=== PATIENT | male | born 1960 | race Caucasian/White ===

== ENCOUNTER 2022-09-20 12:54 | Outpatient (OUT) | payer OTHER, SELFPAY | END 2022-09-20 12:55 | LOC: WC 12:54 | PROVIDERS: PCP Internal Medicine; Visit Provider Podiatrist Foot & Ankle Surgery | DX: T81.89XA Other complications of procedures, not elsewhere classified, initial encounter (principal) | CPT/HCPCS: 11042; 99212; A6213; G0463 ==

== ENCOUNTER 2022-10-11 08:52 | Outpatient (OUT) | payer OTHER, SELFPAY | END 2022-10-11 08:53 | disposition home or self-care (01) | LOC: WC 08:52 | PROVIDERS: PCP Internal Medicine; Visit Provider Podiatrist Foot & Ankle Surgery | DX: T81.89XA Other complications of procedures, not elsewhere classified, initial encounter (principal); M21.6X1 Other acquired deformities of right foot; I10 Essential (primary) hypertension; M19.071 Primary osteoarthritis, right ankle and foot; M86.671 Other chronic osteomyelitis, right ankle and foot; M25.571 Pain in right ankle and joints of right foot; Z86.14 Personal history of Methicillin resistant Staphylococcus aureus infection; M76.821 Posterior tibial tendinitis, right leg; K21.9 Gastro-esophageal reflux disease without esophagitis | CPT/HCPCS: 11042; A6213 ==

== ENCOUNTER 2022-11-01 08:50 | Outpatient (OUT) | payer OTHER, SELFPAY ==
--- NOTE | 2022-11-01 09:02 | XR_ITS ---
[address] [address] Patient Name: ANIRUDH MANTILLA MRN: [id number] date: 1960 Sex: M Assigned Patient Location: [facility] Current Patient Location: [facility] Accession/Order Number: [id number] Exam Date: 11/01/2022 09:02 Report Date: 11/01/2022 09:35 At the request of: ANASTASIYA FOX Procedure: XR ankle RT min 3V PROCEDURE: XR foot RT min 3V, XR ankle RT min 3V COMPARISON: 07/28/2022 HISTORY: RIGHT FOOT PAIN FINDINGS: BONES:Posterior calcaneal osteotomy transfixed with a single cannulated screw which extends into the talus. Osteotomy and wedged spacer placement medial cuneiform. Lucency in the distal tibia likely from bone graft harvest. Severe degenerative changes of the talonavicular joint with bony remodeling. Diffuse permeative pattern of the bones SOFT TISSUES:Moderate hindfoot and midfoot soft tissue swelling. EFFUSION:None visible. OTHER: Negative. XR/XR ankle RT min 3V IMPRESSION: Stable postsurgical, degenerative changes and osteopenia Moderate hindfoot midfoot soft tissue swelling Electronically authenticated by: NADIA TINOCO Date: 11/01/2022 09:35
--- NOTE | 2022-11-01 09:02 | XR_ITS ---
[address] [address] Patient Name: ANIRUDH MANTILLA MRN: [id number] date: 1960 Sex: M Assigned Patient Location: [facility] Current Patient Location: [facility] Accession/Order Number: [id number] Exam Date: 11/01/2022 09:02 Report Date: 11/01/2022 09:35 At the request of: ANASTASIYA FOX Procedure: XR foot RT min 3V PROCEDURE: XR foot RT min 3V, XR ankle RT min 3V COMPARISON: 07/28/2022 HISTORY: RIGHT FOOT PAIN FINDINGS: BONES:Posterior calcaneal osteotomy transfixed with a single cannulated screw which extends into the talus. Osteotomy and wedged spacer placement medial cuneiform. Lucency in the distal tibia likely from bone graft harvest. Severe degenerative changes of the talonavicular joint with bony remodeling. Diffuse permeative pattern of the bones SOFT TISSUES:Moderate hindfoot and midfoot soft tissue swelling. EFFUSION:None visible. OTHER: Negative. XR/XR foot RT min 3V IMPRESSION: Stable postsurgical, degenerative changes and osteopenia Moderate hindfoot midfoot soft tissue swelling Electronically authenticated by: NADIA TINOCO Date: 11/01/2022 09:35
== END 2022-11-01 08:51 | disposition home or self-care (01) ==
LOC: RAD 08:51
PROVIDERS: PCP Internal Medicine; Visit Provider Podiatrist Foot & Ankle Surgery
DX: M79.89 Other specified soft tissue disorders (principal); M25.571 Pain in right ankle and joints of right foot
CPT/HCPCS: 36415; 73610; 73630; 80048; 85025; 85652; 86140

== ENCOUNTER 2022-11-01 10:20 | Outpatient (OUT) | payer OTHER, SELFPAY ==
[2022-11-01 10:48] LABS: Basophils Absolute Auto 0.1 10^3/uL (0.0-0.1); Basophils Percent Auto 0.6 % (0.2-2.0); Eosinophils Percent Auto 0.3 % (0.9-7.0); Hematocrit 39.1 % (42.0-54.0); Hemoglobin 13.6 g/dL (14.0-18.0); Immature Granulocytes Abs Auto 0.06 10^3/uL (0.00-0.03); Immature Granulocytes Pct Auto 0.5 % (0.0-0.5); Lymphocytes Absolute Auto 1.1 10^3/uL (1.2-3.8); Lymphocytes Percent Auto 8.9 % (20.5-60.0); Mean Corpuscular HGB Conc 34.8 g/dL (29.9-35.2); Mean Corpuscular Hemoglobin 32.6 pg (25.9-34.0); Mean Corpuscular Volume 93.8 fL (80.0-94.0); Mean Platelet Volume 10.4 fL (9.5-13.5); Monocytes Absolute Auto 0.9 10^3/uL (0.3-0.8); Monocytes Percent Auto 7.3 % (1.7-12.0); Neutrophils Absolute Auto 10.4 10^3/uL (1.4-6.5); Neutrophils Percent Auto 82.4 % (43.0-75.0); Platelet Count 269 10^3/uL (150-450); Red Blood Count 4.17 10^6/uL (4.70-6.10); Red Cell Distribution Width 13.6 % (11.0-15.0); White Blood Count 12.6 10^3/uL (4.0-11.0)
[2022-11-01 11:08] LABS: Erythrocyte Sedimentation Rate 115 mm/hr (<=20)
[2022-11-01 11:53] LABS: Anion Gap 18.7; BUN Creatinine Ratio 8.6; C Reactive Protein 29.8 mg/dL (<=1.0); Calcium 9.5 mg/dL (8.5-10.1); Carbon Dioxide 22.1 mmol/L (21.0-32.0); Chloride 94 mmol/L (98-107); Estimated GFR (African America >60 (>=60); Estimated GFR (Non-African Ame >60 (>=60); Glucose 87 mg/dL (74-106); Potassium 3.8 mmol/L (3.5-5.1); Sodium 131 mmol/L (136-145)
== END 2022-11-01 10:21 | disposition home or self-care (01) ==
LOC: LAB 10:22
PROVIDERS: PCP Internal Medicine; Visit Provider Podiatrist Foot & Ankle Surgery
DX: M79.89 Other specified soft tissue disorders (principal)
CPT/HCPCS: 36415; 80048; 85025; 85652; 86140

== ENCOUNTER 2022-11-15 18:23 | Observation (INO) | payer OTHER, SELFPAY ==
[2022-11-15] VITALS (32 sets, daily range): BP systolic 135–150; BP diastolic 90–95; PULSE 91–111; RESP 15–26; TEMP 36.2–36.9; O2SAT 94–100; BMI 30.9; BMI 31.1
[2022-11-15] MEDS: 0.9 % SODIUM CHLORIDE 1,000 ML 999 ML IV (19:35)
[2022-11-15] MEDS: FAMOTIDINE/PF 20 MG/2 ML VIAL IV (19:36)
[2022-11-15] MEDS: METHYLPREDNISOLONE SOD SUCC PF 125 MG/2 ML VIAL IVP (19:36)
[2022-11-15] MEDS: DIPHENHYDRAMINE HCL 50 MG/ML (1ML) VIAL 25 MG IV (19:36)
[2022-11-15] MEDS: ALBUTEROL SULFATE 2.5 MG/3 ML VIAL NEB IH (19:38)
--- NOTE | 2022-11-15 20:34 | ED_ITS ---
Documented by User: [email or web address] Yeager 11/15/22 20:59 HPI - Allergic Reaction General Chief complaint: Allergic Reaction Stated complaint: ALLERGIC REACTION Time Seen by Provider: 11/15/22 19:01 Source: patient Mode of arrival: walk-in History of Present Illness HPI narrative: patient is a 61-year-old male who presents to the emergency department for lower lip swelling that began this afternoon. Patient states for the last three days he has had hives to his arms and legs although he states at this time the hives have resolved. He states he noticed swelling of his lower lip this afternoon and was concerned because he has a history of angioedema that required intubation at this facility with an ICU stay. He states he was on was lisinopril that time and was thought to cause the angioedema. He denies any new exposures although he did recently have medications changed several weeks ago. He is currently on amlodipine for blood pressure and states he started a new arthritis medication. He took Benadryl just prior to arrival. Related Data Home Medications Medication Instructions Recorded Confirmed amlodipine 5 mg-olmesartan 20 mg 1 tab PO DAILY 11/15/22 11/15/22 tablet levothyroxine 200 mcg tablet 200 mcg PO DAILY 11/15/22 11/15/22 meloxicam 15 mg tablet 15 mg PO DAILY 11/15/22 11/15/22 oxaprozin 600 mg tablet 600 mg PO BID 11/15/22 11/15/22 Allergies Allergy/AdvReac Type Severity Reaction Status Date / Time lisinopril Allergy Severe Verified 11/15/22 18:57 Review of Systems ROS Constitutional Denies: fever or chills Ears, nose, mouth, and throat Denies: throat pain Respiratory Denies: shortness of breath or cough Gastrointestinal Denies: nausea or vomiting Musculoskeletal Denies: back pain Integumentary/Breast Reports: rash Allergic/Immunologic Reports: hives Exam Narrative Exam Narrative: Gen.: Awake, alert, in no distress Head: Normocephalic, atraumatic ENT: Moist mucous membranes, lower lip is edematous, no edema of the tongue. Airway widely open and patent. Clear speech. No stridor. Respiratory: No respiratory distress, lungs clear bilaterally Cardio: Regular rate and rhythm Extremities: Moves extremities equally, no injuries noted Psych: Normal mood and affect Neuro: No focal neuro deficit Skin: Warm, dry, intact; no urticaria noted Constitutional Vital Signs, click to edit/add: Last Vital Signs Temp 98.4 F 11/15/22 18:57 Pulse 104 H 11/15/22 19:45 Resp 20 11/15/22 19:45 BP 150/95 H 11/15/22 18:57 Pulse Ox 99 11/15/22 19:47 O2 Del Method Room Air 11/15/22 19:47 Course Vital Signs Vital signs: Vital Signs Temperature 98.4 F 11/15/22 18:57 Pulse Rate 111 H 11/15/22 18:57 Respiratory Rate 20 11/15/22 18:57 Blood Pressure 150/95 H 11/15/22 18:57 Pulse Oximetry 99 11/15/22 18:57 Oxygen Delivery Method Room Air 11/15/22 18:57 Temperature 98.4 F 11/15/22 18:57 Pulse Rate 104 H 11/15/22 19:45 Respiratory Rate 20 11/15/22 19:45 Blood Pressure 150/95 H 11/15/22 18:57 Pulse Oximetry 99 11/15/22 19:47 Oxygen Delivery Method Room Air 11/15/22 19:47 MDM - Allergic Reaction MDM Narrative Medical decision making narrative: patient was treated with IV fluids, Solu-Medrol, Pepcid, Benadryl. He was given an albuterol treatment. He still feels as though his lip is slightly more swollen although he has no tongue involvement or airway involvement with stable vital signs in the Emergency Room. FFP was ordered for the patient with basic lab studies. Because of the patient's history, we do not feel comfortable sending the patient home and will admit to ICU. Dr. Barba will be available tomorrow if the patient requires emergent intubation overnight. He was reevaluated by Dr. De Leon prior to admission. discussed with Dr. garces for hospitalist service. Patient will be admitted to ICU for observation. Stable at this time. Medical Records Attestation: I reviewed the patient's medical records. Lab Data Attestation: I reviewed the patient's lab results. Discharge Plan Discharge Chief Complaint: Allergic Reaction Clinical Impression: Angioedema Patient Disposition: Admitted as Observation Time of Disposition Decision: 20:59 Discharge Date/Time: 11/15/22 22:02 Documented by User: Britta De Leon MD 11/15/22 23:12 HPI - Allergic Reaction General Chief complaint: Allergic Reaction Stated complaint: ALLERGIC REACTION Time Seen by Provider: 11/15/22 19:01 Related Data Home Medications Medication Instructions Recorded Confirmed amlodipine 5 mg-olmesartan 20 mg 1 tab PO DAILY 11/15/22 11/15/22 tablet levothyroxine 200 mcg tablet 200 mcg PO DAILY 11/15/22 11/15/22 meloxicam 15 mg tablet 15 mg PO DAILY 11/15/22 11/15/22 oxaprozin 600 mg tablet 600 mg PO BID 11/15/22 11/15/22 Allergies Allergy/AdvReac Type Severity Reaction Status Date / Time lisinopril Allergy Severe Verified 11/15/22 18:57 Exam Constitutional Vital Signs, click to edit/add: Last Vital Signs Temp 98.4 F 11/15/22 18:57 Pulse 104 H 11/15/22 19:45 Resp 20 11/15/22 19:45 BP 150/95 H 11/15/22 18:57 Pulse Ox 99 11/15/22 19:47 O2 Del Method Room Air 11/15/22 19:47 Course Vital Signs Vital signs: Vital Signs Temperature 98.4 F 11/15/22 18:57 Pulse Rate 111 H 11/15/22 18:57 Respiratory Rate 20 11/15/22 18:57 Blood Pressure 150/95 H 11/15/22 18:57 Pulse Oximetry 99 11/15/22 18:57 Oxygen Delivery Method Room Air 11/15/22 18:57 Temperature 98.4 F 11/15/22 18:57 Pulse Rate 104 H 11/15/22 19:45 Respiratory Rate 20 11/15/22 19:45 Blood Pressure 150/95 H 11/15/22 18:57 Pulse Oximetry 99 11/15/22 19:47 Oxygen Delivery Method Room Air 11/15/22 19:47 MDM - Allergic Reaction MDM Narrative Medical decision making narrative: patient was treated with IV fluids, Solu-Medrol, Pepcid, Benadryl. He was given an albuterol treatment. He still feels as though his lip is slightly more swollen although he has no tongue involvement or airway involvement with stable vital signs in the Emergency Room. FFP was ordered for the patient with basic lab studies. Because of the patient's history, we do not feel comfortable sending the patient home and will admit to ICU. Dr. Barba will be available tomorrow if the patient requires emergent intubation overnight. He was reevaluated by Dr. De Leon prior to admission. discussed with Dr. garces for hospitalist service. Patient will be admitted to ICU for observation. Stable at this time. Attending physician attestation I have seen and evaluated this patient. I have reviewed the mid-level provider?s documentation medical decision making and treatment plan. I agree with the mid- level provider?s assessment, and plan. Discharge Plan Discharge Chief Complaint: Allergic Reaction Clinical Impression: Angioedema Patient Disposition: Admitted as Observation Time of Disposition Decision: 20:59 Discharge Date/Time: 11/15/22 22:02
[2022-11-15 20:39] LABS: Basophils Absolute Auto 0.1 10^3/uL (0.0-0.1); Basophils Percent Auto 0.5 % (0.2-2.0); Eosinophils Absolute Auto 0.2 10^3/uL (0.0-0.7); Eosinophils Percent Auto 1.8 % (0.9-7.0); Hemoglobin 13.8 g/dL (14.0-18.0); Immature Granulocytes Abs Auto 0.04 10^3/uL (0.00-0.03); Immature Granulocytes Pct Auto 0.4 % (0.0-0.5); Lymphocytes Absolute Auto 1.3 10^3/uL (1.2-3.8); Lymphocytes Percent Auto 12.7 % (20.5-60.0); Mean Corpuscular HGB Conc 34.5 g/dL (29.9-35.2); Mean Corpuscular Volume 95.7 fL (80.0-94.0); Mean Platelet Volume 11.6 fL (9.5-13.5); Monocytes Absolute Auto 0.5 10^3/uL (0.3-0.8); Monocytes Percent Auto 5.1 % (1.7-12.0); Neutrophils Absolute Auto 8.2 10^3/uL (1.4-6.5); Neutrophils Percent Auto 79.5 % (43.0-75.0); Platelet Count 294 10^3/uL (150-450); Red Blood Count 4.18 10^6/uL (4.70-6.10); Red Cell Distribution Width 14.6 % (11.0-15.0); White Blood Count 10.4 10^3/uL (4.0-11.0)
[2022-11-15 20:44] LABS: INR 0.97; Prothrombin Time 10.3 sec (9.0-11.6)
[2022-11-15 20:58] LABS: Partial Thromboplastin Time 32.6 sec (22.3-36.2)
[2022-11-16] VITALS (31 sets, daily range): BP systolic 118–152; BP diastolic 85–99; PULSE 85–109; RESP 14–38; TEMP 36.7; O2SAT 96–98
--- NOTE | 2022-11-16 03:27 | P.PN_ITS ---
Progress Note: Subjective Subjective Interval history: CC: Swelling of the lower lip and tongue HPI: This is a very pleasant 61 years old male who presented to emergency room with above complaints. Patient has had episode of angioedema in the past when he was taking ENA inhibitor. That being changed. No recent changes in the patient's medications. He has been on the same regiment for months and months now. On my questioning patient denied using any new toothpaste, mouthwash or any other products that he can think about. Apparently on presentation to the emergency room patient found to have swollen lower lip and tongue. He received complex treatment and seems to be responding well. His symptoms subsided. He been placed under observation for precautions montes. Patient denies any chest pain, palpitations, shortness of breath. His voice is normal. Exam Narrative Exam Narrative: Physical Exam: Not in distress, pleasant, lucid, cooperative, Head - atraumatic, eyes - pupils equal, round, reactive to light, extra ocular movement intact, MMM Neck - supple, thyroid not enlarged, LN not palpated Lungs - clear to auscultation, no dullness on percussion CVS - heart sounds S1, S2, no additional murmurs gallop, regular rate and rhythm Gastrointestinal?abdomen is soft, non-tender, non-distended, no organomegaly, positive bowel sounds Extremities no clubbing, cyanosis or edema Neurological?cranial nerve II?XII grossly intact, no meningeal signs, no cerebellar signs, no sensory deficit Musculoskeletal - joints, no effusions, ROM preserved Dermatological - the skin dry, warm, no rashes Psychiatric?patient is AAO X3, patient has normal affect Constitutional Vital Signs, click to edit/add: Last Vital Signs Temp 97.1 F L 11/15/22 22:38 Pulse 89 11/16/22 02:06 Resp 17 11/15/22 23:20 BP 135/90 11/15/22 23:17 Pulse Ox 97 11/15/22 23:20 O2 Del Method Room Air 11/15/22 22:38 Progress Note: Objective Labs Labs: Short CBC 11/15/22 Range/Units 19:20 WBC 10.4 (4.0-11.0) 10^3/uL Hgb 13.8 L (14.0-18.0) g/dL Hct 40.0 L (42.0-54.0) % Plt Count 294 (150-450) 10^3/uL Progress Note: A&P Assessment and Plan (1) Angioedema: Assessment and Plan: Continue close monitoring in ICU I did not give patient fresh frozen plasma since his symptoms resolved after administration of Benadryl, Pepcid, steroids It is hard to say which 1 of patient's medications has been the culprit but I suspect combination of Norvasc and ARB?hold that if possible (2) HTN (hypertension): Assessment and Plan: Restart home medications with the exception of discussed above. Adjust as needed Plan As the provider for the telehealth service, I attest that I introduced myself to the patient, provided my credentials, disclosed by location and determined that based on a review of the patient's chart and discussion with members of the patient's treatment team, telemedicine via real-time, 2 way, and interactive audio and video platform is an appropriate and effective means of providing the service. ?The patient and I mutually agree this visit is appropriate for telemedicine. ?[place] ?The encounter took approximately 35 minutes. ?The nurse was present during the entire time and I was able to move the stethoscope in appropriate directions. ?The patient was evaluated at the Hospital ? Portions of this note may be dictated using [employer] voice recognition software. Variances in spelling and vocabulary are possible and unintentional. Not all errors may be caught and/or corrected. Please notify the author if any discrepancies are noted and/or if the meaning of any statement is unclear.? ? Patient verbally consented for treatment via video visit with patient currently located at [facility] and provider located in [place]. Telemedicine Attestation Telemedicine Attestation I conducted this encounter from [place] via secure live, [id number] video conference with the patient, located at [facility] with [Angio edema]. Prior to the interview, the risks and benefits of telemedicine were discussed with the patient and verbal consent was obtained.
[2022-11-16 04:22] LABS: Basophils Percent Auto 0.1 % (0.2-2.0); Hematocrit 38.9 % (42.0-54.0); Hemoglobin 13.3 g/dL (14.0-18.0); Immature Granulocytes Abs Auto 0.05 10^3/uL (0.00-0.03); Immature Granulocytes Pct Auto 0.6 % (0.0-0.5); Lymphocytes Absolute Auto 0.3 10^3/uL (1.2-3.8); Lymphocytes Percent Auto 3.6 % (20.5-60.0); Mean Corpuscular HGB Conc 34.2 g/dL (29.9-35.2); Mean Corpuscular Hemoglobin 33.1 pg (25.9-34.0); Mean Corpuscular Volume 96.8 fL (80.0-94.0); Mean Platelet Volume 10.5 fL (9.5-13.5); Monocytes Percent Auto 0.4 % (1.7-12.0); Neutrophils Absolute Auto 8.6 10^3/uL (1.4-6.5); Neutrophils Percent Auto 95.3 % (43.0-75.0); Platelet Count 250 10^3/uL (150-450); Red Blood Count 4.02 10^6/uL (4.70-6.10); Red Cell Distribution Width 14.3 % (11.0-15.0)
[2022-11-16 04:33] LABS: Anion Gap 16.1; BUN Creatinine Ratio 20.5; Carbon Dioxide 19.9 mmol/L (21.0-32.0); Chloride 96 mmol/L (98-107); Estimated GFR (African America >60 (>=60); Estimated GFR (Non-African Ame >60 (>=60); Glucose 166 mg/dL (74-106); Sodium 128 mmol/L (136-145)
[2022-11-16] MEDS: FAMOTIDINE/PF 20 MG/2 ML VIAL IV (05:14)
[2022-11-16] MEDS: LEVOTHYROXINE SODIUM 100 MCG TABLET 200 MCG PO (05:35)
[2022-11-16] MEDS: METHYLPREDNISOLONE SOD SUCC PF 125 MG/2 ML VIAL IVP (06:54)
--- NOTE | 2022-11-16 08:57 | PM.HP ---
H&P: HPI History of Present Illness Chief complaint: ALLERGIC REACTION ANGIODEMA Narrative: Patient with a history of angioedema from ENA inhibitor presented to the emergency room with hives but also swelling of his lips. Patient was admitted to the ICU secondary to concern for rapid progression as he had previously with his ENA inhibitor. Patient currently taking Norvasc with olmesartan. Meds Home Medications and Allergies Home Medications Medication Instructions Recorded Confirmed Type levothyroxine 200 mcg tablet 200 mcg PO DAILY 11/15/22 11/15/22 History meloxicam 15 mg tablet 15 mg PO DAILY 11/15/22 11/15/22 History amlodipine 5 mg tablet 5 mg PO DAILY #30 tabs 11/16/22 Rx omeprazole 40 mg capsule,delayed 40 mg PO DAILY 11/16/22 11/16/22 History release prednisone 20 mg tablet 60 mg PO DAILY #12 tabs 11/16/22 Rx Allergies Allergy/AdvReac Type Severity Reaction Status Date / Time lisinopril Allergy Severe Verified 11/15/22 18:57 Exam Constitutional Vital Signs, click to edit/add: Last Vital Signs Temp 98.0 F 11/16/22 08:03 Pulse 86 11/16/22 08:03 Resp 16 11/16/22 08:03 BP 152/99 H 11/16/22 08:03 Pulse Ox 98 11/16/22 08:03 O2 Del Method Room Air 11/16/22 08:03 Documenting provider has reviewed patient's vital signs: yes Common normals: no apparent distress Chest Common normals: inspection of chest normal Respiratory Common normals: normal respiratory effort Cardio Common normals: regular rate and regular rhythm Results Labs Labs: Short CBC 11/15/22 11/16/22 Range/Units 19:20 04:05 WBC 10.4 9.0 (4.0-11.0) 10^3/uL Hgb 13.8 L 13.3 L (14.0-18.0) g/dL Hct 40.0 L 38.9 L (42.0-54.0) % Plt Count 294 250 (150-450) 10^3/uL BMP 11/16/22 04:05 Sodium 128 L Potassium 4.0 Chloride 96 L Carbon Dioxide 19.9 L BUN 17.0 Creatinine 0.83 Glucose 166 H Calcium 9.0 Assessment and Plan Assessment and Plan (1) Angioedema: (2) HTN (hypertension): Plan Patient with a significant history of angioedema, requiring ventilation prior. This was secondary to ENA inhibitor. He was placed on an ARB. At this point time we are recommending him to not continue with the olmesartan. We will continue him on Norvasc. We will maintain prednisone for a few days because he did have hives. Recommend follow-up with his PCP within the next week to follow-up for his blood pressure control. Medication status. Overall patient much improved
--- NOTE | 2022-11-16 10:00 | CM.NOTE ---
Rounds made with Dr. Hutchins. Medication changes discussed with Brayan--will discharge on Prednisone and Norvasc. Mr. Schmidt verbalizes understanding. Plan for discharge today.
--- NOTE | 2022-11-22 14:57 | CM.DCFOLLOWU ---
3 discharge follow up calls made, no answer
== END 2022-11-16 09:23 | disposition home or self-care (01) ==
LOC: ER 21:48 → ICU 22:33
PROVIDERS: Physician Assistant; Admitting Provider Internal Medicine; Emergency Provider Emergency Medicine; PCP Internal Medicine; Visit Provider Family Medicine
DX: T78.3XXA Angioneurotic edema, initial encounter (principal); I10 Essential (primary) hypertension; T46.5X5A Adverse effect of other antihypertensive drugs, initial encounter; Z79.899 Other long term (current) drug therapy; Z79.890 Hormone replacement therapy
CPT/HCPCS: 36415; 80048; 85025; 85610; 85730; 86900; 86901; 86927; 94640; 94761; 96374; 96375; 96376; 99285; G0378; J2930; Q3014

== ENCOUNTER 2022-11-22 12:12 | Outpatient (OUT) | payer OTHER, SELFPAY ==
--- NOTE | 2022-11-22 12:11 | XR_ITS ---
The [address] [address] Patient Name: ANIRUDH MANTILLA MRN: [id number] date: 1960 Sex: M Assigned Patient Location: [facility] Current Patient Location: [facility] Accession/Order Number: [id number] Exam Date: 11/22/2022 12:11 Report Date: 11/22/2022 15:14 At the request of: ANASTASIYA FOX Procedure: XR foot RT min 3V STUDY: XR foot RT min 3V, [id number] HISTORY: RIGHT FOOT PAIN COMPARISON: Right foot x-rays 11/01/2022. FINDINGS: No acute fracture, dislocation, or suspicious osseous lesion. Diffuse osseous demineralization. Calcaneal osteotomy with talocalcaneal arthrodesis, similar. Medial cuneiform osteotomy similar. 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 Mild focal soft tissue swelling of the dorsal foot, mildly worse compared with 11/01/2022. No radiopaque foreign body or calcified soft tissue mass. XR/XR foot RT min 3V IMPRESSION: 1. Mildly worsening soft tissue swelling of the dorsal foot. 2. Remainder of the exam is stable. Electronically authenticated by: BLAKE LEE Date: 11/22/2022 15:14
== END 2022-11-22 12:13 | disposition home or self-care (01) ==
LOC: RAD 12:12
PROVIDERS: PCP Internal Medicine; Visit Provider Podiatrist Foot & Ankle Surgery
DX: M19.071 Primary osteoarthritis, right ankle and foot (principal); M79.89 Other specified soft tissue disorders
CPT/HCPCS: 73630

== ENCOUNTER 2022-11-23 14:22 | Outpatient (OUT) | payer OTHER, SELFPAY ==
--- NOTE | 2022-11-23 14:26 | CT_ITS ---
The [address] [address] Patient Name: ANIRUDH MANTILLA MRN: [id number] date: 1960 Sex: M Assigned Patient Location: CT Current Patient Location: CT Accession/Order Number: [id number] Exam Date: 11/23/2022 14:30 Report Date: 11/23/2022 16:21 At the request of: ANASTASIYA FOX Procedure: CT ankle RT wo con EXAM: CT ankle RT wo con HISTORY: Ankle pain COMPARISON: X-rays 11/22/2022 and 11/01/2022 TECHNIQUE: Axial CT imaging is performed. Sagittal and coronal reformatted/reconstructed sequencing was additionally performed. FINDINGS: IMPRESSION: Patient is status post calcaneal osteotomy and attempted retrograde talocalcaneal arthrodesis. The osteotomy site exhibits only partial osseous incorporation of approximately the cephalad 50%. A single retrograde screw exhibits no fracture. There has been removal of the caudal retrograde screw. There is no osseous incorporation of the posterior subtalar joint. Patient has additionally undergone osteotomy of the medial cuneiform. The internal wedge appears to have subluxed lateral from the medial cuneiform with secondary erosion into the lateral cuneiform. Severe chronic fragmentation of the navicular and talar head. 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 Defect within the distal tibia raising the suspicion of a bone graft harvest site. The talocrural articulation is maintained. Scattered subcutaneous soft tissue edema. 30 transverse x 17.7 AP by at least 31 mm craniocaudal fluid collection within the dorsal soft tissues overlying the first tarsometatarsal articulation, medial cuneiform and metatarsal base. Global muscle fatty infiltration. Electronically authenticated by: NADIA VAZ Date: 11/23/2022 16:21
== END 2022-11-23 14:23 | disposition home or self-care (01) ==
LOC: CT 14:22
PROVIDERS: PCP Internal Medicine; Visit Provider Podiatrist Foot & Ankle Surgery
DX: M19.071 Primary osteoarthritis, right ankle and foot (principal); M86.671 Other chronic osteomyelitis, right ankle and foot; T81.31XD Disruption of external operation (surgical) wound, not elsewhere classified, subsequent encounter; R93.6 Abnormal findings on diagnostic imaging of limbs; M79.89 Other specified soft tissue disorders; Z98.890 Other specified postprocedural states; Z96.7 Presence of other bone and tendon implants
CPT/HCPCS: 73700

== ENCOUNTER 2022-12-23 09:20 | Outpatient (OUT) | payer OTHER, SELFPAY ==
--- NOTE | 2022-12-23 | XR_ITS ---
The [address] [address] Patient Name: ANIRUDH MANTILLA MRN: [id number] date: 1960 Sex: M Assigned Patient Location: [facility] Current Patient Location: [facility] Accession/Order Number: [id number] Exam Date: 12/23/2022 09:42 Report Date: 12/23/2022 10:44 At the request of: ANASTASIYA FOX Procedure: XR foot RT min 3V PROCEDURE: XR foot RT min 3V HISTORY: RIGHT FOOT PAIN COMPARISON: XR foot right 11/22/2022 FINDINGS: BONES:Posterior calcaneal osteotomy and repair along with fusion of the talocalcaneal joint. Osteotomy and wedge placement within the medial cuneiform. Advanced degenerative changes of the talonavicular joint. Mild flattening of plantar arch. SOFT TISSUES:Proximal dorsal soft tissue swelling; increased since prior study. EFFUSION:None visible. OTHER: Negative. XR/XR foot RT min 3V IMPRESSION: 1. Stable surgical changes and degenerative changes without evidence of hardware failure or change in alignment. 2. Increase in dorsal soft tissue swelling of uncertain etiology. Electronically authenticated by: MAO CATHERINE Date: 12/23/2022 10:44
== END 2022-12-23 09:21 | disposition home or self-care (01) ==
LOC: RAD 09:20
PROVIDERS: PCP Internal Medicine; Visit Provider Podiatrist Foot & Ankle Surgery
DX: M79.671 Pain in right foot (principal)
CPT/HCPCS: 73630

== ENCOUNTER 2022-12-23 12:30 | Outpatient (OUT) | payer OTHER, SELFPAY ==
--- NOTE | 2022-12-23 13:17 | ECG_ITS ---
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
== END 2022-12-23 12:31 | disposition home or self-care (01) ==
LOC: PST 12:31
PROVIDERS: PCP Internal Medicine; Visit Provider Podiatrist Foot & Ankle Surgery
DX: Z01.810 Encounter for preprocedural cardiovascular examination (principal); L02.611 Cutaneous abscess of right foot; M79.671 Pain in right foot
CPT/HCPCS: 73630; 93005

== ENCOUNTER 2022-12-26 07:40 | Day surgery (SDC) | payer OTHER, SELFPAY ==
[2022-12-23 13:02] VITALS: BP 162/90; PULSE 85; RESP 20; TEMP 36.2; O2SAT 98; BMI 31.7
[2022-12-26] VITALS (8 sets, daily range): BP systolic 129–172; BP diastolic 81–112; PULSE 78–112; RESP 12–18; TEMP 36.2–36.3; O2SAT 92–97; BMI 31.2
[2022-12-26 08:20] LABS: Glucometer 96 mg/dL (74-106)
[2022-12-26] MEDS: LACTATED RINGER'S SOLUTION 1,000 ML 50 ML IV (08:25)
[2022-12-26] MEDS: VANCOMYCIN HCL 1,000 MG VIAL 1000 MG TOPICAL (10:32)
[2022-12-26] MEDS: CEFAZOLIN SODIUM/DEXTROSE,ISO 2 GM/50 ML PIGGYBACK IV (10:32)
[2022-12-26] MEDS: BUPIVACAINE HCL 0.5% PF 50 MG/10 ML VIAL INJ (10:35)
[2022-12-26 10:53] LABS: Glucometer 71 mg/dL (74-106)
--- NOTE | 2022-12-26 12:04 | P.ORON_ITS ---
Brief Operative Note Date of procedure: 12/26/22 Pre-op diagnosis: left foot abscess Post-op diagnosis: same as pre-op Procedure: PROCEDURES PERFORMED: incision and drainage of deep left foot abscess INTRAOPERATIVE FINDINGS: no ulceration or break in skin. 2 x 1.5 cm fluctuance fluid-filled mass on dorsal left footwhich upon incision abscess was evident. Pus was noted in the fascial planes and adjacent to tendons but no tendon involvement and no communication with bone. Bone biopsy revealed sclerotic bone. PROCEDURE IN DETAIL: Patient was identified in pre op and consent was reviewed. Correct side and site were identified and marked. Pre-op antibiotics were started. Patient was brought to OR suite and place on table in a supine position. General anesthesia was administered. Tourniquet applied. Operative extremity was prepped and draped in usual sterile fashion. Formal time-out was performed and the foot/ankle were elevated for several minutes and the tourniquet was inflated. Utilizing a scalpel, an incision was placed on the dorsal medial foot evacuating approximately 3 mL of purulence. All nonviable tissue was sharply excised and a tissue swab was obtained of the purulence to be sent to [facility]. Blunt dissection with a hemostat was performed to ensure no additional purulence or necrotic tissue was present. pus did not communicate with tendon or bone. After full excision the surgical site was irrigated with 3 L of copious sterile saline. Gloves were changed and all dirty instruments were passed off the sterile field. then deeper dissection over the dorsal navicular and medial cuneiform was performed. A clean rongeur was used to obtain bone from the navicular and medial cuneiform. Surgical site was irrigated copiously and the tourniquet was deflated noting a prompt hyperemic response. All remaining tissue blood appropriately. 1 g of vancomycin powder placed into the surgical siteThe incision was then partially closed leaving a 1.5 cm central aspect open which was packed with plain gauze packing soaked in Betadine. A bulky dry sterile dressing and surgical shoe were then applied. Patient tolerated the procedure and anesthesia well transferred to the recovery room with vital signs stable and brisk capillary refill to the toes. POSTOPERATIVE PLAN: Discharge home under family's care Post op instructions provided verbally and written prescription(s) were placed in chart - Augmentin and Bactrim were prescribed which will be changed pending cultures partial protected weightbearing to operative foot/ankle x3 wks Follow-up within 3-5 days for packing change Implants: none Anesthesia: General-LMA Surgeon: Cy Frankel Laborer Prestressed Concrete: Shahid Carbajal Estimated blood loss (mL): 10 Pathology: other (bone from navicular and soft tissue swabs) Condition: stable Disposition: PACU Preoperative Details Reason for procedure: patient is a 61-year-old male who underwent hindfoot fusion in January 2022. His recovery was complicated by dehiscence of medial foot incision and concern for infection. He subsequently underwent hardware removal and cultures at that time were negative. 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 He presented to my office on 12/23/22 relating to a mass on his dorsal left foot. at that visit she had no erythema and mild tenderness however on exam this mass was fluctuant and there is concern for abscess versus seroma. 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 We did not been on antibiotics for over three weeks therefore I recommended incision and drainage of this mass with biopsy and the patient agreed. He was educated on potential risks and benefits and all questions were answered to satisfaction.
== END 2022-12-26 11:54 | disposition home or self-care (01) ==
PROVIDERS: PCP Internal Medicine; Visit Provider Podiatrist Foot & Ankle Surgery
PROC: (CPT 1470; principal; 2022-12-26 08:40)
DX: L02.611 Cutaneous abscess of right foot (principal); M65.071 Abscess of tendon sheath, right ankle and foot; M86.171 Other acute osteomyelitis, right ankle and foot; M86.671 Other chronic osteomyelitis, right ankle and foot; Z79.82 Long term (current) use of aspirin; Z79.899 Other long term (current) drug therapy; Z86.14 Personal history of Methicillin resistant Staphylococcus aureus infection; Z87.891 Personal history of nicotine dependence; I10 Essential (primary) hypertension; K21.9 Gastro-esophageal reflux disease without esophagitis; M76.821 Posterior tibial tendinitis, right leg; M19.071 Primary osteoarthritis, right ankle and foot; S86.111S Strain of other muscle(s) and tendon(s) of posterior muscle group at lower leg level, right leg, sequela; M21.071 Valgus deformity, not elsewhere classified, right ankle; M21.6X1 Other acquired deformities of right foot
CPT/HCPCS: 28002; 36415; 82948; 87070; 87102; 87116; 87150; 87186; 87205; 87206; 88305; 88311; 99999; J2704; J3370

== ENCOUNTER 2023-01-06 09:00 | Outpatient (OUT) | payer OTHER, SELFPAY | END 2023-01-06 09:01 | disposition home or self-care (01) | LOC: WC 09:00 | PROVIDERS: PCP Internal Medicine; Visit Provider Podiatrist Foot & Ankle Surgery | DX: T81.89XA Other complications of procedures, not elsewhere classified, initial encounter (principal) | CPT/HCPCS: A6199; A6213; G0463 ==

== ENCOUNTER 2023-01-13 10:07 | Outpatient (OUT) | payer OTHER, SELFPAY | END 2023-01-13 10:08 | disposition home or self-care (01) | LOC: WC 10:08 | PROVIDERS: PCP Internal Medicine; Visit Provider Podiatrist Foot & Ankle Surgery | DX: T81.89XA Other complications of procedures, not elsewhere classified, initial encounter (principal) | CPT/HCPCS: 11042; A6213 ==

== ENCOUNTER 2023-01-24 13:47 | Outpatient (OUT) | payer OTHER, SELFPAY ==
[2023-01-24 14:21] LABS: Basophils Absolute Auto 0.1 10^3/uL (0.0-0.1); Basophils Percent Auto 0.4 % (0.2-2.0); Eosinophils Absolute Auto 0.2 10^3/uL (0.0-0.7); Eosinophils Percent Auto 1.4 % (0.9-7.0); Hematocrit 42.1 % (42.0-54.0); Hemoglobin 14.6 g/dL (14.0-18.0); Immature Granulocytes Abs Auto 0.05 10^3/uL (0.00-0.03); Immature Granulocytes Pct Auto 0.4 % (0.0-0.5); Lymphocytes Absolute Auto 1.5 10^3/uL (1.2-3.8); Lymphocytes Percent Auto 13.2 % (20.5-60.0); Mean Corpuscular HGB Conc 34.7 g/dL (29.9-35.2); Mean Corpuscular Volume 98.1 fL (80.0-94.0); Monocytes Absolute Auto 0.7 10^3/uL (0.3-0.8); Monocytes Percent Auto 6.2 % (1.7-12.0); Neutrophils Absolute Auto 9.1 10^3/uL (1.4-6.5); Neutrophils Percent Auto 78.4 % (43.0-75.0); Platelet Count 226 10^3/uL (150-450); Red Blood Count 4.29 10^6/uL (4.70-6.10); Red Cell Distribution Width 13.7 % (11.0-15.0); White Blood Count 11.6 10^3/uL (4.0-11.0)
[2023-01-24 14:28] LABS: Erythrocyte Sedimentation Rate 103 mm/hr (<=20)
[2023-01-24 14:34] LABS: Alanine Aminotransferase 68 U/L (16-63); Albumin Globulin Ratio 0.8; Albumin Level 3.5 g/dL (3.4-5.0); Alkaline Phosphatase 90 U/L (46-116); Anion Gap 10.4; Aspartate Amino Transferase 55 U/L (15-37); BUN Creatinine Ratio 12.4; Bilirubin Total 0.4 mg/dL (0.2-1.0); C Reactive Protein 3.5 mg/dL (<=1.0); Calcium 9.3 mg/dL (8.5-10.1); Carbon Dioxide 26.6 mmol/L (21.0-32.0); Chloride 100 mmol/L (98-107); Estimated GFR (African America >60 (>=60); Estimated GFR (Non-African Ame >60 (>=60); Globulin 4.6 g/dL; Glucose 108 mg/dL (74-106); Sodium 133 mmol/L (136-145); Total Protein 8.1 g/dL (6.4-8.2)
== END 2023-01-24 13:48 | disposition home or self-care (01) ==
LOC: LAB 13:49
PROVIDERS: PCP Internal Medicine; Visit Provider Internal Medicine Infectious Disease
DX: M86.671 Other chronic osteomyelitis, right ankle and foot (principal)
CPT/HCPCS: 36415; 80053; 85025; 85652; 86140

== ENCOUNTER 2023-01-24 16:00 | Outpatient (OUT) | payer OTHER, SELFPAY | END 2023-01-24 16:01 | disposition home or self-care (01) | LOC: WC 16:01 | PROVIDERS: PCP Internal Medicine; Visit Provider Podiatrist Foot & Ankle Surgery | DX: M86.671 Other chronic osteomyelitis, right ankle and foot (principal); T81.89XA Other complications of procedures, not elsewhere classified, initial encounter | CPT/HCPCS: 36415; 80053; 85025; 85652; 86140; G0463 ==

== ENCOUNTER 2023-02-21 13:05 | Outpatient (OUT) | payer OTHER, SELFPAY ==
[2023-02-21 13:53] LABS: Erythrocyte Sedimentation Rate 75 mm/hr (<=20)
[2023-02-21 14:43] LABS: Alanine Aminotransferase 42 U/L (16-63); Albumin Globulin Ratio 0.8; Albumin Level 3.5 g/dL (3.4-5.0); Alkaline Phosphatase 77 U/L (46-116); Anion Gap 12.6; Aspartate Amino Transferase 30 U/L (15-37); BUN Creatinine Ratio 18.8; Bilirubin Total 0.4 mg/dL (0.2-1.0); C Reactive Protein 0.9 mg/dL (<=1.0); Calcium 9.3 mg/dL (8.5-10.1); Carbon Dioxide 25.8 mmol/L (21.0-32.0); Chloride 99 mmol/L (98-107); Estimated GFR (African America >60 (>=60); Estimated GFR (Non-African Ame 57 (>=60); Globulin 4.2 g/dL; Glucose 106 mg/dL (74-106); Potassium 4.4 mmol/L (3.5-5.1); Sodium 133 mmol/L (136-145); Total Protein 7.7 g/dL (6.4-8.2)
== END 2023-02-21 13:06 | disposition home or self-care (01) ==
LOC: LAB 13:06
PROVIDERS: PCP Internal Medicine; Visit Provider Internal Medicine Infectious Disease
DX: M86.671 Other chronic osteomyelitis, right ankle and foot (principal)
CPT/HCPCS: 36415; 80053; 85652; 86140

== ENCOUNTER 2023-03-30 07:35 | Outpatient (OUT) | payer OTHER, SELFPAY ==
[2023-03-30 08:18] LABS: C Reactive Protein 0.86 mg/dL (<=0.50)
[2023-03-30 08:55] LABS: Erythrocyte Sedimentation Rate 55 mm/hr (<=20)
== END 2023-03-30 07:36 | disposition home or self-care (01) ==
LOC: LAB 07:36
PROVIDERS: PCP Internal Medicine; Visit Provider Internal Medicine Infectious Disease
DX: M86.671 Other chronic osteomyelitis, right ankle and foot (principal)
CPT/HCPCS: 36415; 85652; 86140

== ENCOUNTER 2024-02-04 05:25 | Emergency (ER) | payer SELFPAY ==
[2024-02-04] VITALS (28 sets, daily range): BP systolic 77–176; BP diastolic 54–110; PULSE 70–93; TEMP 36.7; O2SAT 97–98; BMI 30.4
--- OUTSIDE RECORDS SUMMARY | 2024-02-04 05:32 | XMS_ITS | CCD ---
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 Role Phone Caty Donahue Unavailable Unavailable VISH DELUCA Unavailable Unavailable Caty Donahue Unavailable Unavailable NATASHA Deluca Primary Care Provider [phone] NATASHA Deluca Attending Provider TOMER Pan Attending Provider EBRAHEIM, SERGIO Admitting Unavailable TEMI, SERGIO Attending Unavailable VISH DELUCA Primary Care Unavailable VISH DELUCA Referring Unavailable NASIR PAN Admitting Unavailable NASIR PAN Referring Unavailable NASIR PAN Attending Unavailable VISH DELUCA Primary Care Unavailable NASIR PAN Attending Unavailable VISH DELUCA Referring Unavailable VISH DELUCA Primary Care Unavailable NASIR PAN Admitting Unavailable NASIR PAN Admitting Unavailable NASIR PAN Attending Unavailable VISH DELUCA Referring Unavailable VISH DELUCA Primary Care Unavailable EBRAHEIM, SERGIO Attending Unavailable EBRAHEIM, SERGIO Admitting Unavailable EBHEIM, SERGIO Surgeon Unavailable VISH DELUCA Primary Care Unavailable VISH DELUCA Referring Unavailable HI Procedure Practitioner Unavailab VISH Majano Referring Unavailable EBRAHEIM, SERGIO Admitting Unavailable EBRAHEIM, SERGIO Attending Unavailable VISH DELUCA Primary Care Unavailable ANASTASIYA FOX Admitting Unavailable ANASTASIYA FOX Attending Unavailable DR MAO CATHERINE Consulting Unavailable YOSI, DR JJ Primary Care Unavailable ANASTASIYA FOX Consulting Unavailable ANASTASIYA FOX Consulting Unavailable ANASTASIYA FOX Admitting Unavailable ANASTASIYA FOX Attending Unavailable YOSI, DR JJ Primary Care Unavailable VISH HERNANDEZ Consulting Unavailable JERZY GUTIERREZ Consulting Unavailable JADEN GASCA Consulting Unavailable ANA ., MR ALEJA Admitting Unavailable ANA ., MR ALEJA Attending Unavailable YOSI, DR JJ Primary Care Unavailable ANASTASIYA FOX Admitting Unavailable HIGHLANDER, ANASTASIYA Rodriguez Attending Unavailable HIGHLANDER, ANASTASIYA Rodriguez Consulting Unavailable DELUCA, DR JJ Primary Care Unavailable OLIVERADEVONTE Consulting Unavailable HEMMERHERMINIA Consulting Unavailable HEMMER, HERMINIA Rodgers Admitting Unavailable HEMMERHERMINIA Attending Unavailable DELUCA, DR JJ Primary Care Unavailable UMER, TOM Attending Unavailable DELUCA, DR JJ Primary Care Unavailable UMER, TOM Consulting Unavailable UMER, TOM Admitting Unavailable UMER, TOM Attending Unavailable ZIEBER, DR MAO Holloway Consulting Unavailable DELUCA, DR JJ Primary Care Unavailable UMER, TOM Admitting Unavailable UMER, TOM Consulting Unavailable DELUCA, DR JJ Primary Care Unavailable UMER, TOM Consulting Unavailable UMER, TOM Admitting Unavailable UMER, TOM Attending Unavailable UMER, TOM Attending Unavailable ZIEBER, DR MAO Holloway Consulting Unavailable DELUCA, DR JJ Primary Care Unavailable UMER, TOM Admitting Unavailable UMER, TOM Consulting Unavailable HIGHLANDER, ANASTASIYA Rodriguez Attending Unavailable HIGHLANDER, ANASTASIYA Rodriguez Admitting Unavailable ZIEBER, DR MAO Holloway Consulting Unavailable DELUCA, DR JJ Primary Care Unavailable HIGHLANDER, ANASTASIYA Rodriguez Consulting Unavailable HIGHLANDER, ANASTASIYA Rodriguez Admitting Unavailable HIGHLANDER, ANASTASIYA Rodriguez Attending Unavailable DELUCA, DR JJ Primary Care Unavailable HIGHLANDER, ANASTASIYA Rodriguez Consulting Unavailable HIGHLANDER, ANASTASIYA Rodriguez Attending Unavailable HIGHLANDER, ANASTASIYA Rodriguez Admitting Unavailable DELUCA, DR JJ Primary Care Unavailable UMER, TOM Attending Unavailable WEST, DR NADIA Eddy Consulting Unavailable DELUCA, DR JJ Primary Care Unavailable UMER, TOM Admitting Unavailable UMER, TOM Consulting Unavailable HIGHLANDER, ANASTASIYA Rodriguez Admitting Unavailable HIGHLANDER, ANASTASIYA Rodriguez Attending Unavailable ZIEBER, DR MAO Holloway Consulting Unavailable DELUCA, DR JJ Primary Care Unavailable HIGHLANDERANASTASIYA Consulting Unavailable HIGHLANDER, ANASTASIYA Rodriguez Admitting Unavailable HIGHLANDER, ANASTASIYA Rodriguez Attending Unavailable ZIEBER, DR MAO Holloway Consulting Unavailable DELUCA, DR JJ Primary Care Unavailable HIGHLANDER, ANASTASIYA Rodriguez Consulting Unavailable HIGHLANDER, ANASTASIYA Rodriguez Attending Unavailable HIGHLANDER, ANASTASIYA Rodriguez Admitting Unavailable ZIEBER, DR MAO Holloway Consulting Unavailable DELUCA, DR JJ Primary Care Unavailable HIGHLANDER, ANASTASIYA Rodriguez Consulting Unavailable HIGHLANDER, ANASTASIYA Rodriguez Attending Unavailable HIGHLANDER, ANASTASIYA Rodriguez Admitting Unavailable WEST, DR NADIA Eddy Consulting Unavailable DELUCA, DR JJ Primary Care Unavailable HIGHLANDER, ANASTASIYA Rodriguez Consulting Unavailable HIGHLANDER, ANASTASIYA Rodriguez Consulting Unavailable HIGHLANDER, ANASTASIYA Rodriguez Admitting Unavailable RUDDY, ANASTASIYA Rodriguez Attending Unavailable YOSI, DR JJ Primary Care Unavailable DEVONTE OLIVERA Consulting Unavailable HIGHLANDER, ANASTASIYA Rodriguez Consulting Unavailable HIGHLANDER, ANASTASIYA Rodriguez Attending Unavailable HIGHLANDER, ANASTASIYA Rodriguez Admitting Unavailable DELUCA, DR JJ Primary Care Unavailable DANIEL ., DR DANII Mai Consulting Unavailable DANIEL ., DR DANII Mai Admitting Unavailable DANIEL ., DR DANII Mai Attending Unavailable YOSI, DR JJ Primary Care Unavailable EARNEST, DR NADIA Eddy Consulting Unavailable ZIEBER, DR MAO Holloway Consulting Unavailable HIGHLANDER, ANASTASIYA Rodriguez Consulting Unavailable BARTOLOME ., DORINDA BENSON Consulting Unavailable SHARP, DOMINIQUE Consulting Unavailable SHANKAR, ANDRES DACOSTA Consulting Unavailable PASTORA, DICK Consulting Unavailable SEAMON, HOSEA Roberts Consulting Unavailable HIGHLANDER, ANASTASIYA Rodriguez Admitting Unavailable HIGHLANDER, ANASTASIYA Rodriguez Attending Unavailable HIGHLANDER, ANASTASIYA Rodriguez Consulting Unavailable YOSI, DR JJ Primary Care Unavailable HEMHERMINIA SUN Admitting Unavailable DELUCA, DR JJ Primary Care Unavailable HERMINIA JHAVERI Attending Unavailable EARNEST, DR NADIA Eddy Consulting Unavailable YOSI, DR JJ Primary Care Unavailable TOM OWUSU Attending Unavailable TOM OWUSU Admitting Unavailable TOM OWUSU Consulting Unavailable HIGHLEARL, ANASTASIYA Rodriguez Admitting Unavailable RUDDY, ANASTASIYA Rodriguez Attending Unavailable YOSI, DR JJ Primary Care Unavailable Mikal Verde Unavailable Allergies Allergy Classification Reported Allergen(s) Allergy Type Date of Onset Reaction(s) Facility (1 source) No Known Medication Allergies; Translations: [No Known Medication Allergies] Propensity to adverse reactions to drug (disorder) [facility] Repository (3 sources) Amino Acids Drug Allergy 1 [facility] (4 sources) Lisinopril Drug Allergy Unknown [facility] Other Medications Current Medications Medication Drug Class(es) Dates Sig (Normalized) Sig (Original) amoxicillin 500 mg / clavulanate 125 mg oral tablet (2 sources) Penicillin-class Antibacterial take 1 tablet by mouth every twelve hours carvedilol 12.5 mg oral tablet (3 sources) alpha-Adrenergic Stevo, beta-Adrenergic Stevo take 1 tablet by mouth in the morning Carvedilol 12.5 MG TAKE 1 TABLET BY MOUTH IN THE MORNING AND 1 TABLET IN THE EVENING WITH MEALS Oral for 30 Days Active levothyroxine sodium 0.2 mg oral tablet (4 sources) l-Thyroxine take 1 tablet by mouth once daily in the morning Levothyroxine Sodium 200 MCG 1 tablet in the morning on an empty stomach Orally Once a day Active take 1 tablet by radha th once daily in the morning Levothyroxine Sodium 200 MCG 1 tablet in the morning on an empty stomach Orally Once a day Active meloxicam 15 mg oral tablet (4 sources) Nonsteroidal Anti-inflammatory Drug take 1 tablet by mouth every twenty-four hours Meloxicam 15 MG 1 tablet Orally Once a day Active metoprolol tartrate 25 mg oral tablet (1 source) beta-Adrenergic Stevo take 1 tablet by mouth every twenty-four hours Metoprolol Tartrate 25 MG 1 tablet with food Orally once daily Active omeprazole 40 mg delayed release oral capsule (4 sources) Proton Pump Inhibitor take 1 capsule by mouth once daily Omeprazole 40 MG 1 capsule 30 minutes before morning meal Orally Once a day Active sulfamethoxazole 400 mg / trimethoprim 80 mg oral tablet (5 sources) Dihydrofolate Reductase Inhibitor Antibacterial, Sulfonamide Antimicrobial Start: 2022 take 1 tablet by mouth every twelve hours Bactrim 400-80 MG 1 tablet Orally BID for 90 days Mar, Active Start: 03-20-2023 take 1 tablet by radha th every twenty-four hours Bactrim 400-80 MG 1 tablet Orally Once a day for 90 days Mar, Active take 1 tablet by radha th every twelve hours Bactrim DS 800-160 MG 1 tablet Orally Twice a day for 30 days Active Problems Active Problems Problem Classification Problem Date Documented Date Episodic/Chronic Acquired foot deformities (7 sources) Varus deformity, not elsewhere classified, right ankle; Translations: [Valgus deformity, not elsewhere classified, right ankle] Onset: 03-01-2022 Episodic Bacterial infection; unspecified site (5 sources) Personal history of Methicillin resistant Staphylococcus aureus infection; Translations: [PERS HX METHICILLIN RSIST STAPH INF] Onset: 07-01-2022 Episodic Complication of device; implant or graft (2 sources) Unspecified complication of internal orthopedic prosthetic device, implant and graft, initial encounter Episodic Disorders of lipid metabolism (1 source) Hyperlipidemia, unspecified; Translations: [HYPERLIPIDEMIA UNSPECIFIED] Onset: 09-08-2022 Chronic Diverticulosis and diverticulitis (4 sources) Diverticular disease; Translations: [Diverticulosis] Chronic Esophageal disorders (9 sources) Gastro-esophageal reflux disease without esophagitis; 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] Onset: 09-08-2022 Chronic Essential hypertension (5 sources) Essential (primary) hypertension; Translations: [ESSENTIAL PRIMARY HYPERTENSION] Onset: 11-10-2021 Chronic Genitourinary symptoms and ill-defined conditions (1 source) Personal history of urinary (tract) infections; Translations: [PERS HX URINARY TRACT INFECTIONS] Onset: 09-08-2022 Episodic Infective arthritis and osteomyelitis (except that caused by tuberculosis or sexually transmitted disease) (9 sources) Other chronic osteomyelitis, right ankle and foot; Translations: [Chronic osteomyelitis of ankle and/or foot] Onset: 07-31-2022 Chronic Osteoarthritis (5 sources) Primary osteoarthritis, right ankle and foot; Translations: [PRIMARY OSTEOARTHRITIS RT ANK FOOT] Onset: 02-07-2022 Chronic Other acquired deformities (1 source) Contracture, right ankle; Translations: [CONTRACTURE RIGHT ANKLE] Onset: 09-08-2022 Chronic Other acquired deformities (4 sources) Lumbar spondylolisthesis; Translations: [Spondylolisthesis, lumbar region] Episodic Other aftercare (4 sources) Encounter for removal of internal fixation device; Translations: [ENC REMOVAL INTERNAL FIX DEVICE] Onset: 07-28-2022 Episodic Other aftercare (1 source) 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; Translations: [PRECONSTRUCTION MANAGER CURRENT USE OF ASPIRIN] Onset: 08-05-2022 Episodic Other aftercare (1 source) 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; Translations: [OTH PRECONSTRUCTION MANAGER CURRENT DRUG THERAPY] Onset: 08-05-2022 Episodic Other connective tissue disease (4 sources) Impingement syndrome of left shoulder; Translations: [IMPINGEMENT SYNDROME LEFT SHOULDER] Onset: 08-11-2022 Episodic Other connective tissue disease (5 sources) Posterior tibial tendinitis, right leg; Translations: [POSTERIOR TIBIAL TENDINITIS RT LEG] Onset: 07-23-2022 Episodic Other connective tissue disease (5 sources) Pain in right foot; Translations: [PAIN IN RIGHT FOOT] Onset: 07-13-2022 Episodic Other screening for suspected conditions (not mental disorders or infectious disease) (3 sources) Patient encounter status; Translations: [Encounter for screening for malignant neoplasm of colon] Episodic Residual codes; unclassified (1 source) Presence of functional implant, unspecified; Translations: [PRESENCE FUNCTIONAL IMPLANT UNS] Onset: 08-05-2022 Chronic Screening and history of mental health and substance abuse codes (1 source) Personal history of nicotine dependence; Translations: [PERSONAL HISTORY OF NICOTINE DEPEND] Onset: 08-05-2022 Episodic Thyroid disorders (1 source) Hypothyroidism, unspecified; Translations: [HYPOTHYROIDISM UNSPECIFIED] Onset: 09-08-2022 Chronic Unclassified (1 source) PERSONAL HISTORY OF COVID-19; Translations: [PERSONAL HISTORY OF COVID-19] Onset: 09-08-2022 Unclassified (1 source) CONTACT W/AND (SUSP) EXPOS COVID-19; Translations: [CONTACT W/AND (SUSP) EXPOS COVID-19] Onset: 02-04-2022 Viral infection (1 source) COVID-19; Translations: [COVID-19] Onset: 10-22-2021 Past or Other Problems Problem Classification Problem Date Documented Da te Episodic/Chronic Fluid and electrolyte disorders (1 source) Hypo-osmolality and hyponatremia; Translations: [HYPO-OSMOLALITY AND HYPONATREMIA] Onset: 02-04-2022 Episodic Other bone disease and musculoskeletal deformities (1 source) Other specified disorders of bone density and structure, right ankle and foot; Translations: [OTH D/O BONE DEN STRUCT RT ANK FOOT] Onset: 05-18-2022 Episodic Other connective tissue disease (1 source) Other specified soft tissue disorders; Translations: [OTHER SPEC SOFT TISSUE DISORDERS] Onset: 06-15-2022 Episodic Skin and subcutaneous tissue infections (4 sources) Cutaneous abscess of right foot; Translations: [CUTANEOUS ABSCESS OF RIGHT FOOT] Onset: 04-19-2022 Episodic Results Test Name Value Interpretation Reference Range Facility ACID FAST SMEAR AND CXon Acid Fast Culture Negative Normal [facility] Comment on above: Result Comment: No a stephanie fast bacilli isolated after 6 weeks. Performed By: #### A FB ####[facility] [id number] [place] [id number] Mccray Acid Fast Smear Negative Normal [facility] Comment on above: Performed By: #### A FB ####[facility] [address] [place] [id number]. Frederick Mccray [employer] Specimen Processing Tissue Grinding Normal [facility] Comment on above: Performed By: #### A FB ####[facility] [address] [place] [address]Dr. Frederick Mccray FUNGAL CULTUREon 08-27-2022 Fungus (Mycology) Culture Final report Normal [facility] Comment on above: Performed By: #### C XFUN #### [facility] [address] [place] [address] [address] Frederick Mccray Fungus Stain Final report Normal [facility] Comment on above: Performed By: #### C XFUN #### [facility] [address] [place] [address] [address] Frederick Mccray Result 1 Comment Normal [facility] Comment on above: Result Comment: SPRING/ Calcofluor preparation: no fungus observed. Performed By: #### C XFUN #### [facility] [address] [place] [address] [address] Frederick Mccray Result Comment: No y east or mold isolated after 4 weeks. XR FOOT RT 2Von 07-30-2022 XR FOOT RT 2V EXAM: XR FOOT RT 2V HISTORY: Pain COMPARISON: 07/13/2022 TECHNIQUE: 14 intraoperative films FINDINGS: Intraoperative films show progressive removal of calcaneal osteotomy fixation screws as well as screws associated with talocalcaneal and talonavicular arthrodeses. A wedge remains visible at the medial cuneiform osteotomy site. IMPRESSION: Multiple intraoperative films documenting the operative procedure. Electronically authenticated by: Claudio GASCA Date: 2022-07-30 00:40 Normal [facility] XR FOOT RT MIN 3 VIEWSon XR FOOT RT MIN 3 VIEWS EXAMINATION: XR FOOT RT MIN 3 VIEWS, , 07/28/2022 9:35 AM EDT INDICATION: Orthopedic hardware in situ HISTORY: Ordering Provider Reason for Exam: Technologist Note: Additional: COMPARISON: Intraoperative study, same date TECHNIQUE: Right foot x-ray: 3 view(s). FINDINGS: Mild osteopenia generally is noted. A wedge remains visible at the medial cuneiform osteotomy site. Also, a single screw remains visible bridging the posterior subtalar joint. The other pre-existing hardware has been removed. Soft tissue swelling about the foot, with small amounts of subcutaneous air. IMPRESSION: Postoperative study documenting removal of fixation hardware. Electronically authenticated by: Claudio GASCA Date: 2022-07-30 00:42 Normal [facility] CULTURE ANAEROBICon 07-29-19 23 CULTURE ANAEROBIC Culture Observations : NO GROWTH OF ANAEROBES AT 72 HOURS. Normal [facility] Comment on above: Performed By: #### A NACX ####[facility] [id number] [place] [address]Dr. Frederick Mccray CULTURE OTHERon 07-28-2022 CULTURE OTHER Specimen Comments: Navicular Bone Biopsy Right Foot Culture Observations: NO GROWTH OF AEROBES AT 48 HOURS. Normal [facility] Comment on above: Performed By: #### O THCX #### [facility] [address] [place] [address] [address] Frederick HUTCHISON STAINon 07-28-2022 COMMENTS NO ORGANISMS OBSERVED Normal [facility] Comment on above: Performed By: #### G STAIN ####[facility] [address] [place] [address]Dr. Frederick Mccray DIPHTHEROIDS Normal [facility] Comment on above: Performed By: #### G STAIN ####[facility] [address] [place] [address]Dr. Frederick Mccray EPITHELIALS Normal [facility] Comment on above: Performed By: #### G STAIN ####[facility] [address] [place] [address]Dr. Frederick Mccray FUNGAL ELEMENTS Normal [facility] Comment on above: Performed By: #### G STAIN ####[facility] [address] [place] [address]Dr. Frederick Mccray GRAM NEG BACILLI Normal [facility] Comment on above: Performed By: #### G STAIN ####[facility] [address] [place] [address]Dr. Frederick Mccray GRAM NEG DIPPLOCOCCI Normal [facility] Comment on above: Performed By: #### G STAIN ####[facility] [address] [place] [address]Dr. Frederick Mccray GRAM POS BACILLI Normal [facility] Comment on above: Performed By: #### G STAIN ####[facility] [address] [place] [address]Dr. Frederick Mccray GRAM POSITIVE COCCI Normal [facility] Comment on above: Performed By: #### G STAIN ####[facility] [address] [place] [address]Dr. Frederick Mccray GRAM STAIN SOURCE Right foot navicular bone biopsy Normal [facility] Comment on above: Performed By: #### G STAIN ####[facility] [address] [place] [address]Dr. Frederick Mccray GS_DIPTH Normal [facility] Comment on above: Performed By: #### G STAIN ####[facility] [address] [place], [place] [address]Dr. Frederick Mccray WBC Normal [facility] Comment on above: Performed By: #### G STAIN ####[facility] [address] [place], [place] [address]DrSuraj Mccray POINT OF CARE GLUCOSEon 07-16 Glucose [Mass/Vol] 103 mg/dL Normal 74-106 [facility] Comment on above: Performed By: #### A CTHP #### [facility] [address] [place] [address] Dr. Frederick Mccray Glucose [Mass/Vol] 103 mg/dL Normal 74-106 [facility] Comment on above: Performed By: #### P OCGLUC #### [facility] [address] [place] [address] [address] Frederick Mccray CBC AUTO DIFFon 07-26-2022 BASO # 0.1 103/ul Normal 0.0-0.1 [facility] Comment on above: Performed By: #### C BC ####[facility] [address] [place], [place] [address]DrSuraj Mccray Basophils/100 WBC (Bld) 0.5 % Normal 0.2-2.0 [facility] Comment on above: Performed By: #### C BC ####[facility] [address] [place], [place] [address]DrSuraj Mccray EO # 0.2 103/ul Normal 0.0-0.7 [facility] Comment on above: Performed By: #### C BC ####[facility] [address] [place] [address]Dr. Frederick Mahendra Eosinophils/100 WBC (Bld) 1.3 % Normal 0.9-7.0 [facility] Comment on above: Performed By: #### C BC ####[facility] [address] [place], [place] [address]Dr. Frederick Mccray Erythrocyte distribution width (RBC) [Ratio] 13.3 % Normal 11.0-15.0 [facility] Comment on above: Performed By: #### C BC ####[facility] [address] [place], [place] [address]Dr. Frederick Mccray Hematocrit (Bld) [Volume fraction] 43.6 % Normal 42.0-54.0 [facility] Comment on above: Performed By: #### C BC ####[facility] [address] [place], [place] [address]Dr. Frederick Mccray Hemoglobin (Bld) [Mass/Vol] 15.0 g/dL Normal 14.0-18.0 [facility] Comment on above: Performed By: #### C BC ####[facility] [address] [place], [place] [address]Dr. Frederick Mccray IG # 0.06 10e3/ul Critically high 0.00-0.03 [facility] Comment on above: Performed By: #### C BC ####[facility] [address] [place], [place] [address]Dr. Frederick Mccray IG % 0.5 % Normal 0.0-0.5 [facility] Comment on above: Performed By: #### C BC ####[facility] [address] [place], [place] [address]Dr. Frederick Mccray LYMPH # 1.6 103/ul Normal 1.2-3.8 [facility] Comment on above: Performed By: #### C BC ####[facility] [address] [place], [place] [address]Dr. Frederick Mccray Lymphocytes/100 WBC (Bld) 13.4 % Critically low 20.5-60.0 [facility] Comment on above: Performed By: #### C BC ####[facility] [address] [place] [address]DrSuraj Mccray MANUAL DIFF REQ NO Normal [facility] Comment on above: Performed By: #### C BC ####[facility] [address] [place] [address]DrSuraj Mccray MCH (RBC) [Entitic mass] 32.3 pg Normal 25.9-34.0 [facility] Comment on above: Performed By: #### C BC ####[facility] [address] [place], [place] [address]DrSuraj Mccray MCHC (RBC) [Mass/Vol] 34.4 g/dL Normal 29.9-35.2 [facility] Comment on above: Performed By: #### C BC ####[facility] [address] [place], [place] [address]DrSuraj Mccray MCV (RBC) [Entitic vol] 93.8 fL Normal 80.0-94.0 [facility] Comment on above: Performed By: #### C BC ####[facility] [address] [place], [place] [address]DrSruaj Mccray MONO # 0.6 103/ul Normal 0.3-0.8 [facility] Comment on above: Performed By: #### C BC ####[facility] [address] [place], [place] [address]DrSuraj Mccray Monocytes/100 WBC (Bld) 4.6 % Normal 1.7-12.0 [facility] Comment on above: Performed By: #### C BC ####[facility] [address] [place], [place] [address]DrSuraj Mccray NEUT # 9.8 103/ul Critically high 1.4-6.5 [facility] Comment on above: Performed By: #### C BC ####[facility] [address] [place], [place] [address]DrSuraj Mccray Neutrophils/100 WBC (Bld) 79.7 % Critically high 43.0-75.0 [facility] Comment on above: Performed By: #### C BC ####[facility] [address] [place] [address]Dr. Frederick Mccray Platelet mean volume (Bld) [Entitic vol] 9.5 fL Normal 9.5-13.5 [facility] Comment on above: Performed By: #### C BC ####[facility] [address] [place] [address]Dr. Frederick Mccray PLT 328 103/ul Normal 150-450 [facility] Comment on above: Performed By: #### C BC ####[facility] [address] [place] [address]Dr. Frederick Mccray RBC 4.65 106/ul Critically low 4.70-6.10 [facility] Comment on above: Performed By: #### C BC ####[facility] [id number] [place] [address]Dr. Frederick Mccray WBC 12.3 103/ul Critically high 4.0-11.0 [facility] Comment on above: Performed By: #### C BC ####[facility] [address] [place] [address]Dr. Frederick Mccray PROF CHEM 8 (BAS METB)on Anion gap [Moles/Vol] 13.9 mmol/L Normal [facility] Comment on above: Performed By: #### C XFUN #### [facility] [address] [place] [address] Dr. Frederick Mccray Calcium [Mass/Vol] 9.7 mg/dL Normal 8.5-10.1 [facility] Comment on above: Performed By: #### C XFUN #### [facility] [address] [place] [address] Dr. Frederick Mccray Chloride [Moles/Vol] 96 mmol/L Critically low 98-107 [facility] Comment on above: Performed By: #### C XFUN #### [facility] [address] [place] [address] Dr. Frederick Mccray CO2 [Moles/Vol] 27.8 mmol/L Normal 21.0-32.0 [facility] Comment on above: Performed By: #### C XFUN #### [facility] [address] [place] [address] Dr. Frederick Mccray Creatinine [Mass/Vol] 0.82 mg/dL Normal 0.70-1.30 [facility] Comment on above: Performed By: #### C XFUN #### [facility] [address] [address] [address] Frederick Mccray EGFR-AF MAURITANIAN >60 Normal >=60 [facility] Comment on above: Performed By: #### C XFUN #### [facility] [address] [place] [address] Dr. Frederick Mccray EGFR-NON AF MAURITANIAN >60 Normal >=60 [facility] Comment on above: Performed By: #### C XFUN #### [facility] [address] [place] [address] Dr. Frederick Mccray Glucose [Mass/Vol] 125 mg/dL Critically high 74-106 [facility] Comment on above: Performed By: #### C XFUN #### [facility] [address] [place] [address] Dr. Frederick Mccray Potassium [Moles/Vol] 4.7 mmol/L Normal 3.5-5.1 [facility] Comment on above: Performed By: #### C XFUN #### [facility] [address] [place] [address] Dr. Frederick Mccray Sodium [Moles/Vol] 133 mmol/L Critically low 136-145 [facility] Comment on above: Performed By: #### C XFUN #### [facility] [address] [address] [address] Frederick Mccray Urea nitrogen [Mass/Vol] 11.0 mg/dL Normal 7.0-18.0 [facility] Comment on above: Performed By: #### C XFUN #### [facility] [address] [place] [address] Dr. Frederick Mccray Urea nitrogen/Creatinine [Mass ratio] 13.4 mg/mg Normal [facility] Comment on above: Performed By: #### C XFUN #### [facility] [address] ANKLE RT WO CONon 023 CT ANKLE RT WO CON EXAMINATION: CT ANKL E RT WO CON HISTORY: Idiopathic osteoarthritis COMPARISON: 07/13/2022 TECHNIQUE: Multi-planar CT images were created without IV contrast. Dose reduction techniques were achieved by using automated exposure control and/or adjustment of mA and/or kV according to patient size and/or use of iterative reconstruction technique. FINDINGS: BONES: Posterior calcaneal osteotomy transfixed with 2 cannulated lag screws. Subtalar fusion with a single screw. Talonavicular fusion with 2 screws. Osteotomy and wedged spacer placement medial cuneiform. Lucency in the distal tibia, bone graft harvesting. Cortical thinning and marked permeative pattern consistent with diffuse osteopenia. SOFT TISSUES: Negative. No visible soft tissue swelling. EFFUSION: None visible. OTHER: Negative. IMPRESSION: Stable postsurgical changes with soft tissue swelling, degenerative changes and osteopenia Electronically authenticated by: NADIA TINOCO Date: 2022-07-23 10:12 Normal [facility] CBC AUTO DIFFon 07-01-2022 BASO # 0.1 103/ul Normal 0.0-0.1 [facility] Comment on above: Performed By: #### C BC ####[facility] [address] [place] [address]Dr. Frederick Mccray Basophils/100 WBC (Bld) 0.5 % Normal 0.2-2.0 [facility] Comment on above: Performed By: #### C BC ####[facility] [address] [place] [address]Dr. Frederick Mccray EO # 0.1 103/ul Normal 0.0-0.7 [facility] Comment on above: Performed By: #### C BC ####[facility] [address] [place] [id number]. Frederick Mccray Eosinophils/100 WBC (Bld) 0.8 % Critically low 0.9-7.0 [facility] Comment on above: Performed By: #### C BC ####[facility] [address] [place] [address]Dr. Frederick Mccray Erythrocyte distribution width (RBC) [Ratio] 13.2 % Normal 11.0-15.0 [facility] Comment on above: Performed By: #### C BC ####[facility] [address] [place] [address]Dr. Frederick Mccray Hematocrit (Bld) [Volume fraction] 45.7 % Normal 42.0-54.0 [facility] Comment on above: Performed By: #### C BC ####[facility] [address] [place], [place] [address]Dr. Frederick Mccray Hemoglobin (Bld) [Mass/Vol] 15.5 g/dL Normal 14.0-18.0 [facility] Comment on above: Performed By: #### C BC ####[facility] [address] [place], [place] [address]Dr. Kaiteloisa Mccray IG # 0.07 10e3/ul Critically high 0.00-0.03 [facility] Comment on above: Performed By: #### C BC ####[facility] [address] [place], [place] [address]Dr. Frederick Mccray IG % 0.5 % Normal 0.0-0.5 [facility] Comment on above: Performed By: #### C BC ####[facility] [address] [place], [place] [address]Dr. Kaiteloisa Mccray LYMPH # 1.7 103/ul Normal 1.2-3.8 [facility] Comment on above: Performed By: #### C BC ####[facility] [address] [place], [place] [address]Dr. Kaiteloisa Mccray Lymphocytes/100 WBC (Bld) 11.1 % Critically low 20.5-60.0 [facility] Comment on above: Performed By: #### C BC ####[facility] [address] [place], [place] [address]Dr. Kaiteloisa Mccray MANUAL DIFF REQ NO Normal [facility] Comment on above: Performed By: #### C BC ####[facility] [address] [place] [address]Dr. Frederick Mccray MCH (RBC) [Entitic mass] 32.1 pg Normal 25.9-34.0 [facility] Comment on above: Performed By: #### C BC ####[facility] [address] [place] [address]Dr. Frederick Mccray MCHC (RBC) [Mass/Vol] 33.9 g/dL Normal 29.9-35.2 [facility] Comment on above: Performed By: #### C BC ####[facility] [address] [place], [place] [address]Dr. Frederick Mccray MCV (RBC) [Entitic vol] 94.6 fL Critically high 80.0-94.0 [facility] Comment on above: Performed By: #### C BC ####[facility] [address] [place], [place] [address]Dr. Frederick Mccray MONO # 0.9 103/ul Critically high 0.3-0.8 [facility] Comment on above: Performed By: #### C BC ####[facility] [address] [place], [place] [address]Dr. Frederick Mccray Monocytes/100 WBC (Bld) 5.7 % Normal 1.7-12.0 [facility] Comment on above: Performed By: #### C BC ####[facility] [address] [place], [place] [address]Dr. Frederick Mccray NEUT # 12.5 103/ul Critically high 1.4-6.5 [facility] Comment on above: Performed By: #### C BC ####[facility] [address] [place], [place] [address]Dr. Frederick Mccray Neutrophils/100 WBC (Bld) 81.4 % Critically high 43.0-75.0 [facility] Comment on above: Performed By: #### C BC ####[facility] [address] [place], [place] [address]Dr. Frederick Mccray Platelet mean volume (Bld) [Entitic vol] 9.5 fL Normal 9.5-13.5 [facility] Comment on above: Performed By: #### C BC ####[facility] [address] [place], [place] [address]Ma. Frederick Mccray PLT 413 103/ul Normal 150-450 [facility] Comment on above: Performed By: #### C BC ####[facility] [address] [place], [place] [address]Tm. Frederick Mccray RBC 4.83 106/ul Normal 4.70-6.10 [facility] Comment on above: Performed By: #### C BC ####[facility] [address] [place], [place] [address]Fv. Frederick Mccray WBC 15.4 103/ul Critically high 4.0-11.0 [facility] Comment on above: Performed By: #### C BC ####[facility] [address] [place] [id number]. Frederick Mccray CRPon 07-01-2022 CRP 6.9 mg/dL Critically high <=1.0 [facility] Comment on above: Performed By: #### A CTHP #### [facility] [address] [address] [address] Frederick Mccray PROF CHEM 8 (BAS METB)on Anion gap [Moles/Vol] 11.8 mmol/L Normal [facility] Comment on above: Performed By: #### C XFUN #### [facility] [address] [place] [address] Dr. Frederick Mccray Calcium [Mass/Vol] 9.6 mg/dL Normal 8.5-10.1 [facility] Comment on above: Performed By: #### C XFUN #### [facility] [address] [address] [address] Frederick Mccray Chloride [Moles/Vol] 94 mmol/L Critically low 98-107 [facility] Comment on above: Performed By: #### C XFUN #### [facility] [address] [place] [address] Dr. Frederick Mccray CO2 [Moles/Vol] 31.4 mmol/L Normal 21.0-32.0 [facility] Comment on above: Performed By: #### C XFUN #### [facility] [address] [address] [address] Frederick Mccray Creatinine [Mass/Vol] 0.83 mg/dL Normal 0.70-1.30 [facility] Comment on above: Performed By: #### C XFUN #### [facility] [address] [address] [address] Frederick Mccray EGFR-AF MAURITANIAN >60 Normal >=60 [facility] Comment on above: Performed By: #### C XFUN #### [facility] [address] [address] [address] Frederick Mccray EGFR-NON AF MAURITANIAN >60 Normal >=60 [facility] Comment on above: Performed By: #### C XFUN #### [facility] [address] [place] [address] Dr. Frederick Mccray Glucose [Mass/Vol] 98 mg/dL Normal 74-106 [facility] Comment on above: Performed By: #### C XFUN #### [facility] [address] [place] [address] Dr. Frederick Mccray Potassium [Moles/Vol] 4.2 mmol/L Normal 3.5-5.1 [facility] Comment on above: Performed By: #### C XFUN #### [facility] [address] [place] [address] Dr. Frederick Mccray Sodium [Moles/Vol] 133 mmol/L Critically low 136-145 Th [facility] Comment on above: Performed By: #### C XFUN #### [facility] [address] [place] [address] Dr. Frederick Mccray Urea nitrogen [Mass/Vol] 11.0 mg/dL Normal 7.0-18.0 [facility] Comment on above: Performed By: #### C XFUN #### [facility] [address] [place] [address] Dr. Frederick Mccray Urea nitrogen/Creatinine [Mass ratio] 13.3 mg/mg Normal [facility] Comment on above: Performed By: #### C XFUN #### [facility] [address] [place] [address] Dr. Frederick Mccray SED RATE WESTERGRENon 2022 SED RATE 51 mm/hr Critically high <=20 [facility] Comment on above: Performed By: #### C XFUN #### [facility] [address] [place] [address] Dr. Frederick Mccray CPKon 06-14-2022 CK [Catalytic activity/Vol] 26 U/L Critically low 39-308 [facility] Comment on above: Performed By: #### C XFUN #### [facility] [address] [place] [address] Dr. Frederick Mccray PROF CHEM 8 (BAS METB)on Anion gap [Moles/Vol] 11.0 mmol/L Normal [facility] Comment on above: Performed By: #### C XFUN #### [facility] [address] [place] [address] Dr. Frederick Mccray Calcium [Mass/Vol] 9.8 mg/dL Normal 8.5-10.1 [facility] Comment on above: Performed By: #### C XFUN #### [facility] [address] [place] [address] Dr. Frederick Mccray Chloride [Moles/Vol] 97 mmol/L Critically low 98-107 [facility] Comment on above: Performed By: #### C XFUN #### [facility] [address] [place] [address] Dr. Frederick Mccray CO2 [Moles/Vol] 28.5 mmol/L Normal 21.0-32.0 [facility] Comment on above: Performed By: #### C XFUN #### [facility] [address] [place] [address] Dr. Frederick Mccray Creatinine [Mass/Vol] 1.08 mg/dL Normal 0.70-1.30 [facility] Comment on above: Performed By: #### C XFUN #### [facility] [address] [place] [address] Dr. Frederick Mccray EGFR-AF MAURITANIAN >60 Normal >=60 [facility] Comment on above: Performed By: #### C XFUN #### [facility] [address] [address] [address] Frederick Mccray EGFR-NON AF MAURITANIAN >60 Normal >=60 [facility] Comment on above: Performed By: #### C XFUN #### [facility] [address] [address] [address] Frederick Mccray Glucose [Mass/Vol] 106 mg/dL Normal 74-106 [facility] Comment on above: Performed By: #### C XFUN #### [facility] [address] [address] [address] Frederick Mccray Potassium [Moles/Vol] 4.4 mmol/L Normal 3.5-5.1 [facility] Comment on above: Performed By: #### C XFUN #### [facility] [address] [place] [address] Dr. Frederick Mccray Sodium [Moles/Vol] 132 mmol/L Critically low 136-145 Th [facility] Comment on above: Performed By: #### C XFUN #### [facility] [address] [place] [address] Dr. Frederick Mccray Urea nitrogen [Mass/Vol] 15.0 mg/dL Normal 7.0-18.0 [facility] Comment on above: Performed By: #### C XFUN #### [facility] [address] [place] [address] Dr. Frederick Mccray Urea nitrogen/Creatinine [Mass ratio] 13.9 mg/mg Normal [facility] Comment on above: Performed By: #### C XFUN #### [facility] [address] [place] [address] Dr. Frederick Mccray URIC ACID SERUMon 06-14-2022 Urate [Mass/Vol] 6.2 mg/dL Normal 3.5-7.2 [facility] Comment on above: Performed By: #### C XFUN #### [facility] [address] [place] [address] Dr. Frederick Mccray CULTURE WOUNDon 04-22-2022 CULTURE WOUND Culture Observations : METHICILLIN RESISTANT STAPH AUREUS ISOLATED. PLEASE FOLLOW APPROPRIATE ISOLATION PROCEDURES. Isolate 1 Staphylococcus aureus Light growth of ORGANISM 1 Staphylococcus aureus ANTIBIOTIC M.I.C RX STATUS Beta-Lactamase Pos POS F Cefoxitin Screen Pos POS F Benzylpenicillin >=0.5 R F Oxacillin >=4 R F Ciprofloxacin 1 S F Levofloxacin 0.5 S F Inducible Clindamycin Resistance Neg NEG F Erythromycin <=0.25 S F Clindamycin <=0.25 S F Quinupristin/Dalfopristin <=0.25 S F Linezolid 1 S F Vancomycin <=0.5 S F Tetracycline <=1 S F Rifampicin <=0.5 S F Trimethoprim/Sulfamethoxazole <=10 S F Normal [facility] Comment on above: Performed By: #### W OUNDCX #### [facility] [address] [place] [address] Dr. Frederick HUTCHISON STAINon 04-19-2022 COMMENTS NO ORGANISMS OBSERVED Normal [facility] Comment on above: Performed By: #### C XFUN #### [facility] [address] [place] [address] Dr. Frederick Mccray DIPHTHEROIDS Normal [facility] Comment on above: Performed By: #### C XFUN #### [facility] [address] [place] [address] Dr. Frederick Mccray EPITHELIALS [facility] Comment on above: Performed By: #### C XFUN #### [facility] [address] [place] [address] Dr. Frederick Mccray FUNGAL ELEMENTS Normal [facility] Comment on above: Performed By: #### C XFUN #### [facility] [address] [place] [address] Dr. Frederick HUTCHISON NEG BACILLI Normal [facility] Comment on above: Performed By: #### C XFUN #### [facility] [address] [place] [address] Dr. Frederick HUTCHISON NEG DIPPLOCOCCI Normal [facility] Comment on above: Performed By: #### C XFUN #### [facility] [address] [place] [address] Dr. Frederick HUTCHISON POS BACILLI Normal [facility] Comment on above: Performed By: #### C XFUN #### [facility] [address] [address] [address] Frederick Mccray GRAM POSITIVE COCCI Normal [facility] Comment on above: Performed By: #### C XFUN #### [facility] [address] [address] [address] Frederick Mccray GRAM STAIN SOURCE Rt Foot Normal [facility] Comment on above: Performed By: #### C XFUN #### [facility] [address] [address] [address] Frederick Mccray GS_DIPTH Normal [facility] Comment on above: Performed By: #### C XFUN #### [facility] [address] [place] [address] Dr. Frederick Mccray WBC MODERATE Normal [facility] Comment on above: Performed By: #### C XFUN #### [facility] [address] [place] [address] Dr. Frederick Mccray POINT OF CARE GLUCOSEon 01-16 Glucose [Mass/Vol] 109 mg/dL Critically high 74-106 [facility] Comment on above: Performed By: #### P OCGLUC ####[facility] [address] [place] [address]Dr. Frederick Mccray CBC AUTO DIFFon 02-01-2022 BASO # 0.1 103/ul Normal 0.0-0.1 [facility] Comment on above: Performed By: #### C XFUN #### [facility] [address] [place] [address] Dr. Frederick Mccray Basophils/100 WBC (Bld) 0.5 % Normal 0.2-2.0 [facility] Comment on above: Performed By: #### C XFUN #### [facility] [address] [place] [address] Dr. Frederick Mccray EO # 0.1 103/ul Normal 0.0-0.7 [facility] Comment on above: Performed By: #### C XFUN #### [facility] [address] [address] [address] Frederick Mccray Eosinophils/100 WBC (Bld) 0.5 % Critically low 0.9-7.0 [facility] Comment on above: Performed By: #### C XFUN #### [facility] [address] [place] [address] Dr. Frederick Mccray Erythrocyte distribution width (RBC) [Ratio] 13.5 % Normal 11.0-15.0 [facility] Comment on above: Performed By: #### C XFUN #### [facility] [address] [place] [address] Dr. Frederick Mccray Hematocrit (Bld) [Volume fraction] 45.6 % Normal 42.0-54.0 [facility] Comment on above: Performed By: #### C XFUN #### [facility] [address] [place] [address] Dr. Frederick Mccray Hemoglobin (Bld) [Mass/Vol] 15.6 g/dL Normal 14.0-18.0 [facility] Comment on above: Performed By: #### C XFUN #### [facility] [address] [place] [address] Dr. Frederick Mccray IG # 0.09 10e3/ul Critically high 0.00-0.03 [facility] Comment on above: Performed By: #### C XFUN #### [facility] [address] [place] [address] Dr. Frederick Mccray IG % 0.7 % Critically high 0.0-0.5 [facility] Comment on above: Performed By: #### C XFUN #### [facility] [address] [place] [address] Dr. Frederick Mccray LYMPH # 1.7 103/ul Normal 1.2-3.8 [facility] Comment on above: Performed By: #### C XFUN #### [facility] [address] [place] [address] Dr. Frederick Mccray Lymphocytes/100 WBC (Bld) 12.6 % Critically low 20.5-60.0 [facility] Comment on above: Performed By: #### C XFUN #### [facility] [address] [place] [address] Dr. Frederick Mccray MANUAL DIFF REQ NO Normal [facility] Comment on above: Performed By: #### C XFUN #### [facility] [address] [place] [address] Dr. Frederick Mccray MCH (RBC) [Entitic mass] 33.6 pg Normal 25.9-34.0 [facility] Comment on above: Performed By: #### C XFUN #### [facility] [address] [place] [address] Dr. Frederick Mccray MCHC (RBC) [Mass/Vol] 34.2 g/dL Normal 29.9-35.2 [facility] Comment on above: Performed By: #### C XFUN #### [facility] [address] [place] [address] Dr. Frederick Mccray MCV (RBC) [Entitic vol] 98.3 fL Critically high 80.0-94.0 [facility] Comment on above: Performed By: #### C XFUN #### [facility] [address] [place] [address] Dr. Frederick Mccray MONO # 0.8 103/ul Normal 0.3-0.8 [facility] Comment on above: Performed By: #### C XFUN #### [facility] [address] [place] [address] Dr. Frederick Mccray Monocytes/100 WBC (Bld) 5.7 % Normal 1.7-12.0 [facility] Comment on above: Performed By: #### C XFUN #### [facility] [address] [place] [address] Dr. Frederick Mccray NEUT # 11.0 103/ul Critically high 1.4-6.5 [facility] Comment on above: Performed By: #### C XFUN #### [facility] [address] [place] [address] Dr. Frederick Mccray Neutrophils/100 WBC (Bld) 80.0 % Critically high 43.0-75.0 [facility] Comment on above: Performed By: #### C XFUN #### [facility] [address] [place] [address] Dr. Frederick Mccray Platelet mean volume (Bld) [Entitic vol] 9.8 fL Normal 9.5-13.5 [facility] Comment on above: Performed By: #### C XFUN #### [facility] [address] [place] [address] Dr. Frederick Mccray PLT 298 103/ul Normal 150-450 [facility] Comment on above: Performed By: #### C XFUN #### [facility] [address] [place] [address] Dr. Frederick Mccray RBC 4.64 106/ul Critically low 4.70-6.10 [facility] Comment on above: Performed By: #### C XFUN #### [facility] [address] [place] [address] Dr. Frederick Mccray WBC 13.7 103/ul Critically high 4.0-11.0 [facility] Comment on above: Performed By: #### C XFUN #### [facility] [address] [place] [address] Dr. Frederick Mccray Covid-19 PCR ([facility])on 01-15 SARS-CoV-2 (COVID-19) RNA MACY+probe Ql (Unsp spec) Not detected Normal NOT DETECTED [facility] Comment on above: Result Comment: This test is not yet approved or cleared by the [place] FDA. When there are no FDA-approved or cleared tests available, and other criteria are met, FDA can make tests available under an emergency access mechanism called an Emergency Use Authorization (EUA). The EUA for this test is supported by the [place] Grinder of Health and Human Service's (HHS's) declaration that circumstances exist to justify the emergency use of in vitro diagnostics for the detection and/or diagnosis of the virus that causes COVID-19. This EUA will remain in effect (meaning this test can be used) for the duration of the COVID-19 declaration justifying emergency of IVDs, unless it is terminated or revoked by FDA (after which the test may no longer be used). When diagnostic testing is negative, the possibility of a false negative should be considered in the context of a patient's recent exposures and the presence of clinical signs and symptoms consistent with SARS-CoV-2. Performed By: #### C VDTBH ####[facility] [address] [place] [address]Dr. Frederick Mccray MRSA NARES #1on 02-01-2022 MRSA NARES #1 Culture Observations : NO GROWTH OF MRSA AT 48 HOURS Normal [facility] Comment on above: Performed By: #### M RSAN1 ####[facility] [address] [place] [address]Dr. Frederick Mccray PROF CHEM 8 (BAS METB)on Anion gap [Moles/Vol] 8.7 mmol/L Normal [facility] Comment on above: Performed By: #### B MP #### [facility] [address] [address] [address] Frederick Mccray Calcium [Mass/Vol] 8.9 mg/dL Normal 8.5-10.1 [facility] Comment on above: Performed By: #### B MP #### [facility] [address] [address] [address] Frederick Mccray Chloride [Moles/Vol] 97 mmol/L Critically low 98-107 [facility] Comment on above: Performed By: #### B MP #### [facility] [address] [address] [address] Frederick Mccray CO2 [Moles/Vol] 29.2 mmol/L Normal 21.0-32.0 [facility] Comment on above: Performed By: #### B MP #### [facility] [address] [address] [address] Frederick Mccray Creatinine [Mass/Vol] 1.28 mg/dL Normal 0.70-1.30 [facility] Comment on above: Performed By: #### B MP #### [facility] [address] [address] [address] Frederick Mccray EGFR-AF MAURITANIAN >60 Normal >=60 [facility] Comment on above: Performed By: #### B MP #### [facility] [address] [address] [address] Frederick Mccray EGFR-NON AF MAURITANIAN 57 mL/min/1.73m2 Critically low >=60 [facility] Comment on above: Performed By: #### B MP #### [facility] [address] [address] [address] Frederick Mccray Glucose [Mass/Vol] 105 mg/dL Normal 74-106 [facility] Comment on above: Performed By: #### B MP #### [facility] [address] [address] [address] Frederick Mccray Potassium [Moles/Vol] 3.9 mmol/L Normal 3.5-5.1 [facility] Comment on above: Performed By: #### B MP #### [facility] [address] [address] [address] Frederick Mccray Sodium [Moles/Vol] 131 mmol/L Critically low 136-145 [facility] Comment on above: Performed By: #### B MP #### [facility] [address] [address] [address] Frederick Mccray Urea nitrogen [Mass/Vol] 15.0 mg/dL Normal 7.0-18.0 [facility] Comment on above: Performed By: #### B MP #### [facility] [address] [address] [address] Frederick Mccray Urea nitrogen/Creatinine [Mass ratio] 11.7 mg/mg Normal [facility] Comment on above: Performed By: #### B MP #### [facility] [address] [address] [address] Frederick Mccray MRI Knee w/o Lefton 01-07-20 MRI Knee w/o Left HISTORY: Medial knee pain and posterior knee pain. TECHNIQUE: Routine non-contrast MRI of the knee LEFT COMPARISON: Radiographs 12/06/2021. RESULT: MENISCI: Medial Meniscus: Complex tear mostly with radial component involving the posterior horn near the posterior root, with a portion of the meniscus protruding toward the medial gutter Lateral Meniscus: Intact LIGAMENTS: ACL, PCL, MCL, LCL complex: Intact. CARTILAGE: Small area of high-grade partial thickness to full-thickness chondral loss involving the medial compartment. Otherwise cartilage grossly preserved. TENDONS: Distal quadriceps, patellar tendon, and popliteus tendon intact. BONES AND MARROW: Small amount of subchondral edema within the medial tibial Plateau, either reactive to the degenerative change or meniscal tear. No evidence for fracture. No suspicious marrow replacing process. MUSCLES: Muscle bulk and signal intensity are normal. JOINT FLUID AND SYNOVIUM: No joint effusion. No synovitis. Trace Ceja's cyst or bursal distention. OTHER: Diffuse subcutaneous edema. IMPRESSION: Medial meniscal tear. Report reported and signed by Vish Tariq on 01/07/2022 1013 Normal [facility] [employer] OSMOLALITYon 11-12-2021 Osmolality [Osmolality] 288 mosm/kg Normal 275-295 [facility] Comment on above: Performed By: #### O SMO #### [facility] [address] [address] [address] Frederick Mccray OSMOLALITY URINEon 2 Osmolality, Urine 462 mOsmol/kg Normal [facility] Comment on above: Result Comment: 24 h r : 300 - 900 Random: 50 - 1400 After 12hr fluid restriction: >850 Performed By: #### O SMOU ####[facility] [address] [place] [address]DrSuraj Mccray ACTH, PLASMAon 11-11-2021 ACTH, Plasma 33.5 pg/mL Normal 7.2-63.3 [facility] Comment on above: Result Comment: ACTH reference interval for samples collected between 7 and 10 AM. Performed By: #### A CTHP #### [facility] [address] [address] [address] Frederick Mccray CREATININE URINEon 2 URINE CREAT 88.34 mg/dL Normal 20.00-300. 00 [facility] Comment on above: Performed By: #### C REAU ####[facility] [address] [place] [address]DrSuraj Mccray PROF CHEM 8 (BAS METB)on Anion gap [Moles/Vol] 14.0 mmol/L Normal [facility] Comment on above: Performed By: #### B MP ####[facility] [address] [place] [address]DrSuraj Mccray Calcium [Mass/Vol] 9.1 mg/dL Normal 8.5-10.1 [facility] Comment on above: Performed By: #### B MP ####[facility] [address] [place] [address]Dr. Frederick Mccray Chloride [Moles/Vol] 101 mmol/L Normal 98-107 [facility] Comment on above: Performed By: #### B MP ####[facility] [address] [place] [address]Dr. Frederick Mccray CO2 [Moles/Vol] 27.8 mmol/L Normal 21.0-32.0 [facility] Comment on above: Performed By: #### B MP ####[facility] [address] [place], [place] [address]Dr. Frederick Mccray Creatinine [Mass/Vol] 0.99 mg/dL Normal 0.70-1.30 [facility] Comment on above: Performed By: #### B MP ####[facility] [address] [place], [place] [address]Dr. Frederick Mccray EGFR-AF MAURITANIAN >60 Normal >=60 [facility] Comment on above: Performed By: #### B MP ####[facility] [address] [place], [place] [address]Dr. Frederick Mccray EGFR-NON AF MAURITANIAN >60 Normal >=60 [facility] Comment on above: Performed By: #### B MP ####[facility] [address] [place], [place] [address]Dr. Frederick Mccray Glucose [Mass/Vol] 83 mg/dL Normal 74-106 [facility] Comment on above: Performed By: #### B MP ####[facility] [address] [place], [place] [address]Dr. Frederick Mccray Potassium [Moles/Vol] 3.8 mmol/L Normal 3.5-5.1 [facility] Comment on above: Performed By: #### B MP ####[facility] [address] [place], [place] [address]Dr. Frederick Mccray Sodium [Moles/Vol] 139 mmol/L Normal 136-145 [facility] Comment on above: Performed By: #### B MP ####[facility] [address] [place], [place] [address]We. Frederick Mccray Urea nitrogen [Mass/Vol] 13.0 mg/dL Normal 7.0-18.0 [facility] Comment on above: Performed By: #### B MP ####[facility] [address] [place], [place] [address]Ki. Frederick Mccray Urea nitrogen/Creatinine [Mass ratio] 13.1 mg/mg Normal [facility] Comment on above: Performed By: #### B MP ####[facility] [address] [place], [place] [address]Qu. Frederick Mccray SODIUM RANDOM URINEon 2021 Sodium (U) [Moles/Vol] 125 mmol/L Critically high 30-90 [facility] Comment on above: Performed By: #### C XFUN #### [facility] [address] [place], [place] [address] Dr. Frederick Mccray MRSA COLONIZATION SCREENING CULTUREon 10-21-2021 MRSA Screening Culture Negative Normal [facility] Comment on above: Performed By: #### C XFUN #### [facility] [address] [address] [address] Frederick Mccray [facility]on SARS-CoV-2 (COVID-19) RNA MACY+probe Ql (Unsp spec) Detected Critically abnormal NOT DETECTED [facility] Comment on above: Result Comment: This test is not yet approved or cleared by the [place] FDA. When there are no FDA-approved or cleared tests available, and other criteria are met, FDA can make tests available under an emergency access mechanism called an Emergency Use Authorization (EUA). The EUA for this test is supported by the [place] Grinder of Health and Human Service's declaration that circumstances exist to justify the emergency use of in vitro diagnostics for the detection and/or diagnosis of the virus that causes COVID-19. This EUA will remain in effect for the duration of the COVID-19 declaration justifying emergency of IVDs, unless it is terminated or revoked by the FDA (after which the test may no longer be used). Performed By: #### A CTHP #### [facility] [address] [address] [address] Frederick Mccray PROF CHEM 8 (BAS METB)on Anion gap [Moles/Vol] 8.9 mmol/L Normal [facility] Comment on above: Performed By: #### B MP ####[facility] [address] [place] [address]Dr. Frederick Mccray Calcium [Mass/Vol] 9.5 mg/dL Normal 8.5-10.1 [facility] Comment on above: Performed By: #### B MP ####[facility] [address] [place] [address]Dr. Frederick Mccray Chloride [Moles/Vol] 95 mmol/L Critically low 98-107 [facility] Comment on above: Performed By: #### B MP ####[facility] [address] [place] [address]Dr. Frederick Mccray CO2 [Moles/Vol] 28.3 mmol/L Normal 21.0-32.0 [facility] Comment on above: Performed By: #### B MP ####[facility] [address] [place] [address]Dr. Frederick Mccray Creatinine [Mass/Vol] 1.02 mg/dL Normal 0.70-1.30 [facility] Comment on above: Performed By: #### B MP ####[facility] [address] [place] [address]Dr. Frederick Mccray EGFR-AF MAURITANIAN >60 Normal >=60 [facility] Comment on above: Performed By: #### B MP ####[facility] [address] [place] [address]Dr. Frederick Mccray EGFR-NON AF MAURITANIAN >60 Normal >=60 [facility] Comment on above: Performed By: #### B MP ####[facility] [address] [place] [address]Dr. Frederick Mccray Glucose [Mass/Vol] 90 mg/dL Normal 74-106 [facility] Comment on above: Performed By: #### B MP ####[facility] [address] [place] [address]Dr. Frederick Mccray Potassium [Moles/Vol] 4.2 mmol/L Normal 3.5-5.1 [facility] Comment on above: Performed By: #### B MP ####[facility] [address] [place] [address]Dr. Frederick Mccray Sodium [Moles/Vol] 128 mmol/L Critically low 136-145 [facility] Comment on above: Performed By: #### B MP ####[facility] [address] [place] [address]Dr. Frederick Mccray Urea nitrogen [Mass/Vol] 9.0 mg/dL Normal 7.0-18.0 [facility] Comment on above: Performed By: #### B MP ####[facility] [address] [place] [address]Dr. Frederick Mccray Urea nitrogen/Creatinine [Mass ratio] 8.8 mg/mg Normal [facility] Comment on above: Performed By: #### B MP ####[facility] [address] [place] [address]Dr. Frederick Mccray MR chest wo/w conon 07-29-19 MR chest wo/[place] [address] MRI Report Signed Patient: Gemma Mantilla MR#: [id number] : 1960 Acct:[id number] Age/Sex: 60 / M ADM Date: 07/28/21 Loc: Room: Type: [facility] Attending Dr: Nasir Pan PA-C Ordering Provider: Nasir Pan PA-C Date of Service: 07/28/21 MR/MR chest wo/w con: R07.89, Copies to: Nasir Pan PA-C MRI chest wall 07/28/2021. CLINICAL DATA: Right sternoclavicular joint pain. TECHNIQUE: MRI of the anterior chest wall was performed without and with intravenous contrast. COMPARISON: None. FINDINGS: The medial end of the right clavicle and the upper manubrium on the right have either been destroyed or are surgically absent. There is a roughly 4 x 2 x 2.5 cm rim-enhancing fluid collection consistent with an abscess in the former location of the right sternoclavicular joint. The remaining medial end of the distal right clavicle demonstrates bony edema and enhancement. Osteomyelitis is suspected. There are additional inflammatory changes in the supraclavicular soft tissues medially on the right. The left sternoclavicular joint appears unremarkable. MR/MR chest wo/w con IMPRESSION: Findings as described. Impression dictated by: Jefe Knapp Jr., M.D.07/28/2021 11:06 AM Dictation Location: [place] [address] Transcribed By: [facility] 07/28/21 1106 Dictated By: Jefe nKapp Jr, MD 07/28/21 1050 Signed By: 07/28/21 1106 [facility] *ANAEROBIC CULTUREon 022 *ANAEROBIC CULTURE Clinical Report: (D) Specimen: FLUID Collected: 07/21/2021 14:05 Status: Final Last Updated: 07/26/2021 10:34 (1) RT SC Joint Fluid CULT RES (Final) No Anaerobes Isolated 5 Days Normal [facility] Comment on above: Order Comment: The A ptima SARS-CoV-2 assay is a nucleic acid amplification test intended for the qualitative detection of RNA from SARS-CoV-2 isolated and purified from nasopharyngeal (GLUE SPREADER),oropharyngeal (OP), nasal swab, sputum, and bronchoalveolar lavage (BAL) specimens from patients with signs and symptoms of infection who are suspected of COVID-19. Results are for the identification of SARS-CoV-2 RNA. The SARS-CoV-2 RNA is generally detectable during the acute phase of infection. The Aptima SARS-CoV-2 Assay on the Blueseed and [place] Fusion system is intended for use by laboratory personnel specifically instructed and trained in the operation of the [place] and [employer] Fusion system. The Aptima SARS-CoV-2 assay is only for use under the Food and Drug Administration Emergency Use Authorization. Testing is limited to laboratories certified under the Clinical Laboratory Improvement Amendments of 1988 (CLIA), 42 U.S.C. ???263a, to perform high complexity tests. Not Detected: Not detected does not preclude SARS-CoV-2 infection and should not be used as the sole basis for patient management decisions. Not detected results must be combined with clinical observations, patient history, and epidemiological information. Performed By: #### 3 1792 #### [address] *BODY FLUID CULTUREon 2021 *BODY FLUID CULTURE Clinical Report: (D) Specimen: FLUID Collected: 07/21/2021 14:05 Status: Final Last Updated: 07/26/2021 07:53 (1) RT SC Joint Fluid GRAM (Final) Quantity Not Sufficient CULT RES (Final) No Growth Day 5 Normal [facility] Comment on above: Order Comment: RT SC Joint Fluid Performed By: #### 8 5499 #### [address] APTTon 07-21-2021 aPTT Coag (Bld) [Time] 33.5 s Normal 25.0-35.0 [facility] Comment on above: Result Comment: ALL RESULTS MUST BE INTERPRETED WITH RESPECT TO BLOOD DRAWING ARTIFACT OR DILUTION ERROR OF ANTICOAGULANT AT THE TIME OF SAMPLING. THE APTT SHOULD NOT BE USED TO MONITOR UNFRACTIONATED HEPARIN THERAPY, THIS LABORATORY NO LONGER HAS AN ESTABLISHED THERAPEUTIC RANGE BASED ON THE APTT. IT IS RECOMMENDED THAT THE UFH - HEPARIN ASSAY (ANTI-XA ACTIVITY) BE USED FOR THIS PURPOSE. Performed By: #### 6 1405 #### [address] CBC W/DIFFon 07-21-2021 ABS IMM GRANS 0.1 10*3/uL Normal 0.0-0.2 [facility] Comment on above: Performed By: #### 5 0103 #### [facility] [address] ABS NEUTROPHILS 8.1 10*3/uL High 1.6-7.6 [facility] Comment on above: Performed By: #### 5 0103 #### [facility] [address] [place] [address], [place] Basophils (Bld) [#/Vol] 0.1 10*3/uL Normal 0.0-0.2 [facility] Comment on above: Performed By: #### 5 0103 #### [facility] [address] [place] [address], [facility] Basophils/100 WBC (Bld) 0.7 % Normal 0.0-1.0 [facility] Comment on above: Performed By: #### 5 0103 #### [facility] [address] [place] [address], [facility] Eosinophils (Bld) [#/Vol] 0.4 10*3/uL Normal 0.0-0.5 [facility] Comment on above: Performed By: #### 5 0103 #### [facility] [address] [place] [address], [facility] Eosinophils/100 WBC (Bld) 3.4 % Normal 0.0-6.0 [facility] Comment on above: Performed By: #### 5 0103 #### [facility] [address] [facility]. [address] Erythrocyte distribution width (RBC) [Ratio] 12.5 % Normal 11.5-15.0 [facility] Comment on above: Performed By: #### 5 3 #### [facility] [address] [place] [address], [facility] Hematocrit (Bld) [Volume fraction] 40.2 % Normal 39.0-50.0 [facility] Comment on above: Performed By: #### 5 3 #### [facility] [address] [place] [address], [facility] Hemoglobin (Bld) [Mass/Vol] 13.8 g/dL Normal 13.0-17.0 [facility] Comment on above: Performed By: #### 5 3 #### [facility] [address] [place], [place] [address] IMMATURE GRANS 0.5 % Normal 0.0-1.0 [facility] Comment on above: Performed By: #### 5 0103 #### [facility] [address] [place] [address], [facility] Lymphocytes (Bld) [#/Vol] 1.8 10*3/uL Normal 1.2-4.0 [facility] Comment on above: Performed By: #### 5 0103 #### [facility] [address] [place] [address], [facility] Lymphocytes/100 WBC (Bld) 16.7 % Low 20.0-45.0 [facility] Comment on above: Performed By: #### 5 0103 #### [facility] [address] [facility]. [address] MCH (RBC) [Entitic mass] 33.7 pg High 27.0-33.0 [facility] Comment on above: Performed By: #### 5 0103 #### [facility] [address] [facility]. [address] MCHC (RBC) [Mass/Vol] 34.3 g/dL Normal 32.0-35.0 [facility] Comment on above: Performed By: #### 5 0103 #### [facility] [address] [place] [address], [facility] MCV (RBC) [Entitic vol] 98.3 fL High 82.0-98.0 [facility] Comment on above: Performed By: #### 5 0103 #### [facility] [address] [place] [address], [facility] Monocytes (Bld) [#/Vol] 0.6 10*3/uL Normal 0.1-1.0 [facility] Comment on above: Performed By: #### 5 3 #### [facility] [address] [place] [address], [facility] MONOS 5.2 % Normal 5.0-12.0 [facility] Comment on above: Performed By: #### 5 0103 #### [place] [address], [facility] Neutrophils/100 WBC (Bld) 73.5 % High 40.0-72.0 [facility] Comment on above: Performed By: #### 5 0103 #### [place] [address], [facility] Nucleated RBC/100 WBC (Bld) [Ratio] 0 % Normal 0-0 [facility] Comment on above: Performed By: #### 5 0103 #### [place] [address], [facility] PLAT CNT 424 10*3/uL High 150-400 [facility] Comment on above: Performed By: #### 5 0103 #### [place] [address], [facility] RBC (Bld) [#/Vol] 4.09 10*6/uL Low 4.20-5.70 [facility] Comment on above: Performed By: #### 5 0103 #### [place] [address], [facility] WBC (Bld) [#/Vol] 10.99 10*3/uL High 4.00-10.60 [facility] Comment on above: Performed By: #### 5 3 #### [address] BIOPSY BONE DEEPon 2021 CT BIOPSY BONE DEEP [facility] Department of Radiology [address] [place] [address] [phone] Patient Name: GEMMA RODGERS : 1960 Sex: M Age: Race: White Pt. 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 Quiroz per Jerzy ASA hold 7 days Covid 07/19/21 Don [phone] Comments: CT Guided aspiration of the Sternoclavicular Joint to be done by radiology. 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 Lab orders are in [place] PROTOCOL: All CT scans at this facility use dose modulation, iterative reconstruction, and/or weight based dosing when appropriate to reduce radiation dose to as low as reasonably achievable. INFORMED CONSENT: Reason for procedure was discussed with the patient. The procedure expectations risks benefits options and alternatives were discussed. All the questions were answered. The patient understood that results cannot be guaranteed. The procedure is indicated and risks are acceptable. Consent was obtained. Timeout: Bliss protocol timeout verification performed. MEDICATIONS: 2 mg of versed and 100 micrograms of Fentanyl were administered for conscious sedation. Vital signs were continuously monitored by nursing staff throughout the procedure. Performing physician:Dr. BLANK Start time: 1355 End time: 1410 PROCEDURE: Estimated blood loss: None. FINDINGS: Limited CT scan examination in supine position was obtained over the sternoclavicular joints confirming the presence of soft tissue thickening and likely small amount of fluid in the right sternoclavicular joint with bony erosive changes seen. The skin was prepped in sterile fashion. 1% lidocaine was used for local anesthesia. Using 5-Arabic one step angiocatheter, access into the right sternoclavicular joint was achieved and approximately 2 mL of serosanguineous fluid was aspirated. The sample was sent for laboratory evaluation. The catheter was then removed and adequate hemostasis was achieved with manual compression. Postprocedure CT images did not reveal any hematoma and there was no immediate complications. IMPRESSION: CT guidance was utilized for procedure. Successful CT-guided aspiration of right sternoclavicular joint without complications Electronically signed: Olga Blank. Transcribed by: [id number], User Resident: Electronically Signed by: OLGA BLANK @ 07/21/2021 03:52 PM Normal [facility] Comment on above: Order Comment: jody webb for mass, hx of osteomyelitis, STAT order POC SARS COV2 IDon 2 SARS-CoV-2 (COVID-19) RNA MACY+probe Ql (Unsp spec) Negative Normal NEGATIVE [facility] Comment on above: Result Comment: ID N OW COVID-19 assay performed on the ID NOW Instrument is a rapid molecular in vitro diagnostic test utilizing an isothermal nucleic acid amplification technology intended for the qualitative detection of nucleic acid from the SARS-CoV-2 virus in direct anterior nasal (nasal), nasopharyngeal or throat swabs from individuals who are suspected of COVID-19 by their healthcare provider within the first seven days of the onset of symptoms. Testing is limited to laboratories certified under the Clinical Laboratory Improvement Amendments of 1988 (CLIA), 42 U.S.C. ???263a,that meet the requirements to perform high, moderate, or waived complexity tests. The ID NOW COVID-19 assay is also authorized for use at the Point of Care (POC), i.e., in patient care settings operating under a CLIA Certificate of Waiver, Certificate of Compliance, or Certificate of Accreditation. Performed By: #### 3 1792 #### [facility] [address] [facility] PROTHROMBIN TIMEon 2 INR Coag (PPP) [Relative time] 1.04 {INR} Normal 0.91-1.16 [facility] Comment on above: Result Comment: [facility] P RECOMMENDED INR FOR WARFARIN THERAPY ------- ------- CONDITION INR PROPHYLAXIS OF VENOUS THROMBOSIS 2-3 (HIGH-RISK SURGERY) TREATMENT OF VENOUS THROMBOSIS 2-3 TREATMENT OF PULMONARY EMBOLISM 2-3 PREVENTION OF SYSTEMIC EMBOLISM: 2-3 ACUTE MYOCARDIAL INFARCTION TISSUE HEART VALVES VALVULAR HEART DISEASE ATRIAL FIBRILLATION RECURRENT SYSTEMIC EMBOLISM MECHANICAL HEART VALVE 2.5-3.5 FROM: ORAL ANTICOAGULANTS. MECHANISM OF ACTION, CLINICAL EFFECTIVENESS, AND OPTIMAL THERAPEUTIC RANGE. CHEST 1995;108:231S-246S. Performed By: #### 6 1405 #### [facility] [address] [facility] [place] [address], [facility] PT Coag (PPP) [Time] 13.6 s Normal 12.3-14.8 [facility] Comment on above: Result Comment: ALL RESULTS MUST BE INTERPRETED WITH RESPECT TO BLOOD DRAWING ARTIFACT OR DILUTION ERROR OF ANTICOAGULANT AT THE TIME OF SAMPLING. Performed By: #### 6 1405 #### [facility] [address] [facility]. [address] COVID-19 Ab, IgGon 2 SARS-CoV-2 (COVID-19) Ab IA Ql >800.0 Normal Neg <13.0 [facility] Comment on above: Result Comment: This test has not been FDA cleared or approved. This test has been authorized by FDA under an Emergency Use Authorization (EUA). This test is only authorized for the duration of the declaration that circumstances exist justifying the authorization of emergency use of in vitro diagnostics for detection and/or diagnosis of COVID-19 under Section 564(b)(1) of the Act, 21 U.S.C. 360bbb- 3(b)(1), unless the authorization is terminated or revoked sooner. This test has been authorized only for detecting the presence of antibodies against SARS-CoV-2, not for any other viruses or pathogens. Performed By: #### C OVID-19 AB IGG #### [facility] , SARS-CoV-2 (COVID-19) Ab IA Ql Positive Normal . [facility] Comment on above: Result Comment: Anti bodies against the SARS-CoV-2 spike protein, including the receptor binding domain (RBD) were detected. It is not yet known what level of antibody to SARS-CoV-2 spike protein correlates to immunity against developing symptomatic SARS-CoV-2 disease. This assay was performed using [employer] Liaison(R) SARS-CoV-2 Trimeric S IgG assay. This test has not been FDA cleared or approved. This test has been authorized by FDA under an Emergency Use Authorization (EUA). This test is only authorized for the duration of the declaration that circumstances exist justifying the authorization of emergency use of in vitro diagnostics for detection and/or diagnosis of COVID-19 under Section 564(b)(1) of the Act, 21 U.S.C. 360bbb- 3(b)(1), unless the authorization is terminated or revoked sooner. This test has been authorized only for detecting the presence of antibodies against SARS-CoV-2, not for any other viruses or pathogens. Performed at: [address] [id number] Barrel Inspector Tight: Nico Cabrera PhD, Phone: [phone] PERFORMED BY: [place] [address] [place] [address] PATHOLOGIST HAIRSPRING VIBRATOR PAUL STEELE M.D. Performed By: #### C OVID-19 AB IGG #### [facility] , SARS coronavirus 2 IgG Ab [U nits/volume] in Serum or Plasma by ImmunoassayOrdered By: Nasir Pan on 07-19-2021 SARS-CoV-2 (COVID-19) IgG IA Qn >800.0 AU/mL Neg <13.0 [facility] Comment on above: This test has not be en FDA cleared or approved. This testhas been authorized by FDA under an Emergency UseAuthorization (EUA). This test is only authorized for theduration of the declaration that circumstances existjustifying the authorization of emergency use of in vitrodiagnostics for detection and/or diagnosis of COVID-19under Section 564(b)(1) of the Act, 21 U.S.C. 360bbb-3(b)(1), unless the authorization is terminated orrevoked sooner. This test has been authorized only fordetecting the presence of antibodies against SARS-CoV-2,not for any other viruses or pathogens. SARS-CoV-2 (COVID-19) Ab [In terpretation] in Serum or PlasmaOrdered By: Nasir Pan on 07-19-2021 SARS-CoV-2 (COVID-19) Ab [Interp] Positive [facility] Comment on above: Antibodies against t he SARS-CoV-2 spike protein, includingthe receptor binding domain (RBD) were detected. It is notyet known what level of antibody to SARS-CoV-2 spikeprotein correlates to immunity against developingsymptomatic SARS-CoV-2 disease. This assay was performedusing [employer] Liaison(R) SARS-CoV-2 Trimeric S IgG assay.This test has not been FDA cleared or approved. This testhas been authorized by FDA under an Emergency UseAuthorization (EUA). This test is only authorized for theduration of the declaration that circumstances existjustifying the authorization of emergency use of in vitrodiagnostics for detection and/or diagnosis of COVID-19under Section 564(b)(1) of the Act, 21 U.S.C. 360bbb-3(b)(1), unless the authorization is terminated orrevoked sooner. This test has been authorized only fordetecting the presence of antibodies against SARS-CoV-2,not for any other viruses or pathogens.Performed at: [facility], [place] [id number] Director: Nico Cabrera PhD, Phone: [phone] CT UPPER EXTREMITY W CONTRAS T RIGHTon 07-02-2021 CT UPPER EXTREMITY W CONTRAST RIGHT [facility] Department of Radiology [address] [place] [address] Patient Name: GEMMA RODGERS : 1960 Sex: M Age: Race: White Pt. Location: Patient Status: O Ordered Date: 06/03/2021 10:10:00 AM Completed Date: 07/02/2021 12:15 PM Requesting Provider: NASIR PAN Attending Provider: NASIR PAN Report Copy To: VISH DELUCA Signs & Symptoms: R07.89 Other chest pain I10 looking for mass, hx of osteomyelitis EVALUATE RIGHT STERNOCLAVICULAR JOINT Pyogenic arthritis of shoulder region History: [place] patient will need labs- asking Nasir Pan to send lab orders to [facility] for patient. 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 CONTRAST: Contrast: OMNIPAQUE 350 (LOCM), 100 milliliter, Intravenous TECHNIQUE: Multiple detector CT axial slices of the were obtained with IV contrast. Multiplanar reformats were performed and viewed on a separate workstation and reviewed to further define anatomy and possible pathology. All CT scans at this facility use dose modulation, iterative reconstruction, and/or weight based dosing when appropriate to reduce radiation dose to as low as reasonably achievable COMPARISON: None. FINDINGS: There is abnormal soft tissue and fluid at the right sternoclavicular joint measuring 3.5 x 4.5 x 4.0 cm there is also irregularity and erosion of the distal clavicle and proximal sternum. Findings are consistent with septic arthritis and abscess. Acromioclavicular and glenohumeral joints are unremarkable. There is evidence of prior failed rib fractures on the right. Visualized lungs are clear IMPRESSION: Findings are consistent with septic arthritis and abscess of the right sternoclavicular joint Electronically signed: Caty Flanagan. Transcribed by: [email or web address], User Resident: Electronically Signed by: CATY FLANAGAN @ 07/02/2021 12:43 PM Normal [facility] Comment on above: Order Comment: looki ng for mass, hx of osteomyelitis, STAT order COVID-19 [facility] 06-11-2021 SARS-CoV-2 (COVID-19) RNA MACY+probe Ql (Unsp spec) Negative Normal Negative [facility] Comment on above: Order Comment: FOR Angel GREGORY Healthcare Worker?: N Result Comment: Testing for SARS-CoV-2 by RT-PCR This test was developed and its performance characteristics determined by [employer] ([employer]) and validated at the [facility]. This test has not been FDA cleared or approved. This test has been authorized by FDA under an Emergency Use Authorization (EUA). This test has been validated in accordance with the FDA's Guidance Document (Policy for Diagnostics Testing in Laboratories Certified to Perform High Complexity Testing under CLIA prior to Emergency Use Authorization for Coronavirus Disease-2019 during the Public Health Emergency) issued on July 18, 2019. This test is only authorized for the duration of time the declaration that circumstances exist justifying the authorization of the emergency use of in vitro diagnostic tests for detection of SARS-CoV-2 virus and/or diagnosis of COVID-19 infection under section 564(b)(1) of the Act, 21 U.S.C. 360bbb-3(b)(1), unless the authorization is terminated or revoked sooner. PERFORMED BY: [place] [address] PATHOLOGIST HAIRSPRING VIBRATOR PAUL STEELE M.D. Performed By: #### C OVID 19 [facility] #### [address] COVID-19 Positive/NegativeOr dered By: Vish Deluca on 06-11-2021 SARS-CoV-2 (COVID-19) N gene MACY+probe Ql (Resp) Negative Negative [facility] Comment on above: Testing for SARS-CoV -2 by RT-PCRThis test was developed and its performance characteristics determined by [employer] ([employer]) and validated at the [facility]. This test has not been FDA cleared or approved. This test has been authorized by FDA under an Emergency Use Authorization (EUA). This test has been validated in accordance with the FDA's Guidance Document (Policy for Diagnostics Testing in Laboratories Certified to Perform High Complexity Testing under CLIA prior to Emergency Use Authorization for Coronavirus Disease-2019 during the Public Health Emergency) issued on July 18, 2019. This test is only authorized for the duration of time the declaration that circumstances exist justifying the authorization of the emergency use of in vitro diagnostic tests for detection of SARS-CoV-2 virus and/or diagnosis of COVID-19 infection under section 564(b)(1) of the Act, 21 U.S.C. 360bbb-3(b)(1), unless the authorization is terminated or revoked sooner. MRI Knee w/o Righton MRI Knee w/o Right HISTORY: Right knee pain, mostly medially with decreased range of motion. No prior surgery. No recent injury. TECHNIQUE: Routine non-contrast MRI of the right knee COMPARISON: Radiographs 05/05/2021. RESULT: MENISCI: Medial Meniscus: Horizontal tearing involving the posterior horn and body, contacting the superior articular surface, with maceration of a portion of the meniscus. Lateral Meniscus: Intact LIGAMENTS: ACL, PCL, MCL, LCL Complex: Intact CARTILAGE: Within normal limits. TENDONS: Distal quadriceps intact. Patellar tendon intact. Popliteus tendon intact. BONES AND MARROW: No evidence of fracture or bone marrow replacing process. MUSCLES: Muscle bulk and signal intensity are normal. JOINT FLUID AND SYNOVIUM: Trace joint effusion. No synovitis. Trace Ceja's cyst or bursal distention. OTHER: No other significant abnormality. IMPRESSION: Medial meniscal tear. Report reported and signed by Vish Tariq on 06/09/2021 1559 Normal [facility] C REACTIVE PROTEINon 022 CRP [Mass/Vol] 19.6 mg/L High 0.0-7.0 [facility] Comment on above: Performed By: #### 6 1405 ####[facility] CBC W/DIFFon 05-25-2021 ABS IMM GRANS 0.1 10*3/uL Normal 0.0-0.2 [facility] Comment on above: Performed By: #### 3 0312 #### [facility] [address] ABS NEUTROPHILS 8.6 10*3/uL High 1.6-7.6 [facility] Comment on above: Performed By: #### 3 0312 #### [facility] [address] Basophils (Bld) [#/Vol] 0.1 10*3/uL Normal 0.0-0.2 [facility] Comment on above: Performed By: #### 3 0312 #### [facility] [address] Basophils/100 WBC (Bld) 0.5 % Normal 0.0-1.0 [facility] Comment on above: Performed By: #### 3 0312 #### [facility] [address] Eosinophils (Bld) [#/Vol] 0.2 10*3/uL Normal 0.0-0.5 [facility] Comment on above: Performed By: #### 3 0312 #### [facility] [address] [place] [address], [facility] Eosinophils/100 WBC (Bld) 2.2 % Normal 0.0-6.0 [facility] Comment on above: Performed By: #### 3 0312 #### [facility] [address] Erythrocyte distribution width (RBC) [Ratio] 12.7 % Normal 11.5-15.0 [facility] Comment on above: Performed By: #### 3 0312 #### [facility] [address] [facility] Hematocrit (Bld) [Volume fraction] 40.6 % Normal 39.0-50.0 [facility] Comment on above: Performed By: #### 3 0312 #### [facility] [address] [facility] [address], [facility] Hemoglobin (Bld) [Mass/Vol] 14.2 g/dL Normal 13.0-17.0 [facility] Comment on above: Performed By: #### 3 0312 #### [facility] [address] [facility] [address], [facility] IMMATURE GRANS 0.5 % Normal 0.0-1.0 [facility] Comment on above: Performed By: #### 3 0312 #### [facility] [address] [facility] [address], [facility] Lymphocytes (Bld) [#/Vol] 1.3 10*3/uL Normal 1.2-4.0 [facility] Comment on above: Performed By: #### 3 0312 #### [facility] [address] [place] [address], [facility] Lymphocytes/100 WBC (Bld) 12.0 % Low 20.0-45.0 [facility] Comment on above: Performed By: #### 3 0312 #### [facility] [address] [place] [address], [facility] MCH (RBC) [Entitic mass] 34.2 pg High 27.0-33.0 [facility] Comment on above: Performed By: #### 3 0312 #### [facility] [address] [place] [address], [facility] MCHC (RBC) [Mass/Vol] 35.0 g/dL Normal 32.0-35.0 [facility] Comment on above: Performed By: #### 3 0312 #### [facility] [address] [place] [address], [facility] MCV (RBC) [Entitic vol] 97.8 fL Normal 82.0-98.0 [facility] Comment on above: Performed By: #### 3 0312 #### [facility] [address] [place] [address], [facility] Monocytes (Bld) [#/Vol] 0.9 10*3/uL Normal 0.1-1.0 [facility] Comment on above: Performed By: #### 3 0312 #### [facility] [address] [place] [address], [facility] MONOS 7.8 % Normal 5.0-12.0 [facility] Comment on above: Performed By: #### 3 0312 #### [facility] [address] [place] [address], [facility] Neutrophils/100 WBC (Bld) 77.0 % High 40.0-72.0 [facility] Comment on above: Performed By: #### 3 0312 #### [facility] [address] [place] [address], [facility] Nucleated RBC/100 WBC (Bld) [Ratio] 0 % Normal 0-0 [facility] Comment on above: Performed By: #### 3 0312 #### [facility] [address] [facility] [place] [address], [facility] PLAT CNT 308 10*3/uL Normal 150-400 [facility] Comment on above: Performed By: #### 3 0312 #### [facility] [address] [facility] [address], [facility] RBC (Bld) [#/Vol] 4.15 10*6/uL Low 4.20-5.70 [facility] Comment on above: Performed By: #### 3 0312 #### [facility] [address] [place] [address], [facility] WBC (Bld) [#/Vol] 11.12 10*3/uL High 4.00-10.60 [facility] Comment on above: Performed By: #### 3 0312 #### [facility] [address] [facility] [address], [facility] SEDIMENTATION RATEon 02-08-2 022 SED RATE 16 mm/hr High 0-10 [facility] Comment on above: Performed By: #### 3 0312 #### [facility] [address] [facility] [address], [facility] Basic Metabolic Panelon 01-0 Anion gap [Moles/Vol] 20 mmol/L Normal 12-20 [facility] [employer]er Comment on above: Result Comment: Effe ctive 04/22/2019 reference range changed. Performed By: #### B MP #### [facility] [address] [place], [place] [id number] Calcium [Mass/Vol] 10.4 mg/dL High 8.6-10.2 [facility]ot Designer Comment on above: Performed By: #### B MP #### [facility] [address] [place] [id number] Chloride [Moles/Vol] 98 mmol/L Normal 98-107 [facility] [place] [employer] Comment on above: Performed By: #### B MP #### [facility] [address] [place], [place] [id number] CO2 [Moles/Vol] 22 mmol/L Normal 20-31 [facility] Comment on above: Performed By: #### B MP #### [facility] [address] [place], [place] [id number] Creatinine [Mass/Vol] 0.9 mg/dL Normal 0.7-1.4 [facility] Comment on above: Performed By: #### B MP #### [facility] [address] [place], [place] [id number] eGFRAA 106 mL/min/1.73m2 Normal >60 [facility] Comment on above: Performed By: #### B MP #### [facility] [address] [place], [place] [id number] eGFRNAA 87 mL/min/1.73m2 Normal >60 [facility] Comment on above: Performed By: #### B MP #### [facility] [address] [place], [place] [id number] Glucose [Mass/Vol] 95 mg/dL Normal 65-99 [facility] Specialist Comment on above: Result Comment: For FASTING Glucose --- ADA reference ranges: Normal 65-99 mg/dl Prediabetes 100-125 Diabetes >/= 126 Performed By: #### B MP #### [facility] [address] [place], [place] [id number] Potassium [Moles/Vol] 5.0 mmol/L Normal 3.5-5.5 [facility] Comment on above: Performed By: #### B MP #### [facility] [address] [place], [place] [id number] Sodium [Moles/Vol] 135 mmol/L Normal 135-146 [facility] Specialist Comment on above: Performed By: #### B MP #### [facility] [address] [place], [place] [id number] Urea nitrogen [Mass/Vol] 15 mg/dL Normal 7-25 [facility] Specialist Comment on above: Performed By: #### B MP #### [facility] [address] [place], [place] [id number] C REACTIVE PROTEINon 021 CRP [Mass/Vol] 7.9 mg/L High 0.0-7.0 [facility] Comment on above: Performed By: #### 6 1405 ####[facility] CBC COMPLETE BLOOD COUNTon 05-20-2020 Erythrocyte distribution width (RBC) [Ratio] 12.8 % Normal 11.5-15.0 [facility] Comment on above: Performed By: #### 3 0323 #### [facility] [address] Hematocrit (Bld) [Volume fraction] 40.7 % Normal 39.0-50.0 [facility] Comment on above: Performed By: #### 3 0323 #### [facility] [address] [facility]. [address] Hemoglobin (Bld) [Mass/Vol] 14.5 g/dL Normal 13.0-17.0 [facility] Comment on above: Performed By: #### 3 0323 #### [facility] [address] MCH (RBC) [Entitic mass] 34.0 pg High 27.0-33.0 [facility] Comment on above: Performed By: #### 3 0323 #### [facility] [address] [facility]. [address] MCHC (RBC) [Mass/Vol] 35.6 g/dL High 32.0-35.0 [facility] Comment on above: Performed By: #### 3 0323 #### [facility] [address] [facility]. [address] MCV (RBC) [Entitic vol] 95.5 fL Normal 82.0-98.0 [facility] Comment on above: Performed By: #### 3 0323 #### [facility] [address] [place] [address], [facility] Nucleated RBC/100 WBC (Bld) [Ratio] 0 % Normal 0-0 [facility] Comment on above: Performed By: #### 3 0323 #### [facility] [address] [place] [address], [facility] PLAT CNT 333 10*3/uL Normal 150-400 [facility] Comment on above: Performed By: #### 3 0323 #### [facility] [address] [place] [address], [facility] RBC (Bld) [#/Vol] 4.26 10*6/uL Normal 4.20-5.70 [facility] Comment on above: Performed By: #### 3 0323 #### [facility] [address] [place] [address], [facility] WBC (Bld) [#/Vol] 12.50 10*3/uL High 4.00-10.60 [facility] Comment on above: Performed By: #### 3 0323 #### [facility] [address] [place] [address], [facility] COMP METABOLIC PANELon 03-19 Albumin [Mass/Vol] 4.4 g/dL Normal 3.5-5.7 [facility] Comment on above: Performed By: #### 0 0121 ####[facility] [place] [address], [facility] ALKALINE PHOSPH 71 IU/L Normal 34-104 [facility] Comment on above: Performed By: #### 0 0121 ####[facility] [place] [address], [facility] ALT [Catalytic activity/Vol] 15 U/L Normal 7-52 [facility] Comment on above: Performed By: #### 0 0121 ####[facility] [place] [address], [facility] AST [Catalytic activity/Vol] 19 U/L Normal 13-39 [facility] Comment on above: Performed By: #### 0 0121 ####[facility] [place] [address], [facility] Bilirubin [Mass/Vol] 0.6 mg/dL Normal 0.3-1.0 [facility] Comment on above: Performed By: #### 0 0121 ####[facility] [place] [address], [facility] Calcium [Mass/Vol] 10.1 mg/dL Normal 8.6-10.3 [facility] Comment on above: Performed By: #### 0 0121 ####[facility] [place] [address], [facility] Chloride [Moles/Vol] 82 mmol/L Low 98-107 [facility] Comment on above: Performed By: #### 0 0121 ####[facility] [place] [address], [facility] CO2 [Moles/Vol] 28 mmol/L Normal 21-31 [facility] Comment on above: Performed By: #### 0 0121 ####[facility] [place] [address], [facility] Creatinine [Mass/Vol] 1.26 mg/dL Normal 0.70-1.30 [facility] Comment on above: Performed By: #### 0 0121 ####[facility] [place] [address], [facility] eGFR- non- 58 ml/min/1.73sq m Abnormal >60 [facility] Comment on above: Performed By: #### 0 0121 ####[facility] [place] [address], [facility] GFR/1.73 sq M.predicted among blacks MDRD (S/P/Bld) [Vol rate/Area] mL/min/{1.73_m2} Normal >60 [facility] Comment on above: Performed By: #### 0 0121 ####[facility] [place] [address], [facility] Glucose [Mass/Vol] 92 mg/dL Normal 70-100 [facility] Comment on above: Performed By: #### 0 0121 ####[facility] [place] [address], [facility] Potassium [Moles/Vol] 4.2 mmol/L Normal 3.5-5.1 [facility] Comment on above: Performed By: #### 0 0121 ####[facility] [place] [address], [facility] Protein [Mass/Vol] 7.5 g/dL Normal 6.0-8.3 [facility] Comment on above: Performed By: #### 0 0121 ####[facility] [place] [address], [facility] Sodium [Moles/Vol] 120 mmol/L Low 136-145 [facility] Comment on above: Result Comment: M-CR ITICAL RESULT(S) REVIEWED, CALLED TO AND READ BACK BY VIKY BAKER RN @ [phone] Performed By: #### 0 0121 ####[facility] [place] [address], [facility] Urea nitrogen [Mass/Vol] 16 mg/dL Normal 7-25 [facility] Comment on above: Performed By: #### 0 0121 ####[facility] [place] [address], [facility] SEDIMENTATION RATEon 1203-2 021 SED RATE 19 mm/hr High 0-10 [facility] Comment on above: Performed By: #### 3 0312 #### [facility] [address] [place], [place] [id number] [place] [address] Operative Reporton 10-22-202 1 Operative Report MR#: [id number] [facility] Pt. Name: Gemma Rodgers Room #: 6AB [id number] Discharge 02/04/2021 Date: Birthdate: 1960 OPERATIVE REPORT DATE OF SURGERY: 02/02/2021 SURGEON: Sergio Brunner M.D. ASSISTANTS: 1. Sreedhar Harden M.D. 2. Andres Felder M.D. PREOPERATIVE DIAGNOSIS: Septic right sternoclavicular joint. POSTOPERATIVE DIAGNOSIS: Septic right sternoclavicular joint. SURGERY PERFORMED: Irrigation and debridement, right sternoclavicular joint down to bone. ANESTHESIA: General. IV FLUIDS: Per anesthesia record. BLOOD LOSS: Minimal. COMPLICATIONS: None. SPECIMENS: Deep tissue was sent for culture. IMPLANTS: A Hemovac drain was placed. INDICATIONS FOR PROCEDURE: This is a 60-year-old male who had a septic right sternoclavicular joint. He underwent initial irrigation and debridement on 01/29/2021, from which cultures grew MRSA. The patient was kept in the hospital for IV antibiotics and the PICC line was placed and the patient was closely monitored. It was noted that the patient seemed to be collecting more fluid as there was a palpable fluid collection at the previous site of surgery overlying his right sternoclavicular joint, which was aspirated in the inpatient unit, 30 mL of blood was obtained. However, the following morning, the fluid had recollected which was proven on CT scan. Therefore, elected to proceed with repeat irrigation, debridement, and placement of a drain. PROCEDURE IN DETAIL: The patient was met in the preoperative holding area. Consent was reviewed. Surgical site was marked. Anesthesiology met with the patient. He was then taken to the operating room. He was placed on operating table in supine position. General anesthesia was smoothly induced. The right clavicle and upper chest were prepped and draped in usual sterile fashion. A surgical time-out was performed. We began the procedure by removing the previously placed sutures and the scalpel was used to open through the previous surgical incision. A large amount of bloody fluid was immediately expressed just deep to the skin which appeared to be hematoma. This was easily evacuated and deep tissue was excised using a rongeur and sent for culture. The wound was then debrided using a rongeur and curette down to bone and the wound appeared clean after thorough irrigation using Betadine sterile saline. The deep pectoralis fascia was closed using 0 PDS suture, which was closed over a Hemovac drain. We then placed 1 g of doxycycline powder before closing the subcuticular layer using 2-0 PDS suture. The skin was closed using 3-0 Novafil and soft sterile dressing was applied. Hemovac was hooked to suction. Sterile drapes were removed and anesthesia was discontinued. The patient was transferred to the PACU in stable condition. He will return to his room in the inpatient unit. Infectious Diseases will continue to follow. His drain output will be monitored as well as the wound and he will continue to receive IV antibiotics per Infectious Disease recommendations. Dr. Brunner was present for the entire procedure and made all critical decisions regarding patient care. Electronically Signed by: Sergio Brunner M.D. 02/05/2021 06:31 P Sergio Brunner M.D. I was present for the cruz and critical portions and I was otherwise immediately available to assist. Date Dict: 02/04/2021/12:24 P/Sreedhar Harden MD Date Trans: 02/04/2021 11:39 P/kimberley [id number] cc: Vish Deluca M.D. [address] [place] [address] Normal [facility] BASIC METABOLIC PANELon 10-2 Calcium [Mass/Vol] 8.9 mg/dL Normal 8.6-10.3 [facility] Comment on above: Order Comment: No: D o not add to previous drawNurse Draw Performed By: #### 6 1405 #### [address] [place] [address], [facility] Chloride [Moles/Vol] 98 mmol/L Normal 98-107 [facility] Comment on above: Order Comment: No: D o not add to previous drawNurse Draw Performed By: #### 6 1405 #### [facility] [address] [place] [address], [place] CO2 [Moles/Vol] 27 mmol/L Normal 21-31 [facility] Comment on above: Order Comment: No: D o not add to previous drawNurse Draw Performed By: #### 6 1405 #### [facility] [address] [place] [address], [place] Creatinine [Mass/Vol] 0.86 mg/dL Normal 0.70-1.30 [facility] Comment on above: Order Comment: No: D o not add to previous drawNurse Draw Performed By: #### 6 1405 #### [facility] [address] [place] [address], [place] GFR/1.73 sq M.predicted among blacks MDRD (S/P/Bld) [Vol rate/Area] mL/min/{1.73_m2} Normal >60 [facility] Comment on above: Order Comment: No: D o not add to previous drawNurse Draw Performed By: #### 6 1405 #### [facility] [address] [place] [address], [place] GFR/1.73 sq M.predicted among non-blacks MDRD (S/P/Bld) [Vol rate/Area] mL/min/{1.73_m2} Normal >60 [facility] Comment on above: Order Comment: No: D o not add to previous drawNurse Draw Performed By: #### 6 1405 #### [facility] [address] [place] [address], [place] Glucose [Mass/Vol] 90 mg/dL Normal 70-100 [facility] Comment on above: Order Comment: No: D o not add to previous drawNurse Draw Performed By: #### 6 1405 #### [facility] [address] [place] [address], [place] Potassium [Moles/Vol] 3.8 mmol/L Normal 3.5-5.1 [facility] Comment on above: Order Comment: No: D o not add to previous drawNurse Draw Performed By: #### 6 1405 #### [facility] [address] [address], [facility] Sodium [Moles/Vol] 131 mmol/L Low 136-145 [facility] Comment on above: Order Comment: No: D o not add to previous drawNurse Draw Performed By: #### 6 1405 #### [facility] [address] [facility]. [address] Urea nitrogen [Mass/Vol] 13 mg/dL Normal 7-25 [facility] Comment on above: Order Comment: No: D o not add to previous drawNurse Draw Performed By: #### 6 1405 #### [facility] [address] FREE T4on 02-04-2021 Free T4 [Mass/Vol] 0.96 ng/dL Normal 0.71-1.85 [facility] Comment on above: Performed By: #### 6 1405 #### [facility] [address] TSH3 WITH REFLEX FT4on 02-04 TSH 3RD GENERATION 33.51 uIU/mL High 0.34-5.60 [facility] Comment on above: Order Comment: No: D o not add to previous drawNurse Draw Performed By: #### 6 1405 #### [facility] [address] [facility] [address], [facility] CBC W/DIFFon 02-03-2021 ABS IMM GRANS 0.1 10*3/uL Normal 0.0-0.2 [facility] Comment on above: Order Comment: 5. Ri ght Manubrium Performed By: #### 3 0312 #### [facility] [address] [place] [address], [facility] ABS NEUTROPHILS 7.4 10*3/uL Normal 1.6-7.6 [facility] Comment on above: Order Comment: 5. Ri ght Manubrium Performed By: #### 3 2 #### [facility] [address] [place] [address], [facility] Basophils (Bld) [#/Vol] 0.1 10*3/uL Normal 0.0-0.2 [facility] Comment on above: Order Comment: 5. Ri ght Manubrium Performed By: #### 3 2 #### [facility] [address] [place] [address], [facility] Basophils/100 WBC (Bld) 0.5 % Normal 0.0-1.0 [facility] Comment on above: Order Comment: 5. Ri ght Manubrium Performed By: #### 3 2 #### [facility] [address] [place] [address], [facility] Eosinophils (Bld) [#/Vol] 0.3 10*3/uL Normal 0.0-0.5 [facility] Comment on above: Order Comment: 5. Ri ght Manubrium Performed By: #### 3 2 #### [facility] [address] [place] [address], [facility] Eosinophils/100 WBC (Bld) 2.9 % Normal 0.0-6.0 [facility] Comment on above: Order Comment: 5. Ri ght Manubrium Performed By: #### 3 2 #### [facility] [address] [place] [address], [facility] Erythrocyte distribution width (RBC) [Ratio] 14.1 % Normal 11.5-15.0 [facility] Comment on above: Order Comment: 5. Ri ght Manubrium Performed By: #### 3 2 #### [facility] [address] [place] [address], [facility] Hematocrit (Bld) [Volume fraction] 36.2 % Low 39.0-50.0 [facility] Comment on above: Order Comment: 5. Ri ght Manubrium Performed By: #### 3 0312 #### [facility] [address] [place] [address], [facility] Hemoglobin (Bld) [Mass/Vol] 12.3 g/dL Low 13.0-17.0 [facility] Comment on above: Order Comment: 5. Ri ght Manubrium Performed By: #### 3 0312 #### [facility] [address] [place] [address], [facility] IMMATURE GRANS 0.9 % Normal 0.0-1.0 [facility] Comment on above: Order Comment: 5. Ri ght Manubrium Performed By: #### 3 2 #### [facility] [address] [place] [address], [facility] Lymphocytes (Bld) [#/Vol] 1.8 10*3/uL Normal 1.2-4.0 [facility] Comment on above: Order Comment: 5. Ri ght Manubrium Performed By: #### 3 0312 #### [facility] [address] [place] [address], [facility] Lymphocytes/100 WBC (Bld) 17.8 % Low 20.0-45.0 [facility] Comment on above: Order Comment: 5. Ri ght Manubrium Performed By: #### 3 0312 #### [facility] [address] [place] [address], [facility] MCH (RBC) [Entitic mass] 33.2 pg High 27.0-33.0 [facility] Comment on above: Order Comment: 5. Ri ght Manubrium Performed By: #### 3 0312 #### [facility] [address] [place] [id number], [facility] MCHC (RBC) [Mass/Vol] 34.0 g/dL Normal 32.0-35.0 [facility] Comment on above: Order Comment: 5. Ri ght Manubrium Performed By: #### 3 0312 #### [facility] [address] [place] [address], [facility] MCV (RBC) [Entitic vol] 97.6 fL Normal 82.0-98.0 [facility] Comment on above: Order Comment: 5. Ri ght Manubrium Performed By: #### 3 2 #### [facility] [address] [place] [address], [facility] Monocytes (Bld) [#/Vol] 0.7 10*3/uL Normal 0.1-1.0 [facility] Comment on above: Order Comment: 5. Ri ght Manubrium Performed By: #### 3 2 #### [facility] [address] MONOS 6.8 % Normal 5.0-12.0 [facility] Comment on above: Order Comment: 5. Ri ght Manubrium Performed By: #### 3 2 #### [facility] [address] [place] [address], [facility] Neutrophils/100 WBC (Bld) 71.1 % Normal 40.0-72.0 [facility] Comment on above: Order Comment: 5. Ri ght Manubrium Performed By: #### 3 2 #### [facility] [address] [place] [address], [facility] Nucleated RBC/100 WBC (Bld) [Ratio] 0 % Normal 0-0 [facility] Comment on above: Order Comment: 5. Ri ght Manubrium Performed By: #### 3 2 #### [facility] [address] [place] [address], [facility] PLAT CNT 223 10*3/uL Normal 150-400 [facility] Comment on above: Order Comment: 5. Ri ght Manubrium Performed By: #### 3 311 #### [facility] [address] [place] [address], [facility] RBC (Bld) [#/Vol] 3.71 10*6/uL Low 4.20-5.70 [facility] Comment on above: Order Comment: 5. Ri ght Manubrium Performed By: #### 3 0312 #### [facility] [address] [place] [address], [facility] WBC (Bld) [#/Vol] 10.34 10*3/uL Normal 4.00-10.60 [facility] Comment on above: Order Comment: 5. Ri ght Manubrium Performed By: #### 3 0312 #### [facility] [address] COMP METABOLIC PANELon 02-03 Albumin [Mass/Vol] 3.3 g/dL Low 3.5-5.7 [facility] Comment on above: Order Comment: 2. Ri ght SC Joint Tissue Performed By: #### 3 0323 #### [facility] [address] [place] [address], [facility] ALKALINE PHOSPH 51 IU/L Normal 34-104 [facility] Comment on above: Order Comment: 2. Ri ght SC Joint Tissue Performed By: #### 3 0323 #### [facility] [address] [place] [address], [facility] ALT [Catalytic activity/Vol] 11 U/L Normal 7-52 [facility] Comment on above: Order Comment: 2. Ri ght SC Joint Tissue Performed By: #### 3 0323 #### [facility] [address] [place] [address], [facility] AST [Catalytic activity/Vol] 12 U/L Low 13-39 [facility] Comment on above: Order Comment: 2. Ri ght SC Joint Tissue Performed By: #### 3 0323 #### [facility] [address] [place] [address], [facility] Bilirubin [Mass/Vol] 0.6 mg/dL Normal 0.3-1.0 [facility] Comment on above: Order Comment: 2. Ri ght SC Joint Tissue Performed By: #### 3 0323 #### [facility] [address] [place] [address], [place] Calcium [Mass/Vol] 9.0 mg/dL Normal 8.6-10.3 [facility] Comment on above: Order Comment: 2. Ri ght SC Joint Tissue Performed By: #### 3 0323 #### [facility] [address] [place] [address], [facility] Chloride [Moles/Vol] 97 mmol/L Low 98-107 [facility] Comment on above: Order Comment: 2. Ri ght SC Joint Tissue Performed By: #### 3 0323 #### [facility] [address] [place] [address], [facility] CO2 [Moles/Vol] 28 mmol/L Normal 21-31 [facility] Comment on above: Order Comment: 2. Ri ght SC Joint Tissue Performed By: #### 3 0323 #### [facility] [address] [place] [address], [place] Creatinine [Mass/Vol] 0.84 mg/dL Normal 0.70-1.30 [facility] Comment on above: Order Comment: 2. Ri ght SC Joint Tissue Performed By: #### 3 0323 #### [facility] [address] [place] [address], [place] GFR/1.73 sq M.predicted among blacks MDRD (S/P/Bld) [Vol rate/Area] mL/min/{1.73_m2} Normal >60 [facility] Comment on above: Order Comment: 2. Ri ght SC Joint Tissue Performed By: #### 3 0323 #### [facility] [address] [place] [address], [facility] GFR/1.73 sq M.predicted among non-blacks MDRD (S/P/Bld) [Vol rate/Area] mL/min/{1.73_m2} Normal >60 [facility] Comment on above: Order Comment: 2. Ri ght SC Joint Tissue Performed By: #### 3 0323 #### [facility] [address] [place] [address], [place] Glucose [Mass/Vol] 91 mg/dL Normal 70-100 [facility] Comment on above: Order Comment: 2. Ri ght SC Joint Tissue Performed By: #### 3 0323 #### [facility] [address] [place] [address], [facility] Potassium [Moles/Vol] 4.2 mmol/L Normal 3.5-5.1 [facility] Comment on above: Order Comment: 2. Ri ght SC Joint Tissue Performed By: #### 3 0323 #### [facility] [address] [place] [address], [facility] Protein [Mass/Vol] 6.3 g/dL Normal 6.0-8.3 [facility] Comment on above: Order Comment: 2. Ri ght SC Joint Tissue Performed By: #### 3 0323 #### [facility] [address] [place] [address], [place] Sodium [Moles/Vol] 131 mmol/L Low 136-145 [facility] Comment on above: Order Comment: 2. Ri ght SC Joint Tissue Performed By: #### 3 0323 #### [facility] [address] [place] [address], [place] Urea nitrogen [Mass/Vol] 13 mg/dL Normal 7-25 [facility] Comment on above: Order Comment: 2. Ri ght SC Joint Tissue Performed By: #### 3 0323 #### [facility] [address] [place] [address], [place] VANCOMYCIN TROUGHon 10-20-20 21 VANCOMYCIN TROU 18.1 mcg/mL Normal 5.0-20.0 [facility] Comment on above: Order Comment: Nurse draw Performed By: #### 0 2024 ####[facility] *ANAEROBIC CULTUREon 021 *ANAEROBIC CULTURE Clinical Report: (D) Specimen/Source: TISSUE/INTRAOP SPEC Collected: 02/02/2021 09:30 Status: Final Last Updated: 02/07/2021 12:12 (1) #1 R. STERNOCLAVICULAR JOINT ISO (Final) No Anaerobes Isolated 5 Days Normal [facility] Comment on above: Order Comment: #1 R. STERNOCLAVICULAR JOINT Performed By: #### 8 5499 #### [facility] [address] *TISSUE CULTUREon 02-02-2021 *TISSUE CULTURE Clinical Report: (D) Specimen/Source: TISSUE/INTRAOP SPEC Collected: 02/02/2021 09:30 Status: Final Last Updated: 02/05/2021 08:29 (1) #1 R. STERNOCLAVICULAR JOINT GRAM (Final) Few Polys No Bacteria Seen ISO (Final) Staphylococcus epidermidis Rare Growth Results called. Read back by Rohini Pinedo RN (6AB) 11:00 a.m. 02/04/21 Trimeth/Sulfa Manual ODALYS by E-test TRIMETH-SULFA >=32 Resistant ISOLATE: Staphylococcus epidermidis ODALYS (mcg/ml) CLINDAMYCIN (CC) <=0.5 Susceptible OXACILLIN (OX) <=0.25 Susceptible VANCOMYCIN (VA) 1 Susceptible Normal [facility] Comment on above: Order Comment: #1 R. STERNOCLAVICULAR JOINT Performed By: #### 8 5499 #### [facility] [address] POC SARS COV2 ANTIGEN NEGATI VEon 02-02-2021 POC SARS COV2 ANTIGEN NEG Negative Normal NEGATIVE [facility] Comment on above: Result Comment: Nega tive results from patients with symptom onset beyond seven days, should be treated presumptive and confirmation with a molecular assay, if necessary, for patient management, may be performed. Negative results do not rule out SARS-CoV-2 infection and should not be used as the sole basis for treatment or patient management decisions, including infection control decisions. Negative results should be considered in the context of a patient?s recent exposures, history and the presence of clinical signs and symptoms consistent with COVID-19. The Ala-Septic COVID-19 Ag Card is a lateral flow immunoassay intended for the qualitative detection of nucleocapsid protein antigen from SARS-CoV-2 in direct nasal swabs from individuals within the first seven days of symptom onset. Testing is limited to laboratories certified under the Clinical Laboratory Improvement Amendments of 1988 (CLIA), 42 U.S.C. ???263a, that meet the requirements to perform moderate, high or waived complexity tests. This test is authorized for use at the Point of Care (POC), i.e., in patient care settings operating under a CLIA Certificate of Waiver, Certificate of Compliance, or Certificate of Accreditation. Performed By: #### 3 1792 #### [facility] [address] [facility]. [address] *ANAEROBIC CULTUREon 021 *ANAEROBIC CULTURE Clinical Report: (D) Specimen/Source: FLUID/OTHER Collected: 02/01/2021 17:47 Status: Final Last Updated: 02/07/2021 11:58 (1) R SC joint No: Do not add to previous draw CULT RES (Final) No Anaerobes Isolated 5 Days Normal [facility] Comment on above: Order Comment: 2. Ri ght SC Joint Tissue Performed By: #### 3 0323 #### [facility] [address] [place] [address], [facility] *BODY FLUID CULTUREon 2020 *BODY FLUID CULTURE Clinical Report: (D) Specimen/Source: FLUID/OTHER Collected: 02/01/2021 17:47 Status: Final Last Updated: 02/07/2021 09:37 (1) No: Do not add to previous draw GRAM (Final) Few Polys No Bacteria Seen CULT RES (Final) No Growth Day 5 Normal [facility] Comment on above: Order Comment: The A ptima SARS-CoV-2 assay is a nucleic acid amplification test intended for the qualitative detection of RNA from SARS-CoV-2 isolated and purified from nasopharyngeal (GLUE SPREADER),oropharyngeal (OP), nasal swab, sputum, and bronchoalveolar lavage (BAL) specimens from patients with signs and symptoms of infection who are suspected of COVID-19. Results are for the identification of SARS-CoV-2 RNA. The SARS-CoV-2 RNA is generally detectable during the acute phase of infection. The Aptima SARS-CoV-2 Assay on the [employer] [employer] system is intended for use by laboratory personnel specifically instructed and trained in the operation of the [place] [employer] [place] [employer] system. The Aptima SARS-CoV-2 assay is only for use under the Food and Drug Administration Emergency Use Authorization. Testing is limited to laboratories certified under the Clinical Laboratory Improvement Amendments of 1988 (CLIA), 42 U.S.C. ???263a, to perform high complexity tests. Not Detected: Not detected does not preclude SARS-CoV-2 infection and should not be used as the sole basis for patient management decisions. Not detected results must be combined with clinical observations, patient history, and epidemiological information. Performed By: #### 3 1792 #### [address] [facility] *FUNGAL CULTUREon 02-01-2021 *FUNGAL CULTURE Clinical Report: (D) Specimen: [facility] Collected: 02/01/2021 17:47 Status: Final Last Updated: 03/05/2021 10:04 (1) R NH joint No: Do not add to previous draw FS (Final) No Yeast or Fungal Elements Seen CULT RES (Final) Culture negative for fungus Normal [facility] Comment on above: Order Comment: The A ptima SARS-CoV-2 assay is a nucleic acid amplification test intended for the qualitative detection of RNA from SARS-CoV-2 isolated and purified from nasopharyngeal (GLUE SPREADER),oropharyngeal (OP), nasal swab, sputum, and bronchoalveolar lavage (BAL) specimens from patients with signs and symptoms of infection who are suspected of COVID-19. Results are for the identification of SARS-CoV-2 RNA. The SARS-CoV-2 RNA is generally detectable during the acute phase of infection. The Aptima SARS-CoV-2 Assay on the [place] [employer] [place] system is intended for use by laboratory personnel specifically instructed and trained in the operation of the [place] [employer] [place] [employer] system. The Aptima SARS-CoV-2 assay is only for use under the Food and Drug Administration Emergency Use Authorization. Testing is limited to laboratories certified under the Clinical Laboratory Improvement Amendments of 1988 (CLIA), 42 U.S.C. ???263a, to perform high complexity tests. Not Detected: Not detected does not preclude SARS-CoV-2 infection and should not be used as the sole basis for patient management decisions. Not detected results must be combined with clinical observations, patient history, and epidemiological information. Performed By: #### 3 1792 #### [facility] [address] BASIC METABOLIC PANELon 10-1 Calcium [Mass/Vol] 8.8 mg/dL Normal 8.6-10.3 [facility] Comment on above: Order Comment: No: D o not add to previous drawNurse draw per rn Performed By: #### 0 0071 ####[facility] [facility] Chloride [Moles/Vol] 96 mmol/L Low 98-107 [facility] Comment on above: Order Comment: No: D o not add to previous drawNurse draw per rn Performed By: #### 0 0071 ####[facility] [place] [address], [facility] CO2 [Moles/Vol] 29 mmol/L Normal 21-31 [facility] Comment on above: Order Comment: No: D o not add to previous drawNurse draw per rn Performed By: #### 0 0071 ####[facility] [place] [address], [facility] Creatinine [Mass/Vol] 0.70 mg/dL Normal 0.70-1.30 [facility] Comment on above: Order Comment: No: D o not add to previous drawNurse draw per rn Performed By: #### 0 0071 ####[facility] [place] [address], [place] GFR/1.73 sq M.predicted among blacks MDRD (S/P/Bld) [Vol rate/Area] mL/min/{1.73_m2} Normal >60 [facility] Comment on above: Order Comment: No: D o not add to previous drawNurse draw per rn Performed By: #### 0 0071 ####[facility] [place] [address], [facility] GFR/1.73 sq M.predicted among non-blacks MDRD (S/P/Bld) [Vol rate/Area] mL/min/{1.73_m2} Normal >60 [facility] Comment on above: Order Comment: No: D o not add to previous drawNurse draw per rn Performed By: #### 0 0071 ####[facility] [place] [address], [facility] Glucose [Mass/Vol] 86 mg/dL Normal 70-100 [facility] Comment on above: Order Comment: No: D o not add to previous drawNurse draw per rn Performed By: #### 0 0071 ####[facility] [place] [address], [facility] Potassium [Moles/Vol] 3.9 mmol/L Normal 3.5-5.1 [facility] Comment on above: Order Comment: No: D o not add to previous drawNurse draw per rn Performed By: #### 0 0071 ####[facility] [place] [address], [place] Sodium [Moles/Vol] 131 mmol/L Low 136-145 [facility] Comment on above: Order Comment: No: D o not add to previous drawNurse draw per rn Performed By: #### 0 0071 ####[facility] Urea nitrogen [Mass/Vol] 11 mg/dL Normal 7-25 [facility] Comment on above: Order Comment: No: D o not add to previous drawNurse draw per rn Performed By: #### 0 0071 ####[facility] CHEST WO CONTRASTon 02-01 CT CHEST WO CONTRAST [facility] Department of Radiology [address] [place] [address] Patient Name: GEMMA RODGERS : 1960 Sex: M Age: Race: White Pt. Location: [id number] Patient Status: I Ordered Date: 02/01/2021 5:45:00 PM Completed Date: 02/01/2021 06:33 PM Requesting Provider: ANDRES FELDER Attending Provider: SERGIO BRUNNER Report Copy To: Signs & Symptoms: Other History: See Comments Comments: Other, CT chest focused at the level of the clavicle and SC joint to evaluate fluid collection overlying SC joint in the etting of recent I\EANDE\D and proximal clavicle resection. Exam: CT CHEST WO CONTRAST CT CHEST WO CONTRAST 02/01/2021 6:33 PM CLINICAL INDICATIONS: Other TECHNOLOGIST COMMENTS: cough for four days hx: proximal clavicle resection QUESTIONS PER RADIOLOGIST: Other, CT chest focused at the level of the clavicle and SC joint to evaluate fluid collection overlying SC joint in the etting of recent I\EANDE\D and proximal clavicle resection. PROTOCOL: Axial CT images of the chest were obtained without IV contrast. TECHNIQUE: Multidetector CT axial slices of the chest were obtained without IV contrast. Multiplanar reformats were performed and viewed on a separate workstation and reviewed to further define anatomy and possible pathology. All CT scans at this facility use dose modulation, iterative reconstruction, and/or weight based dosing when appropriate to reduce radiation dose to as low as reasonably achievable. COMPARISON: None.. FINDINGS: Abnormal right sternoclavicular joint is again noted. There is fluid and stranding soft tissue as well as bone destruction. These findings are essentially unchanged. There is no mediastinal or hilar adenopathy. There is no pericardial effusion. The lungs remain clear. IMPRESSION: 1. Essentially stable appearance to the right sternoclavicular joint as described. Electronically signed: Tasha Navas. Transcribed by: [id number], User Resident: Electronically Signed by: TASHA NAVAS @ 02/01/2021 06:39 PM Normal [facility] Comment on above: Order Comment: looki ng for mass, hx of osteomyelitis, STAT order FLUID CELL COUNTon 1 Lymphocytes/100 WBC (Bld) 1 % Normal [facility] Comment on above: Order Comment: 5. Ri ght Manubrium Performed By: #### 3 0312 #### [facility] [address] OTHER F1 Diff done by cytospin Normal [facility] Comment on above: Order Comment: 5. Ri ght Manubrium Performed By: #### 3 0312 #### [facility] [address] OTHER F2 . Normal [facility] Comment on above: Order Comment: 5. Ri ght Manubrium Result Comment: Resu lt changed by ELISE on 02/03/2021 12:32. The previous value was Preliminary report; verified report to follow. Performed By: #### 3 0312 #### [facility] [address] [place] [address], [facility] OTHER F3 Checked by Cristal Love M.D. Normal [facility] Comment on above: Order Comment: 5. Ri ght Manubrium Performed By: #### 3 0312 #### [facility] [address] [place] [address], [facility] RBC [id number] RBC/uL Normal [facility] Comment on above: Order Comment: 5. Ri ght Manubrium Performed By: #### 3 0312 #### [facility] [address] [place] [address], [facility] SEGS 99 Normal [facility] Comment on above: Order Comment: 5. Ri ght Manubrium Performed By: #### 3 0312 #### [facility] [address] [place] [address], [facility] SOURCE SYNOVIAL FLUID Normal [facility] Comment on above: Order Comment: 5. Ri ght Manubrium Performed By: #### 3 0312 #### [facility] [address] [place] [address], [facility] TOTAL VOLUME 10 mL Normal [facility] Comment on above: Order Comment: 5. Ri ght Manubrium Performed By: #### 3 0312 #### [facility] [address] [place] [address], [facility] WBC 5367 WBC/uL Normal [facility] Comment on above: Order Comment: 5. Ri ght Manubrium Result Comment: Some reference interval(s) and other method performance specifications have not been established for analytes on this body fluid. The test result must be integrated into the clinical context for interpretation. Performed By: #### 3 0312 #### [facility] [address] [place] [address], [facility] VANCOMYCIN TROUGHon 10-17-20 21 VANCOMYCIN TROU 9.5 mcg/mL Normal 5.0-20.0 [facility] Comment on above: Order Comment: Pt wi ll be a nurse draw per rnMonica Performed By: #### 0 2024 ####[facility] [place] [address], [facility] BASIC METABOLIC PANELon 10-1 Calcium [Mass/Vol] 9.1 mg/dL Normal 8.6-10.3 [facility] Comment on above: Order Comment: No: D o not add to previous draw Performed By: #### 0 1 ####[facility] [place] [address], [facility] Chloride [Moles/Vol] 96 mmol/L Low 98-107 [facility] Comment on above: Order Comment: No: D o not add to previous draw Performed By: #### 0 70 ####[facility] [place] [address], [facility] CO2 [Moles/Vol] 27 mmol/L Normal 21-31 [facility] Comment on above: Order Comment: No: D o not add to previous draw Performed By: #### 0 70 ####[facility] [place] [address], [facility] Creatinine [Mass/Vol] 1.00 mg/dL Normal 0.70-1.30 [facility] Comment on above: Order Comment: No: D o not add to previous draw Performed By: #### 0 1 ####[facility] [place] [address], [facility] GFR/1.73 sq M.predicted among blacks MDRD (S/P/Bld) [Vol rate/Area] mL/min/{1.73_m2} Normal >60 [facility] Comment on above: Order Comment: No: D o not add to previous draw Performed By: #### 0 70 ####[facility] [place] [address], [facility] GFR/1.73 sq M.predicted among non-blacks MDRD (S/P/Bld) [Vol rate/Area] mL/min/{1.73_m2} Normal >60 [facility] Comment on above: Order Comment: No: D o not add to previous draw Performed By: #### 0 0071 ####[facility] [place] [address], [facility] Glucose [Mass/Vol] 124 mg/dL High 70-100 [facility] Comment on above: Order Comment: No: D o not add to previous draw Performed By: #### 0 0071 ####[facility] [place] [address], [facility] Potassium [Moles/Vol] 4.6 mmol/L Normal 3.5-5.1 [facility] Comment on above: Order Comment: No: D o not add to previous draw Performed By: #### 0 0071 ####[facility] [place] [address], [facility] Sodium [Moles/Vol] 130 mmol/L Low 136-145 [facility] Comment on above: Order Comment: No: D o not add to previous draw Performed By: #### 0 0071 ####[facility] [facility].[address] Urea nitrogen [Mass/Vol] 18 mg/dL Normal 7-25 [facility] Comment on above: Order Comment: No: D o not add to previous draw Performed By: #### 0 0071 ####[facility] [place] [address], [facility] CBC W/DIFFon 01-30-2021 ABS IMM GRANS 0.1 10*3/uL Normal 0.0-0.2 [facility] Comment on above: Order Comment: 5. Ri ght Manubrium Performed By: #### 3 0312 #### [facility] [address] [place] [address], [facility] ABS NEUTROPHILS 8.5 10*3/uL High 1.6-7.6 [facility] Comment on above: Order Comment: 5. Ri ght Manubrium Performed By: #### 3 2 #### [facility] [address] [place] [address], [facility] Basophils (Bld) [#/Vol] 0.0 10*3/uL Normal 0.0-0.2 [facility] Comment on above: Order Comment: 5. Ri ght Manubrium Performed By: #### 3 2 #### [facility] [address] [place] [address], [facility] Basophils/100 WBC (Bld) 0.1 % Normal 0.0-1.0 [facility] Comment on above: Order Comment: 5. Ri ght Manubrium Performed By: #### 3 2 #### [facility] [address] [place] [address], [facility] Eosinophils (Bld) [#/Vol] 0.0 10*3/uL Normal 0.0-0.5 [facility] Comment on above: Order Comment: 5. Ri ght Manubrium Performed By: #### 3 2 #### [facility] [address] [place] [address], [facility] Eosinophils/100 WBC (Bld) 0.0 % Normal 0.0-6.0 [facility] Comment on above: Order Comment: 5. Ri ght Manubrium Performed By: #### 3 2 #### [facility] [address] [place] [address], [facility] Erythrocyte distribution width (RBC) [Ratio] 14.1 % Normal 11.5-15.0 [facility] Comment on above: Order Comment: 5. Ri ght Manubrium Performed By: #### 3 2 #### [facility] [address] [place] [address], [facility] Hematocrit (Bld) [Volume fraction] 41.1 % Normal 39.0-50.0 [facility] Comment on above: Order Comment: 5. Ri ght Manubrium Performed By: #### 3 0312 #### [facility] [address] [place] [address], [facility] Hemoglobin (Bld) [Mass/Vol] 13.7 g/dL Normal 13.0-17.0 [facility] Comment on above: Order Comment: 5. Ri ght Manubrium Performed By: #### 3 0312 #### [facility] [address] [place] [address], [facility] IMMATURE GRANS 0.5 % Normal 0.0-1.0 [facility] Comment on above: Order Comment: 5. Ri ght Manubrium Performed By: #### 3 0312 #### [facility] [address] [place] [address], [facility] Lymphocytes (Bld) [#/Vol] 0.9 10*3/uL Low 1.2-4.0 [facility] Comment on above: Order Comment: 5. Ri ght Manubrium Performed By: #### 3 0312 #### [facility] [address] [place] [address], [facility] Lymphocytes/100 WBC (Bld) 8.6 % Low 20.0-45.0 [facility] Comment on above: Order Comment: 5. Ri ght Manubrium Performed By: #### 3 0312 #### [facility] [address] [place] [id number], [facility] MCH (RBC) [Entitic mass] 32.9 pg Normal 27.0-33.0 [facility] Comment on above: Order Comment: 5. Ri ght Manubrium Performed By: #### 3 2 #### [facility] [address] [place] [address], [facility] MCHC (RBC) [Mass/Vol] 33.3 g/dL Normal 32.0-35.0 [facility] Comment on above: Order Comment: 5. Ri ght Manubrium Performed By: #### 3 0312 #### [facility] [address] [place] [address], [facility] MCV (RBC) [Entitic vol] 98.8 fL High 82.0-98.0 [facility] Comment on above: Order Comment: 5. Ri ght Manubrium Performed By: #### 3 0312 #### [facility] [address] [place] [address], [facility] Monocytes (Bld) [#/Vol] 0.7 10*3/uL Normal 0.1-1.0 [facility] Comment on above: Order Comment: 5. Ri ght Manubrium Performed By: #### 3 2 #### [facility] [address] [place] [address], [facility] MONOS 6.7 % Normal 5.0-12.0 [facility] Comment on above: Order Comment: 5. Ri ght Manubrium Performed By: #### 3 2 #### [facility] [address] [place] [address], [facility] Neutrophils/100 WBC (Bld) 84.1 % High 40.0-72.0 [facility] Comment on above: Order Comment: 5. Ri ght Manubrium Performed By: #### 3 2 #### [facility] [address] [place] [address], [facility] Nucleated RBC/100 WBC (Bld) [Ratio] 0 % Normal 0-0 [facility] Comment on above: Order Comment: 5. Ri ght Manubrium Performed By: #### 3 2 #### [facility] [address] [place] [address], [facility] PLAT CNT 241 10*3/uL Normal 150-400 [facility] Comment on above: Order Comment: 5. Ri ght Manubrium Performed By: #### 3 2 #### [facility] [address] [place] [address], [facility] RBC (Bld) [#/Vol] 4.16 10*6/uL Low 4.20-5.70 [facility] Comment on above: Order Comment: 5. Ri ght Manubrium Performed By: #### 3 0312 #### [facility] [address] [place] [address], [facility] WBC (Bld) [#/Vol] 10.08 10*3/uL Normal 4.00-10.60 [facility] Comment on above: Order Comment: 5. Ri ght Manubrium Performed By: #### 3 0312 #### [facility] [address] Operative Reporton Operative Report MR#: [id number] [facility] Pt. Name: Gemma Rodgers Room #: [id number] Discharge Date: Birthdate: 1960 OPERATIVE REPORT DATE OF SURGERY: 01/29/2021 SURGEON: Sergio Brunner M.D. ASSISTANTS: 1. Sreedhar Harden M.D. 2. Andres Felder M.D. 3. Shemar Pulido M.D. 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 IMPLANTS: None. ANESTHESIA: General. ESTIMATED BLOOD LOSS: Minimal. SPECIMENS: 1. Culture from the sternoclavicular joint. 2. Biopsy of sternoclavicular bone. INDICATIONS: The patient is a 60-year-old male with a right sternoclavicular mass for 6 months, who recently had a joint aspiration positive for MRSA with ESR and CRP, which were elevated. He had a recent bone scan performed revealing increased activity in the right sternoclavicular joint consistent with osteomyelitis. It was agreed that the patient would come to [facility] for the procedure with Dr. Brunner, and Cardiothoracic Surgery involved, and then he would be subsequently brought to the floor with an infectious disease consult and be placed with a PICC line and be given IV antibiotics. DESCRIPTION OF PROCEDURE: The patient was met in the preoperative area, where written consent was reviewed and the correct limb was marked by Dr. Brunner. The patient was then brought back to the operating room and placed under general anesthesia, placed supine and then prepped and draped in usual sterile fashion. A preoperative time-out was performed using 2 separate patient identifiers, and the correct surgical site was again confirmed by myself and Dr. Brunner. We began by dissecting to the proximal clavicle and manubrium. Achieved hemostasis with electrocautery. We were careful to avoid violating neurovascular structures. We opened this joint and appreciated purulent fluid. Some of this fluid was taken for culture. We then took a rongeur, resected the proximal clavicle, and part of the manubrium that are articulated with the clavicle. We made sure to remove soft tissue that was within the joint and could be contaminated with infection. We made sure not to violate past the joint. We then irrigated the joint and wound with normal saline. We then closed in layered fashion with PDS and then Novafil. We then placed a dry dressing over our incision. All counts were correct and the patient was then successfully awoken from anesthesia and brought to the PACU without complication. PLAN: The patient will be admitted to the hospital and be given an infectious disease consult. He will then get a PICC line and subsequent IV antibiotics. We will monitor him on the floor and discharge him when appropriate. Dr. Brunner was present for all critical portions of the case, made all decisions regarding the patient's care. Electronically Signed by: Sergio Brunner M.D. 02/01/2021 04:40 P Sergio Brunner M.D. I was present for the cruz and critical portions and I was otherwise immediately available to assist. Date Dict: 01/29/2021/03:03 P/Shemar Pulido MD Date Trans: 01/30/2021 12:25 A/kimberley [id number] cc: Vish Deluca M.D. [address] [place] [address] *ANAEROBIC CULTUREon 021 *ANAEROBIC CULTURE Clinical Report: (D) Specimen/Source: TISSUE/INTRAOP SPEC Collected: 01/29/2021 11:13 Status: Final Last Updated: 02/03/2021 14:12 (1) 5. Right Manubrium ISO (Final) No Anaerobes Isolated 5 Days Normal [facility] Comment on above: Order Comment: 5. Ri ght Manubrium Performed By: #### 3 0312 #### [facility] [address] *ANAEROBIC CULTURE Clinical Report: (D) Specimen/Source: TISSUE/INTRAOP SPEC Collected: 01/29/2021 11:11 Status: Final Last Updated: 02/03/2021 14:15 (1) 4. Right Posterior Capsule ISO (Final) No Anaerobes Isolated 5 Days Normal [facility] Comment on above: Order Comment: 4. Ri ght Posterior Capsule Performed By: #### 3 0312 #### [facility] [address] *ANAEROBIC CULTURE Clinical Report: (D) Specimen/Source: TISSUE/INTRAOP SPEC Collected: 01/29/2021 11:04 Status: Final Last Updated: 02/03/2021 14:15 (1) 3. Right Proximal Clavicle Bone ISO (Final) No Anaerobes Isolated 5 Days Normal [facility] Comment on above: Order Comment: The A ptima SARS-CoV-2 assay is a nucleic acid amplification test intended for the qualitative detection of RNA from SARS-CoV-2 isolated and purified from nasopharyngeal (GLUE SPREADER),oropharyngeal (OP), nasal swab, sputum, and bronchoalveolar lavage (BAL) specimens from patients with signs and symptoms of infection who are suspected of COVID-19. Results are for the identification of SARS-CoV-2 RNA. The SARS-CoV-2 RNA is generally detectable during the acute phase of infection. The Aptima SARS-CoV-2 Assay on the [place] [employer] [place] system is intended for use by laboratory personnel specifically instructed and trained in the operation of the [place] [employer] [place] [employer] system. The Aptima SARS-CoV-2 assay is only for use under the Food and Drug Administration Emergency Use Authorization. Testing is limited to laboratories certified under the Clinical Laboratory Improvement Amendments of 1988 (CLIA), 42 U.S.C. ???263a, to perform high complexity tests. Not Detected: Not detected does not preclude SARS-CoV-2 infection and should not be used as the sole basis for patient management decisions. Not detected results must be combined with clinical observations, patient history, and epidemiological information. Performed By: #### 3 1792 #### [facility] [address] [facility]. [address] *ANAEROBIC CULTURE Clinical Report: (D) Specimen/Source: TISSUE/INTRAOP SPEC Collected: 01/29/2021 11:03 Status: Final Last Updated: 02/03/2021 14:15 (1) 2. Right SC Joint Tissue ISO (Final) No Anaerobes Isolated 5 Days Normal [facility] Comment on above: Order Comment: 2. Ri ght SC Joint Tissue Performed By: #### 8 5499 #### [facility] [address] [facility]. [address] *ANAEROBIC CULTURE Clinical Report: (D) Specimen/Source: FLUID/INTRAOP SPEC Collected: 01/29/2021 11:01 Status: Final Last Updated: 02/03/2021 14:15 (1) 1.Right SC Joint Fluid ISO (Final) No Anaerobes Isolated 5 Days Normal [facility] Comment on above: Order Comment: The A ptima SARS-CoV-2 assay is a nucleic acid amplification test intended for the qualitative detection of RNA from SARS-CoV-2 isolated and purified from nasopharyngeal (GLUE SPREADER),oropharyngeal (OP), nasal swab, sputum, and bronchoalveolar lavage (BAL) specimens from patients with signs and symptoms of infection who are suspected of COVID-19. Results are for the identification of SARS-CoV-2 RNA. The SARS-CoV-2 RNA is generally detectable during the acute phase of infection. The Aptima SARS-CoV-2 Assay on the [place] [employer] [place] [employer] system is intended for use by laboratory personnel specifically instructed and trained in the operation of the [place] [employer] [place] [employer] system. The Aptima SARS-CoV-2 assay is only for use under the Food and Drug Administration Emergency Use Authorization. Testing is limited to laboratories certified under the Clinical Laboratory Improvement Amendments of 1988 (CLIA), 42 U.S.C. ???263a, to perform high complexity tests. Not Detected: Not detected does not preclude SARS-CoV-2 infection and should not be used as the sole basis for patient management decisions. Not detected results must be combined with clinical observations, patient history, and epidemiological information. Performed By: #### 3 1792 #### [facility] [address] *BODY FLUID CULTUREon 2020 *BODY FLUID CULTURE Clinical Report: (D) Specimen/Source: FLUID/INTRAOP SPEC Collected: 01/29/2021 11:01 Status: Final Last Updated: 01/31/2021 06:46 (1) 1.Right SC Joint Fluid GRAM (Final) Moderate Polys No Bacteria Seen ISO (Final) Methicillin Resistant Staphylococcus aureus (MRSA) Rare Growth Results called. Read back by Anuradha East RN (6AB) 11:45 a.m. 01/30/21 ISOLATE: Methicillin Resistant Staphylococcus aureus (MRSA) ODALYS (mcg/ml) CLINDAMYCIN (CC) <=0.5 Susceptible DAPTOMYCIN (DAP) <=1 Susceptible LINEZOLID (LNZ) <=1 Susceptible OXACILLIN (OX) >2 Resistant TETRACYCLINE (TE) <=0.5 Susceptible TRIMETH/SULFA (SXT) <=0.5/9.5 Susceptible VANCOMYCIN (VA) 1 Susceptible Normal [facility] Comment on above: Order Comment: 1.Rig ht SC Joint Fluid Performed By: #### 8 [id number] #### [facility] [address] *FUNGAL CULTUREon 01-29-2021 *FUNGAL CULTURE Clinical Report: (D) Specimen/Source: TISSUE/INTRAOP SPEC Collected: 01/29/2021 11:13 Status: Final Last Updated: 03/01/2021 14:56 (1) 5. Right Manubrium FS (Final) No Yeast or Fungal Elements Seen CULT RES (Final) Culture negative for fungus Normal [facility] Comment on above: Order Comment: 5. Ri ght Manubrium Performed By: #### 8 [id number] #### [facility] [address] [place] [address], [facility] *FUNGAL CULTURE Clinical Report: (D) Specimen/Source: TISSUE/INTRAOP SPEC Collected: 01/29/2021 11:11 Status: Final Last Updated: 03/01/2021 14:56 (1) 4. Right Posterior Capsule FS (Final) No Yeast or Fungal Elements Seen CULT RES (Final) Culture negative for fungus Normal [facility] Comment on above: Order Comment: 4. Ri ght Posterior Capsule Performed By: #### 3 0323 #### [facility] [address] [place] [address], [facility] *FUNGAL CULTURE Clinical Report: (D) Specimen/Source: TISSUE/INTRAOP SPEC Collected: 01/29/2021 11:04 Status: Final Last Updated: 03/01/2021 14:56 (1) 3. Right Proximal Clavicle Bone FS (Final) No Yeast or Fungal Elements Seen CULT RES (Final) Culture negative for fungus Normal [facility] Comment on above: Order Comment: 3. Ri ght Proximal Clavicle Bone Performed By: #### 8 [id number] #### [facility] [address] [place] [address], [facility] *FUNGAL CULTURE Clinical Report: (D) Specimen/Source: TISSUE/INTRAOP SPEC Collected: 01/29/2021 11:03 Status: Final Last Updated: 03/01/2021 14:56 (1) 2. Right SC Joint Tissue FS (Final) No Yeast or Fungal Elements Seen CULT RES (Final) Culture negative for fungus Normal [facility] Comment on above: Order Comment: 2. Ri ght SC Joint Tissue Performed By: #### 3 0323 #### [facility] [address] [place] [address], [facility] *FUNGAL CULTURE Clinical Report: (D) Specimen/Source: FLUID/INTRAOP SPEC Collected: 01/29/2021 11:01 Status: Final Last Updated: 03/01/2021 14:56 (1) 1.Right SC Joint Fluid FS (Final) No Yeast or Fungal Elements Seen CULT RES (Final) Culture negative for fungus Normal [facility] Comment on above: Order Comment: 2. Ri t SC Joint Tissue Performed By: #### 3 0323 #### [facility] [address] *TISSUE CULTUREon 01-29-2021 *TISSUE CULTURE Clinical Report: (D) Specimen/Source: TISSUE/INTRAOP SPEC Collected: 01/29/2021 11:13 Status: Final Last Updated: 01/31/2021 06:47 (1) 5. Right Manubrium GRAM (Final) No Polys Seen No Bacteria Seen ISO (Final) Methicillin Resistant Staphylococcus aureus (MRSA) Rare Growth For Susceptibility Results Please Refer to Results called. Read back by Anuradha East RN (6AB) 11:45 a.m. 01/30/21 Result changed by UMM on 01/31/2021 06:47. The previous result was: ISO (Prelim) Staphylococcus aureus Rare Growth Results called. Read back by Anuradha East RN (6AB) 11:45 a.m. 01/30/21 Normal [facility] Comment on above: Order Comment: 2. [facility] SC Joint Tissue Performed By: #### 3 0323 #### [facility] [address] [facility]. [address] *TISSUE CULTURE Clinical Report: (D) Specimen/Source: TISSUE/INTRAOP SPEC Collected: 01/29/2021 11:11 Status: Final Last Updated: 01/31/2021 08:18 (1) 4. Right Posterior Capsule GRAM (Final) Rare Polys No Bacteria Seen CULT RES (Final) No Growth Day 1 ISO (Final) Methicillin Resistant Staphylococcus aureus (MRSA) Rare Growth For Susceptibility Results Please Refer to Normal [facility] Comment on above: Order Comment: The A ptima SARS-CoV-2 assay is a nucleic acid amplification test intended for the qualitative detection of RNA from SARS-CoV-2 isolated and purified from nasopharyngeal (GLUE SPREADER),oropharyngeal (OP), nasal swab, sputum, and bronchoalveolar lavage (BAL) specimens from patients with signs and symptoms of infection who are suspected of COVID-19. Results are for the identification of SARS-CoV-2 RNA. The SARS-CoV-2 RNA is generally detectable during the acute phase of infection. The Aptima SARS-CoV-2 Assay on the [place] [employer] [place] [employer] system is intended for use by laboratory personnel specifically instructed and trained in the operation of the [place] [employer] [place] [employer] system. The Aptima SARS-CoV-2 assay is only for use under the Food and Drug Administration Emergency Use Authorization. Testing is limited to laboratories certified under the Clinical Laboratory Improvement Amendments of 1988 (CLIA), 42 U.S.C. ???263a, to perform high complexity tests. Not Detected: Not detected does not preclude SARS-CoV-2 infection and should not be used as the sole basis for patient management decisions. Not detected results must be combined with clinical observations, patient history, and epidemiological information. Performed By: #### 3 [id number] #### [facility] [address] *TISSUE CULTURE Clinical Report: (D) Specimen/Source: TISSUE/INTRAOP SPEC Collected: 01/29/2021 11:04 Status: Final Last Updated: 01/31/2021 06:47 (1) 3. Right Proximal Clavicle Bone GRAM (Final) Rare Polys No Bacteria Seen ISO (Final) Rare Growth Methicillin Resistant Staphylococcus aureus (MRSA) For Susceptibility Results Please Refer to Results called. Read back by Anuradha East RN (6AB) 11:45 a.m. 01/30/21 Result changed by UMM on 01/31/2021 06:47. The previous result was: ISO (Prelim) Rare Growth Staphylococcus aureus Results called. Read back by Anuradha East RN (6AB) 11:45 a.m. 01/30/21 Normal [facility] Comment on above: Order Comment: 3. Ri ght Proximal Clavicle Bone Performed By: #### 8 [id number] #### [facility] [address] *TISSUE CULTURE Clinical Report: (D) Specimen/Source: TISSUE/INTRAOP SPEC Collected: 01/29/2021 11:03 Status: Final Last Updated: 01/31/2021 06:46 (1) 2. Right SC Joint Tissue GRAM (Final) Few Polys No Bacteria Seen ISO (Final) Rare Growth Methicillin Resistant Staphylococcus aureus (MRSA) For Susceptibility Results Please Refer to Results called. Read back by Anuradha East RN (6AB) 11:45 a.m. 01/30/21 Result changed by UMM on 01/31/2021 06:46. The previous result was: ISO (Prelim) Rare Growth Staphylococcus aureus Results called. Read back by Anuradha East RN (6AB) 11:45 a.m. 01/30/21 Normal [facility] Comment on above: Order Comment: 4. Ri ght Posterior Capsule Performed By: #### 3 [id number] #### [address] POC GLUCOSE LABon 01-29-2021 Glucose [Mass/Vol] 97 mg/dL Normal 70-100 [facility] Comment on above: Performed By: #### 8 [id number] #### [address] PORTABLE CHEST 1 VIEWon 01-15 PORTABLE CHEST 1 VIEW [facility] Department of Radiology [address] [place] [id number] Patient Name: GEMMA RODGERS : 1960 Sex: M Age: Race: White Pt. Location: OUTP Patient Status: O Ordered Date: 01/29/2021 11:35:00 AM Completed Date: 01/29/2021 12:27 PM Requesting Provider: ANDRES FELDER Attending Provider: SERGIO BRUNNER Report Copy To: Signs & Symptoms: Post OP History: Comments: evaluate for Pneumothorax Exam: PORTABLE CHEST 1 VIEW PORTABLE CHEST 1 VIEW 01/29/2021 12:27 PM CLINICAL INDICATIONS: Post OP TECHNOLOGIST COMMENTS: evaluate for Pneumothorax expiration QUESTION FOR THE RADIOLOGIST: evaluate for Pneumothorax PROTOCOL: AP(PA) view was obtained. COMPARISON: None FINDINGS: Lung volumes look low The vessels look congested There is mild cardiomediastinal prominence There is no lobar consolidation There is no significant pleural effusion There is no visible pneumothorax or apical cavitary process There is hazy airspace disease in the right perihilar region and right upper lobe, as pronounced left perihilar region IMPRESSION: No visible pneumothorax or apical cavitary process There is right greater than left perihilar granular and airspace opacity Pattern could be seen with edema. Correlate for any clinical factors that would suggest pneumonia or aspiration or hemorrhage Suggest follow-up to document clearing, standard PA and lateral views when appropriate Electronically signed: Seng Duarte. Transcribed by: [email or web address], User Resident: Electronically Signed by: SENG DUARTE @ 01/29/2021 12:32 PM Normal [facility] Comment on above: Order Comment: looki ng for mass, hx of osteomyelitis, STAT order *MRSA/MSSA DNA NASALon 01-27 *MRSA/MSSA DNA NASAL Clinical Report: (D ) Specimen: NASAL SWAB Collected: 01/27/2021 14:59 Status: Final Last Updated: 01/27/2021 19:06 MSSA DNA (Final) Negative MRSA DNA (Final) Negative Normal [facility] Comment on above: Performed By: #### 8 [id number] #### [place] [address] [place] [address], [facility] *SARS-CoV-2 COVID-19on 01-27 SARS-CoV-2 (COVID-19) RNA MACY+probe Ql (Unsp spec) Not detected Normal Not Detected [facility] Comment on above: Order Comment: The A ptima SARS-CoV-2 assay is a nucleic acid amplification test intended for the qualitative detection of RNA from SARS-CoV-2 isolated and purified from nasopharyngeal (GLUE SPREADER),oropharyngeal (OP), nasal swab, sputum, and bronchoalveolar lavage (BAL) specimens from patients with signs and symptoms of infection who are suspected of COVID-19. Results are for the identification of SARS-CoV-2 RNA. The SARS-CoV-2 RNA is generally detectable during the acute phase of infection. The Aptima SARS-CoV-2 Assay on the [employer] and [place] [employer] system is intended for use by laboratory personnel specifically instructed and trained in the operation of the [place] and [place] Fusion system. The Aptima SARS-CoV-2 assay is only for use under the Food and Drug Administration Emergency Use Authorization. Testing is limited to laboratories certified under the Clinical Laboratory Improvement Amendments of 1988 (CLIA), 42 U.S.C. ???263a, to perform high complexity tests. Not Detected: Not detected does not preclude SARS-CoV-2 infection and should not be used as the sole basis for patient management decisions. Not detected results must be combined with clinical observations, patient history, and epidemiological information. Performed By: #### 3 [id number] #### [facility] [address] APTTon 01-27-2021 aPTT Coag (Bld) [Time] 31.6 s Normal 25.0-35.0 [facility] Comment on above: Result Comment: ALL RESULTS MUST BE INTERPRETED WITH RESPECT TO BLOOD DRAWING ARTIFACT OR DILUTION ERROR OF ANTICOAGULANT AT THE TIME OF SAMPLING. THE APTT SHOULD NOT BE USED TO MONITOR UNFRACTIONATED HEPARIN THERAPY, THIS LABORATORY NO LONGER HAS AN ESTABLISHED THERAPEUTIC RANGE BASED ON THE APTT. IT IS RECOMMENDED THAT THE UFH - HEPARIN ASSAY (ANTI-XA ACTIVITY) BE USED FOR THIS PURPOSE. Performed By: #### 3 [id number] #### [facility] [address] BASIC METABOLIC PANELon 10- Calcium [Mass/Vol] 9.3 mg/dL Normal 8.6-10.3 [facility] Comment on above: Performed By: #### 0 0071 ####[facility] [place] [address], [facility] Chloride [Moles/Vol] 97 mmol/L Low 98-107 [facility] Comment on above: Performed By: #### 0 0071 ####[facility] [place] [address], [place] CO2 [Moles/Vol] 28 mmol/L Normal 21-31 [facility] Comment on above: Performed By: #### 0 0071 ####[facility] [place] [address], [facility] Creatinine [Mass/Vol] 0.95 mg/dL Normal 0.70-1.30 [facility] Comment on above: Performed By: #### 0 0071 ####[facility] [place] [address], [facility] GFR/1.73 sq M.predicted among blacks MDRD (S/P/Bld) [Vol rate/Area] mL/min/{1.73_m2} Normal >60 [facility] Comment on above: Performed By: #### 0 0071 ####[facility] [place] [address], [facility] GFR/1.73 sq M.predicted among non-blacks MDRD (S/P/Bld) [Vol rate/Area] mL/min/{1.73_m2} Normal >60 [facility] Comment on above: Performed By: #### 0 0071 ####[facility] [place] [address], [place] Glucose [Mass/Vol] 83 mg/dL Normal 70-100 [facility] Comment on above: Performed By: #### 0 0071 ####[facility] [place] [address], [place] Potassium [Moles/Vol] 4.1 mmol/L Normal 3.5-5.1 [facility] Comment on above: Performed By: #### 0 0071 ####[facility] Sodium [Moles/Vol] 135 mmol/L Low 136-145 [facility] Comment on above: Performed By: #### 0 0071 ####[facility] Urea nitrogen [Mass/Vol] 11 mg/dL Normal 7-25 [facility] Comment on above: Performed By: #### 0 0071 ####[facility] CBC W/DIFFon 01-27-2021 ABS IMM GRANS 0.0 10*3/uL Normal 0.0-0.2 [facility] Comment on above: Performed By: #### 6 1405 #### [facility] [address] [place] [address], [facility] ABS NEUTROPHILS 4.7 10*3/uL Normal 1.6-7.6 [facility] Comment on above: Performed By: #### 6 1405 #### [facility] [address] [place] [address], [facility] Basophils (Bld) [#/Vol] 0.0 10*3/uL Normal 0.0-0.2 [facility] Comment on above: Performed By: #### 6 1405 #### [facility] [address] [place] [address], [facility] Basophils/100 WBC (Bld) 0.6 % Normal 0.0-1.0 [facility] Comment on above: Performed By: #### 6 1405 #### [facility] [address] [place] [address], [facility] Eosinophils (Bld) [#/Vol] 0.1 10*3/uL Normal 0.0-0.5 [facility] Comment on above: Performed By: #### 6 1405 #### [facility] [address] [facility] [place] [address], [facility] Eosinophils/100 WBC (Bld) 1.6 % Normal 0.0-6.0 [facility] Comment on above: Performed By: #### 6 1405 #### [facility] [address] [facility]. [address] Erythrocyte distribution width (RBC) [Ratio] 14.5 % Normal 11.5-15.0 [facility] Comment on above: Performed By: #### 6 1405 #### [facility] [address] [place] [address], [facility] Hematocrit (Bld) [Volume fraction] 42.6 % Normal 39.0-50.0 [facility] Comment on above: Performed By: #### 6 1405 #### [facility] [address] [place] [address], [facility] Hemoglobin (Bld) [Mass/Vol] 14.8 g/dL Normal 13.0-17.0 [facility] Comment on above: Performed By: #### 6 1405 #### [facility] [address] [place] [address], [facility] IMMATURE GRANS 0.4 % Normal 0.0-1.0 [facility] Comment on above: Performed By: #### 6 1405 #### [facility] [address] [facility] [place] [address], [facility] Lymphocytes (Bld) [#/Vol] 1.5 10*3/uL Normal 1.2-4.0 [facility] Comment on above: Performed By: #### 6 1405 #### [facility] [address] [place] [address], [facility] Lymphocytes/100 WBC (Bld) 21.9 % Normal 20.0-45.0 [facility] Comment on above: Performed By: #### 6 1405 #### [facility] [address] [place] [address], [facility] MCH (RBC) [Entitic mass] 33.4 pg High 27.0-33.0 [facility] Comment on above: Performed By: #### 6 1405 #### [facility] [address] [place] [address], [facility] MCHC (RBC) [Mass/Vol] 34.7 g/dL Normal 32.0-35.0 [facility] Comment on above: Performed By: #### 6 1405 #### [facility] [address] [facility]. [address] MCV (RBC) [Entitic vol] 96.2 fL Normal 82.0-98.0 [facility] Comment on above: Performed By: #### 6 1405 #### [facility] [address] [place] [address], [facility] Monocytes (Bld) [#/Vol] 0.5 10*3/uL Normal 0.1-1.0 [facility] Comment on above: Performed By: #### 6 1405 #### [facility] [address] MONOS 7.0 % Normal 5.0-12.0 [facility] Comment on above: Performed By: #### 6 1405 #### [facility] [address] Neutrophils/100 WBC (Bld) 68.5 % Normal 40.0-72.0 [facility] Comment on above: Performed By: #### 6 1405 #### [facility] [address] [place] [address], [facility] Nucleated RBC/100 WBC (Bld) [Ratio] 0 % Normal 0-0 [facility] Comment on above: Performed By: #### 6 1405 #### [facility] [address] [place] [address], [facility] PLAT CNT 278 10*3/uL Normal 150-400 [facility] Comment on above: Performed By: #### 6 1405 #### [facility] [address] [place] [address], [facility] RBC (Bld) [#/Vol] 4.43 10*6/uL Normal 4.20-5.70 [facility] Comment on above: Performed By: #### 6 1405 #### [facility] [address] [place] [address], [facility] WBC (Bld) [#/Vol] 6.88 10*3/uL Normal 4.00-10.60 [facility] Comment on above: Performed By: #### 6 1405 #### [facility] [address] [facility] [address] PROTHROMBIN TIMEon 1 INR Coag (PPP) [Relative time] 1.01 {INR} Normal 0.91-1.16 [facility] Comment on above: Result Comment: ACCC P RECOMMENDED INR FOR WARFARIN THERAPY ------- ------- CONDITION INR PROPHYLAXIS OF VENOUS THROMBOSIS 2-3 (HIGH-RISK SURGERY) TREATMENT OF VENOUS THROMBOSIS 2-3 TREATMENT OF PULMONARY EMBOLISM 2-3 PREVENTION OF SYSTEMIC EMBOLISM: 2-3 ACUTE MYOCARDIAL INFARCTION TISSUE HEART VALVES VALVULAR HEART DISEASE ATRIAL FIBRILLATION RECURRENT SYSTEMIC EMBOLISM MECHANICAL HEART VALVE 2.5-3.5 FROM: ORAL ANTICOAGULANTS. MECHANISM OF ACTION, CLINICAL EFFECTIVENESS, AND OPTIMAL THERAPEUTIC RANGE. CHEST 1995;108:231S-246S. Performed By: #### 3 0323 #### [facility] [address] PT Coag (PPP) [Time] 13.3 s Normal 12.3-14.8 [facility] Comment on above: Result Comment: ALL RESULTS MUST BE INTERPRETED WITH RESPECT TO BLOOD DRAWING ARTIFACT OR DILUTION ERROR OF ANTICOAGULANT AT THE TIME OF SAMPLING. Performed By: #### 3 0323 #### [facility] [address] *ANAEROBIC CULTUREon 021 *ANAEROBIC CULTURE Clinical Report: (D) Specimen/Source: TISSUE/BIOPSY Collected: 01/22/2021 13:47 Status: Final Last Updated: 01/27/2021 11:40 (1) R. SC JOINT BONE BIOPSY CULT RES (Final) No Anaerobes Isolated 5 Days Normal [facility] Comment on above: Order Comment: R. SC JOINT BONE BIOPSY Performed By: #### 8 [id number] #### [facility] [address] *ANAEROBIC CULTURE Clinical Report: (D) Specimen/Source: FLUID/SYNOVIAL (JOINT) FLUID, EXCEPT SHOULDER Collected: 01/22/2021 13:45 Status: Final Last Updated: 01/27/2021 12:31 (1) R. SC JOINT ASPIRATION ISO (Final) No Anaerobes Isolated Day 5 Normal [facility] Comment on above: Order Comment: The A ptima SARS-CoV-2 assay is a nucleic acid amplification test intended for the qualitative detection of RNA from SARS-CoV-2 isolated and purified from nasopharyngeal (GLUE SPREADER),oropharyngeal (OP), nasal swab, sputum, and bronchoalveolar lavage (BAL) specimens from patients with signs and symptoms of infection who are suspected of COVID-19. Results are for the identification of SARS-CoV-2 RNA. The SARS-CoV-2 RNA is generally detectable during the acute phase of infection. The Aptima SARS-CoV-2 Assay on the [employer] and [employer] system is intended for use by laboratory personnel specifically instructed and trained in the operation of the [place] and [place] [employer] system. The Aptima SARS-CoV-2 assay is only for use under the Food and Drug Administration Emergency Use Authorization. Testing is limited to laboratories certified under the Clinical Laboratory Improvement Amendments of 1988 (CLIA), 42 U.S.C. ???263a, to perform high complexity tests. Not Detected: Not detected does not preclude SARS-CoV-2 infection and should not be used as the sole basis for patient management decisions. Not detected results must be combined with clinical observations, patient history, and epidemiological information. Performed By: #### 3 1792 #### [facility] [address] *BODY FLUID CULTUREon 2020 *BODY FLUID CULTURE Clinical Report: (C) Specimen/Source: FLUID/SYNOVIAL (JOINT) FLUID, EXCEPT SHOULDER Collected: 01/22/2021 13:45 Status: Final Last Updated: 01/27/2021 12:19 (1) R. SC JOINT ASPIRATION GRAM (Final) Many Polys No Bacteria Seen ISO (Final) Methicillin Resistant Staphylococcus aureus (MRSA) Isolated from broth culture Results called. Read back by Rj Hicks (MARY) 1:51 p.m. 01/25/21 ISOLATE: Methicillin Resistant Staphylococcus aureus (MRSA) ODALYS (mcg/ml) CLINDAMYCIN (CC) <=0.5 Susceptible DAPTOMYCIN (DAP) <=1 Susceptible LEVOFLOXACIN (LEV) +<=1 +Susceptible LINEZOLID (LNZ) <=1 Susceptible OXACILLIN (OX) >2 Resistant TETRACYCLINE (TE) <=0.5 Susceptible TRIMETH/SULFA (SXT) <=0.5/9.5 Susceptible VANCOMYCIN (VA) 1 Susceptible This result added by KMISHA on 01/27/2021 12:19. The previous result was: ISO (Final) Methicillin Resistant Staphylococcus aureus (MRSA) Isolated from broth culture Results called. Read back by Rj Hicks (MARY) 1:51 p.m. 01/25/21 ISOLATE: Methicillin Resistant Staphylococcus aureus (MRSA) ODALYS (mcg/ml) CLINDAMYCIN (CC) <=0.5 Susceptible DAPTOMYCIN (DAP) <=1 Susceptible LINEZOLID (LNZ) <=1 Susceptible OXACILLIN (OX) >2 Resistant TETRACYCLINE (TE) <=0.5 Susceptible TRIMETH/SULFA (SXT) <=0.5/9.5 Susceptible VANCOMYCIN (VA) 1 Susceptible Normal [facility] Comment on above: Order Comment: 2. Ri ght SC Joint Tissue Performed By: #### 3 [id number] #### [facility] [address] *TISSUE CULTUREon 01-22-2021 *TISSUE CULTURE Clinical Report: (D) Specimen/Source: TISSUE/BIOPSY Collected: 01/22/2021 13:47 Status: Final Last Updated: 01/27/2021 08:08 (1) R. SC JOINT BONE BIOPSY GRAM (Final) No Polys Seen No Bacteria Seen CULT RES (Final) No Growth Day 5 Normal [facility] Comment on above: Order Comment: The A ptima SARS-CoV-2 assay is a nucleic acid amplification test intended for the qualitative detection of RNA from SARS-CoV-2 isolated and purified from nasopharyngeal (GLUE SPREADER),oropharyngeal (OP), nasal swab, sputum, and bronchoalveolar lavage (BAL) specimens from patients with signs and symptoms of infection who are suspected of COVID-19. Results are for the identification of SARS-CoV-2 RNA. The SARS-CoV-2 RNA is generally detectable during the acute phase of infection. The Aptima SARS-CoV-2 Assay on the [employer] and [employer] Fusion system is intended for use by laboratory personnel specifically instructed and trained in the operation of the [employer] and [employer] Fusion system. The Aptima SARS-CoV-2 assay is only for use under the Food and Drug Administration Emergency Use Authorization. Testing is limited to laboratories certified under the Clinical Laboratory Improvement Amendments of 1988 (CLIA), 42 U.S.C. ???263a, to perform high complexity tests. Not Detected: Not detected does not preclude SARS-CoV-2 infection and should not be used as the sole basis for patient management decisions. Not detected results must be combined with clinical observations, patient history, and epidemiological information. Performed By: #### 3 1792 #### [id number] [place] [address] CT BIOPSY BONE DEEPon 2020 CT BIOPSY BONE DEEP [facility] Department of Radiology [address] [place] [id number] Patient Name: GEMMA RODGERS : 1960 Sex: M Age: Race: White Pt. Location: Patient Status: O Ordered Date: 01/19/2021 7:35:00 AM Completed Date: 01/22/2021 12:42 PM Requesting Provider: SERGIO BRUNNER Attending Provider: SERGIO BURNNER Report Copy To: VISH DELUCA Signs & Symptoms: R22.31 Localized swelling, mass and lump, right upper limb I10 History: [place] Comments: , Biopsy of Right sternoclavicular joint , Biopsy of Right sternoclavicular joint , , , Ordering Provider - SERGIO BRUNNER MD , Exam: CT BIOPSY BONE DEEP CT BIOPSY BONE DEEP 01/22/2021 12:42 PM CLINICAL INDICATIONS: R22.31 Localized swelling, mass and lump, right upper limb I10 TECHNOLOGIST COMMENTS: 7 ml fluid aspirated from RT SC joint. Rt SC joint core bone biopsy QUESTION FOR RADIOLOGISTS: , Biopsy of Right sternoclavicular joint , Biopsy of Right sternoclavicular joint , , , Ordering Provider - SERGIO BRUNNER MD , All CT scans at this facility use dose modulation, iterative reconstruction, and/or weight based dosing when appropriate to reduce radiation dose to as low as reasonably achievable. INFORMED CONSENT: Reason for procedure was discussed with the patient. The procedure expectations risks benefits options and alternatives were discussed. All the questions were answered. The patient understood that results cannot be guaranteed. The procedure is indicated and risks are acceptable. Consent was obtained. Timeout: Bliss protocol timeout verification performed. MEDICATIONS: 2 mg of versed and 200 micrograms of Fentanyl were administered for conscious sedation. Vital signs were continuously monitored by nursing staff throughout the procedure. Performing physician:Dr. Toney and Dr. Huerta, Dr. Toney was present for all critical portions of the procedure. Start time: 1145 End time: 1225 Samples obtained:7 mL of turbid carlos alberto-red aspirate and 2 core biopsies. PROCEDURE: Estimated blood loss: 2 mL IMPRESSION: CT guidance was utilized for procedure. The patient was brought to the CT preprocedure area and verbal and written consent was obtained. The patient was brought into the CT suite and positioned supine on the CT table. A CT scan is obtained site localization. The area was then marked, cleaned, and sterilely draped. 1% lidocaine was used as local anesthetic. An 18-gauge hypodermic needle was placed within the SC joint and 7 mL of turbid carlos alberto-red fluid was aspirated. A medial site was then marked and numbed. The core biopsy system was then placed through the skin and onto the clavicular portion of the SC joint. 2 core biopsies were then taken. The biopsy system was then removed and sterile dressings were placed over the biopsy site. The patient tolerated the procedure well. The patient will remain in radiology post procedure area 30 minutes for observation and then will be released back to the prior service. Successful CT-guided aspiration and bone biopsy of the SC joint. Approved by:Pablito Cartwrightn1 1:12 PM. I, Denisse Toney,have reviewed the image(s) and agree with the findings in this report. Electronically signed: Denisse Toney. Transcribed by: [id number], User Resident: PABLITO HUERTA Electronically Signed by: DENISSE TONEY @ 01/22/2021 03:44 PM I personally read this/these film(s) with this resident Normal [facility] Comment on above: Order Comment: jody webb for mass, hx of osteomyelitis, STAT order CREATININE BLOODon Creatinine [Mass/Vol] 0.95 mg/dL Normal 0.70-1.30 [facility] Comment on above: Performed By: #### 2 5656 ####[facility] [place] [address], [facility] GFR/1.73 sq M.predicted among blacks MDRD (S/P/Bld) [Vol rate/Area] mL/min/{1.73_m2} Normal >60 [facility] Comment on above: Performed By: #### 2 5656 ####[facility] [place] [address], [facility] GFR/1.73 sq M.predicted among non-blacks MDRD (S/P/Bld) [Vol rate/Area] mL/min/{1.73_m2} Normal >60 [facility] Comment on above: Performed By: #### 2 5656 ####[facility] [place] [address], [facility] CTA CHESTon 01-19-2021 CTA CHEST [facility] Department of Radiology [address] [place] [id number] Patient Name: GEMMA RODGERS : 1960 Sex: M Age: Race: White Pt. Location: Patient Status: O Ordered Date: 01/19/2021 7:35:00 AM Completed Date: 01/19/2021 01:33 PM Requesting Provider: SERGIO BRUNNER Attending Provider: SERGIO BRUNNER Report Copy To: YOSI VISH Signs & Symptoms: R22.31 Localized swelling, mass and lump, right upper limb I10 History: [place] Comments: Exam: CTA CHEST CTA CHEST 01/19/2021 1:33 PM SIGN AND SYMPTOMS: R22.31 Localized swelling, mass and lump, right upper limb I10 TECHNOLOGIST COMMENTS: Evaluate for vessels. RT anterior chest swelling s/p fall pre-aspiration. QUESTIONS PER RADIOLOGIST: PROTOCOL: Axial CT angiography images were obtained with IV contrast. CONTRAST: Contrast: OMNIPAQUE 350 (LOCM), 100 milliliter, Intravenous TECHNIQUE: Multidetector CT axial slices of the chest were obtained with IV contrast. Multiplanar reformats were performed and viewed on a separate workstation and reviewed to further define anatomy and possible pathology. COMPARISON: None. FINDINGS: Lower neck: Thyroid gland within normal limits, no supraclavicle adenopathy. Vessels: Within normal limits. No atherosclerotic changes in the aorta. and coronary arteries. Mediastinum and Judi: No adenopathy. Heart: Normal size. No pericardial effusion. Airways: Normal Lungs: Normal Pleura: No effusion Chest Wall: Abnormal right sternoclavicular joint there is fluid in the joint space there is overlying soft tissue swelling and thickening of the nearby muscles with strand-like surrounding density. The distal clavicle demonstrates marked irregularity which could represent some osteomyelitis. Suspicious for infection in the sternoclavicular joint with possible osteomyelitis and overlying cellulitis. Differential diagnosis could include rheumatoid arthritis with severe inflammatory component. Upper Abdomen: Normal Bones: See above IMPRESSION: Findings most consistent with infection in the right sternoclavicular joint with septic arthritis and possible underlying osteomyelitis. Cellulitis extends into the surrounding soft tissues. Aspiration could be conducted under CT guidance. {Any pertinent findings including lung nodule recommendations. If a lung nodule is described without known malignancy, an autotext of the Fleishner Society guidelines for appropriate follow-up should be included in the dictation.} Electronically signed: Denisse Toney. Transcribed by: [email or web address], User Resident: Electronically Signed by: DENISSE TONEY @ 01/19/2021 04:17 PM Normal [facility] NM BONE SCAN TOTAL BODYon NM BONE SCAN TOTAL BODY [facility] Department of Radiology [address] [place] [id number] Patient Name: GEMMA RODGERS : 1960 Sex: M Age: Race: White Pt. Location: Patient Status: D Ordered Date: 12/30/2020 1:00:00 PM Completed Date: 01/19/2021 02:48 PM Requesting Provider: SERGIO BRUNNER Attending Provider: SERGIO BRUNNER Report Copy To: VISH DELUCA Signs & Symptoms: R07.89 Other chest pain I10 History: [place] Comments: Sternoclavicular mass Exam: NM BONE SCAN TOTAL BODY NM BONE SCAN TOTAL BODY 01/19/2021 2:48 PM CLINICAL INDICATIONS: R07.89 Other chest pain I10 TECHNOLOGIST COMMENTS: Suspected mediastinal mass. Pt c/o Lt shoulder pain and RT foot pain. Pt fell and hurt right rib cage. 25.9 mCi Tc99m MDP at 11:28 RT AC. QUESTION FOR THE RADIOLOGIST: Sternoclavicular mass PROTOCOL: Whole body anterior and posterior images were obtained as well as camera views over the head, neck, shoulders, pelvis and feet. RADIOPHARMACEUTICAL DOSE: COMPARISON: CT chest January 19, 2021. FINDINGS: Physiologic activity is noted in the urinary tract. Increased activity is noted in the proximal end of the right clavicle and adjacent right side of the manubrium. Increased activity is noted along the inferior aspects of the right fifth and sixth ribs. Increased activity is noted in the right midfoot. IMPRESSION: * Increased activity on both sides of the right sternoclavicular joint consistent with osteomyelitis. * Increased activity in the anterior right fifth and sixth ribs consistent with healing fracture. * Increased activity noted in the right midfoot consistent with arthritis or trauma. Electronically signed: Tapan Clarke. Transcribed by: [email or web address], User Resident: Electronically Signed by: TAPAN CLARKE @ 01/21/2021 08:18 AM Normal [facility] Comment on above: Order Comment: looki ng for mass, hx of osteomyelitis, STAT order US EXTREMITY LIMITEDon 01-18 US EXTREMITY LIMITED [facility] Department of Radiology [address] [place] [id number] Patient Name: GEMMA RODGERS : 1960 Sex: M Age: Race: White Pt. Location: Patient Status: D Ordered Date: 01/08/2021 1:30:00 PM Completed Date: 01/18/2021 03:07 PM Requesting Provider: SERGIO BRUNNER Attending Provider: Report Copy To: Signs & Symptoms: R07.89 Other chest pain I10 History: [place] Comments: right SC joint Exam: US EXTREMITY LIMITED US EXTREMITY LIMITED 01/18/2021 3:07 PM CLINICAL INDICATIONS: R07.89 Other chest pain I10 TECHNOLOGIST COMMENTS: sc joint evaluation QUESTION FOR THE RADIOLOGIST: right SC joint PROTOCOL: ULTRASOUND ROUTINE PROTOCOL COMPARISON: MR chest and chest CT from December 25 and December 10, 2020 FINDINGS: Focused ultrasound examination of the right sternoclavicular region revealed complex area centered at the joint measuring 3.1 x 6.7 x 2.4 cm. The lesion appears echolucent with component demonstrating internal echoes. However, within the abnormality, there is color flow documented by Doppler examination. Also spectral Doppler analysis confirm the presence of arterial and venous flow within the abnormalities. Therefore, the lesion could represent pseudoaneurysm or vascular malformation and biopsy was deferred at this time. Chest CT examination centered at the right sternoclavicular joint is recommended for further evaluation. Findings were discussed with the clinical service. IMPRESSION: Biopsy procedure and/or aspiration of the right sternoclavicular joints abnormality was aborted due to presence of significant vascular flow within the abnormal area documenting arterial and venous waveforms. No definite abscess is visualized. Recommendation is for chest CTA centered at the right sternoclavicular joint to evaluate possibility of vascular underlying etiology such as pseudoaneurysm or AV malformation Electronically signed: Olga Blank. Transcribed by: [id number], User Resident: Electronically Signed by: OLGA BLANK @ 01/20/2021 10:19 AM Normal [facility] Comment on above: Order Comment: jody webb for mass, hx of osteomyelitis, STAT order *SARS-CoV-2 COVID-19on 01-14 SARS-CoV-2 (COVID-19) RNA MACY+probe Ql (Unsp spec) Not detected Normal Not Detected [facility] Comment on above: Order Comment: jody webb for mass, hx of osteomyelitis, STAT order Performed By: #### 3 1792 ####[facility] C REACTIVE PROTEINon 09-30-2 021 CRP [Mass/Vol] 9.1 mg/L High 0.0-7.0 [facility] Comment on above: Performed By: #### 3 0323 #### [facility] [address] CBC W/DIFFon 01-14-2021 ABS IMM GRANS 0.1 10*3/uL Normal 0.0-0.2 [facility] Comment on above: Performed By: #### 3 0312 #### [facility] [address] ABS NEUTROPHILS 6.6 10*3/uL Normal 1.6-7.6 [facility] Comment on above: Performed By: #### 3 2 #### [facility] [address] Basophils (Bld) [#/Vol] 0.1 10*3/uL Normal 0.0-0.2 [facility] Comment on above: Performed By: #### 3 0312 #### [facility] [address] Basophils/100 WBC (Bld) 1.2 % High 0.0-1.0 [facility] Comment on above: Performed By: #### 3 0312 #### [facility] [address] [place] [address], [facility] Eosinophils (Bld) [#/Vol] 0.3 10*3/uL Normal 0.0-0.5 [facility] Comment on above: Performed By: #### 3 0312 #### [facility] [address] [place] [address], [facility] Eosinophils/100 WBC (Bld) 3.4 % Normal 0.0-6.0 [facility] Comment on above: Performed By: #### 3 0312 #### [facility] [address] [place] [address], [facility] Erythrocyte distribution width (RBC) [Ratio] 14.3 % Normal 11.5-15.0 [facility] Comment on above: Performed By: #### 3 0312 #### [facility] [address] [place] [address], [facility] Hematocrit (Bld) [Volume fraction] 42.6 % Normal 39.0-50.0 [facility] Comment on above: Performed By: #### 3 0312 #### [facility] [address] [place] [address], [facility] Hemoglobin (Bld) [Mass/Vol] 14.8 g/dL Normal 13.0-17.0 [facility] Comment on above: Performed By: #### 3 2 #### [facility] [address] [place] [address], [facility] IMMATURE GRANS 0.6 % Normal 0.0-1.0 [facility] Comment on above: Performed By: #### 3 0312 #### [facility] [address] [place] [address], [facility] Lymphocytes (Bld) [#/Vol] 1.7 10*3/uL Normal 1.2-4.0 [facility] Comment on above: Performed By: #### 3 2 #### [facility] [address] [place] [address], [facility] Lymphocytes/100 WBC (Bld) 17.9 % Low 20.0-45.0 [facility] Comment on above: Performed By: #### 3 2 #### [facility] [address] [place] [address], [facility] MCH (RBC) [Entitic mass] 33.3 pg High 27.0-33.0 [facility] Comment on above: Performed By: #### 3 2 #### [facility] [address] [facility] [address], [facility] MCHC (RBC) [Mass/Vol] 34.7 g/dL Normal 32.0-35.0 [facility] Comment on above: Performed By: #### 3 0312 #### [facility] [address] [place] [address], [facility] MCV (RBC) [Entitic vol] 95.7 fL Normal 82.0-98.0 [facility] Comment on above: Performed By: #### 3 0312 #### [facility] [address] [place] [address], [facility] Monocytes (Bld) [#/Vol] 0.7 10*3/uL Normal 0.1-1.0 [facility] Comment on above: Performed By: #### 3 0312 #### [facility] [address] [place] [address], [facility] MONOS 7.5 % Normal 5.0-12.0 [facility] Comment on above: Performed By: #### 3 0312 #### [facility] [address] [place] [address], [facility] Neutrophils/100 WBC (Bld) 69.4 % Normal 40.0-72.0 [facility] Comment on above: Performed By: #### 3 0312 #### [facility] [address] [place] [address], [facility] Nucleated RBC/100 WBC (Bld) [Ratio] 0 % Normal 0-0 [facility] Comment on above: Performed By: #### 3 0312 #### [facility] [address] [place] [address], [facility] PLAT CNT 304 10*3/uL Normal 150-400 [facility] Comment on above: Performed By: #### 3 0312 #### [facility] [address] [place] [id number], [facility] RBC (Bld) [#/Vol] 4.45 10*6/uL Normal 4.20-5.70 [facility] Comment on above: Performed By: #### 3 0312 #### [facility] [address] [place] [address], [facility] WBC (Bld) [#/Vol] 9.51 10*3/uL Normal 4.00-10.60 [facility] Comment on above: Performed By: #### 3 0312 #### [facility] [address] [place] [address], [facility] SEDIMENTATION RATEon 021 SED RATE 12 mm/hr High 0-10 [facility] Comment on above: Performed By: #### 3 0312 #### [facility] [address] [place] [address], [facility] ALKALINE PHOSPHon 12-25-2020 ALKALINE PHOSPH 69 IU/L Normal 34-104 [facility] Comment on above: Performed By: #### 6 1405 #### [facility] [address] [place] [address], [facility] BASIC METABOLIC PANELon 12-16 0 Calcium [Mass/Vol] 9.0 mg/dL Normal 8.6-10.3 [facility] Comment on above: Performed By: #### 6 1405 #### [facility] [address] [place] [address], [facility] Chloride [Moles/Vol] 90 mmol/L Low 98-107 [facility] Comment on above: Performed By: #### 6 1405 #### [facility] [address] [place] [address], [facility] CO2 [Moles/Vol] 26 mmol/L Normal 21-31 [facility] Comment on above: Performed By: #### 6 1405 #### [facility] [address] [place] [address], [facility] Creatinine [Mass/Vol] 1.02 mg/dL Normal 0.70-1.30 [facility] Comment on above: Performed By: #### 6 1405 #### [facility] [address] [place] [address], [place] GFR/1.73 sq M.predicted among blacks MDRD (S/P/Bld) [Vol rate/Area] mL/min/{1.73_m2} Normal >60 [facility] Comment on above: Performed By: #### 6 1405 #### [facility] [address] [place] [address], [place] GFR/1.73 sq M.predicted among non-blacks MDRD (S/P/Bld) [Vol rate/Area] mL/min/{1.73_m2} Normal >60 [facility] Comment on above: Performed By: #### 6 1405 #### [facility] [address] [place] [address], [place] Glucose [Mass/Vol] 71 mg/dL Normal 70-100 [facility] Comment on above: Performed By: #### 6 1405 #### [facility] [address] [place] [address], [place] Potassium [Moles/Vol] 4.1 mmol/L Normal 3.5-5.1 [facility] Comment on above: Performed By: #### 6 1405 #### [facility] [address] [place] [address], [place] Sodium [Moles/Vol] 126 mmol/L Low 136-145 [facility] Comment on above: Performed By: #### 6 1405 #### [facility] [address] [place] [address], [place] Urea nitrogen [Mass/Vol] 10 mg/dL Normal 7-25 [facility] Comment on above: Performed By: #### 6 1405 #### [facility] [address] [place] [address], [place] C REACTIVE PROTEINon 021 CRP [Mass/Vol] 15.6 mg/L High 0.0-7.0 [facility] Comment on above: Performed By: #### 6 1405 #### [facility] [address] [place] [address], [facility] CBC W/DIFFon 12-25-2020 ABS IMM GRANS 0.1 10*3/uL Normal 0.0-0.2 [facility] Comment on above: Performed By: #### 3 0312 #### [facility] [address] [place] [address], [facility] ABS NEUTROPHILS 6.5 10*3/uL Normal 1.6-7.6 [facility] Comment on above: Performed By: #### 3 0312 #### [facility] [address] [place] [address], [facility] Basophils (Bld) [#/Vol] 0.1 10*3/uL Normal 0.0-0.2 [facility] Comment on above: Performed By: #### 3 0312 #### [facility] [address] [place] [address], [facility] Basophils/100 WBC (Bld) 0.6 % Normal 0.0-1.0 [facility] Comment on above: Performed By: #### 3 0312 #### [facility] [address] [place] [address], [facility] Eosinophils (Bld) [#/Vol] 0.2 10*3/uL Normal 0.0-0.5 [facility] Comment on above: Performed By: #### 3 0312 #### [facility] [address] [place] [address], [facility] Eosinophils/100 WBC (Bld) 2.5 % Normal 0.0-6.0 [facility] Comment on above: Performed By: #### 3 0312 #### [facility] [address] [place] [address], [facility] Erythrocyte distribution width (RBC) [Ratio] 14.0 % Normal 11.5-15.0 [facility] Comment on above: Performed By: #### 3 0312 #### [facility] [address] [facility] [address], [facility] Hematocrit (Bld) [Volume fraction] 42.9 % Normal 39.0-50.0 [facility] Comment on above: Performed By: #### 3 0312 #### [facility] [address] [place] [address], [facility] Hemoglobin (Bld) [Mass/Vol] 14.3 g/dL Normal 13.0-17.0 [facility] Comment on above: Performed By: #### 3 0312 #### [facility] [address] [place] [address], [facility] IMMATURE GRANS 1.0 % Normal 0.0-1.0 [facility] Comment on above: Performed By: #### 3 0312 #### [facility] [address] [place] [address], [facility] Lymphocytes (Bld) [#/Vol] 1.5 10*3/uL Normal 1.2-4.0 [facility] Comment on above: Performed By: #### 3 0312 #### [facility] [address] [place] [address], [facility] Lymphocytes/100 WBC (Bld) 17.1 % Low 20.0-45.0 [facility] Comment on above: Performed By: #### 3 0312 #### [facility] [address] [facility] [place] [id number], [facility] MCH (RBC) [Entitic mass] 32.1 pg Normal 27.0-33.0 [facility] Comment on above: Performed By: #### 3 2 #### [facility] [address] [place] [id number], [facility] MCHC (RBC) [Mass/Vol] 33.3 g/dL Normal 32.0-35.0 [facility] Comment on above: Performed By: #### 3 2 #### [facility] [address] [place] [address], [facility] MCV (RBC) [Entitic vol] 96.4 fL Normal 82.0-98.0 [facility] Comment on above: Performed By: #### 3 0312 #### [facility] [address] [place] [address], [facility] Monocytes (Bld) [#/Vol] 0.5 10*3/uL Normal 0.1-1.0 [facility] Comment on above: Performed By: #### 3 0312 #### [facility] [address] MONOS 5.6 % Normal 5.0-12.0 [facility] Comment on above: Performed By: #### 3 0312 #### [facility] [address] Neutrophils/100 WBC (Bld) 73.2 % High 40.0-72.0 [facility] Comment on above: Performed By: #### 3 2 #### [facility] [address] Nucleated RBC/100 WBC (Bld) [Ratio] 0 % Normal 0-0 [facility] Comment on above: Performed By: #### 3 0312 #### [facility] [address] [place] [address], [facility] PLAT CNT 325 10*3/uL Normal 150-400 [facility] Comment on above: Performed By: #### 3 2 #### [facility] [address] [place] [address], [facility] RBC (Bld) [#/Vol] 4.45 10*6/uL Normal 4.20-5.70 [facility] Comment on above: Performed By: #### 3 0312 #### [facility] [address] WBC (Bld) [#/Vol] 8.82 10*3/uL Normal 4.00-10.60 [facility] Comment on above: Performed By: #### 3 0312 #### [facility] [address] [place], [place] [id number] [place] [address] MRI CHEST W WO CONTRASTon MRI CHEST W WO CONTRAST [facility] Department of Radiology [address] [place] [id number] Patient Name: GEMMA RODGERS : 1960 Sex: M Age: Race: White Pt. Location: Patient Status: D Ordered Date: 12/23/2020 11:35:00 AM Completed Date: 12/25/2020 01:40 PM Requesting Provider: SERGIO BRUNNER Attending Provider: Report Copy To: Signs & Symptoms: R07.89 Other chest pain I10 History: [place], No FB per Ortho clinic, will fax SS Time okay per MM Comments: Please evaluate Exam: MRI CHEST W WO CONTRAST MRI CHEST W WO CONTRAST 12/25/2020 1:40 PM CLINICAL INDICATIONS: R07.89 Other chest pain I10 TECHNOLOGIST COMMENTS: Large tumor right sc joint. QUESTION FOR THE RADIOLOGIST: Please evaluate PROTOCOL: Additional images were performed in the following sequences: CONTRAST: Contrast: DOTAREM .5mmol, 20 milliliter, Intravenous COMPARISON: Comparison is made with the CT scan of the chest of 12/10/2020 from outside facility. FINDINGS: Outside CT scan examination reveals bony destruction involving the medial end of the right clavicle with the some erosion of the articular surfaces of the sternum and the clavicle. There is associated large soft tissue swelling in this region. MRI examination reveals marrow signal abnormality with bony destruction and medial aspect of the right clavicle and sternal articular surface. There is associated soft tissue swelling. There is a large lobulated fluid collection on the anterior aspect of the right sternoclavicular joint. It measures approximately 8 x 2.5 x 3.0 cm. Soft tissue abnormalities extending in the posterior aspect of the right sternoclavicular joint and the superior mediastinum right to the midline. There is also fullness of the right pectoral muscle superiorly. Postcontrast examination reveals heterogeneous enhancement of the soft tissue mass and the bony destructive region. There are lobulated 80 of nonenhancing fluid collection in this soft tissue mass. Appearance is highly suggesting of septic arthritis and osteomyelitis with associated soft tissue abscess formation. Left sternoclavicular joint is intact. Right subclavian artery and right subclavian vein are patent. IMPRESSION: 1. Destruction of the articular surfaces of the right sternoclavicular joint and medial aspect of the clavicle. Associated soft tissue swelling with fluid collection in the anterior aspect of the joint. Soft tissue swelling is seen also in the posterior aspect of the joint. Findings are highly suspicious for septic arthritis and osteomyelitis and associated soft tissue abscess formation. Possibility of neoplastic process, though less likely, cannot be entirely excluded. See the discussion above. 2. Left sternoclavicular joint is intact. Electronically signed: Roosevelt Barrientos. Transcribed by: [email or web address], User Resident: Electronically Signed by: ROOSEVELT BARRIENTOS @ 12/26/2020 06:25 PM Normal [facility] Comment on above: Order Comment: jody ng for mass, hx of osteomyelitis, STAT order PTH RELATED PEPTIDE [id number] n 12-25-2020 PTHrP <2.0 Normal 0.0-2.3 [facility] Comment on above: Result Comment: INTE RPRETIVE INFORMATION: Parathyroid Hormone-Related Peptide This test was developed and its performance characteristics determined by [email or web address]. It has not been cleared or approved by the [place] Food and Drug Administration. This test was performed in a CLIA certified laboratory and is intended for clinical purposes. Performed By: [email or web address] [address] [place] [address] Student Services Vice President: Jania Jimenez MD SEDIMENTATION RATEon 021 SED RATE 14 mm/hr High 0-10 [facility] Comment on above: Performed By: #### 3 0312 #### [facility] [address] [facility]. [address] TSH3on 12-25-2020 TSH 3RD GENERATION 82.08 uIU/mL High 0.34-5.60 [facility] Comment on above: Performed By: #### 6 1405 #### [facility] [address] [facility]. 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 Adding on--59-year-old male presents with right foot pain x2 weeks. Getting worse and pain extending up into right calf now. Initially thought was gout, did have workup that was negative for gout. Did do a round of steroids already. Did have x-ray of right foot and was negative for fracture. Was then treated for cellulitis. His PCP in not in office today. Is supposed to be leaving for [place] tomorrow. Right calf, knee an fourdrinier tender to palpation. denies injury. Is currently being treated for cellulitis with Bactrim. Was advised to come to for an ultrasound of the foot to check for blood clot. Denies chest pain and shortness of breath. No previous history of VTE or bleeding disorders. Takes a baby aspirin daily. Did take lisinopril-HCTZ this morning. No fever/chills. Review of Systems PHQ Score Initial Depression Screen Score: 0 Please see HPI Physical Exam Vitals & Measurements T: 36.8 ?C (Oral) HR: 118(Peripheral) BP: 144/92 SpO2: 98% HT: 176 cm HT: 176.0 cm WT: 105 kg WT: 105.0 kg BMI: 33.9 General: Well developed, well nourished, in no acute distress Eyes: Clear and conjunctiva normal bilaterally Ears: Hearing grossly normal Nose: No overt congestion Mouth: Mucous membranes moist Neck: no adenopathy Lungs: Normal respiratory effort and clear to auscultation Cardio: regular rate and rhythm, no murmur + tachycardia Musculoskeletal: no deformity or scoliosis noted to back. Normal range of motion. Right ankle swollen. Left ankle normal. Right foot and ankle with warmth, slight erythema and 1-2+ pitting edema. Right DP pulse 1+. Left DP pulse 3+. Right fourdrinier tender to palpation. Painful to weight-bear to right foot. no numbness or tingling. No deformity or ecchymosis. Extremity: Normal upper extremities bilaterally. Left lower extremity normal. Right calf, right foot right ankle right posterior knee tender to touch. Slightly warm, edematous and erythematous in areas. No upper leg pain bilaterally. Neurologic: Grossly normal Skin: No rashes, ulcerations, or suspicious lesions Mental Status: Alert and oriented x3. Normal mood and affect Assessment/Plan 1. High blood pressure (I10: Essential (primary) hypertension) BP 144/92. HR 120s apical. No sx distress noted. Already took BP pill today. Is going on a flight to [place] tomorrow morning and wants an ultrasound of RLE to r/o blood clot, but now having high BP and tachycardia in office. Did have 1 bloody listeh this morning with vodka. Discussed concern for DVT RLE as gout and fracture have been rule out previous, now concern for tachycardia and HTN also. Has been treated for cellulitis with no improvement of symptoms. Due to elevated blood pressure, tachycardia, pain to right calf and posterior knee and right foot edema, advised to go to ER for further workup and possible ultrasound blood work and medications to control blood pressure/tachycardia. 2. Tachycardia (R00.0: Tachycardia, unspecified) See tx plan above. 3. Foot pain (M79.673: Pain in unspecified foot) See tx plan above. 4. Right leg pain (M79.604: Pain in right leg) See tx plan above. 5. BMI 33.0-33.9,adult (Z68.33: Body mass index [BMI] 33.0-33.9, adult) The standard range for ages 18 and older is >=18.5 and < 25 kg/m2. Your BMI today was above this range, this falls in the overweight to obese category and there are medical benefits to weight loss. We can offer counselling, referral, and/or medical support in addressing this problem. Your BMI and weight management will be followed at subsequent visits. Ordered: Body Mass Index (BMI) documented 3008F Elevated BP without diagnosis of hypertension (R03.0: Elevated blood-pressure reading, without diagnosis of hypertension) Ordered: Most recent diastolic blood pressure <80 mm Hg 3078F Systolic BP <130 mm Hg (Most Recent) 3074F Follow-up With When Contact Information YOSI LECHUGA, VISH Mclaughlin, [address] [address]- Additional Instructions: Problem List/Past Medical History Ongoing No chronic problems Historical No qualifying data Medications aspirin 81 mg Oral EC Tab, Oral, Daily hydrochlorothiazide-lisinopri l 25 mg-20 mg Tab, Oral, Daily levothyroxine, Daily omeprazole, Oral, Daily Allergies No Known Allergies No Known Medication Allergies Social History Tobacco Never (less than 100 in lifetime) Tobacco Use:. Never Smokeless Tobacco Use:., 08/07/[address] [facility] Comment on above: Result Comment: Elec tronically Signed By: Malia Robledo CNP\.alfredito\Date and Time Signed: 08/07/20 11:20 EDT Coding Summary.on 07-27-2020 Coding Summary. CODING DATE: 021 FINAL [facility] STATUS: Home (Routine DC) PAYOR: Commercial Insurance APC DESCRIPTION 5521 Level 1 Imaging without Contrast ADMIT DX: REASON FOR VISIT DX: M89.8X1 Other specified disorders of bone, shoulder FINAL DX: PRINCIPAL: M89.8X1 Other specified disorders of bone, shoulder SECONDARY: M19.011 Primary osteoarthritis, right shoulder PYMT PROC APC STAT DESCRIPTION DOCTOR NAME DATE NOTE: The code number assigned matches the documented diagnosis and / or procedure in the patient's chart. However, the narrative phrase printed from the coding software may appear abbreviated, or result in slightly different terminology. Coded By: Kasey Adams CphT Date Saved: 07/27/2020 11:[address] [facility] Consent for Treatmenton 06-17 Consent for Treatment [id number]#1.00CD:[address] [facility] Physician Orderon 07-15-2020 Physician Order [id number]#1.00CD:[address] [facility] XR Clavicle Righton 07-16-19 XR Clavicle Right Exam Date/Time: 07/15/2020 16:23 EDT Reason for Exam: pain Report IMPRESSION: NO ACUTE PATHOLOGY CLINICAL HISTORY: pain COMPARISON: None available. FINDINGS: AP and upshot views of the right clavicle demonstrate no evidence of a fracture or dislocation. Mild spurring at the AC joint. FINAL REPORT Dictated: 07/15/2020 4:50 pm Royce Lopez MD Signed (Electronic Signature): 07/15/2020 4:50 pm Signed by: Royce Lopez MD Transcribed by: ZACHARY Technologist: EUGEEN [facility] Coding Summaryon 02-20-2018 Coding Summary CODING DATE: 018 [facility] STATUS: Home PAYOR: [employer] APC DESCRIPTION 5522 Level 2 Imaging without Contrast ADMIT DX: REASON FOR VISIT DX: S20.219A Contusion of unspecified front wall of thorax, initial encounter FINAL DX: PRINCIPAL: S22.39XA Fracture of one rib, unspecified side, initial encounter for closed fracture SECONDARY: G89.11 Acute pain due to trauma W17.89XA Other fall from one level to another, initial encounter Y93.01 Activity, walking, marching and hiking PYMT PROC APC STAT DESCRIPTION DOCTOR NAME DATE NOTE: The code number assigned matches the documented diagnosis and / or procedure in the patient's chart. However, the narrative phrase printed from the coding software may appear abbreviated, or result in slightly different terminology. Coded By: Reji Gonzalez Date Saved: 02/20/2018 12:28 pm [facility] Release of Informationon Release of Information [id number]#1.[facility] - Other [facility] Report on 01-23-2018 Rad - Other Radiology Report [id number]#1.00[facility] Clinical Summaryon 2017 ED Clinical Summary [facility] ? Urgent [address] [place], [place] [id number] clinical SummaryPERSON INFORMATIONName: GEMMA MANTILLA Age: 57 Years Sex: MALEDOB: [birth year] MRN: Acct#:Visit Reason: UC - Rib/Trunk Injury; FALL, RIGHT RIB PAIN Arrival: 01/21/18 11:05:00 Discharge: 01/21/18 11:52:00LOS: 000 00:47 Check In: 01/21/18 11:05:00 Checkout: 01/21/18 11:52:00Address:[address] [facility] [address]FMO: GAURI DELUCA INFORMATIONProvider Role Assigned UnassignedCaty Robertson ED PA 01/21/18 11:06:40SAmy nguyễn ED Nurse 01/21/18 11:12:53VITALS INFORMATIONVital Sign Triage LatestTemperature TympanicTemperature Temporal ArteryPulse Rate 76 bpm 76 bpmO2 SatRespiratory Rate 16 br/min 16 br/minBlood Pressure 130 mmHg/88 mmHg 130 mmHg/88 mmHgMEDICAL INFORMATIONMedications Given:Medication Dose Routeketorolac 60 mg IMAllergy Information:No Known Medication AllergiesPHYSICIAN DOCUMENTATIONDISCHARGE INFORMATION:Discharge Disposition: HomeDischarge Location: HomePATIENT EDUCATION INFORMATIONInstructions: Rib ContusionFollow-Up:With: Address: When:VISH DELUCA [facility], [address] [place] [address] [address] [address] [place], [place] [id number] Business (1) In 2 days 01/23/18DIAGNOSIS:Rib contusion; Rib fracturePatient Understands: Yes - Patient/family/caregiver verbalizes understanding of instructions givenComment: [facility] ED Note - Physicianon 2017 ED Note - Physician Patient: Dandre MANTILLA : 57 years Sex: MALE : 60Associated Diagnoses: Rib contusion; Rib fractureAuthor: Nabil Robertson InformationAdditional information: Chief Complaint from Nursing Triage Note : Chief Jmzbdwlzt30/07/18 11:10 EDT Chief Complaint right upper rib pain s/p fall from deck last night, denies other injury .History of Present Hgtuvwv48-dogr-dfu male presents her chief complaint right lateral chest wall pain. Patient slipped while walking on a deck last night. He states he was drinking alcohol and slipped and fell he has a bruise on the right cheek and right lateral chest wall pain no crepitus or subcutaneous emphysema on exam. He does have increased pain with range of motion and deep inspiration.Review of SystemsConstitutional symptoms: Negative except as documented in HPI.Respiratory symptoms: chest wall pain.Health StatusAllergies:Allergic Reactions (Selected)No Known Medication Allergies.Medications: (Selected)Documented MedicationsDocumentedDaypro 600 mg oral tablet: 1,200 mg = 2 tab(s), PO, Daily, 0 Refill(s)PriLOSEC 40 mg oral delayed release capsule: 40 mg = 1 cap(s), PO, Daily, 0 Refill(s)Synthroid 200 mcg (0.2 mg) oral tablet: 200 mcg = 1 tab(s), PO, Daily, 0 Refill(s)lisinopril 20 mg oral tablet: 20 mg = 1 tab(s), PO, Daily, 0 Refill(s).Past Medical/ Family/ Social HistoryMedical history:No active or resolved past medical history items have been selected or recorded..Surgical history:No active procedure history items have been selected or recorded..Family history:No family history items have been selected or recorded..Social history:Social & Psychosocial SjxxffGufelfo68/07/2018 Smoking tobacco use: Former smoker, quit more.Problem list:Active Problems (3)Acid refluxHTN (hypertension)Hypothyroid.Phy sical Examination Vital SignsVital Signs01/21/18 11:10 EDT Temperature Oral 36.4 DegC Peripheral Pulse Rate 76 bpm Respiratory Rate 16 br/min Systolic Blood Pressure 130 mmHg Diastolic Blood Pressure 88 mmHg.General: Alert, no acute distress.Skin: Warm, dry.Head: Normocephalic, atraumatic.Eye: Pupils are equal, round and reactive to light, extraocular movements are intact.Cardiovascular: No Regular rate and rhythm,Respiratory: Lungs are clear to auscultation, respirations are non-labored.Chest wall: On exam: Right, lateral, moderate, tenderness, no crepitus, no subcutaneous emphysema.Back: Nontender, Normal range of motion.Musculoskeletal: Normal ROM, normal strength.Neurological: Alert and oriented to person, place, time, and situation.LymphaticsPsychiatr ic: Cooperative, appropriate mood & affect.Medical Decision MakingDifferential Diagnosis: rib contusion, rib fracture.Reexamination/ ReevaluationPatient's x-ray confirmed by radiology showed a right rib fracture on the fourth. Patient was discharged home with rib contusion instructions I did call and speak to the with permission of the , regarding this diagnoses and further instructions. Patient was discharged home with pain medicine. He takes Daypro daily and will take the Woodbury also. Patient will follow up primary care physician.Impression and PlanDiagnosisRib contusion (KNP25-VN S20.219A, Discharge, Medical)Rib fracture (QOG51-EI S22.39XA, Discharge, Medical)PlanCondition: Stable.Disposition: Discharged: Time 01/21/18 11:39:00, to home.Prescriptions: Launch prescriptionsPharmacy:[facility] 5 mg-325 mg oral tablet (Prescribe): 1 tab(s), PO, q6hr (int), for 3 day(s), PRN: for pain, 12 tab(s), 0 Refill(s).Patient was given the following educational materials: Rib Contusion.Follow up with: VISH DELUCA In 2 days 01/23/18.Counseled: Patient, Regarding treatment plan, Regarding prescription, Patient indicated understanding of instructions.[Electronically Signed on: 01/21/2018 11:59 EDT] Caty Robertson[Verified on: 01/21/2018 11:59 EDT] Caty Robertson [facility] ED Patient Summaryon 018 ED Patient Summary [facility] ? Urgent [address] [place] [address] pATIENT DISCHARGE INSTRUCTIONSPatient InformationName: GEMMA MANTILLA Age: 57 YearsDate of : [birth year]MRN: [id number] For Visit: UC - Rib/Trunk Injury; FALL, RIGHT RIB PAINArrival Time: 01/21/18 11:05:00Phone: Primary Care Physician: Jose Alfredo DELUCA Physician: Caty RobertsonComment:Patient EducationWith: Address: When:VISH DELUCA [facility], [address] [place], [place] [address] [place], [place] [id number] Business (1) In 2 days 01/23/18Rib ContusionA rib contusion is a deep bruise on your rib area. Contusions are the result of a blunt trauma that causes bleeding and injury to the tissues under the skin. A rib contusion may involve bruising of the ribs and of the skin and muscles in the area. The skin overlying the contusion may turn blue, purple, or yellow. Minor injuries will give you a painless contusion, but more severe contusions may stay painful and swollen for a few weeks. What are the causes?A contusion is usually caused by a blow, trauma, or direct force to an area of the body. This often occurs while playing contact sports.What are the signs or symptoms?? Swelling and redness of the injured area.? Discoloration of the injured area.? Tenderness and soreness of the injured area.? Pain with or without movement.How is this diagnosed?The diagnosis can be made by taking a medical history and performing a physical exam. An X-ray, CT scan, or MRI may be needed to determine if there were any associated injuries, such as broken bones (fractures) or internal injuries.How is this treated?Often, the best treatment for a rib contusion is rest. Icing or applying cold compresses to the injured area may help reduce swelling and inflammation. Deep breathing exercises may be recommended to reduce the risk of partial lung collapse and pneumonia. Eqlq-uho-woaqeyn or prescription medicines may also be recommended for pain control.Follow these instructions at home:? Apply ice to the injured area:? Put ice in a plastic bag.? Place a towel between your skin and the bag.? Leave the ice on for 20 minutes, 2?3 times per day.? Take medicines only as directed by your health care provider.? Rest the injured area. Avoid strenuous activity and any activities or movements that cause pain. Be careful during activities and avoid bumping the injured area.? Perform deep-breathing exercises as directed by your health care provider.? Do not lift anything that is heavier than 5 lb (2.3 kg) until your health care provider approves.? Do not use any tobacco products, including cigarettes, chewing tobacco, or electronic cigarettes. If you need help quitting, ask your health care provider.Contact a health care provider if:? You have increased bruising or swelling.? You have pain that is not controlled with treatment.? You have a fever.Get help right away if:? You have difficulty breathing or shortness of breath.? You develop a continual cough, or you cough up thick or bloody sputum.? You feel sick to your stomach (nauseous), you throw up (vomit), or you have abdominal pain.This information is not intended to replace advice given to you by your health care provider. Make sure you discuss any questions you have with your health care provider.Document Released: 2001 Document Revised: 09/08/2016 Document Reviewed: 01/13/2015[employer] Patient Education ? 2018 [employer].Medication Information:The exam and treatment you received today in the [facility] Emergency Department were for an urgent problem and are not intended as complete care. It is important for you to follow up with a doctor, nurse practitioner, or physician?s facility assistant for ongoing care. If your symptoms become worse or you do not improve as expected and you are unable to reach your usual health care provider, you should return to the Emergency Department, we are available 24 hours a day.For those patients who have received Radiology results, the interpretation of your X-ray as given to you by our Emergency Department physician is only a preliminary report. The Radiologist will review your films and if there is a change in the diagnosis you will be notified by phone. Please make sure you have provided a working phone number so we can reach you if necessary.In the event that you had a lab culture while you were a patient in the Emergency Department, you will be notified by phone if there is a need to change your antibiotic. Please make sure you have provided a working phone number so we can reach you if necessary.[facility] Emergency Department has provided you with a complete list of medications post discharge. Please inform your highway commissioner/provider of your visit and for further instruction on these medications. Any specific questions regarding your chronic medications and dosages should be discussed with your primary care physician(s) and/or pharmacist. New MedicationsPrinted Prescriptionsacetaminophen-hy drocodone (Woodbury 5 mg-325 mg oral tablet) 1 tab(s) Oral every 6 hours as needed for pain for 3 Days. Refills: 0.Medications to Continue That Have Not ChangedOther Medicationslevothyroxine (Synthroid 200 mcg (0.2 mg) oral tablet) 1 tab(s) Oral every day.lisinopril (lisinopril 20 mg oral tablet) 1 tab(s) Oral every day.omeprazole (PriLOSEC 40 mg oral delayed release capsule) 1 cap Oral every day.oxaprozin (Daypro 600 mg oral tablet) 2 tab(s) Oral every day.Visit InformationVisit Diagnosis:Diagnoses This Visit Rib contusion (S20.219A) Rib fracture (S22.39XA) UC - Rib/Trunk Injury ([id number])If you received any narcotics, sedation, or any other medication that causes drowsiness for the next 24 hours, unless otherwise directed:? Do not drive a car.? Do not operate machinery such as power tools, lawn mowers, drills, sewing machines, or stoves? Avoid alcoholic beverages and drugs for allergies, nerves, or sleep? Do not make important personal or business decisions or sign any legal documentsReason for Visit:right upper rib pain s/p fall from deck last night, denies other injuryAllergies:Substance Reaction Symptoms Type CommentsNo Known Medication Allergies DrugVital Signs: Vitals and Measurements this Visit (last charted value for your 01/21/2018 visit) Vital Signs This Visit Temperature Oral: 36.4 DegC Peripheral Pulse Rate: 76 bpm Respiratory Rate: 16 br/min Systolic Blood Pressure: 130 mmHg Diastolic Blood Pressure: 88 mmHgProblems List:Problem Onset CommentsAcid refluxHTN (hypertension)HypothyroidMajo r Tests and Procedures:The following procedures and tests were performed during your ED visit.LaboratoryRadiologyXR Ribs w/ PA Chest Right 01/21/18 11:13:00 EDT Stat, chest wall pain fall, Allow Modification Per Radiologist, Transport Mode: Cart, 01/21/18 11:13:00 EDTCardiology Viruses or BacteriaWhat?s got you sick?Antibiotics only treat bacterial infections. Viral illnesses cannot be treated with antibiotics. When an antibiotic is not prescribed, ask your healthcare professional for tips on how to relieve symptoms and feel better. Usual CauseIllnessVirusesBacteria Antibiotic NeededCold/Runny Nose NOBronchitis/Chest Cold (in otherwise healthy children and adults) NOWhooping Cough YesFlu NOStrep Throat YesSore Throat (except strep) NOFluid in the middle ear (otitis media with effusion) NOUrinary Tract Infection YesAntibiotics Aren?t Always the Answerwww.cdc.gov/getsmart GET SMART Know When Antibiotics [place] Department of Health and Human ServicesCenters for Disease Control and Prevention December 2013 Normal [facility] [address] 018 Urgent Care Record [facility] ? Urgent [address] [id number] pATIENT DISCHARGE INSTRUCTIONSPatient InformationName: GEMMA MANTILLA Age: 57 YearsDate of : 60MRN: [id number] [facility]: [id number] For Visit: UC - Rib/Trunk Injury; FALL, RIGHT RIB PAINArrival Time: 01/21/18 11:05:00Phone: Primary Care Physician: Jose Alfredo DELUCA Physician: Caty RobertsonComment:Visit Diagnosis:Diagnoses This Visit Rib contusion (S20.219A) UC - Rib/Trunk Injury ([id number])If you received any narcotics, sedation, or any other medication that causes drowsiness for the next 24 hours, unless otherwise directed:? Do not drive a car.? Do not operate machinery such as power tools, lawn mowers, drills, sewing machines, or stoves? Avoid alcoholic beverages and drugs for allergies, nerves, or sleep? Do not make important personal or business decisions or sign any legal documentsWith: Address: When:VISH YOSI [facility], [address] [place] [address] [address] [place], [place] [phone] Business (1) In 2 days 01/23/18Medication Information:The exam and treatment you received today in the [facility] Urgent Care were for an urgent problem and are not intended as complete care. It is important for you to follow up with a doctor, nurse practitioner, or physician?s facility assistant for ongoing care. If your symptoms become worse or you do not improve as expected and you are unable to reach your usual health care provider, you should return to the Emergency Department, we are available 24 hours a day.For those patients who have received Radiology results, the interpretation of your X-ray as given to you by our Urgent Care physician is only a preliminary report. The Radiologist will review your films and if there is a change in the diagnosis you will be notified by phone. Please make sure you have provided a working phone number so we can reach you if necessary.In the event that you had a lab culture while you were a patient in the Urgent Care, you will be notified by phone if there is a need to change your antibiotic. Please make sure you have provided a working phone number so we can reach you if necessary.[facility] has provided you with a complete list of medications post discharge. Please inform your highway commissioner/provider of your visit and for further instruction on these medications. Any specific questions regarding your chronic medications and dosages should be discussed with your primary care physician(s) and/or pharmacist. New MedicationsPrinted Prescriptionsacetaminophen-hy drocodone ([place] 5 mg-325 mg oral tablet) 1 tab(s) Oral every 6 hours as needed for pain for 3 Days. Refills: 0.Medications to Continue That Have Not ChangedOther Medicationslevothyroxine (Synthroid 200 mcg (0.2 mg) oral tablet) 1 tab(s) Oral every day.lisinopril (lisinopril 20 mg oral tablet) 1 tab(s) Oral every day.omeprazole (PriLOSEC 40 mg oral delayed release capsule) 1 cap Oral every day.oxaprozin (Daypro 600 mg oral tablet) 2 tab(s) Oral every day.Visit InformationAllergies:Substanc e Reaction Symptoms Type CommentsNo Known Medication Allergies DrugVital Signs: Vitals and Measurements this Visit (last charted value for your 01/21/2018 visit) Vital Signs This Visit Temperature Oral: 36.4 DegC Peripheral Pulse Rate: 76 bpm Respiratory Rate: 16 br/min Systolic Blood Pressure: 130 mmHg Diastolic Blood Pressure: 88 mmHgProblems List:Problem Onset CommentsAcid refluxHTN (hypertension)Hypothyroid Patient EducationRib ContusionA rib contusion is a deep bruise on your rib area. Contusions are the result of a blunt trauma that causes bleeding and injury to the tissues under the skin. A rib contusion may involve bruising of the ribs and of the skin and muscles in the area. The skin overlying the contusion may turn blue, purple, or yellow. Minor injuries will give you a painless contusion, but more severe contusions may stay painful and swollen for a few weeks. What are the causes?A contusion is usually caused by a blow, trauma, or direct force to an area of the body. This often occurs while playing contact sports.What are the signs or symptoms?? Swelling and redness of the injured area.? Discoloration of the injured area.? Tenderness and soreness of the injured area.? Pain with or without movement.How is this diagnosed?The diagnosis can be made by taking a medical history and performing a physical exam. An X-ray, CT scan, or MRI may be needed to determine if there were any associated injuries, such as broken bones (fractures) or internal injuries.How is this treated?Often, the best treatment for a rib contusion is rest. Icing or applying cold compresses to the injured area may help reduce swelling and inflammation. Deep breathing exercises may be recommended to reduce the risk of partial lung collapse and pneumonia. Kxzc-fpq-liqclhi or prescription medicines may also be recommended for pain control.Follow these instructions at home:? Apply ice to the injured area:? Put ice in a plastic bag.? Place a towel between your skin and the bag.? Leave the ice on for 20 minutes, 2?3 times per day.? Take medicines only as directed by your health care provider.? Rest the injured area. Avoid strenuous activity and any activities or movements that cause pain. Be careful during activities and avoid bumping the injured area.? Perform deep-breathing exercises as directed by your health care provider.? Do not lift anything that is heavier than 5 lb (2.3 kg) until your health care provider approves.? Do not use any tobacco products, including cigarettes, chewing tobacco, or electronic cigarettes. If you need help quitting, ask your health care provider.Contact a health care provider if:? You have increased bruising or swelling.? You have pain that is not controlled with treatment.? You have a fever.Get help right away if:? You have difficulty breathing or shortness of breath.? You develop a continual cough, or you cough up thick or bloody sputum.? You feel sick to your stomach (nauseous), you throw up (vomit), or you have abdominal pain.This information is not intended to replace advice given to you by your health care provider. Make sure you discuss any questions you have with your health care provider.Document Released: 2001 Document Revised: 09/08/2016 Document Reviewed: 01/13/2015[employer] Patient Education ? 2018 [employer]. Viruses or BacteriaWhat?s got you sick?Antibiotics only treat bacterial infections. Viral illnesses cannot be treated with antibiotics. When an antibiotic is not prescribed, ask your healthcare professional for tips on how to relieve symptoms and feel better. Usual CauseIllnessVirusesBacteria Antibiotic NeededCold/Runny Nose NOBronchitis/Chest Cold (in otherwise healthy children and adults) NOWhooping Cough YesFlu NOStrep Throat YesSore Throat (except strep) NOFluid in the middle ear (otitis media with effusion) NOUrinary Tract Infection YesAntibiotics Aren?t Always the Answerwww.cdc.gov/getsmart GET SMART Know When Antibiotics [place] Department of Health and Human ServicesCenters for Disease Control and Prevention December 2013 [facility] XR Ribs w/ PA Chest Righton 01-21-2018 XR Ribs w/ PA Chest Right RIBS WITH PA CHEST RIGHTCLINICAL DATA: Fell on 01/20/2018, impact injury to right chest wall, pain,chronic smoking history until seven years ago.Right rib series was performed. There is essentially undisplaced fracture ofthe lateral aspect of the right fourth rib, other small undisplaced fracturesmay be difficult to identify acutely. There is mild pleural thickening whichmay represent minimal local effusion or hemothorax about the fracture site.There is mild convexity of the dorsal spine to the right.PA view of the chest was obtained. Heart and mediastinal contours areunremarkable in appearance. Mild pleural thickening laterally on the rightabout the above noted fracture site, consider mild pleural thickening orpossible small localized hemothorax related to the fracture. There is noobvious pneumothorax. There is mild convexity of the dorsal spine to theright.IMPRESSION:1. RIGHT RIB SERIES DEMONSTRATES ESSENTIALLY UNDISPLACED FRACTURE OF THELATERAL 4TH RIB.2. MILD PLEURAL THICKENING AND/OR POSSIBLE SMALL HEMOTHORAX ABOUT THEFRACTURE SITE.3. NO OBVIOUS PNEUMOTHORAX.ANGÉLICA Oscar #: [id number]: 01/22/2018T: 01/22/2018 Final Dictated by: Monroe Augustin MD SDictated DT/TM: 01/22/18 6:25Signed (Electronic Signature): Monroe Augustin MD 01/22/18 12:46 pTechnologist: [facility] Vital Signs Date Time Vital Sign Value Performing Clinician Facility 05-01-2023 14:45-0500 Body height 172.72 cm Mikal Verde Other [facility] Other 05-01-2023 14:45-0500 Body mass index (BMI) [Ratio] 29.65 kg/m2 Mikal Verde Other [facility] Other 05-01-2023 14:45-0500 Body temperature 97.1 [degF] Mikal Mehreen Other [facility] Other 05-01-2023 14:45-0500 Body weight 88.45 kg Mikal Verde Other [facility] Other 05-01-2023 14:45-0500 Diastolic blood pressure 104 mm[Hg] Mikal Mehreen Other [facility] Other 05-01-2023 14:45-0500 Systolic blood pressure 170 mm[Hg] Mikal Mehreen Other [facility] Other 03-20-2023 14:15-0500 Body height 172.72 cm Mikal Verde Other [facility] Other 03-20-2023 14:15-0500 Body mass index (BMI) [Ratio] 31.93 kg/m2 Mikal Mehreen Other [facility] Other 03-20-2023 14:15-0500 Body temperature 97.5 [degF] Mikal Mehreen Other [facility] Other 03-20-2023 14:15-0500 Body weight 95.26 kg Mikal Mehreen Other [facility] Other 03-20-2023 14:15-0500 Diastolic blood pressure 93 mm[Hg] Mikal Mehreen Other [facility] Other 03-20-2023 14:15-0500 Systolic blood pressure 155 mm[Hg] Mikal Verde Other [facility] Other 02-20-2023 15:00-0500 Body height 172.72 cm Mikal Verde Other [facility] Other 02-20-2023 15:00-0500 Body mass index (BMI) [Ratio] 31.93 kg/m2 Mikal Verde Other [facility] Other 02-20-2023 15:00-0500 Body temperature 98.6 [degF] Mikal Verde Other [facility] Other 02-20-2023 15:00-0500 Body weight 95.26 kg Mikal Verde Other [facility] Other 02-20-2023 15:00-0500 Diastolic blood pressure 103 mm[Hg] Mikal Verde Other [facility] Other 02-20-2023 15:00-0500 Systolic blood pressure 164 mm[Hg] Mikal Verde Other [facility] Other 07-28-2021 08:04-0400 Body height 175.26 cm II Vish Deluca Work Phone: [facility] 07-28-2021 08:04-0400 Body weight 104.32 kg II Vish Deluca Work Phone: [facility] Encounters Encounter Date Encounter Type Care Provider Facility Start: 05-01-2023 End: 05-01-2023 ambulatory Mikal Verde Other [facility] Other Start: 05-01-2023 Office outpatient vi sit 25 minutes Mikal Verde [facility] Start: 03-20-2023 End: 03-20-2023 ambulatory Mikal Verde Other [facility] Other Start: 03-20-2023 Office outpatient vi sit 25 minutes Mikal Verde [facility] Start: 02-20-2023 End: 02-20-2023 ambulatory Mikal Verde Other [place] Other Start: 02-20-2023 Office outpatient vi sit 25 minutes Mikal Verde [facility] Start: 02-06-2023 End: 02-06-2023 ambulatory Mikal Verde Other [place] Other Start: 02-06-2023 Telephone encounter Mikal Verde [facility] Start: 09-20-2022 ambulatory ANASTASIYA FOX Faci lity:[facility] Start: 08-31-2022 ambulatory ANASTASIYA FOX Faci lity:[facility] Start: 08-11-2022 End: 09-03-2022 ambulatory MR ALEJA PEREZ . Facility:[facility] Start: 07-31-2022 Encounter for preprocedural laboratory examination ANASTASIYA FOX [facility] Start: 07-28-2022 End: 07-28-2022 ambulatory ANASTASIYA FOX Facility:[facility] Start: 07-26-2022 End: 07-27-2022 ambulatory ANASTASIYA FOX Facility:[facility] Start: 07-26-2022 End: 07-27-2022 Encounter for preprocedural laboratory examination ANASTASIYA FOX Facility:[facility] Start: 07-23-2022 End: 07-24-2022 ambulatory ANASTASIYA FOX Facility:[facility] Start: 07-13-2022 End: 07-14-2022 ambulatory ANASTASIYA FOX Facility:[facility] Start: 07-01-2022 End: 07-02-2022 ambulatory ANASTASIYA FOX Facility:[facility] Start: 06-21-2022 End: 06-22-2022 ambulatory ANASTASIYA FOX Facility:[facility] Start: 06-14-2022 End: 06-15-[address] VISH DELUCA Facility:[facility] Start: 05-17-2022 End: 05-18-2022 ambulatory ANASTASIYA FOX Facility:[facility] Start: 04-27-2022 End: 04-28-2022 ambulatory ANASTASIYA FOX Facility:[facility] Start: 04-19-2022 End: 04-19-2022 ambulatory TOM OWUSU Facility:[facility] Start: 04-19-2022 End: 04-20-2022 ambulatory TOMLIZA OWUSU Facility:[facility] Start: 04-06-2022 End: 04-07-2022 ambulatory ANASTASIYA FOX Facility:[facility] Start: 03-22-2022 End: 03-23-2022 ambulatory TOM OWUSU Facility:[facility] Start: 03-01-2022 End: 03-02-[address] NADIA TINOCO Facility:[facility] Start: 02-07-2022 End: 02-08-[address] DANII DANIEL . Facility:[facility] Start: 02-04-2022 Encounter for preprocedural cardiovascular examination [facility] Start: 02-04-2022 Encounter for preprocedural laboratory examination [facility] Start: 02-01-2022 End: 02-02-2022 ambulatory ANASTASIYA FOX Facility:[facility] Start: 02-01-2022 End: 02-02-2022 Encounter for preprocedural cardiovascular examination ANASTASIYA Rodriguez VINODEARL Facility:[facility] Start: 11-10-2021 End: 11-11-2021 ambulatory HERMINIARICK COSTADINO Facility:[facility] Start: 10-27-2021 ambulatory HERMINIA Rodgers JULISSADINO Facility :[facility] Start: 10-19-2021 End: 10-20-2021 ambulatory ANASTASIYA Jennifer FOX Facility:[facility] Start: 10-14-2021 End: 10-15-2021 ambulatory ANASTASIYA Jennifer FOX Facility:[facility] Start: 07-28-2021 End: 07-28-2021 Patient encounter procedure II Vish Deluca Work Phone: [facility] [place] Start: 07-21-2021 End: 07-22-2021 ambulatory NASIR PAN Facility:[facility] Start: 07-19-2021 End: 07-19-2021 Patient encounter procedure II Vish Deluca Work Phone: [facility] Start: 07-19-2021 End: 04-28-2022 ambulatory NASIR PAN Facility:[facility] Start: 07-02-2021 End: 07-03-2021 ambulatory NASIR PAN Facility:[facility] Start: 06-11-2021 End: 06-11-2021 Patient encounter procedure II Vish Deluca Work Phone: [facility] Start: 01-29-2021 End: 02-04-2021 Evaluation and management of inpatient SERGIO EBHEIM Facility:[facility] Start: 01-18-2021 End: 01-19-2021 ambulatory VISH DELUCA Facility:[facility] Start: 12-25-2020 End: 12-26-2020 ambulatory SERGIO EBHEIM Facility:[facility] Start: 01-21-2018 End: 01-21-2018 Patient encounter Caty Donahue Facility:[facility] Procedures Date Procedure Procedure Detail Performing Clinician Start: 07-28-2021 MRI of chest with contrast II Vish Yosi Work Phone: Start: 02-02-2021 EXCISION OF RIGHT CLAVICLE, OPEN APPROACH SERGIO EBRAHEIM Start: 12-25-2020 PSA screening SERGIO EBR GEETA Comment on above: Performed By: #### [id number] #### [address] Screening for malign ant neoplasm of colon Mikal Verde Other Plan of Treatment Date Care Activity Detail Author SARS-CoV-2 (COVID-19 ) Ab [Interpretation] in Serum or Plasma [facility] Work Phone: Payers Date Payer Category Payer Self-pay [employer] 2018 Unknown [id number] 1960 Unknown [id number] 2.16.84 0.1.859427.3.579.2.718 1960 Unknown [id number] 2.16.8 40.1.680777.3.579.2.647 1960 Unknown [id number] 2.16.8 40.1.536475.3.579.2.647 1960 Unknown [id number] 2.16.8 40.1.802829.3.579.2.647 1960 Unknown [id number] 2.16.8 40.1.967356.3.579.2.647 1960 Unknown [id number] 2.16.8 40.1.913565.3.579.2.647 1960 Unknown [id number] 2.16.8 40.1.192098.3.579.2.647 1960 Unknown [id number] 2.16.84 0.1.539815.3.579.2.593 1960 Unknown [id number] 2.16.84 0.1.966277.3.579.2.593 1960 Unknown [id number] 2.16.84 0.1.467978.3.579.2.593 1960 Unknown [id number] 2.16.84 0.1.566340.3.579.2.593 1960 Unknown [id number] 2.16.84 0.1.433452.3.579.2.593 1960 Unknown [id number] 2.16.84 0.1.226992.3.579.2.593 1960 Unknown [id number] 2.16.84 0.1.766714.3.579.2.593 1960 Unknown [id number] 2.16.84 0.1.511175.3.579.2.593 1960 Unknown [id number] 2.16.84 0.1.632927.3.579.2.593 1960 Unknown [id number] 2.16.84 0.1.198796.3.579.2.593 1960 Unknown [id number] 2.16.84 0.1.841324.3.579.2.593 1960 Unknown [id number] 2.16.84 0.1.892487.3.579.2.593 1960 Unknown [id number] 2.16.84 0.1.131043.3.579.2.593 1960 Unknown [id number] 2.16.84 0.1.045912.3.579.2.593 1960 Unknown [id number] 2.16.84 0.1.623292.3.579.2.593 1960 Unknown [id number] 2.16.84 0.1.087991.3.579.2.593 1960 Unknown [id number] 2.16.84 0.1.085902.3.579.2.593 1960 Unknown [id number] 2.16.84 0.1.412253.3.579.2.593 1960 Unknown [id number] 2.16.84 0.1.541774.3.579.2.593 1960 Unknown [id number] 2.16.84 0.1.390684.3.579.2.593 1960 Unknown [id number] 2.16.84 0.1.122701.3.579.2.593 1960 Unknown [id number] 2.16.84 0.1.323701.3.579.2.593 1960 Unknown [id number] 2.16.84 0.1.643708.3.579.2.593 1960 Unknown [id number] 2.16.84 0.1.490387.3.579.2.593 1959 Medicaid [id number] Self-pay [id number] 1959 Unknown [id number] Self-pay Self Pay [id number] Unknown Self Pay [id number] Social History Date Type Detail Facility Tobacco smoking status NHIS Unknown if ever smoked [facility] Work Phone: Start: 1960 Sex Assigned At Male F [facility] Sex Assigned At Sex Assigned At Bir th [facility] Other Clinical Notes 02-28-2021 to 05-01-2023 Note Date & Type Note Facility 05-01-2023 Evaluation note Encounter Date Diagnosis Assessment Notes Apr, Chronic osteomyelitis involving right ankle and foot (ICD-10 - M86.671) Will go up on SS Bactrim to BID to see if pain is any better. I'm hesitant to think that just by doing this his pain will be fixed but of note he has been using/on his foot more so perhaps the pain is a result from this [facility] Other 12-04-2023 Evaluation note* Encounter Date Diagnosis Assessment Notes Treatment Notes Treatment Clinical Notes Mar, Chronic osteomyelitis involving right ankle and foot (ICD-10 - M86.671) Plan to finish 3 months of double strength treatment dose Bactrim and then de-escalate dose to single strength once daily for secondary suppression given underlying hardware. Markers of inflammation do show downward trend. Will repeat labs. Mar, Complications of internal orthopedic device, implant, and graft (ICD-10 - T84.9XXA) [facility] Other [id number] Evaluation note* Encounter Date Diagnosis Assessment Notes Treatment Notes Treatment Clinical Notes Feb, Chronic osteomyelitis involving right ankle and foot (ICD-10 - M86.671) Patient with chronic osteomyelitis of the right foot for which she has been on Bactrim now for 2 months from what my calculations show. Was planning a 3-month treatment course followed by secondary suppression after that with a lower dose. Patient's markers of inflammation do show that they do improve when we last checked them. Favor checking these again. Patient without localizing findings suggestive of infection though still has difficulty with pain at the foot itself especially after using it excessively. Feb, Complications of internal orthopedic device, implant, and graft (ICD-10 - T84.9XXA) [facility] Other 03-29-2023 NotePROCEDURE: XR FOOT RT MIN 3 VIEWS HISTORY: Pain in right foot ; acute right third toe pain and bruising; stubbed on door jam COMPARISON: XR foot right 06/21/2022 FINDINGS: BONES:Posterior calcaneal osteotomy and realignment. Talocalcaneal and talonavicular fusion. Medial cuneiform osteotomy and wedge placement. Generalized osteopenia and mild degenerative joint disease. No fracture or dislocation. SOFT TISSUES:No visible soft tissue swelling. EFFUSION:None visible. OTHER: Negative. IMPRESSION: 1. No acute bone abnormality of the third toe. 2. Stable surgical changes without evidence of hardware failure or change in alignment. Electronically authenticated by: MAO CATHERINE Date: 2022-07-13 11:54[facility] [id number] NotePROCEDURE: XR FOOT RT MIN 3 VIEWS HISTORY: Pain in right foot COMPARISON: XR foot right 06/14/2022 FINDINGS: BONES:Posterior calcaneal osteotomy and attachment. Talocalcaneal and talonavicular fusion. Osteotomy and wedge placement within medial cuneiform. No fracture or dislocation. Generalized osteopenia. SOFT TISSUES:Mild soft tissue swelling surrounding the foot. EFFUSION:None visible. OTHER: Negative. IMPRESSION: 1. Stable surgical changes without evidence of hardware failure or change in alignment. Electronically authenticated by: MAO CATHERINE Date: 2022-06-22 09:18 [facility] [id number] NotePROCEDURE: XR FOOT RT MIN 3 VIEWS COMPARISON: 05/17/2022 HISTORY: Pain in right foot FINDINGS: BONES:Stable triple arthrodesis. Lytic spacer medial cuneiform. Anterior and posterior calcaneal osteotomies. Subtalar fusion. Moderate degenerative changes with joint space narrowing and osteophyte formation. Diffuse permeative pattern of osteopenia SOFT TISSUES:Negative. No visible soft tissue swelling. EFFUSION:None visible. OTHER: Negative. IMPRESSION: Stable triple arthrodesis with underlying osteopenia Electronically authenticated by: NADIA TINOCO Date: 2022-06-14 17:15[facility]01-31-2023 NotePROCEDURE: XR FOOT RT MIN 3 VIEWS HISTORY: Pain in right foot COMPARISON: XR foot right 04/27/2022 FINDINGS: BONES:Talocalcaneal and talonavicular fusion via lag screws. Osteotomy and wedge placement within the medial cuneiform. Large calcaneal plantar spur. Generalized osteopenia of the foot and ankle. Prior bone harvesting from distal tibia. SOFT TISSUES: Soft tissue swelling surrounding the ankle and proximal foot. EFFUSION:None visible. OTHER: Negative. IMPRESSION: 1. Stable surgical changes without evidence of hardware failure or change in alignment. 2. Diffuse osteopenia. Electronically authenticated by: MAO CATHERINE Date: 2022-05-17 13:23[facility]01-11-2023 NotePROCEDURE: XR FOOT RT MIN 3 VIEWS HISTORY: Pain in right foot COMPARISON: XR foot right 04/19/2022 FINDINGS: BONES: Posterior calcaneal osteotomy and fusion. Fusion of the talonavicular and talocalcaneal joints. Osteotomy and wedge placement within medial cuneiform. Diffuse osteopenia throughout the foot. SOFT TISSUES:Moderate soft tissue swelling. EFFUSION:None visible. OTHER: Negative. IMPRESSION: 1. Stable surgical changes without evidence of hardware failure or change in alignment. 2. Grossly stable diffuse osteopenia; likely from decreased use. Electronically authenticated by: MAO CATHERINE Date: 2022-04-27 14:07[facility]01-04-2023 NotePROCEDURE: XR FOOT RT MIN 3 VIEWS HISTORY: Pain in right foot COMPARISON: XR foot right 04/06/2022 FINDINGS: BONES:Talocalcaneal and talonavicular fusion via lag screws. Posterior calcaneal osteotomy and repair. Osteotomy and wedge placement within the medial cuneiform. Diffuse osteopenia of the bones of the foot. SOFT TISSUES:Dorsal and medial soft tissue thickening and edema. No radiopaque foreign body or appreciable ulcer or tract extending to the bone. EFFUSION:None visible. OTHER: Negative. IMPRESSION: 1. Stable surgical changes without evidence of hardware failure or change in alignment. 2. Osteopenia. 3. Prominent soft tissue swelling of uncertain etiology. Electronically authenticated by: MAO CATHERINE Date: 2022-04-20 11:11[facility]12-23-2022 NotePROCEDURE: XR FOOT RT MIN 3 VIEWS HISTORY: Pain in right foot COMPARISON: XR foot right 03/22/2022 FINDINGS: BONES:Posterior calcaneal osteotomy and fusion. Talocalcaneal fusion and talonavicular fusion via lag screws. Osteotomy and wedge placement within the medial cuneiform. Osteopenia of the bones of the foot and ankle. Mild degenerative changes of the tarsal metatarsal joints and first metatarsophalangeal joint. SOFT TISSUES:Moderate soft tissue swelling. EFFUSION:None visible. OTHER: Negative. IMPRESSION: 1. Stable surgical changes without of hardware failure or change in alignment. 2. Moderate soft tissue swelling, not appreciably changed. Electronically authenticated by: MAO CATHERINE Date: 2022-04-07 22:09[facility]12-06-2022 NotePROCEDURE: XR FOOT RT MIN 3 VIEWS HISTORY: Pain in right foot ; postoperative evaluation COMPARISON: XR foot right 03/01/2022 FINDINGS: BONES:Posterior calcaneal osteotomy and fusion. Fusion of the talocalcaneal and talonavicular joints. Osteotomy and wedge placement within the medial cuneiform. Diffuse osteopenia of the foot. No appreciable hardware fracture, loosening, or bone fracture. SOFT TISSUES:Moderate soft tissue swelling. EFFUSION:None visible. OTHER: Negative. IMPRESSION: 1. Stable surgical changes without evidence of hardware failure or change in alignment. 2. Moderate soft tissue swelling, slightly less than previously seen. Interval removal of skin chuck. Electronically authenticated by: MAO CATHERINE Date: 2022-03-22 15:25[facility] [id number] NotePROCEDURE: XR FOOT RT MIN 3 VIEWS COMPARISON: 02/07/2022 HISTORY: Pain in right foot FINDINGS: BONES:Stable subtalar fusion with 5 screws. Stable osteotomy and wedged spacer medial cuneiform. Permeative pattern of the bones with cortical thinning, osteopenia. Stable degenerative changes with joint space narrowing and marginal osteophyte formation. Moderate plantar enthesopathic spurring of the calcaneus. Lucency in the distal tibia from bone graft harvesting SOFT TISSUES:Moderate soft tissue swelling. Surgical skin chuck. EFFUSION:None visible. OTHER: Negative. IMPRESSION: Stable postsurgical and degenerative changes Osteopenia Electronically authenticated by: NADIA TINOCO Date: 2022-03-01 15:50[facility] [id number] NotePROCEDURE: XR FOOT RT 2V HISTORY: Pain COMPARISON: XR foot right 08/04/2021 FINDINGS: BONES:Multiple intraoperative spot fluoroscopic images demonstrate mechanical fusion of the talonavicular joint and the talocalcaneal joint via 3 lag screws. Osteotomy of the calcaneus with realignment. Osteotomy and wedge placement within the medial cuneiform. Bone harvesting from the distal tibia. SOFT TISSUES:Expected intraoperative findings. EFFUSION:None visible. OTHER: Negative. IMPRESSION: 1. Surgical changes as detailed above. Electronically authenticated by: MAO CATHERINE Date: 2022-02-07 19:48[facility]10-24-2022 NotePROCEDURE: XR FOOT RT MIN 3 VIEWS, XR ANKLE RT MIN 3 VIEWS COMPARISON: 08/12/2021 HISTORY: Pain FINDINGS: BONES:No acute fracture or dislocation. Hindfoot fusion with screws through the talonavicular and subtalar joints. Posterior calcaneal osteotomy suspected. Placement of a wedge spacer in the medial cuneiform. No acute fracture or dislocation. Lucency of the distal tibia, bone graft harvesting SOFT TISSUES: Postsurgical changes including Soft tissue swelling, subcutaneous air and skin chuck EFFUSION:None visible. OTHER: Posterior cast IMPRESSION: Post surgical changes Electronically authenticated by: NADIA TINOCO Date: 2022-02-07 13:29[facility]10-24-2022 NotePROCEDURE: XR FOOT RT MIN 3 VIEWS, XR ANKLE RT MIN 3 VIEWS COMPARISON: 08/12/2021 HISTORY: Pain FINDINGS: BONES:No acute fracture or dislocation. Hindfoot fusion with screws through the talonavicular and subtalar joints. Posterior calcaneal osteotomy suspected. Placement of a wedge spacer in the medial cuneiform. No acute fracture or dislocation. Lucency of the distal tibia, bone graft harvesting SOFT TISSUES: Postsurgical changes including Soft tissue swelling, subcutaneous air and skin chuck EFFUSION:None visible. OTHER: Posterior cast IMPRESSION: Post surgical changes Electronically authenticated by: NADIA TINOCO Date: 2022-02-07 13:29[facility]11-14-2021 NoteMR#: [id number] I [facility] Pt. Name: Gemma Rodgers Admitted: 01/29/2021 Discharged: 02/04/2021 Date of : 1960 Physician: Sergio Brunner M.D. 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 PROCEDURES: 1. Excision and debridement of right sternoclavicular joint, January 29, 2021. 2. Irrigation and debridement of right sternoclavicular joint down to bone, 02/02/2021. HISTORY OF PRESENT ILLNESS: The patient is a 60-year-old male with a right sternoclavicular mass for 6 months, recently had a joint aspiration positive for MRSA with ESR and CRP, which were both elevated. He had a recent bone scan as well performed revealing increased activity in the right sternoclavicular joint consistent with osteomyelitis. It was agreed that the patient come to [facility] for the procedure with Dr. Brunner and Cardiovascular Surgery involved, and he would be subsequently brought to the floor with Infectious Disease consult and placement of the PICC line to give him IV antibiotics. HOSPITAL COURSE: The patient was brought in for the aforementioned procedure on January 29, 2021. He was then brought to the floor, where he was administered IV antibiotics and had a Infectious Disease consult. Subsequently, he developed fluid buildup around the incision site and it was decided to take him back to the operating room for another irrigation and debridement. In this operation, a Hemovac was placed. The Hemovac was then subsequently removed once the drainage was minimal. He was discharged safely with a PICC line and given instructions and a prescription from the Infectious Disease team for IV antibiotics. The patient will follow up with the Infectious Disease team and the Orthopedic team. The patient was deemed appropriate for discharge. Electronically Signed by: Sergio Brunner M.D. 03/02/2021 07:33 A Sergio Brunner M.D. I personally saw this patient on the day of the encounter, performed the cruz portion(s) of the service and participated in the management and confirm the resident's documentation. Please note there may be an additional personal documentation from me. Date Dict: 02/27/2021/05:48 P/Shemar Pulido MD Date Trans: 02/28/2021 03:57 A/kimberley [id number] cc: Vish Deluca M.D. [address] [facility] [id number]. Rita's HospitalEvaluation noteNo assessment information availableScci Hospital L[facility] Ctr Work Phone: Evaluation noteNo InformationNortThomas Jefferson University Hospital [employer] Other History general Narrative - Reported* Type Description Date Medical History hypertension Medical History thyroid disease Surgical History wrist surgery Surgical History rotator cuff tear repair x3 Surgical History right foot i&d x3 Hospitalization History See Above [place] Other Summary Purpose Family History No Family History Records FoundNo Family History Records FoundNo Family History Records FoundNo Family History Records FoundNo Family History Records FoundNo Family History Records Found Advance Directives Advance Directive Response Recorded Date/ Time Advance Directives No June 22 12:16pm Chief Complaint and Reason for Visit Chief Complaint z20.822 z01.89 Chief Complaint z20.822 z01.89 sternoclavicular joint pain, chest pain Additional Source Comments (unrecognized sect ion and content) No Status Records FoundNo Status Records FoundNo Status Records FoundNo Status Records FoundNo Status Records FoundNo Status Records Found INFORMATION SOURCE (unrecogn ized section and content) DATE CREATED AUTHOR 03/06/2018 [facility] DATE CREATED AUTHOR AUTHOR'S ORGANIZ ATION 08/26/2020 [facility] DATE CREATED AUTHOR AUTHOR'S ORGANIZ ATION 12/16/2021 [facility] DATE CREATED AUTHOR AUTHOR'S ORGANIZ ATION 12/24/2021 [facility] DATE CREATED AUTHOR AUTHOR'S ORGANIZ ATION 01/17/2022 [facility] dical Specialist DATE CREATED AUTHOR AUTHOR'S ORGANIZ ATION 09/23/2022 [facility] pital Care Teams (unrecognized sec tion and content) Team Status: Inactive Member Role Status Dates Vish Deluca II MD Primary Care Provider Active Nasir Pan PA-C Attending Provider Active Team Status: Inactive Member Role Status Dates Vish Deluca II MD Primary Care Provider, Attending Provider Active Team Status: Active Member Role Status Dates Vish Deluca II MD Primary Care Provider Active Goals (unrecognized section and content) Goals may be documented in a n alternate sectionGoals may be documented in an alternate sectionNo InformationNo InformationNo InformationNo Information REASON FOR VISIT (unrecogniz ed section and content) 6 week Follow up1 month Foll ow up FOR RECORDS PERTAINING TO PATIENTS WHO ARE OR HAVE BEEN ENROLLED IN A CHEMICAL DEPENDENCY/SUBSTANCEABUSE PROGRAM, SOME INFORMATION MAY BE OMITTED. This clinical summary was aggregated from multiple sources. Caution should be exercised in using it in the provision of clinical care. This summary normalizes information from multiple sources, and as a consequence, information in this document may materially change the coding, format and clinical context of patient data. In addition, data may be omitted in some cases. CLINICAL DECISIONS SHOULD BE BASED ON THE PRIMARY CLINICAL RECORDS. [facility] Effective Measure [facility]. provides no warranty or guarantee of the accuracy or completeness of information in this document.
--- NOTE | 2024-02-04 05:42 | ECG_ITS ---
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
--- NOTE | 2024-02-04 05:43 | XR_ITS ---
The [address] [address] Patient Name: ANIRUDH MANTILLA MRN: [id number] date: 1960 Sex: M Assigned Patient Location: ER Current Patient Location: ER Accession/Order Number: [id number] Exam Date: 02/04/2024 05:55 Report Date: 02/04/2024 06:27 At the request of: SERAFIN ALVAREZ Procedure: XR chest 1V HISTORY: Chest pain for the past 2-3 days becoming worse yesterday. XR chest 1V: 02/04/2024 5:55 AM EDT COMPARISON: Portable AP chest 09/26/2020. FINDINGS: There has been removal of the right-sided PICC line since the prior study. The heart appears within normal limits in size. No focal consolidation, pleural effusion, pneumothorax or evidence of congestive heart failure is seen. XR/XR chest 1V IMPRESSION: No radiographic evidence of active cardiopulmonary disease is seen. Electronically authenticated by: ZONIA QUINTANA Date: 02/04/2024 06:27
--- NOTE | 2024-02-04 05:46 | ED.CHESTPAI1 ---
HPI - Chest Pain General Chief Complaint: Chest Pain Stated Complaint: chest pain Time Seen by Provider: 02/04/24 05:26 Source: patient Mode of arrival: walk-in Limitations: no limitations History of Present Illness HPI narrative: 63-year-old male presents to the emergency department for chest pain. It started 2 or 3 days ago and has been continuous since yesterday afternoon. No unusual activity and it does not seem to radiate. He has no history of heart disease and heart disease does not run in his family. He describes it as a sharp pain. Nothing seems to make it worse or better, exertion and omeprazole did not change it. Related Data Home Medications ?Medication ?Instructions ?Recorded ?Confirmed levothyroxine 200 mcg tablet 200 mcg PO DAILY 11/15/22 02/04/24 omeprazole 40 mg capsule,delayed 40 mg PO DAILY 11/16/22 02/04/24 release cholecalciferol (vitamin D3) 50 2,000 unit PO DAILY 12/23/22 02/04/24 mcg (2,000 unit) capsule (Vitamin D3) carvedilol 12.5 mg tablet 12.5 mg PO Q12H 02/04/24 02/04/24 Previous Rx's ?Medication ?Instructions ?Recorded amoxicillin 500 mg-potassium 1 tab PO Q12H 14 days #28 tabs 12/26/22 clavulanate 125 mg tablet (Augmentin) sulfamethoxazole 800 1 tab PO BID 14 days #28 tabs 12/26/22 mg-trimethoprim 160 mg tablet Allergies Allergy/AdvReac Type Severity Reaction Status Date / Time amlodipine AdvReac Severe Swelling Verified 02/04/24 05:44 of Lip/Tongue/Throat lisinopril AdvReac Severe Anaphylaxis Verified 02/04/24 05:44 olmasartan AdvReac Intermediate Swelling Uncoded 02/04/24 05:44 of Lip/Tongue/Throat Review of Systems ROS Narrative A ten point review of systems is negative except as noted above. [facility] Medical History (Updated 02/04/24 @ 06:47 by Ty Griffith MD) Gastrocnemius equinus of right lower extremity ?M21.861 - Other specified acquired deformities of right lower leg (ICD-10) GERD (gastroesophageal reflux disease) ?K21.9 - Gastro-esophageal reflux disease without esophagitis (ICD-10) Pain in right ankle and joints of right foot ?M25.571 - Pain in right ankle and joints of right foot (ICD-10) Muscle strain ?T14.8XXA - Other injury of unspecified body region, initial encounter (ICD-10) Posterior tibial tendon dysfunction, right ?M76.821 - Posterior tibial tendinitis, right leg (ICD-10) Plantar fascial fibromatosis of right foot ?M72.2 - Plantar fascial fibromatosis (ICD-10) MRSA (methicillin resistant Staphylococcus aureus) ?A49.02 - Methicillin resistant Staphylococcus aureus infection, unspecified site (ICD-10) Cellulitis ?L03.90 - Cellulitis, unspecified (ICD-10) Equinus contracture of right ankle ?M24.571 - Contracture, right ankle (ICD-10) Acquired deformities of toe(s), unspecified, right foot ?M20.61 - Acquired deformities of toe(s), unspecified, right foot (ICD-10) Abscess ?L02.91 - Cutaneous abscess, unspecified (ICD-10) Arthritis ?M19.90 - Unspecified osteoarthritis, unspecified site (ICD-10) HTN (hypertension) ?I10 - Essential (primary) hypertension (ICD-10) Angioedema ?T78.3XXA - Angioneurotic edema, initial encounter (ICD-10) Surgical History (Updated 12/23/22 @ 12:53 by Shantel Mortensen RN) H/O right wrist surgery ?Z98.890 - Other specified postprocedural states (ICD-10) History of removal of retained hardware ?Z98.890 - Other specified postprocedural states (ICD-10) History of arthroscopy of shoulder ?Z98.890 - Other specified postprocedural states (ICD-10) History of bone graft ?Z98.890 - Other specified postprocedural states (ICD-10) Status post osteotomy ?Z98.890 - Other specified postprocedural states (ICD-10) Postsurgical arthrodesis status ?Z98.1 - Arthrodesis status (ICD-10) Family History (Updated 12/23/22 @ 12:56 by Shantel Mortensen RN) Other Family history of CHF (congestive heart failure) Family history of COPD (chronic obstructive pulmonary disease) Family history of cancer Family history of hypertension Family history of myocardial infarction Social History (Updated 12/23/22 @ 12:57 by Shantel Mortensen RN) Within the past year, how often did you have a drink containing alcohol: 2-3 times a week Within the past year, how many standard drinks containing alcohol did you have on a typical day: 1 or 2 Within the past year, how often did you have six or more drinks on one occasion: never Total score: 0 Score interpretation: A score less than 4 is consistent with normal alcohol consumption. Smoking status: Former smoker Second hand tobacco smoke exposure: Yes Non-prescribed substance use: denies use Previous occupational history: [employer] Known occupational exposures/hazards: No Highest level of school completed/degree received: high school graduate Little interest or pleasure in doing things: not at all Feeling down, depressed, or hopeless: not at all Exam Narrative Exam Narrative: Nurses note and vital signs reviewed and patient is not hypoxic. General: The patient appears well and in no apparent distress. Patient is resting comfortably on cart. Skin: Warm, dry, no pallor noted. There is no rash noted. Head: Normocephalic, atraumatic Eye: Normal conjunctiva, no drainage Ears, Nose, Mouth, and Throat: oral mucosa is moist. Nares patent. Cardiovascular: Regular Rate and Rhythm Respiratory: Patient is in no distress, no accessory muscle use, lungs are clear to auscultation, no wheezing, rales or rhonchi Back: non-tender GI: no tenderness to palpation, no masses appreciated. No rebound, guarding, or rigidity noted. Musculoskeletal: The patient has no evidence of calf tenderness, no pitting edema, symmetrical pulses noted bilaterally Neurological: A&O, normal speech Psychiatric: Cooperative Constitutional Vital Signs, click to edit/add: Last Vital Signs Temp 98.1 F 02/04/24 05:39 Pulse 90 02/04/24 05:39 Resp 20 02/04/24 05:39 BP 165/107 H 02/04/24 05:39 Pulse Ox 98 02/04/24 05:59 O2 Del Method Room Air 02/04/24 05:59 Course Vital Signs Vital signs: Vital Signs Temperature 98.1 F 02/04/24 05:39 Pulse Rate 90 02/04/24 05:39 Respiratory Rate 20 02/04/24 05:39 Blood Pressure 165/107 H 02/04/24 05:39 Pulse Oximetry 98 02/04/24 05:39 Oxygen Delivery Method Room Air 02/04/24 05:39 Temperature 98.1 F 02/04/24 05:39 Pulse Rate 90 02/04/24 05:39 Respiratory Rate 20 02/04/24 05:39 Blood Pressure 165/107 H 02/04/24 05:39 Pulse Oximetry 98 02/04/24 05:59 Oxygen Delivery Method Room Air 02/04/24 05:59 MDM - Chest Pain MDM Narrative Medical decision making narrative: The patient presents with chest pain and he has a troponin of 9793. I have spoken to Dr. Archuleta at [facility] and the patient will be transferred there. He is on heparin drip and is hemodynamically stable and agreeable for transfer. Differential Diagnosis Differential diagnosis: Likely pneumothorax, unstable angina pectoris, atypical chest pain, st elevation myocardial infarction and chest pain Lab Data Attestation: I reviewed the patient's lab results. Labs: Lab Results 02/04/24 Range/Units 05:56 WBC 13.6 H (4.0-11.0) 10^3/uL RBC 4.00 L (4.70-6.10) 10^6/uL Hgb 13.9 L (14.0-18.0) g/dL Hct 39.8 L (42.0-54.0) % MCV 99.5 H (80.0-94.0) fL MCH 34.8 H (25.9-34.0) pg MCHC 34.9 (29.9-35.2) g/dL RDW 11.9 (11.0-15.0) % Plt Count 231 (150-450) 10^3/uL MPV 10.8 (9.5-13.5) fL Neut % (Auto) 76.2 H (43.0-75.0) % Lymph % (Auto) 12.9 L (20.5-60.0) % [place] % (Auto) 7.1 (1.7-12.0) % Eos % (Auto) 3.0 (0.9-7.0) % Baso % (Auto) 0.4 (0.2-2.0) % Neut # (Auto) 10.4 H (1.4-6.5) 10^3/uL Lymph # (Auto) 1.8 (1.2-3.8) 10^3/uL [place] # (Auto) 1.0 H (0.3-0.8) 10^3/uL Eos # (Auto) 0.4 (0.0-0.7) 10^3/uL Baso # (Auto) 0.1 (0.0-0.1) 10^3/uL Abs Immat Gran (auto) 0.05 H (0.00-0.03) 10^3/uL Imm/Tot Granulo (auto) 0.4 (0.0-0.5) % Sodium 135 L (136-145) mmol/L Potassium 3.9 (3.5-5.1) mmol/L Chloride 96 L (98-107) mmol/L Carbon Dioxide 23.7 (21.0-32.0) mmol/L Anion Gap 19.2 BUN 14.0 (7.0-18.0) mg/dL Creatinine 0.86 (0.70-1.30) mg/dL Est GFR ( Amer) >60 (>=60 mL/min/1.73m^2) Est GFR (Non-Af Amer) >60 (>=60 mL/min/1.73m^2) BUN/Creatinine Ratio 16.3 Glucose 117 H (74-106) mg/dL Calcium 9.7 (8.5-10.1) mg/dL Troponin I High Sens 9793.1 H* (4.0-76.1) pg/mL Imaging Data Chest x-ray: Radiologist's impression: ITS Impressions Chest X-Ray 02/04/24 05:43 IMPRESSION: No radiographic evidence of active cardiopulmonary disease is seen. Electronically authenticated by: ZONIA QUINTANA Date: 02/04/2024 06:27 ECG Data Attestation: I personally reviewed and interpreted this ECG as follows: (EKG on my interpretation shows normal sinus rhythm with a rate of 89 and no acute change.) Heart Score History: Highly Suspicious ECG: Normal Age: >45-<65 years Risk Factors: 1 or 2 Risk Factors Troponin: >3X Normal Limit Total Heart Score Recommendations & Risks:: 6 Critical Care Time Critical Care Time Critical Care Time: Yes Total Critical Care Time: 40 Attestation: Due to the high probability of sudden and clinically significant deterioration in the patient's condition he/she required the highest level of my preparedness to intervene urgently I provided critical care time including documentation time, medication orders and management, reevaluation, vital sign assessment, ordering and reviewing of lab tests, ordering and reviewing of x-ray studies, and admission orders. Aggregate critical care time is 40 minutes including only time during which I was engaged in work directly related to his/her care and did not include time spent treating other patients simultaneously. Discharge Plan Discharge Chief Complaint: Chest Pain Clinical Impression: Non-ST elevation SD (NSTEMI) Patient Disposition: [facility] Time of Disposition Decision: 06:47 Discharge Location: [facility] Condition: Fair Mode of Transportation: EMS
[2024-02-04 06:03] LABS: Basophils Absolute Auto 0.1 10^3/uL (0.0-0.1); Basophils Percent Auto 0.4 % (0.2-2.0); Eosinophils Absolute Auto 0.4 10^3/uL (0.0-0.7); Hematocrit 39.8 % (42.0-54.0); Hemoglobin 13.9 g/dL (14.0-18.0); Immature Granulocytes Abs Auto 0.05 10^3/uL (0.00-0.03); Immature Granulocytes Pct Auto 0.4 % (0.0-0.5); Lymphocytes Absolute Auto 1.8 10^3/uL (1.2-3.8); Lymphocytes Percent Auto 12.9 % (20.5-60.0); Mean Corpuscular HGB Conc 34.9 g/dL (29.9-35.2); Mean Corpuscular Hemoglobin 34.8 pg (25.9-34.0); Mean Corpuscular Volume 99.5 fL (80.0-94.0); Mean Platelet Volume 10.8 fL (9.5-13.5); Monocytes Percent Auto 7.1 % (1.7-12.0); Neutrophils Absolute Auto 10.4 10^3/uL (1.4-6.5); Neutrophils Percent Auto 76.2 % (43.0-75.0); Platelet Count 231 10^3/uL (150-450); Red Cell Distribution Width 11.9 % (11.0-15.0); White Blood Count 13.6 10^3/uL (4.0-11.0)
[2024-02-04] MEDS: ASPIRIN 81 MG TAB.CHEW 324 MG PO (06:22)
[2024-02-04 06:33] LABS: Anion Gap 19.2; BUN Creatinine Ratio 16.3; Calcium 9.7 mg/dL (8.5-10.1); Carbon Dioxide 23.7 mmol/L (21.0-32.0); Chloride 96 mmol/L (98-107); Estimated GFR (African America >60 (>=60 mL/min/1.73m^2); Estimated GFR (Non-African Ame >60 (>=60 mL/min/1.73m^2); Glucose 117 mg/dL (74-106); Potassium 3.9 mmol/L (3.5-5.1); Sodium 135 mmol/L (136-145)
[2024-02-04 06:41] LABS: Troponin I High Sensitivity 9793.1 pg/mL (4.0-76.1)
[2024-02-04 07:02] LABS: INR 1.02; Partial Thromboplastin Time 32.1 sec (22.3-36.2); Prothrombin Time 10.8 sec (9.0-11.6)
[2024-02-04] MEDS: HEPARIN SODIUM,PORCINE/D5W 25,000 UNIT/500 ML IV.SOLN 18.552 UNIT IV (07:15)
[2024-02-04] MEDS: HEPARIN SODIUM (PORCINE) 5,000 UNIT/ML VIAL 3800 UNIT IV (07:15)
[2024-02-04] MEDS: NITROGLYCERIN 0.4 MG BOTTLE SL (07:15)
--- NOTE | 2024-02-04 07:33 | ECG_ITS ---
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
[2024-02-04 08:03] LABS: Troponin I High Sensitivity 11681.3 pg/mL (4.0-76.1)
[2024-02-04] MEDS: TICAGRELOR 90 MG TABLET 180 MG PO (08:17)
== END 2024-02-04 09:17 | disposition short-term general hospital (02) ==
PROVIDERS: Emergency Medicine; Emergency Provider Student in an Organized Health Care Education/Training Program; PCP Internal Medicine
DX: I21.4 Non-ST elevation (NSTEMI) myocardial infarction (principal); Z87.891 Personal history of nicotine dependence
CPT/HCPCS: 36415; 71045; 80048; 84484; 85025; 85610; 85730; 93005; 96365; 96366; 96376; 99285; J1644

== ENCOUNTER 2024-07-26 10:37 | Outpatient (OUT) | payer SELFPAY ==
--- OUTSIDE RECORDS SUMMARY | 2024-07-26 10:50 | XMS_ITS | CCD ---
Author Organization [facility] Care Team Providers Care Stage Director Name Role Phone Caty Donahue Unavailable Unavailable VISH DELUCA Unavailable Unavailable Caty Donahue Unavailable Unavailable NATASHA Deluca Primary Care Provider NATASHA Deluca Attending Provider TOMER Pan Attending [...] Primary Care Unavailable VISH DELUCA Referring Unavailable MO Procedure Practitioner Unavailab le VISH DELUCA Referring Unavailable EBRAHEIM, SERGIO Admitting Unavailable EBRAHEIM, SERGIO Attending Unavailable VISH DELUCA Primary Care Unavailable ANASTASIYA FOX Admitting Unavailable ANASTASIYA FOX Attending Unavailable DR MAO CATHERINE Consulting Unavailable PAT, DR JJ Primary Care Unavailable ANASTASIYA FOX Consulting Unavailable ANASTASIYA FOX Consulting Unavailable ANASTASIYA FOX Admitting Unavailable ANASTSAIYA FOX Attending Unavailable PAT, DR JJ Primary Care Unavailable VISH HERNANDEZ Consulting Unavailable CAMMIE GUTIERREZ Consulting Unavailable JADEN GASCA Consulting Unavailable ANA ., MR ALEJA Admitting Unavailable ANA ., MR ALEJA Attending Unavailable PAT, DR JJ Primary Care Unavailable ANASTASIYA FOX Admitting Unavailable HIGHLANDER, ANASTASIYA Rodriguez Attending Unavailable HIGHLANDER, ANASTASIYA Rodriguez Consulting Unavailable DELUCA, DR JJ Primary Care Unavailable OLIVERADEVONTE DAHL Consulting Unavailable HEMMERHERMINIA Consulting Unavailable HEMMER, HERMINIA [...] ANASTASIYA Rodriguez Admitting Unavailable WEST, DR NADIA Edyd Consulting Unavailable DELUCA, DR JJ Primary Care Unavailable HIGHLANDER, ANASTASIYA Rodriguez Consulting Unavailable HIGHLANDER, ANASTASIYA Rodriguez Consulting Unavailable HIGHLANDER, PETER Jennifer Admitting Unavailable HIGHLANDER, ANASTASIYA Rodriguez Attending Unavailable PAT, DR JJ Primary Care Unavailable DEVONTE OLIVERA Consulting Unavailable HIGHLANDER, ANASTASIYA Rodriguez Consulting Unavailable HIGHLANDER, ANASTASIYA Rodriguez Attending Unavailable HIGHLANDER, PETER D Admitting Unavailable DELUCA, DR JJ Primary Care Unavailable DANIEL ., DR DANII Mai Consulting Unavailable DANIEL ., DR DANII Mai Admitting Unavailable DANIEL ., DR DANII Mai Attending Unavailable DELUCA, DR JJ Primary Care Unavailable WEST, DR NADIA Eddy Consulting Unavailable ZIEBER, DR MAO Holloway Consulting Unavailable HIGHLANDER, ANASTASIYA Rodriguez Consulting Unavailable BARTOLOME ., DORINDA BENSON Consulting Unavailable SHARP, DOMINIQUE Consulting Unavailable SHANKAR, ANDRES DACOSTA Consulting Unavailable PASTORA, DICK Consulting Unavailable SEAMON, HOSEA Roberts Consulting Unavailable HIGHLANDER, ANASTASIYA D Admitting Unavailable HIGHLANDER, ANASTASIYA Rodriguez Attending Unavailable HIGHLANDER, ANASTASIYA Rodriguez Consulting Unavailable DELUCA, DR JJ Primary Care Unavailable HEMHERMINIA SUN Admitting Unavailable DELUCA, DR JJ Primary Care Unavailable HEMHERMINIA SUN Attending Unavailable WEST, DR NADIA Eddy Consulting Unavailable DELUCA, DR JJ Primary Care Unavailable TOM OWUSU Attending Unavailable TOM OWUSU Admitting Unavailable TOM OWUSU Consulting Unavailable HIGHLANDER, ANASTASIYA Rodriguez Admitting Unavailable HIGHLANDER, ANASTASIYA Rodriguez Attending Unavailable PAT, DR JJ Primary Care Unavailable Mikal Verde Unavailable NATASHA Deluca Primary Care Provider MD Zoran Lundberg Admit Provider DO Ani Archuleta Other Provider DO Mikal Willett Attending Provider [phone] NATASHA Deluca Primary Care Provider [phone] MD Zoran Lundberg Admit Provider DO Ani Archuleta Other Provider DO Mikal Willett Attending Provider JESSICA ARCHULETA Referring Unavailable VISH DELUCA Primary Care Unavailable JESSICA ARCHULETA Attending Unavailable Vish Deluca MD Primary Care Provider DANII HARRINGTON Attending Unavailable Mikal Willett Attending Unavailable Zoran Lundberg Admitting Unavailable Ani Archuleta Consulting Unavailable Vish Deluca Primary Care Unavailable Allergies Allergy Classification Reported Allergen(s) Allergy Type Date of Onset Reaction(s) Facility (1 source) No Known Medication Allergies; Translations: [No Known Medication Allergies] Propensity to adverse reactions to drug (disorder) [facility] Repository (7 sources) Amino Acids; Translations: [LISINOPRIL] Drug Allergy 1 Anaphylaxis [facility] Repository (4 sources) Lisinopril Drug Allergy Unknown Flit Other (3 sources) Angiotensin Converting Enzyme (Ena) Inhibitors; Translations: [ENA Inhibitors] Allergy to substance 4 Anaphylaxis [facility] (2 sources) Lisinopril Allergy to substance 3 Anaphylaxis [facility] Healthcare Work Phone: (2 sources) olmesartan Drug Allergy 3 Angioedema [facility] Work Phone: (1 source) Lisinopril Drug Allergy 4 [facility] Repository Medications Current Medications Medication Drug Class(es) Dates Sig (Normalized) Sig (Original) amoxicillin 500 mg / clavulanate 125 mg oral tablet (2 sources) Penicillin-class Antibacterial take 1 tablet by mouth every twelve hours aspirin 81 mg chewable tablet (4 sources) Platelet Aggregation Inhibitor, Nonsteroidal Anti-inflammatory Drug Start: 02-05-2024 take 1 tablet by mouth once daily Aspirin (Children's Aspirin) 81 mg Tablet,Chewable Active 81 MG PO Daily 90 February 04, 2024 11:00pm take 1 tablet by mouth in the mo rning aspirin 81 MG EC tablet Take 81 mg by mouth in the morning. Active atorvastatin 80 mg oral tablet (4 sources) HMG-CoA Reductase Inhibitor Start: 02-05-2024 take 1 tablet by mouth in the morning atorvastatin (Lipitor) 80 MG tablet Take 80 mg by mouth in the morning. 02/05/2024 Active carvedilol 12.5 mg oral tablet (9 sources) alpha-Adrenergic Eugene, beta-Adrenergic Eugene Start: 06-24-2024 End: 10-09-2024 take 1 tablet by mouth in the morning carvedilol (Coreg) 12.5 MG tablet Indications: Benign essential hypertension (CMS/HCC) Take 1 tablet (12.5 mg) by mouth in the morning and 1 tablet (12.5 mg) in the evening. Take with meals. 60 tablet 2 07/11/2024 10/09/2024 Active Start: 02-04-2024 take 1 tablet by radha th twice daily in the morning Carvedilol Active 12.5 MG PO Twice daily February 03, 2024 11:00pm FreeTextSig: TAKE 1 TABLET BY MOUTH IN THE MORNING AND 1 TABLET IN THE EVENING WITH MEALS Oral; Note: Source Status: Taking; Refills: 0; Qty: 60 Each; Provider: PAT JJ take 1 tablet by radha th in the morning Carvedilol 12.5 MG TAKE 1 TABLET BY MOUTH IN THE MORNING AND 1 TABLET IN THE EVENING WITH MEALS Oral for 30 Days Active cholecalciferol 0.05 mg oral tablet (2 sources) Vitamin D take 1 tablet by mouth once daily cholecalciferol (Vitamin D-3) 50 MCG (1999) tablet Take 50 mcg by mouth Daily Active clopidogrel 75 mg oral tablet (2 sources) P2Y12 Platelet Inhibitor Start: 2023 End: 2024 take 1 tablet by mouth in the morning clopidogrel (Plavix) 75 MG tablet Take 75 mg by mouth in the morning. 02/15/2024 07/11/2024 Discontinued (Therapy completed) [id number] 0.3 ml EPINEPHrine 1 mg/ml auto-injector (2 sources) alpha-Adrenergic Agonist, beta-Adrenergic Agonist, Catecholamine Start: 2022 inject 1 dose by subcutaneous injection every hour as needed EPINEPHrine (Epipen) 0.3 MG/0.3ML injection syringe Indications: Angioedema, subsequent encounter 1 injection Subq q 1hr Prn angioedema 1 each 1 11/22/2022 Active 24 hr isosorbide mononitrate 30 mg extended release oral tablet (4 sources) Nitrate Vasodilator Start: 2023 take 1 tablet by mouth in the morning, then take 1 tablet by mouth every twenty-four hours isosorbide mononitrate ER (Imdur) 30 MG 24 hr tablet Take 30 mg by mouth in the morning. 02/05/2024 Active levothyroxine sodium 0.2 mg oral tablet (8 sources) l-Thyroxine Start: 02-18- 2025 take 1 tablet by mouth once daily in the morning levothyroxine (Synthroid, Levoxyl) 200 MCG tablet Indications: Acquired hypothyroidism (CMS/HCC) TAKE 1 TABLET BY MOUTH EVERY DAY IN THE MORNING ON EMPTY STOMACH FOR 90 DAYS 14 tablet 06/04/2024 Active Start: 02-04-2024 take 1 tablet by radha th once daily in the morning Levothyroxine Active 200 MCG PO Daily February 03, 2024 11:00pm FreeTextSi tablet in the morning on an empty stomach Orally Once a day; Note: Source Status: Taking; Provider: Mehreen Ren ( ) take 1 tablet by radha th once [...] 25 mg oral tablet (1 source) beta-Adrenergic Eugene take 1 tablet by mouth every twenty-four hours Metoprolol Tartrate 25 MG 1 tablet with food Orally once daily Active nitroglycerin 0.4 mg sublingual tablet (4 sources) Nitrate Vasodilator Start: 2023 nitroglycerin (Nitrostat) 0.[address] 0.4 mg under the tongue 02/05/2024 Active omeprazole 40 mg delayed release oral capsule (6 sources) Proton Pump Inhibitor Start: 2023 take 1 capsule by mouth once daily Omeprazole Active 40 MG PO Daily February 03, 2024 11:00pm FreeTextSi capsule 30 minutes before morning meal Orally Once a day; Note: Source Status: Taking; Provider: Mehreen Ren ( ) take 1 capsule by mouth once penny ly Omeprazole 40 MG 1 capsule 30 minutes before morning meal Orally Once a day Active pantoprazole 40 mg delayed release oral tablet (2 sources) Proton Pump Inhibitor Start: 03-12-2024 take 1 tablet by mouth before mealtime pantoprazole (Protonix) 40 MG EC tablet Indications: Gastroesophageal reflux disease, unspecified whether esophagitis present Take 1 tablet (40 mg) by mouth in the morning. Take before meals. Do not crush, chew, or split.. 90 tablet 2 03/12/2024 Active sulfamethoxazole 400 mg / trimethoprim 80 mg oral tablet (12 sources) Dihydrofolate Reductase Inhibitor Antibacterial, Sulfonamide Antimicrobial Start: 05-18-2024 take 1 tablet by mouth in the morning sulfamethoxazole-tri methoprim (Bactrim) 400-80 MG tablet Take 1 tablet by mouth in the morning and 1 tablet before bedtime. 05/18/2024 Active Start: 02-04-2024 End: 02-21-2024 take 1 tablet by mouth twice daily Sulfamethoxazole-Trimethoprim (Bactrim) 400-80 mg tablet Active 1 TAB PO Twice daily 180 90 February 21, 2024 2:57pm Start: 10-02-2023 End: 02-04-2024 take 1 tablet by mouth once daily Sulfamethoxazole-Trimethoprim (Bactrim) 400-80 mg tablet Discontinued 1 TAB PO Daily 90 90 October 01, 2023 11:00pm February 04, 2024 9:21am Start: 03-20-2023 take 1 tablet by radha th every twelve hours Bactrim 400-80 MG 1 tablet Orally BID fo r 90 days Mar, Active Start: 03-20-2023 take 1 tablet by radha th every twenty-four hours Bactrim 400-80 MG 1 tablet Orally Once a day for 90 days Mar, Active take 1 tablet by radha th every twelve hours Bactrim DS 800-160 MG 1 tablet Orally Tw ice a day for 30 days Active ticagrelor 90 mg oral tablet (4 sources) Start: 02-05-2024 take 1 tablet by mouth twice daily Ticagrelor (Brilinta) 90 mg Tablet Active 90 MG PO Twice daily 180 90 February 04, 2024 11:00pm Completed/Discontinued Medications Medication Drug Class(es) Dates Sig (Normalized) Sig (Original) losartan potassium 25 mg oral tablet (2 sources) Angiotensin 2 Receptor Eugene Start: 02-05-2024 End: 02-21-2024 take 25 mg by mouth once daily in the morning Losartan Discontinued 25 MG PO Every morning 90 90 February 04, 2024 11:00pm February 21, 2024 2:47pm Problems Active Problems Problem Classification Problem Date Documented Date Episodic/Chronic Acquired foot deformities (7 sources) Varus deformity, not elsewhere classified, right ankle; Translations: [Valgus deformity, not elsewhere classified, right ankle] Onset: 03-01-2022 Episodic Acute myocardial infarction (10 sources) Myocardial infarction; Translations: [Non-ST elevation (NSTEMI) myocardial infarction] Onset: 02-04-2024 02-04-2024 Chronic Attention-deficit, conduct, and disruptive behavior disorders (2 sources) Attention deficit hyperactivity disorder; Translations: [Attention-deficit hyperactivity disorder, unspecified type] Onset: 08-27-2014 11-21-2022 Chronic Cataract (2 sources) Nuclear senile cataract; Translations: [Age-related nuclear cataract, unspecified eye] Onset: 11-21-2022 11-21-2022 Chronic Complication of device; implant or graft (2 sources) Unspecified complication of internal orthopedic prosthetic device, implant and graft, initial encounter Episodic Coronary atherosclerosis and other heart disease (8 sources) Atherosclerotic heart disease of koi coronary artery without angina pectoris; Translations: [Coronary arteriosclerosis] Onset: 02-15-2024 Chronic Disorders of lipid metabolism (7 sources) Hyperlipidemia, unspecified; Translations: [Mixed hyperlipidemia] Onset: 03-10-2020 Chronic Diverticulosis and diverticulitis (4 sources) Diverticular disease; Translations: [Diverticulosis] Chronic Esophageal disorders (19 sources) Gastro-esophageal reflux disease without esophagitis; 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] Onset: 10-20-2009 Chronic Essential hypertension (11 sources) Essential (primary) hypertension; Translations: [Benign essential hypertension] Onset: 10-20-2009 Chronic Genitourinary symptoms and ill-defined conditions (1 source) Personal history of urinary (tract) infections; Translations: [PERS HX URINARY TRACT INFECTIONS] Onset: 09-08-2022 Episodic Glaucoma (2 sources) Preglaucoma, unspecified, bilateral; Translations: [Preglaucoma, unspecified] Onset: 11-21-2022 11-21-2022 Chronic Hypertension with complications and secondary hypertension (2 sources) Secondary hypertension; Translations: [Other secondary hypertension] Onset: 03-25-2021 11-21-2022 Chronic Infective arthritis and osteomyelitis (except that caused by tuberculosis or sexually transmitted disease) (13 sources) Other chronic osteomyelitis, right ankle and foot; Translations: [Chronic osteomyelitis of ankle and/or foot] Onset: 07-31-2022 Chronic Joint disorders and dislocations; trauma-related (4 sources) Derangement of right knee; Translations: [Unspecified internal derangement of right knee] Onset: 10-08-2020 11-21-2022 Chronic Joint disorders and dislocations; trauma-related (2 sources) Derangement of left knee; Translations: [Unspecified internal derangement of left knee] Onset: 11-21-2022 11-21-2022 Chronic Osteoarthritis (9 sources) Primary osteoarthritis, right ankle and foot; Translations: [Osteoarthritis of left hip joint] Onset: 02-07-2022 Chronic Other acquired deformities (1 source) Contracture, right ankle; Translations: [CONTRACTURE RIGHT ANKLE] Onset: 09-08-2022 Chronic Other acquired deformities (4 sources) Lumbar spondylolisthesis; Translations: [Spondylolisthesis, lumbar region] Episodic Other aftercare (4 sources) Encounter for removal of internal fixation device; Translations: [ENC REMOVAL INTERNAL FIX DEVICE] Onset: 07-28-2022 Episodic Other aftercare (1 source) long term care pharmacist (current) use of aspirin; Translations: [NURSING HOME CURRENT USE OF ASPIRIN] Onset: 08-05-2022 Episodic Other aftercare (1 source) Other terminal carman (current) drug therapy; Translations: [OTH BRANCH DIRECTOR CURRENT DRUG THERAPY] Onset: 08-05-2022 Episodic Other and ill-defined heart disease (2 sources) Takotsubo syndrome; Translations: [Takotsubo syndrome] Onset: 02-15-2024 Chronic Other and ill-defined heart disease (2 sources) Takotsubo cardiomyopathy; Translations: [Takotsubo syndrome] Onset: 02-15-2024 02-16-2024 Chronic Other connective tissue disease (4 sources) Impingement syndrome of left shoulder; Translations: [IMPINGEMENT SYNDROME LEFT SHOULDER] Onset: 08-11-2022 Episodic Other connective tissue disease (5 sources) Posterior tibial tendinitis, right leg; Translations: [POSTERIOR TIBIAL TENDINITIS RT LEG] Onset: 07-23-2022 Episodic Other connective tissue disease (5 sources) Pain in right foot; Translations: [PAIN IN RIGHT FOOT] Onset: 07-13-2022 Episodic Other nervous system disorders (2 sources) Lesion of ulnar nerve; Translations: [Lesion of ulnar nerve, unspecified upper limb] Onset: 10-03-2013 11-21-2022 Chronic Other non-traumatic joint disorders (2 sources) Derangement of left shoulder joint; Translations: [Other specific joint derangements of left shoulder, not elsewhere classified] Onset: 11-21-2022 11-21-2022 Chronic Other nutritional; endocrine; and metabolic disorders (2 sources) Body mass index (BMI) 30.0-30.9, adult; Translations: [Body mass index (BMI) 30.0-30.9, adult] Onset: 02-15-2024 Chronic Other nutritional; endocrine; and metabolic disorders (2 sources) Body mass index 30+ - obesity; Translations: [Obesity, unspecified] Onset: 11-21-2022 11-21-2022 Chronic Other screening for suspected conditions (not mental disorders or infectious disease) (9 sources) Patient encounter status; Translations: [Encounter for screening for malignant neoplasm of colon] Onset: 11-21-2022 07-11-2024 Episodic Residual codes; unclassified (1 source) Presence of functional implant, unspecified; Translations: [PRESENCE FUNCTIONAL IMPLANT UNS] Onset: 08-05-2022 Chronic Spondylosis; intervertebral disc disorders; other back problems (2 sources) Arthritis of left sacroiliac joint; Translations: [Sacroiliitis, not elsewhere classified] Onset: 11-05-2020 11-21-2022 Chronic Thyroid disorders (7 sources) Hypothyroidism, unspecified; Translations: [Acquired hypothyroidism] Onset: 09-05-2013 Chronic Unclassified (1 source) PERSONAL HISTORY OF COVID-19; Translations: [PERSONAL HISTORY OF COVID-19] Onset: 09-08-2022 Unclassified (1 source) CONTACT W/AND (SUSP) EXPOS COVID-19; Translations: [CONTACT W/AND (SUSP) EXPOS COVID-19] Onset: 02-04-2022 Viral infection (1 source) COVID-19; Translations: [COVID-19] Onset: 10-22-2021 Past or Other Problems Problem Classification Problem Date Documented Da te Episodic/Chronic Bacterial infection; unspecified site (7 sources) Personal history of Methicillin resistant Staphylococcus aureus infection; Translations: [Infection by methicillin sensitive Staphylococcus aureus] Onset: 02-01-2021 Episodic Complications of surgical procedures or medical care (2 sources) Dehiscence of surgical wound; Translations: [Disruption of external operation (surgical) wound, not elsewhere classified, subsequent encounter] Onset: 11-21-2022 11-21-2022 Episodic Fluid and electrolyte disorders (3 sources) Hypo-osmolality and hyponatremia; Translations: [Hyponatremia] Onset: 01-01-2021 11-21-2022 Episodic Fracture of upper limb (4 sources) Disorder due to and following fracture of upper limb; Translations: [Unspecified fracture of shaft of humerus, unspecified arm, sequela] Onset: 11-23-2015 11-21-2022 Episodic Infective arthritis and osteomyelitis (except that caused by tuberculosis or sexually transmitted disease) (4 sources) Bacterial arthritis; Translations: [Arthritis due to other bacteria, unspecified joint] Onset: 01-28-2021 11-21-2022 Episodic Other acquired deformities (2 sources) Acquired spondylolisthesis; Translations: [Spondylolisthesis, site unspecified] Onset: 07-17-2020 11-21-2022 Episodic Other bone disease and musculoskeletal deformities (1 source) Other specified disorders of bone density and structure, right ankle and foot; Translations: [OTH D/O BONE DEN STRUCT RT ANK FOOT] Onset: 05-18-2022 Episodic Other connective tissue disease (1 source) Other specified soft tissue disorders; Translations: [OTHER SPEC SOFT TISSUE DISORDERS] Onset: 06-15-2022 Episodic Other connective tissue disease (2 sources) Pain in limb; Translations: [Pain in unspecified limb] Onset: 09-05-2013 11-21-2022 Episodic Other injuries and conditions due to external causes (2 sources) Injury of median nerve; Translations: [Injury of median nerve at forearm level, unspecified arm, initial encounter] Onset: 09-05-2013 11-21-2022 Episodic Other non-traumatic joint disorders (2 sources) Pain in left knee; Translations: [Pain in joint, lower leg] Onset: 11-21-2022 11-21-2022 Episodic Other non-traumatic joint disorders (2 sources) Arthralgia of the pelvic region and thigh; Translations: [Pain in unspecified hip] Onset: 07-25-2016 11-21-2022 Episodic Other non-traumatic joint disorders (2 sources) Pain in wrist; Translations: [Pain in unspecified wrist] Onset: 08-22-2016 11-22-2022 Episodic Residual codes; unclassified (4 sources) Other specified health status; Translations: [Other drug allergy] Onset: 02-15-2024 Episodic Screening and history of mental health and substance abuse codes (5 sources) Personal history of nicotine dependence; Translations: [Ex-smoker] Onset: 08-05-2022 Episodic Skin and subcutaneous tissue infections (8 sources) Cutaneous abscess of right foot; Translations: [Cellulitis and abscess of trunk] Onset: 01-01-2021 Episodic Spondylosis; intervertebral disc disorders; other back problems (4 sources) Sciatica; Translations: [Sciatica, left side] Onset: 07-17-2020 11-21-2022 Episodic Sprains and strains (2 sources) Rupture of tendon of biceps; Translations: [Strain of muscle, fascia and tendon of long head of biceps, unspecified arm, initial encounter] Onset: 07-24-2015 11-21-2022 Episodic Unclassified (4 sources) Patient encounter status 07-11-2024 Results Test Name Value Interpretation Reference Range Facility TRANSTHORACIC ECHO (TTE) [facility] 03-18-2024 TRANSTHORACIC ECHO (TTE) COMPLETE [address], [address] [place] [address] TRANSTHORACIC ECHOCARDIOGRAM REPORT Patient Name: GEMMA MANTILLA Reading Physician: [id number] Nelson Toro MD Study Date: 03/18/2024 Ordering Provider: [id number] JESSICA ARCHULETA MRN/PID: [id number] Fellow: Nurse: Date of /Age: 9 1960 / 63 years Heart Coordinator: Lanny Collins RDCS, LORENAT Gender Assigned at M Additional Staff: : Height: 175.26 cm Admit Date: Weight: 93.90 kg Admission Status: BSA / BMI: 2.10 m2 / 30.57 Department Location: [facility] [address] Blood Pressure: 110 /74 mmHg Study Type: TRANSTHORACIC ECHO (TTE) COMPLETE Diagnosis/ICD: Atherosclerotic heart disease of koi coronary artery without angina pectoris-I25.10; ST elevation (STEMI) myocardial infarction of unspecified site-I21.3 Indication: HTN, Hyperlipidemia, Former Smoker, Hypothyroid, Takotsubo Cardiomyopathy CPT Codes: Echo Complete w Full [id number] Study Detail: The following Echo studies were performed: 2D, M-Mode, Doppler and color flow. PHYSICIAN INTERPRETATION: Left Ventricle: The left ventricular systolic function is low normal, with a visually estimated ejection fraction of 50-55%. There is mild concentric left ventricular hypertrophy. There are no regional wall motion abnormalities. The left ventricular cavity size is normal. There is moderately increased septal and mildly increased posterior left ventricular wall thickness. Spectral Doppler shows a Grade I (impaired relaxation pattern) of left ventricular diastolic filling with normal left atrial filling pressure. There is mild hypokinesis of distal anteroseptal wall and apex . Basilar septal hypertrophy noted. Left Atrium: The left atrium is normal in size. Right Ventricle: The right ventricle is normal in size. There is normal right ventricular global systolic function. Right Atrium: The right atrium is normal in size. Aortic Valve: The aortic valve is trileaflet. The aortic valve dimensionless index is 1.04. There is trace aortic valve regurgitation. The peak instantaneous gradient of the aortic valve is 5 mmHg. The mean gradient of the aortic valve is 3 mmHg. Mitral Valve: The mitral valve is normal in structure. The peak instantaneous gradient of the mitral valve is 6 mmHg. There is no evidence of mitral valve regurgitation. Tricuspid Valve: The tricuspid valve is structurally normal. No evidence of tricuspid regurgitation. Pulmonic Valve: The pulmonic valve is structurally normal. There is no indication of pulmonic valve regurgitation. Pericardium: No pericardial effusion noted. Aorta: The aortic root is normal. CONCLUSIONS: 1. The left ventricular systolic function is low normal, with a visually estimated ejection fraction of 50-55%. 2. Spectral Doppler shows a Grade I (impaired relaxation pattern) of left ventricular diastolic filling with normal left atrial filling pressure. 3. There is mild hypokinesis of distal anteroseptal wall and apex . Basilar septal hypertrophy noted. 4. There is normal right ventricular global systolic function. 5. There is moderately increased septal and mildly increased posterior left ventricular wall thickness. QUANTITATIVE DATA SUMMARY: 2D MEASUREMENTS: Normal Ranges: Ao Root d: 3.40 cm (2.0-3.7cm) LAs: 4.20 cm (2.7-4.0cm) RVIDd: 3.39 cm (0.9-3.6cm) IVSd: 1.54 cm (0.6-1.1cm) LVPWd: 1.10 cm (0.6-1.1cm) LVIDd: 4.75 cm (3.9-5.9cm) LVIDs: 3.45 cm LV Mass Index: 117.9 g/m2 LV % FS 27.4 % LV SYSTOLIC FUNCTION BY 2D PLANIMETRY (MOD): Normal Ranges: EF-A4C View: 57 % (>=55%) EF-A2C View: 49 % EF-Biplane: 54 % EF-Visual: 53 % LV EF Reported: 53 % LV DIASTOLIC FUNCTION: Normal Ranges: MV Peak E: 0.65 m/s (0.7-1.2 m/s) MV Peak A: 0.96 m/s (0.42-0.7 m/s) E/A Ratio: 0.68 (1.0-2.2) MV e' 0.079 m/s (>8.0) MV lateral e' 0.11 m/s MV medial e' 0.05 m/s E/e' Ratio: 8.15 (<8.0) MITRAL VALVE: Normal Ranges: MV Vmax: 1.24 m/s (<=1.3m/s) MV peak P.2 mmHg (<5mmHg) MV mean P.0 mmHg (<48mmHg) AORTIC VALVE: Normal Ranges: AoV Vmax: 1.15 m/s (<=1.7m/s) AoV Peak P.3 mmHg (<20mmHg) AoV Mean P.0 mmHg (1.7-11.5mmHg) LVOT Max Vlad: 1.16 m/s (<=1.1m/s) AoV VTI: 22.70 cm (18-25cm) LVOT VTI: 23.50 cm LVOT Diameter: 2.50 cm (1.8-2.4cm) AoV Area, VTI: 5.08 cm2 (2.5-5.5cm2) AoV Area,Vmax: 4.95 cm2 (2.5-4.5cm2) AoV Dimensionless Index: 1.04 PULMONIC VALVE: Normal Ranges: PV Max Vlad: 0.6 m/s (0.6-0.9m/s) PV Max P.4 mmHg [id number] Nelson Toro MD Electronically signed on 03/18/2024 at 4:46:53 PM Final Normal [facility] Automated basophil %Ordered By: Ani Archuleta on 02-05-2024 Basophils/100 WBC (Bld) 0.4 % Normal . [facility] Comment on above: Performed By: #### C BC, BMP, LIPID #### [address] Automated basophil countOrde red By: Ani Archuleta on 02-05-2024 Basophils (Bld) [#/Vol] 0.0 10*3/uL Normal 0.0-0.2 [facility] Comment on above: Result Comment: PERF ORMED BY: [place] [address] PATHOLOGIST FAMILY SOCIOLOGIST PAUL STEELE M.D. Performed By: #### C BC, BMP, LIPID #### [address] Automated blood monocyte cou ntOrdered By: Ani Archuleta on 02-05-2024 Monocytes (Bld) [#/Vol] 1.0 10*3/uL High 0.0-0.8 [facility] Comment on above: Performed By: #### C BC, BMP, LIPID #### [address] Automated eosinophil %Ordere d By: Ani Archuleta on 02-05-2024 Eosinophils/100 WBC (Bld) 1.9 % Normal . [facility] Comment on above: Performed By: #### C BC, BMP, LIPID #### [address] Automated eosinophil countOr dered By: Ani Archuleta on 02-05-2024 Eosinophils (Bld) [#/Vol] 0.2 10*3/uL Normal 0.0-0.45 [facility] Comment on above: Performed By: #### C BC, BMP, LIPID #### [address] [place] [place] [address] [place] Automated monocyte %Ordered By: Ani Archuleta on 02-05-2024 Monocytes/100 WBC (Bld) 9.2 % Normal . [facility] Comment on above: Performed By: #### C BC, BMP, LIPID #### [address] Automated neutrophil %Ordere d By: Ani Archuleta on 02-05-2024 Neutrophils/100 WBC (Bld) 73.9 % Normal . [facility] Comment on above: Performed By: #### C BC, BMP, LIPID #### [address] Basic Metabolic Panelon 01-16 Creatinine Clr Calc Pharmacy 72.32 Normal [facility] Comment on above: Performed By: #### C BC, BMP, LIPID #### [place] [address] [place] GFR/1.73 sq M.predicted MDRD (S/P/Bld) [Vol rate/Area] mL/min/{1.73_m2} Normal [facility] Comment on above: Performed By: #### C BC, BMP, LIPID #### [place] [address] [place] Calcium [Mass/volume] in Ser um or PlasmaOrdered By: Ani Archuleta on 02-05-2024 Calcium [Mass/Vol] 9.8 mg/dL Normal 8.6-10.3 [facility] Comment on above: Performed By: #### C BC, BMP, LIPID #### [place] [address] [place] Carbon dioxide, total [Moles /volume] in Serum or PlasmaOrdered By: Ani Archuleta on 02-05-2024 CO2 [Moles/Vol] 27.3 mmol/L Normal 21.0-31.0 [facility] Comment on above: Performed By: #### C BC, BMP, LIPID #### [facility] [address] [place] [address] [place] Chloride [Moles/volume] in S xiao or PlasmaOrdered By: Ani Archuleta on 02-05-2024 Chloride [Moles/Vol] 96 mmol/L Low 98-107 [facility] Comment on above: Performed By: #### C BC, BMP, LIPID #### [facility] [address] Cholesterol [Mass/volume] in Serum or PlasmaOrdered By: Ani Archuleta on 02-05-2024 Cholesterol [Mass/Vol] 247 mg/dL Significa nt change up 140-200 [facility] Comment on above: Delta: 307 on -1028Chol less than 200 mg/dl low riskChol 201-239 mg/dl borderline riskChol 240 mg/dl and greater high risk Result Comment: Chol less than 200 mg/dl low risk Chol 201-239 mg/dl borderline risk Chol 240 mg/dl and greater high risk Performed By: #### C BC, BMP, LIPID #### [facility] [address] Cholesterol in LDL Calc [Mas s/Vol]Ordered By: Ani Archuleta on 02-05-2024 Cholesterol in LDL [Mass/Vol] 167 mg/dL High 0-100 [facility] Comment on above: LDL ATP III CLASSIFI CATIONLDL less than 100 mg/dL OptimalLDL 100-129 mg/dL Near or above optimalLDL 130-159 mg/dL Borderline highLDL 160-189 mg/dL HighLDL greater than 189 mg/dL Very high Cholesterol in VLDL Calc [Ma ss/Vol]Ordered By: Ani Archuleta on 02-05-2024 Cholesterol in VLDL [Mass/Vol] 16 mg/dL [facility] Complete Blood Count Auto Di ffon 02-05-2024 Mean Corpuscular HGB Conc 34.6 g/dL Normal 32.5-35.6 [facility] Comment on above: Performed By: #### C BC, BMP, LIPID #### [facility] [address] NRBC% 0.1 /100{WBC} Normal 0-0.5 [facility] Comment on above: Performed By: #### C BC, BMP, LIPID #### [facility] [address] Creatinine [Mass/volume] in Serum or PlasmaOrdered By: Ani Archuleta on 02-05-2024 Creatinine [Mass/Vol] 1.18 mg/dL Normal 0.70-1.30 [facility] Comment on above: Performed By: #### C BC, BMP, LIPID #### [facility] [address] ECG 12 lead ECGon 02-05-2024 ECG 12 lead ECG [facility] [place] [address] [place] [address] Electrocardiograph Report Signed Patient: Gemma Matnilla MR#: [id number] : 1960 Acct:[id number] Age/Sex: 63 / M ADM Date: 02/04/24 Loc: Room: [address] [place] [address] Type: DIS IN Attending Dr: Mikal Willett DO Ordering Provider: Ani Archuleta DO Date of Service: 02/05/24 ECG/ECG 12 lead ECG: NSTEMI Copies to: Test Reason : Blood Pressure : */* mmHG Vent. Rate : 87 BPM Atrial Rate : 87 BPM P-R Int : 180 ms QRS Dur : 98 ms QT Int : 432 ms P-R-T Axes : 18 27 110 degrees QTcB Int : 519 ms Normal sinus rhythm Septal infarct , age undetermined T wave abnormality, consider lateral ischemia Prolonged QT Abnormal ECG No previous ECGs available Confirmed by ZORAIDA LECHUGA [facility], JOCELYN ([id number]) on 02/05/2024 6:16:05 PM Referred By: Electronically Signed By: JOCELYN CONWAY MD [facility] Transcribed By: MUS Signed By Jocelyn Conway MD, [facility] 02/05/241815 Normal [facility] Erythrocyte distribution wid th [Ratio] by Automated countOrdered By: Ani Archuleta on 02-05-2024 Erythrocyte distribution width (RBC) [Ratio] 13.0 % Normal 12.0-14.8 [facility] Comment on above: Performed By: #### C BC, BMP, LIPID #### [facility] [address] [place] [address] [place] Erythrocytes [#/volume] in B lood by Automated countOrdered By: Ani Archuleta on 02-05-2024 RBC (Bld) [#/Vol] 3.73 10*6/uL Low 3.90-5.60 [facility] Comment on above: Performed By: #### C STEFANO BMP, LIPID #### [address] Glucose [Mass/volume] in Ser um or PlasmaOrdered By: Ani Archuleta on 02-05-2024 Glucose [Mass/Vol] 99 mg/dL Normal 70-100 [facility] Comment on above: ADA recommended refe rence rangeRandom Glucose Reference Range is dependent on time and content of last meal. Glucose of more than 200 mg/dL in a nonstressed, ambulatory subject supports the diagnosis of Diabetes Mellitus. Result Comment: [place] om Glucose Reference Range is dependent on time and content of last meal. Glucose of more than 200 mg/dL in a nonstressed, ambulatory subject supports the diagnosis of Diabetes Mellitus. ADA recommended reference range Performed By: #### C ROSALINE AGARWAL, LIPID #### [address] Hematocrit [Volume Fraction] of Blood by Automated countOrdered By: Ani Archuleta on 02-05-2024 Hematocrit (Bld) [Volume fraction] 37.6 % Low 38.8-50.0 [facility] Comment on above: Performed By: #### C ROSALINE AGARWAL, LIPID #### [address] Hemoglobin [Mass/volume] in BloodOrdered By: Ani Archuleta on 02-05-2024 Hemoglobin (Bld) [Mass/Vol] 13.0 g/dL Normal 13.0-17.0 [facility] Comment on above: Performed By: #### C ROSALINE AGARWAL, LIPID #### [address] Leukocytes [#/volume] correc nilda for nucleated erythrocytes in Blood by Automated counOrdered By: Ani Archuleta on 02-05-2024 WBC corrected for nucl RBC Auto (Bld) [#/Vol] 10.8 10*3/uL High 4.1-10.5 [facility] Leukocytes [#/volume] in Blo od by Automated countOrdered By: Ani Archuleta on 02-05-2024 WBC (Bld) [#/Vol] 10.8 10*3/uL High 4.1-10.5 [facility] Comment on above: Performed By: #### C BC, BMP, LIPID #### [facility] [address] Lipid Panelon 02-05-2024 LDL Cholesterol,Calculated 167 mg/dL High 0-100 [facility] Comment on above: Result Comment: LDL ATP III CLASSIFICATION LDL less than 100 mg/dL Optimal LDL 100-129 mg/dL Near or above optimal LDL 130-159 mg/dL Borderline high LDL 160-189 mg/dL High LDL greater than 189 mg/dL Very high Performed By: #### C BC, BMP, LIPID #### [facility] [address] Triglyceride w/Reflex 81 mg/dL Normal 0-149 [facility] Comment on above: Result Comment: TRIG ATP III CLASSIFICATION TRIG less than 150 mg/dL Normal TRIG 150-199 mg/dL Borderline high TRIG 200-500 mg/dL High TRIG greater than 500 mg/dL Very high Standard traceable to the Center for Disease Conrtrol and Prevention (CDC) test method. Performed By: #### C BC, BMP, LIPID #### [address] VLDL CHOLESTEROL 16 mg/dL Normal [facility] Comment on above: Performed By: #### C BC, BMP, LIPID #### [place] [address] [place] Lymphocytes [#/volume] in Bl ood by Automated countOrdered By: Ani Archuleta on 02-05-2024 Lymphocytes (Bld) [#/Vol] 1.6 10*3/uL Normal 1.00-4.8 [facility] Comment on above: Performed By: #### C BC, BMP, LIPID #### [place] [address] [place] Lymphocytes/100 leukocytes i n Blood by Automated countOrdered By: Ani Archuleta on 02-05-2024 Lymphocytes/100 WBC (Bld) 14.6 % Normal . [facility] Comment on above: Performed By: #### C BC BMP, LIPID #### [facility] [address] [place] [address] MCH [Entitic mass] by Automa nilda countOrdered By: Ani Archuleta on 02-05-2024 MCH (RBC) [Entitic mass] 34.9 pg Normal 27.5-35.2 [facility] Comment on above: Performed By: #### C BC, BMP, LIPID #### [facility] [address] [place] [address] MCHC Auto (RBC) [Mass/Vol]Or dered By: Ani Archuleta on 02-05-2024 MCHC (RBC) [Mass/Vol] 34.6 g/dL 32.5-35.6 [facility] MCV [Entitic volume] by Auto mated countOrdered By: Ani Archuleta on 02-05-2024 MCV (RBC) [Entitic vol] 100.9 fL Normal 83.5-101 [facility] Comment on above: Performed By: #### C BC, BMP, LIPID #### [facility] [address] [place] [address] Neutrophils [#/volume] in Bl ood by Automated countOrdered By: Ani Archuleta on 02-05-2024 Neutrophils (Bld) [#/Vol] 8.0 10*3/uL High 1.8-7.7 [facility] Comment on above: Performed By: #### C BC, BMP, LIPID #### [facility] [address] [place] [address] No Panel InformationOrdered By: Ani Archuleta on 02-05-2024 Estimated GFR (CKD-EPI) > 60.0 mL/Min [facility] Creatinine Clearance (Chem 72.32 [facility] Nucleated erythrocytes [Pres ence] in Blood by Automated countOrdered By: Ani Archuleta on 02-05-2024 Nucleated RBC Auto Ql (Bld) 0.1 /100{WBC} 0-0.5 [facility] Platelet mean volume [Entiti c volume] in Blood by Automated countOrdered By: Ani Archuleta on 02-05-2024 Platelet mean volume (Bld) [Entitic vol] 9.2 fL Normal 6.6-10.1 [facility] Comment on above: Performed By: #### C BC, BMP, LIPID #### [facility] [address] [place] [address] Platelets [#/volume] in Bloo d by Automated countOrdered By: Ani Archuleta on 02-05-2024 Platelets (Bld) [#/Vol] 196 10*3/uL Normal 150-450 [facility] Comment on above: Performed By: #### C BC, BMP, LIPID #### [address] Potassium [Moles/volume] in Serum or PlasmaOrdered By: Ani Arhculeta on 02-05-2024 Potassium [Moles/Vol] 3.8 mmol/L Normal 3.5-5.1 [facility] Comment on above: Performed By: #### C BC, BMP, LIPID #### [facility] [address] [place] [address] Serum or plasma anion gap de terminationOrdered By: Ani Archuleta on 02-05-2024 Anion gap [Moles/Vol] 12.5 mmol/L Normal 6.0-15.0 [facility] Comment on above: Performed By: #### C BC, BMP, LIPID #### [facility] [address] [place] [address] Serum or plasma high density lipoprotein (HDL) cholesterol measurementOrdered By: Ani Archuleta on 02-05-2024 Cholesterol in HDL [Mass/Vol] 64 mg/dL Normal 23-92 [facility] Comment on above: HDL CHOL ATP-III CLA SSIFICATION Cardiovascular RiskHDL > or equal to 60 mg/dL LOWHDL < 40 mg/dL HIGH Result Comment: HDL CHOL ATP-III CLASSIFICATION Cardiovascular Risk HDL > or equal to 60 mg/dL LOW HDL < 40 mg/dL HIGH Performed By: #### C BC, BMP, LIPID #### [facility] [address] [place] [address] Serum or plasma total choles terol/high density lipoprotein (HDL) cholesterol mass ratOrdered By: Ani Archuleta on 02-05-2024 Cholesterol.total/Chol esterol in HDL [Mass ratio] 3.9 {ratio} Normal <5.0 [facility] Comment on above: Result Comment: PERF ORMED BY: [place] [address] PATHOLOGIST FAMILY SOCIOLOGIST PAUL STEELE M.D. Performed By: #### C BC, BMP, LIPID #### [facility] [address] Sodium [Moles/volume] in Ser um or PlasmaOrdered By: Ani Archuleta on 02-05-2024 Sodium [Moles/Vol] 132 mmol/L Low 136-145 [facility] Comment on above: Performed By: #### C BC, BMP, LIPID #### [facility] [address] [place] [address] Triglyceride [Mass/volume] i n Serum or PlasmaOrdered By: Ani Archuleta on 02-05-2024 Triglyceride [Mass/Vol] 81 mg/dL 0-149 [facility] Comment on above: TRIG ATP III CLASSIF ICATIONTRIG less than 150 mg/dL NormalTRIG 150-199 mg/dL Borderline highTRIG 200-500 mg/dL High TRIG greater than 500 mg/dL Very highStandard traceable to the Center for Disease Conrtrol and Prevention (CDC) test method. Urea nitrogen [Mass/volume] in Serum or PlasmaOrdered By: Ani Archuleta on 02-05-2024 Urea nitrogen [Mass/Vol] 24 mg/dL Normal 7-25 [facility] Comment on above: Performed By: #### C BC, BMP, LIPID #### [facility] [address] [place], [place] [id number] [facility] A1C with Estimated Average G luon 02-04-2024 Glucose [Mass/Vol] 97 mg/dL Normal [facility] Comment on above: Result Comment: PERF ORMED BY: [address] [address] PATHOLOGIST FAMILY SOCIOLOGIST PAUL STEELE M.D. Performed By: #### A 1C WTH eA, BMP, LIPID #### [address] Anti-Xa UF Heparinon 024 Anti-Xa UF Heparin < 0.04 Low 0.30-0.70 [facility] Comment on above: Result Comment: Use the aPTT protocol when triglycerides are > 800 mg/dL, total bilirubin is > 20 mg/dL and/or patient has received a DOAC, Fondaparinux or LMWH within 72 hours AND baseline anti-Xa level is > 0.7 units/mL PERFORMED BY: [place] [address] PATHOLOGIST FAMILY SOCIOLOGIST PAUL STEELE M.D. Performed By: #### A 1C ROSALINE SALOMON eA, LIPID #### [address] Anti-Xa UF Heparin 0.18 Low 0.30-0.70 [facility] Comment on above: Result Comment: Use the aPTT protocol when triglycerides are > 800 mg/dL, total bilirubin is > 20 mg/dL and/or patient has received a DOAC, Fondaparinux or LMWH within 72 hours AND baseline anti-Xa level is > 0.7 units/mL PERFORMED BY: [place] [address] PATHOLOGIST FAMILY SOCIOLOGIST PAUL STEELE M.D. Performed By: #### A 1C ROSALINE SALOMON eA, LIPID #### [address] Basic Metabolic Panelon 10- Anion gap [Moles/Vol] 15.7 mmol/L High 6.0-15.0 [facility] Comment on above: Performed By: #### A 1C ROSALINE SALOMON eA, LIPID #### [address] Calcium [Mass/Vol] 10.4 mg/dL High 8.6-10.3 [facility] Comment on above: Performed By: #### A 1C ROSALINE SALOMON eA, LIPID #### [place] [address] [place] Chloride [Moles/Vol] 96 mmol/L Low 98-107 [facility] Comment on above: Performed By: #### A 1C WTRenetta Valentino BMP, LIPID #### [address] CO2 [Moles/Vol] 26.2 mmol/L Normal 21.0-31.0 [facility] Comment on above: Performed By: #### A 1C WTRenetta Valentino BMP, LIPID #### [place] [address] [place] Creatinine [Mass/Vol] 0.82 mg/dL Normal 0.70-1.30 [facility] Comment on above: Performed By: #### A 1C WTRenetta Valentino BMP, LIPID #### [place] [address] [place] Creatinine Clr Calc Pharmacy 103.50 Normal [facility] Comment on above: Performed By: #### A 1C WTRenetta Valentino BMP, LIPID #### [place] [address] [place] GFR/1.73 sq M.predicted MDRD (S/P/Bld) [Vol rate/Area] mL/min/{1.73_m2} Normal [facility] Comment on above: Performed By: #### A 1C WTRenetta Valentino BMP, LIPID #### [place] [address] [place] Glucose [Mass/Vol] 103 mg/dL High 70-100 [facility] Comment on above: Result Comment: [place] Glucose Reference Range is dependent on time and content of last meal. Glucose of more than 200 mg/dL in a nonstressed, ambulatory subject supports the diagnosis of Diabetes Mellitus. ADA recommended reference range Performed By: #### A 1C WTRenetta Valentino BMP, LIPID #### [address] Potassium [Moles/Vol] 3.9 mmol/L Normal 3.5-5.1 [facility] Comment on above: Performed By: #### A 1C WTH Chicho BMP, LIPID #### [address] Sodium [Moles/Vol] 134 mmol/L Low 136-145 [facility] Comment on above: Performed By: #### A 1C WTRenetta Valentino BMP, LIPID #### [address] Urea nitrogen [Mass/Vol] 15 mg/dL Normal 7-25 [facility] Comment on above: Performed By: #### A 1C WTRenetta Valentino BMP, LIPID #### [address] Complete Blood Count Auto Di ffon 02-04-2024 Basophils (Bld) [#/Vol] 0.1 10*3/uL Normal 0.0-0.2 [facility] Comment on above: Result Comment: PERF ORMED BY: [place] [address] PATHOLOGIST FAMILY SOCIOLOGIST PAUL STEELE M.D. Performed By: #### A 1C WTRenetta Valentino BMP, LIPID #### [address] Basophils/100 WBC (Bld) 0.5 % Normal . [facility] Comment on above: Performed By: #### A 1C WTRenetta Valentino BMP, LIPID #### [address] Eosinophils (Bld) [#/Vol] 0.2 10*3/uL Normal 0.0-0.45 [facility] Comment on above: Performed By: #### A 1C WTRenetta Valentino BMP, LIPID #### [address] Eosinophils/100 WBC (Bld) 1.1 % Normal . [facility] Comment on above: Performed By: #### A 1C WTRenetta Valentino BMP, LIPID #### [address] Erythrocyte distribution width (RBC) [Ratio] 13.0 % Normal 12.0-14.8 [facility] Comment on above: Performed By: #### A 1C WTRenetta Valentino BMP, LIPID #### [address] Hematocrit (Bld) [Volume fraction] 43.8 % Normal 38.8-50.0 [facility] Comment on above: Performed By: #### A 1C WTH eA, BMP, LIPID #### [address] Hemoglobin (Bld) [Mass/Vol] 14.9 g/dL Normal 13.0-17.0 [facility] Comment on above: Performed By: #### A 1C WTH eA, BMP, LIPID #### [address] Lymphocytes (Bld) [#/Vol] 1.4 10*3/uL Normal 1.00-4.8 [facility] Comment on above: Performed By: #### A 1C WTH eA, BMP, LIPID #### [address] Lymphocytes/100 WBC (Bld) 9.6 % Normal . [facility] Comment on above: Performed By: #### A 1C WTH eA, BMP, LIPID #### [address] MCH (RBC) [Entitic mass] 34.6 pg Normal 27.5-35.2 [facility] Comment on above: Performed By: #### A 1C WTH eA, BMP, LIPID #### [address] MCV (RBC) [Entitic vol] 101.8 fL High 83.5-101 [facility] Comment on above: Performed By: #### A 1C WTH eA, BMP, LIPID #### [address] Mean Corpuscular HGB Conc 34.0 g/dL Normal 32.5-35.6 [facility] Comment on above: Performed By: #### A 1C WTH eA, BMP, LIPID #### [address] Monocytes (Bld) [#/Vol] 0.8 10*3/uL Normal 0.0-0.8 [facility] Comment on above: Performed By: #### A 1C UMM Valentino BMP, LIPID #### [address] Monocytes/100 WBC (Bld) 5.3 % Normal . [facility] Comment on above: Performed By: #### A 1C WTRenetta Valentino BMP, LIPID #### [address] Neutrophils (Bld) [#/Vol] 12.1 10*3/uL High 1.8-7.7 [facility] Comment on above: Performed By: #### A Akanksha WTRenetta Valentino BMP, LIPID #### [address] Neutrophils/100 WBC (Bld) 83.5 % Normal . [facility] Comment on above: Performed By: #### A 1C WTRenetta Valentino BMP, LIPID #### [address] NRBC% 0.0 /100{WBC} Normal 0-0.5 [facility] Comment on above: Performed By: #### A 1C WTRenetta Valentino BMP, LIPID #### [address] Platelet mean volume (Bld) [Entitic vol] 9.3 fL Normal 6.6-10.1 [facility] Comment on above: Performed By: #### A 1C WTRenetta Valentino BMP, LIPID #### [place] [address] [place] Platelets (Bld) [#/Vol] 233 10*3/uL Normal 150-450 [facility] Comment on above: Performed By: #### A 1C WTRenetta Valentino BMP, LIPID #### [address] RBC (Bld) [#/Vol] 4.31 10*6/uL Normal 3.90-5.60 [facility] Comment on above: Performed By: #### A 1C WTH Chicho, BMP, LIPID #### [facility] [address] WBC (Bld) [#/Vol] 14.5 10*3/uL High 4.1-10.5 [facility] Comment on above: Performed By: #### A 1C WTH eA, BMP, LIPID #### [facility] [address] [place] [id number] [facility] ECG 12 lead ECGon 02-04-2024 ECG 12 lead ECG [facility] [place] [address] [place] [address] Electrocardiograph Report Signed Patient: Gemma Mantilla MR#: [id number] : 1960 Acct:[id number] Age/Sex: 63 / M ADM Date: 02/04/24 Loc: Room: [address] [place] [address] Type: DIS IN Attending Dr: Mikal Willett DO Ordering Provider: Zoran Lundberg MD Date of Service: 02/04/24 ECG/ECG 12 lead ECG: CP admission Copies to: Test Reason : Blood Pressure : */* mmHG Vent. Rate : 87 BPM Atrial Rate : 87 BPM P-R Int : 182 ms QRS Dur : 102 ms QT Int : 404 ms P-R-T Axes : 43 61 110 degrees QTcB Int : 486 ms Normal sinus rhythm Septal infarct , age undetermined Prolonged QT Abnormal ECG Confirmed by ZORAIDA LECHUGA [facility], JOCELYN ([id number]) on 02/05/2024 6:15:49 PM Referred By: Electronically Signed By: JOCELYN CONWAY MD [facility] Transcribed By: MUS Signed By Jocelyn Conway MD, [facility] 02/05/241814 Normal [facility] Glucose mean value [Mass/vol ume] in Blood Estimated from glycated hemoglobinOrdered By: Zoran Lundberg on 02-04-2024 Average glucose Estimated from glycated hemoglobin (Bld) [Mass/Vol] 97 mg/dL [facility] Hemoglobin A1c percentageOrd ered By: Zoran Lundberg on 02-04-2024 HbA1c (Bld) [Mass fraction] 5.0 % Normal 4.3-5.6 [facility] Comment on above: Increased risk for d iabetes: 5.7 - 6.4diabetes: >6.4glycemic control for adults with diabetes: <7.0 Result Comment: Incr eased risk for diabetes: 5.7 - 6.4 diabetes: >6.4 glycemic control for adults with diabetes: <7.0 Performed By: #### A 1C WT eA, BMP, LIPID #### [facility] [address] Heparin anti-Xa unfractionat edOrdered By: Zoran Lundberg on 02-04-2024 Heparin unfractionated Chromogenic method Qn (PPP) < 0.04 [IU]/mL Low 0.30-0.70 [facility] Comment on above: Use the aPTT protoco l when triglycerides are > 800 mg/dL,total bilirubin is > 20 mg/dL and/or patient has received aDOAC, Fondaparinux or LMWH within 72 hours AND baselineanti-Xa level is > 0.7 units/mL Lipid Panelon 02-04-2024 Cholesterol [Mass/Vol] 307 mg/dL High 140-200 Th e [facility] Comment on above: Result Comment: Chol less than 200 mg/dl low risk Chol 201-239 mg/dl borderline risk Chol 240 mg/dl and greater high risk Performed By: #### A 1C WT eA, BMP, LIPID #### [facility] [address] Cholesterol in HDL [Mass/Vol] 81 mg/dL Normal 23-92 [facility] Comment on above: Result Comment: HDL CHOL ATP-III CLASSIFICATION Cardiovascular Risk HDL > or equal to 60 mg/dL LOW HDL < 40 mg/dL HIGH Performed By: #### A 1C WT eA, BMP, LIPID #### [facility] [address] Cholesterol.total/Chol esterol in HDL [Mass ratio] 3.8 {ratio} Normal <5.0 [facility] Comment on above: Result Comment: PERF ORMED BY: [place] [address] PATHOLOGIST FAMILY SOCIOLOGIST JIANLAN SUN M.D. Performed By: #### A 1C WT Chicho BMP, LIPID #### [facility] [address] [place] [address] [place] LDL Cholesterol,Calculated 207 mg/dL High 0-100 [facility] Comment on above: Result Comment: LDL ATP III CLASSIFICATION LDL less than 100 mg/dL Optimal LDL 100-129 mg/dL Near or above optimal LDL 130-159 mg/dL Borderline high LDL 160-189 mg/dL High LDL greater than 189 mg/dL Very high Performed By: #### A 1C WTRenetta Valentino BMP, LIPID #### [facility] [address] [place] [address] [place] Triglyceride w/Reflex 94 mg/dL Normal 0-149 [facility] Comment on above: Result Comment: TRIG ATP III CLASSIFICATION TRIG less than 150 mg/dL Normal TRIG 150-199 mg/dL Borderline high TRIG 200-500 mg/dL High TRIG greater than 500 mg/dL Very high Standard traceable to the Center for Disease Conrtrol and Prevention (CDC) test method. Performed By: #### A 1C WTRenetta Valentino BMP, LIPID #### [address] VLDL CHOLESTEROL 18 mg/dL Normal [facility] Comment on above: Performed By: #### A 1C WT ROSALINE Valentino, LIPID #### [place] [address] [place] Troponin I High Sensitivityo n 02-04-2024 Troponin I High Sensitivity 8848.6 pg/mL Off scale high 0.0-20.0 [facility] Comment on above: Result Comment: Crit ical Result : Called to and read back by: COLLEEN SMITH at: 02/04/2024 21:14:50 by:OLIVIA PERFORMED BY: [place] [address] PATHOLOGIST FAMILY SOCIOLOGIST PAUL STEELE M.D. Performed By: #### H S TROP #### [address] Troponin I High Sensitivity 04312.1 pg/mL Off scale high 0.0-20.0 [facility] Comment on above: Result Comment: Crit ical Result : Called to and read back by: CASIMIRO COLEMAN at: 02/04/2024 18:36:18 by:OLIVIA PERFORMED BY: [place] [address] PATHOLOGIST FAMILY SOCIOLOGIST PAUL STEELE M.D. Performed By: #### A 1C WTRenetta Valentino, BMP, LIPID #### [place] [address] [place] Troponin I High Sensitivity 9767.3 pg/mL Off scale high 0.0-20.0 [facility] Comment on above: Result Comment: Crit ical Result : Called to and read back by: LINN COLEMAN at: 02/04/2024 15:50:16 by:OLIVIA PERFORMED BY: [place] [address] PATHOLOGIST FAMILY SOCIOLOGIST PAUL STEELE M.D. Performed By: #### A 1C WTRenetta Valentino BMP, LIPID #### [address] Troponin I High Sensitivity 54877.6 pg/mL Off scale high 0.0-20.0 [facility] Comment on above: Result Comment: Crit ical Result : Called to and read back by: ALEXANDR REN at: 02/04/2024 14:07:58 by:SYEDA PERFORMED BY: [place] [address] PATHOLOGIST FAMILY SOCIOLOGIST PAUL STEELE M.D. Performed By: #### H S TROP #### [place] [address] [place] Troponin I High Sensitivity 9244.7 pg/mL Off scale high 0.0-20.0 [facility] Comment on above: Result Comment: Crit ical Result : Called to and read back by: HOSEA STEARNS at: 02/04/2024 11:46:52 by:LEENA PERFORMED BY: [place] [address] PATHOLOGIST FAMILY SOCIOLOGIST PAUL STEELE M.D. Performed By: #### A 1C WT eA, BMP, LIPID #### [facility] [address] Troponin I.cardiac [Mass/vol ume] in Serum or Plasma by Detection limit <= 0.01 ng/Ordered By: Ani Archuleta on 02-04-2024 Troponin I.cardiac DL <= 0.01 ng/mL [Mass/Vol] 8848.6 pg/mL High 0.0-20.0 [facility] Comment on above: Critical Result : Ca lled to and read back by: COLLEEN SMITH at: 02/04/2024 21:14:50 by:PAB ACID FAST SMEAR AND CXon Acid Fast Culture Negative Normal [facility] Comment on above: Result Comment: No a stephanie fast bacilli isolated after 6 weeks. Performed By: #### A FB ####[facility] [place] [facility] [address] [address]DrSuraj Mccray Acid Fast Smear Negative Normal [facility] Comment on above: Performed By: #### A FB ####[facility] [place] [facility] [address] [address]DrSuraj Mccray [employer] Specimen Processing Tissue Grinding Normal [facility] Comment on above: Performed By: #### A FB ####[facility] [place] [facility] [address] [address]DrSuraj Mccray FUNGAL CULTUREon 08-27-2022 Fungus (Mycology) Culture Final report Normal [facility] Comment on above: Performed By: #### C XFUN #### [facility] [place] [facility] [address] [address] [address] Frederick Mccray Fungus Stain Final report Normal [facility] [place] [facility] Comment on above: Performed By: #### C XFUN #### [facility] [place] [facility] [address] [address] [address] Frederick Mccray Result 1 Comment Normal [facility] [place] [facility] Comment on above: Result Comment: SPRING/ Calcofluor preparation: no fungus observed. Performed By: #### C XFUN #### [facility] [place] [facility] [address] [address] [address] Frederick Mccray Result Comment: No y [...] by: Claudio GASCA Date: 2022-07-30 00:40 Normal [facility] XR FOOT RT MIN 3 VIEWSon XR FOOT RT MIN 3 VIEWS EXAMINATION: XR F OOT RT MIN 3 VIEWS, , 07/28/2022 9:35 [...] Claudio GASCA Date: 2022-07-30 00:42 Normal [facility] [place] [facility] CULTURE ANAEROBICon 07-29-19 23 CULTURE ANAEROBIC Culture Observations : NO GROWTH OF ANAEROBES AT 72 HOURS. Normal [facility] Comment on above: Performed By: #### A NACX ####[facility] [place] [facility] [address] [address]Dr. Frederick Mccray CULTURE OTHERon 07-28-2022 CULTURE OTHER Specimen Comments: Navicular Bone Biopsy Right Foot Culture Observations: NO GROWTH OF AEROBES AT 48 HOURS. Normal [facility] Comment on above: Performed By: #### O THCX #### [facility] [place] [facility] [address] [address] [address] Frederick Mccray GRAM STAINon 07-28-2022 COMMENTS NO ORGANISMS OBSERVED [facility] Comment on above: Performed By: #### G STAIN ####[facility] [place] [facility] [address] [id number]. Frederick Mccray DIPHTHEROIDS Normal [facility] [place] [facility] Comment on above: Performed By: #### G STAIN ####[facility] [place] [facility] [address] [address]Dr. Frederick Mccray EPITHELIALS Normal [facility] [place] [facility] Comment on above: Performed By: #### G STAIN ####[facility] [place] [facility] [address] [address]Dr. Frederick Mccray FUNGAL ELEMENTS Normal [facility] [place] [facility] Comment on above: Performed By: #### G STAIN ####[facility] [place] [facility] [address] [address]Dr. Frederick Mccray GRAM NEG BACILLI Normal [facility] [place] [facility] Comment on above: Performed By: #### G STAIN ####[facility] [place] [facility] [address] [place], [place] [address]Dr. Frederick Mccray GRAM NEG DIPPLOCOCCI Normal [facility] [place] [facility] Comment on above: Performed By: #### G STAIN ####[facility] [place] [facility] [address] [place], [place] [address]Dr. Frederick Mccray GRAM POS BACILLI Normal [facility] [place] [facility] Comment on above: Performed By: #### G STAIN ####[facility] [place] [facility] [address] [place], [place] [address]Dr. Frederick Mccray GRAM POSITIVE COCCI Normal [facility] [place] [facility] Comment on above: Performed By: #### G STAIN ####[facility] [place] [facility] [address] [place], [place] [address]Dr. Frederick Mccray GRAM STAIN SOURCE Right foot navicular bone biopsy Normal [facility] [place] [facility] Comment on above: Performed By: #### G STAIN ####[facility] [place] [facility] [address] [place] [address]Dr. Frederick Mccray GS_DIPTH Normal [facility] [place] [facility] Comment on above: Performed By: #### G STAIN ####[facility] [place] [facility] [address] [place], [place] [address]Dr. Frederick Mccray WBC Normal The [facility] [place] [facility] Comment on above: Performed By: #### G STAIN ####[facility] [place] [facility] [address] [place], [place] [address]Dr. Frederick Mccray POINT OF CARE GLUCOSEon - Glucose [Mass/Vol] 103 mg/dL Normal 74-106 The [facility] [place] [facility] Comment on above: Performed By: #### A CTHP #### [facility] [place] [facility] [address] [address] [address] Frederick Mccray Glucose [Mass/Vol] 103 mg/dL Normal 74-106 The [facility] [place] [facility] Comment on above: Performed By: #### P OCGLUC #### [facility] [place] [facility] [address] [address] [address] Frederick Mccray CBC AUTO DIFFon 07-26-2022 BASO # 0.1 103/ul Normal 0.0-0.1 [facility] Comment on above: Performed By: #### C BC ####[facility] [place] [facility] [address] [place] [address]DrSuraj Mccray Basophils/100 WBC (Bld) 0.5 % Normal 0.2-2.0 [facility] Comment on above: Performed By: #### C BC ####[facility] [place] [facility] [address] [place] [address]DrSuraj Mccray EO # 0.2 103/ul Normal 0.0-0.7 [facility] Comment on above: Performed By: #### C BC ####[facility] [place] [facility] [address] [place] [address]Dr. Frederick Mccray Eosinophils/100 WBC (Bld) 1.3 % Normal 0.9-7.0 The [facility] [place] [facility] Comment on above: Performed By: #### C BC ####[facility] [place] [facility] [address] [place] [address]DrSuraj Mccray Erythrocyte distribution width (RBC) [Ratio] 13.3 % Normal 11.0-15.0 The [facility] [place] [facility] Comment on above: Performed By: #### C BC ####[facility] [place] [facility] [address] [place] [address]DrSuraj Mccray Hematocrit (Bld) [Volume fraction] 43.6 % Normal 42.0-54.0 [facility] Comment on above: Performed By: #### C BC ####[facility] [place] [facility] [address] [place], [place] [address]Dr. Frederick Mccray Hemoglobin (Bld) [Mass/Vol] 15.0 g/dL Normal 14.0-18.0 The [facility] [place] [facility] Comment on above: Performed By: #### C BC ####[facility] [place] [facility] [address] [place] [address]Dr. Kaiteloisa Mahendra IG # 0.06 10e3/ul Critically high 0.00-0.03 [facility] [place] [facility] Comment on above: Performed By: #### C BC ####[facility] [place] [facility] [address] [place] [address]Dr. Frederick Mccray IG % 0.5 % Normal 0.0-0.5 The [facility] [place] [facility] Comment on above: Performed By: #### C BC ####[facility] [place] [facility] [address] [place], [place] [address]Dr. Frederick Mccray LYMPH # 1.6 103/ul Normal 1.2-3.8 The [facility] [place] [facility] Comment on above: Performed By: #### C BC ####[facility] [place] [facility] [address] [place], [place] [address]Dr. Frederick Mccray Lymphocytes/100 WBC (Bld) 13.4 % Critically low 20.5-60.0 The [facility] [place] [facility] Comment on above: Performed By: #### C BC ####[facility] [place] [facility] [address] [place] [address]Dr. Kaiteloisa Mccray MANUAL DIFF REQ NO Normal [facility] [place] [facility] Comment on above: Performed By: #### C BC ####[facility] [place] [facility] [address] [place], [place] [address]Dr. Frederick Mahendra MCH (RBC) [Entitic mass] 32.3 pg Normal 25.9-34.0 The [facility] [place] [facility] Comment on above: Performed By: #### C BC ####[facility] [place] [facility] [address] [place], [place] [address]DrSuraj Kaiteloisa Mccray MCHC (RBC) [Mass/Vol] 34.4 g/dL Normal 29.9-35.2 The [facility] [place] [facility] Comment on above: Performed By: #### C BC ####[facility] [place] [facility] [address] [place], [place] [address]Dr. Frederick Mahendra MCV (RBC) [Entitic vol] 93.8 fL Normal 80.0-94.0 The [facility] [place] [facility] Comment on above: Performed By: #### C BC ####[facility] [place] [facility] [address] [place] [address]DrSuraj Frederick Mccray MONO # 0.6 103/ul Normal 0.3-0.8 The [facility] [place] [facility] Comment on above: Performed By: #### C BC ####[facility] [place] [facility] [address] [place] [address]Dr. Kaiteloisa Mahendra Monocytes/100 WBC (Bld) 4.6 % Normal 1.7-12.0 The [facility] [place] [facility] Comment on above: Performed By: #### C BC ####[facility] [place] [facility] [address] [place], [place] [address]Dr. Kaiteloisa Mccray NEUT # 9.8 103/ul Critically high 1.4-6.5 The [facility] [place] [facility] Comment on above: Performed By: #### C BC ####[facility] [place] [facility] [address] [place], [place] [address]Dr. Kaiteloisa Mccray Neutrophils/100 WBC (Bld) 79.7 % Critically high 43.0-75.0 The [facility] [place] [facility] Comment on above: Performed By: #### C BC ####[facility] [place] [facility] [address] [place], [place] [address]Dr. Frederick Mccray Platelet mean volume (Bld) [Entitic vol] 9.5 fL Normal 9.5-13.5 The [facility] [place] [facility] Comment on above: Performed By: #### C BC ####[facility] [place] [facility] [address] [place], [place] [address]Dr. Kaiteloisa Mahendra PLT 328 103/ul Normal 150-450 The [facility] [place] [facility] Comment on above: Performed By: #### C BC ####[facility] [place] [facility] [address] [place], [place] [address]DrSuraj Mccray RBC 4.65 106/ul Critically low 4.70-6.10 The [facility] [place] [facility] Comment on above: Performed By: #### C BC ####[facility] [place] [facility] [address] [place], [place] [address]Dr. Frederick Mccray WBC 12.3 103/ul Critically high 4.0-11.0 [facility] Comment on above: Performed By: #### C BC ####[facility] [address] [address]Dr. Frederick Mccrya PROF CHEM 8 (BAS METB)on Anion gap [Moles/Vol] 13.9 mmol/L Normal Th e [facility] [place] [facility] Comment on above: Performed By: #### C XFUN #### [facility] [address] [address] [address] Frederick Mccray Calcium [Mass/Vol] 9.7 mg/dL Normal 8.5-10.1 [facility] Comment on above: Performed By: #### C XFUN #### [facility] [address] [address] [address] Frederick Mccray Chloride [Moles/Vol] 96 mmol/L Critically low 98-107 [facility] Comment on above: Performed By: #### C XFUN #### [facility] [address] [address] [address] Frederick Mccray CO2 [Moles/Vol] 27.8 mmol/L Normal 21.0-32.0 [facility] Comment on above: Performed By: #### C XFUN #### [facility] [place] [facility] [address] [address] [address] Frederick Mccray Creatinine [Mass/Vol] 0.82 mg/dL Normal 0.70-1.30 [facility] [place] [facility] Comment on above: Performed By: #### C XFUN #### [facility] [place] [facility] [address] [address] [address] Frederick Mccray EGFR-AF NICARAGUAN >60 Normal >=60 The [facility] Comment on above: Performed By: #### C XFUN #### [facility] [place] [facility] [address] [address] [address] Frederick Mccray EGFR-NON AF NICARAGUAN >60 Normal >=60 [facility] Comment on above: Performed By: #### C XFUN #### [facility] [address] [address] [address] Frederick Mccray Glucose [Mass/Vol] 125 mg/dL Critically high 74-106 T [facility] Comment on above: Performed By: #### C XFUN #### [facility] [address] [place] [address] Dr. Frederick Mccray Potassium [Moles/Vol] 4.7 mmol/L Normal 3.5-5.1 [facility] Comment on above: Performed By: #### C XFUN #### [facility] [place] [facility] [address] [place] [address] Dr. Frederick Mccray Sodium [Moles/Vol] 133 mmol/L Critically low 136-145 Th [facility] Comment on above: Performed By: #### C XFUN #### [facility] [address] [place] [address] Dr. Frederick Mccray Urea nitrogen [Mass/Vol] 11.0 mg/dL Normal 7.0-18.0 [facility] Comment on above: Performed By: #### C XFUN #### [facility] [place] [facility] [address] [place] [address] Dr. Frederick Mccray Urea nitrogen/Creatinine [Mass ratio] 13.4 mg/mg Normal [facility] Comment on above: Performed By: #### C XFUN #### [facility] [address] [place] [address] ANKLE RT WO [...] NADIA [place] Date: 2022-07-23 10:12 Normal [facility] [place] [facility] CBC AUTO DIFFon 07-01-2022 BASO # 0.1 103/ul Normal 0.0-0.1 The [facility] [place] [facility] Comment on above: Performed By: #### C BC ####[facility] [place] [facility] [address] [address]Dr. Frederick Mccray Basophils/100 WBC (Bld) 0.5 % Normal 0.2-2.0 The [facility] [place] [facility] Comment on above: Performed By: #### C BC ####[facility] [place] [facility] [address] [address]Dr. Frederick Mccray EO # 0.1 103/ul Normal 0.0-0.7 The [facility] [place] [facility] Comment on above: Performed By: #### C BC ####[facility] [place] [facility] [address] [place], [place] [address]Dr. Frederick Mccray Eosinophils/100 WBC (Bld) 0.8 % Critically low 0.9-7.0 The [facility] [place] [facility] Comment on above: Performed By: #### C BC ####[facility] [place] [facility] [address] [place], [place] [address]Dr. Frederick Mccray Erythrocyte distribution width (RBC) [Ratio] 13.2 % Normal 11.0-15.0 The [facility] [place] [facility] Comment on above: Performed By: #### C BC ####[facility] [address] [place], [place] [address]Dr. Frederick Mccray Hematocrit (Bld) [Volume fraction] 45.7 % Normal 42.0-54.0 The [facility] [place] [facility] Comment on above: Performed By: #### C BC ####[facility] [place] [facility] [address] [place], [place] [address]Dr. Frederick Mccray Hemoglobin (Bld) [Mass/Vol] 15.5 g/dL Normal 14.0-18.0 The [facility] [place] [facility] Comment on above: Performed By: #### C BC ####[facility] [place] [facility] [address] [place], [place] [address]Dr. Frederick Mccray IG # 0.07 10e3/ul Critically high 0.00-0.03 [facility] Comment on above: Performed By: #### C BC ####[facility] [address] [place] [address]Dr. Frederick Mccray IG % 0.5 % Normal 0.0-0.5 [facility] Comment on above: Performed By: #### C BC ####[facility] [address] [place] [address]Dr. Frederick Mccray LYMPH # 1.7 103/ul Normal 1.2-3.8 [facility] Comment on above: Performed By: #### C BC ####[facility] [address] [place] [address]Dr. Frederick Mccray Lymphocytes/100 WBC (Bld) 11.1 % Critically low 20.5-60.0 [facility] Comment on above: Performed By: #### C BC ####[facility] [address] [place], [place] [address]DrSuraj Mccray MANUAL DIFF REQ NO Normal [facility] Comment on above: Performed By: #### C BC ####[facility] [address] [place] [address] [address]Dr. Frederick Mccray MCH (RBC) [Entitic mass] 32.1 pg Normal 25.9-34.0 [facility] Comment on above: Performed By: #### C BC ####[facility] [address] [place], [place] [address]Dr. Frederick Mccray MCHC (RBC) [Mass/Vol] 33.9 g/dL Normal 29.9-35.2 [facility] Comment on above: Performed By: #### C BC ####[facility] [address] [place], [place] [address]Dr. Frederick Mccray MCV (RBC) [Entitic vol] 94.6 fL Critically high 80.0-94.0 [facility] Comment on above: Performed By: #### C BC ####[facility] [address] [place], [place] [address]DrSuraj Mccray MONO # 0.9 103/ul Critically high 0.3-0.8 [facility] Comment on above: Performed By: #### C BC ####[facility] [address] [place] [id number]. Frederick Mccray Monocytes/100 WBC (Bld) 5.7 % Normal 1.7-12.0 [facility] Comment on above: Performed By: #### C BC ####[facility] [address] [place] [id number]. Frederick Mccray NEUT # 12.5 103/ul Critically high 1.4-6.5 [facility] Comment on above: Performed By: #### C BC ####[facility] [address] [place] [id number]. Frederick Mccray Neutrophils/100 WBC (Bld) 81.4 % Critically high 43.0-75.0 [facility] Comment on above: Performed By: #### C BC ####[facility] [address] [place] [id number]. Frederick Mccray Platelet mean volume (Bld) [Entitic vol] 9.5 fL Normal 9.5-13.5 [facility] Comment on above: Performed By: #### C BC ####[facility] [address] [id number]. Frederick Mccray PLT 413 103/ul Normal 150-450 [facility] Comment on above: Performed By: #### C BC ####[facility] [address] [place] [id number]. Frederick Mccray RBC 4.83 106/ul Normal 4.70-6.10 [facility] Comment on above: Performed By: #### C BC ####[facility] [address] [place] [id number]. Frederick Mccray WBC 15.4 103/ul Critically high 4.0-11.0 [facility] Comment on above: Performed By: #### C BC ####[facility] [address] [place] [id number]. Frederick Mccray CRPon 07-01-2022 CRP 6.9 mg/dL Critically high <=1.0 [facility] Comment on above: Performed By: #### A CTHP #### [facility] [address] [place] [address] Dr. Frederick Mccray PROF CHEM 8 (BAS METB)on Anion gap [Moles/Vol] 11.8 mmol/L Normal Th e [facility] Comment on above: Performed By: #### C XFUN #### [facility] [address] [place] [address] Dr. Frederick Mccray Calcium [Mass/Vol] 9.6 mg/dL Normal 8.5-10.1 [facility] Comment on above: Performed By: #### C XFUN #### [facility] [address] [place] [address] Dr. Frederick Mccray Chloride [Moles/Vol] 94 mmol/L Critically low 98-107 [facility] Comment on above: Performed By: #### C XFUN #### [facility] [address] [place] [address] Dr. Frederick Mccray CO2 [Moles/Vol] 31.4 mmol/L Normal 21.0-32.0 [facility] Comment on above: Performed By: #### C XFUN #### [facility] [address] [place] [address] Dr. Frederick Mccray Creatinine [Mass/Vol] 0.83 mg/dL Normal 0.70-1.30 [facility] Comment on above: Performed By: #### C XFUN #### [facility] [address] [place] [address] Dr. Frederick Mccray EGFR-AF NICARAGUAN >60 Normal >=60 [facility] Comment on above: Performed By: #### C XFUN #### [facility] [address] [place] [address] Dr. Frederick Mccray EGFR-NON AF NICARAGUAN >60 Normal >=60 [facility] Comment on above: Performed By: #### C XFUN #### [facility] [address] [place] [address] Dr. Frederick Mccray Glucose [Mass/Vol] 98 mg/dL Normal 74-106 [facility] Comment on above: Performed By: #### C XFUN #### [facility] [address] [address] [address] Frederick Mccray Potassium [Moles/Vol] 4.2 mmol/L Normal 3.5-5.1 [facility] Comment on above: Performed By: #### C XFUN #### [facility] [address] [address] [address] Frederick Mccray Sodium [Moles/Vol] 133 mmol/L Critically low 136-[address] [facility] Comment on above: Performed By: #### C XFUN #### [facility] [address] [address] [address] Frederick Mccray Urea nitrogen [Mass/Vol] 11.0 mg/dL Normal 7.0-18.0 [facility] Comment on above: Performed By: #### C XFUN #### [facility] [address] [place] [address] Dr. Frederick Mccray Urea nitrogen/Creatinine [Mass ratio] 13.3 mg/mg Normal [facility] Comment on above: Performed By: #### C XFUN #### [facility] [address] [place] [address] Dr. Frederick Mccray SED RATE [facility] 2022 SED RATE 51 mm/hr Critically high <=20 [facility] Comment on above: Performed By: #### C XFUN #### [facility] [address] [place] [address] Dr. Frederick Mccray CPKon 06-14-2022 CK [Catalytic activity/Vol] 26 U/L Critically low 39-308 [facility] Comment on above: Performed By: #### C XFUN #### [facility] [address] [address] [address] Frederick Mccray PROF CHEM 8 (BAS METB)on Anion gap [Moles/Vol] 11.0 mmol/L Normal [facility] Comment on above: Performed By: #### C XFUN #### [facility] [address] [place] [address] Dr. Frederick Mccray Calcium [Mass/Vol] 9.8 mg/dL Normal 8.5-10.1 [facility] Comment on above: Performed By: #### C XFUN #### [facility] [address] [place] [address] Dr. Frederick Mccray Chloride [Moles/Vol] 97 mmol/L Critically low 98-107 [facility] Comment on above: Performed By: #### C XFUN #### [facility] [address] [place] [address] Dr. Frederick Mccray CO2 [Moles/Vol] 28.5 mmol/L Normal 21.0-32.0 [facility] Comment on above: Performed By: #### C XFUN #### [facility] [address] [place] [address] Dr. Frederick Mccray Creatinine [Mass/Vol] 1.08 mg/dL Normal 0.70-1.30 [facility] Comment on above: Performed By: #### C XFUN #### [facility] [address] [place] [address] Dr. Frederick Mccray EGFR-AF NICARAGUAN >60 Normal >=60 [facility] Comment on above: Performed By: #### C XFUN #### [facility] [address] [place] [address] Dr. Frederick Mccray EGFR-NON AF NICARAGUAN >60 Normal >=60 [facility] Comment on above: Performed By: #### C XFUN #### [facility] [address] [place] [address] Dr. Frederick Mccray Glucose [Mass/Vol] 106 mg/dL Normal 74-106 [facility] Comment on above: Performed By: #### C XFUN #### [facility] [address] [place] [address] Dr. Frederick Mccray Potassium [Moles/Vol] 4.4 mmol/L Normal 3.5-5.1 [facility] Comment on above: Performed By: #### C XFUN #### [facility] [address] [place] [address] Dr. Frederick Mccray Sodium [Moles/Vol] 132 mmol/L Critically low 136-145 [facility] Comment on above: Performed By: #### C XFUN #### [facility] [address] [place] [address] Dr. Frederick Mccray Urea nitrogen [Mass/Vol] 15.0 mg/dL Normal 7.0-18.0 [facility] Comment on above: Performed By: #### C XFUN #### [facility] [address] [place] [address] Dr. Frederick Mccray Urea nitrogen/Creatinine [Mass ratio] 13.9 mg/mg Normal [facility] Comment on above: Performed By: #### C XFUN #### [facility] [address] [place] [address] Dr. Frederick Mccray URIC ACID SERUMon 06-14-2022 Urate [Mass/Vol] 6.2 mg/dL Normal 3.5-7.2 [facility] Comment on above: Performed By: #### C XFUN #### [facility] [address] [place] [address] Dr. Frederick Mccray CULTURE WOUNDon 04-22-2022 CULTURE [...] <=1 S F Rifampicin <=0.5 S F Trimethoprim/Sulfamethoxazo le <=10 S F Normal [facility] Comment on above: Performed By: #### W OUNDCX #### [facility] [address] [place] [address] Dr. Frederick Mccray GRAM STAINon 04-19-2022 COMMENTS NO ORGANISMS OBSERVED Normal [facility] Comment on above: Performed By: #### C XFUN #### [facility] [address] [address] [address] Frederick Mccray DIPHTHEROIDS Normal [facility] Comment on above: Performed By: #### C XFUN #### [facility] [address] [address] [address] Frederick Mccray EPITHELIALS Normal [facility] Comment on above: Performed By: #### C XFUN #### [facility] [address] [address] [address] Frederick Mccray FUNGAL ELEMENTS Normal [facility] Comment on above: Performed By: #### C XFUN #### [facility] [address] [address] [address] Frederick Mccray GRAM NEG BACILLI [place] [facility] Comment on above: Performed By: #### C XFUN #### [facility] [address] [place] [address] Dr. Frederick Mccray GRAM NEG DIPPLOCOCCI Normal [facility] Comment on above: Performed By: #### C XFUN #### [facility] [address] [address] [address] Frederick Mccray GRAM POS BACILLI Normal [facility] Comment on above: Performed By: #### C XFUN #### [facility] [address] [place] [address] Dr. Frederick Mccray GRAM POSITIVE COCCI Normal [facility] Comment on above: Performed By: #### C XFUN #### [facility] [address] [place] [address] Dr. Frederick Mccray GRAM STAIN SOURCE Rt Foot Normal [facility] Comment on above: Performed By: #### C XFUN #### [facility] [address] [place] [address] Dr. Frederick Mccray GS_DIPTH [facility] Comment on above: Performed By: #### C XFUN #### [facility] [address] [place] [address] Dr. Frederick Mccray WBC MODERATE Normal [facility] Comment on above: Performed By: #### C XFUN #### [facility] [address] [place] [address] Dr. Frederick Mccray POINT OF CARE GLUCOSEon 10-2 2 Glucose [Mass/Vol] 109 mg/dL Critically high 74-106 T [facility] Comment on above: Performed By: #### P OCGLUC ####[facility] [address] [id number]. Frederick Mccray CBC AUTO DIFFon 02-01-2022 BASO # 0.1 103/ul Normal 0.0-0.1 [facility] Comment on above: Performed By: #### C XFUN #### [facility] [address] [address] [address] Frederick Mccray Basophils/100 WBC (Bld) 0.5 % Normal 0.2-2.0 [facility] Comment on above: Performed By: #### C XFUN #### [facility] [address] [address] [address] Frederick Mccray EO # 0.1 103/ul Normal 0.0-0.7 [facility] Comment on above: Performed By: #### C XFUN #### [facility] [address] [address] [address] Frederick Mccray Eosinophils/100 WBC (Bld) 0.5 % Critically low 0.9-7.0 [facility] Comment on above: Performed By: #### C XFUN #### [facility] [address] [address] [address] Frederick Mccray Erythrocyte distribution width (RBC) [Ratio] 13.5 % Normal 11.0-15.0 [facility] Comment on above: Performed By: #### C XFUN #### [facility] [address] [address] [address] Frederick Mccray Hematocrit (Bld) [Volume fraction] 45.6 % Normal 42.0-54.0 [facility] Comment on above: Performed By: #### C XFUN #### [facility] [address] [address] [address] Frederick Mccray Hemoglobin (Bld) [Mass/Vol] 15.6 g/dL Normal 14.0-18.0 [facility] Comment on above: Performed By: #### C XFUN #### [facility] [address] [address] [address] Frederick Mccray IG # 0.09 10e3/ul Critically high 0.00-0.03 [facility] Comment on above: Performed By: #### C XFUN #### [facility] [address] [address] [address] Frederick Mccray IG % 0.7 % Critically high 0.0-0.5 [facility] Comment on above: Performed By: #### C XFUN #### [facility] [address] [place] [address] Dr. Frederick Mccray LYMPH # 1.7 103/ul Normal 1.2-3.8 [facility] Comment on above: Performed By: #### C XFUN #### [facility] [address] [place] [address] Dr. Frederick Mccray Lymphocytes/100 WBC (Bld) 12.6 % Critically low 20.5-60.0 [facility] Comment on above: Performed By: #### C XFUN #### [facility] [address] [place] [address] Dr. Frederick Mccray MANUAL DIFF REQ NO Normal [facility] Comment on above: Performed By: #### C XFUN #### [facility] [address] [place] [address] Dr. Frederick Mccray MCH (RBC) [Entitic mass] 33.6 pg Normal 25.9-34.0 [facility] Comment on above: Performed By: #### C XFUN #### [facility] [address] [place] [address] Dr. Frederick Mccray MCHC (RBC) [Mass/Vol] 34.2 g/dL Normal 29.9-35.2 [facility] Comment on above: Performed By: #### C XFUN #### [facility] [address] [place] [address] Dr. Frederick Mccray MCV (RBC) [Entitic vol] 98.3 fL Critically high 80.0-94.0 [facility] Comment on above: Performed By: #### C XFUN #### [facility] [address] [place] [address] Dr. Frederick Mccray MONO # 0.8 103/ul Normal 0.3-0.8 [facility] Comment on above: Performed By: #### C XFUN #### [facility] [address] [place] [address] Dr. Frederick Mccray Monocytes/100 WBC (Bld) 5.7 % Normal 1.7-12.0 [facility] Comment on above: Performed By: #### C XFUN #### [facility] [address] [place] [address] Dr. Frederick Mccray NEUT # 11.0 103/ul Critically high 1.4-6.5 [facility] Comment on above: Performed By: #### C XFUN #### [facility] [address] [place] [address] Dr. Frederick Mccray Neutrophils/100 WBC (Bld) 80.0 % Critically high 43.0-75.0 [facility] Comment on above: Performed By: #### C XFUN #### [facility] [address] [place] [address] Dr. Frederick Mccray Platelet mean volume (Bld) [Entitic vol] 9.8 fL Normal 9.5-13.5 [facility] Comment on above: Performed By: #### C XFUN #### [facility] [address] [place] [address] Dr. Frederick Mccray PLT 298 103/ul Normal 150-450 [facility] Comment on above: Performed By: #### C XFUN #### [facility] [address] [place] [address] Dr. Frederick Mccray RBC 4.64 106/ul Critically low 4.70-6.10 [facility] Comment on above: Performed By: #### C XFUN #### [facility] [address] [place] [address] Dr. Frederick Mccray WBC 13.7 103/ul Critically high 4.0-11.0 [facility] Comment on above: Performed By: #### C XFUN #### [facility] [address] [place], [place] [id number] Dr. Frederick Mccray Covid-19 PCR (CVDTB)on 01-15 SARS-CoV-2 (COVID-19) RNA MACY+probe Ql (Unsp spec) Not detected Normal NOT DETECTED [facility] Comment on above: Result Comment: This test is not yet approved or cleared by the [place] FDA. When there are no FDA-approved or cleared tests available, and other criteria are met, FDA can make tests available under an emergency access mechanism called an Emergency Use Authorization (EUA). The EUA for this test is supported by the [place] of Health and Human Service's (HHS's) declaration [...] with SARS-CoV-2. Performed By: #### C VDTBH ####[facility] [address] [place], [place] [address]Dr. Frederick Mccray MRSA NARES #1on 02-01-2022 MRSA NARES #1 Culture Observations : NO GROWTH OF MRSA AT 48 HOURS Normal [facility] Comment on above: Performed By: #### M RSAN1 ####[facility] [address] [place], [place] [address]Dr. Frederick Mccray PROF CHEM 8 (BAS METB)on Anion gap [Moles/Vol] 8.7 mmol/L Normal [facility] Comment on above: Performed By: #### B MP #### [facility] [address] [place] [address] Dr. Frederick Mccray Calcium [Mass/Vol] 8.9 mg/dL Normal 8.5-10.1 [facility] Comment on above: Performed By: #### B MP #### [facility] [address] [address] [address] Frederick Mccray Chloride [Moles/Vol] 97 mmol/L Critically low 98-107 [facility] Comment on above: Performed By: #### B MP #### [facility] [address] [address] [address] Frederick Mccray CO2 [Moles/Vol] 29.2 mmol/L Normal 21.0-32.0 [facility] Comment on above: Performed By: #### B MP #### [facility] [address] [place] [address] Dr. Frederick Mccray Creatinine [Mass/Vol] 1.28 mg/dL Normal 0.70-1.30 [facility] Comment on above: Performed By: #### B MP #### [facility] [address] [place] [address] Dr. Frederick Mccray EGFR-AF NICARAGUAN >60 Normal >=60 [facility] Comment on above: Performed By: #### B MP #### [facility] [address] [place] [address] Dr. Frederick Mccray EGFR-NON AF NICARAGUAN 57 mL/min/1.73m2 Critically low >=60 [facility] Comment on above: Performed By: #### B MP #### [facility] [address] [place] [address] Dr. Frederick Mccray Glucose [Mass/Vol] 105 mg/dL Normal 74-106 [facility] Comment on above: Performed By: #### B MP #### [facility] [address] [place] [address] Dr. Frederick Mccray Potassium [Moles/Vol] 3.9 mmol/L Normal 3.5-5.1 [facility] Comment on above: Performed By: #### B MP #### [facility] [address] [place] [address] Dr. Frederick Mccray Sodium [Moles/Vol] 131 mmol/L Critically low 136-145 [facility] Comment on above: Performed By: #### B MP #### [facility] [address] [place] [address] Dr. Frederick Mccray Urea nitrogen [Mass/Vol] 15.0 mg/dL Normal 7.0-18.0 [facility] Comment on above: Performed By: #### B MP #### [facility] [address] [place], [place] [address] Dr. Frederick Mccrya Urea nitrogen/Creatinine [Mass ratio] 11.7 mg/mg Normal [facility] Comment on above: Performed By: #### B MP #### [facility] [address] [place], [place] [address] Dr. Frederick Mccray MRI Knee w/o Lefton [...] by Vish Tariq on 01/07/2022 1013 Normal [facility] [employer] OSMOLALITYon 11-12-2021 Osmolality [Osmolality] 288 mosm/kg Normal 275-295 [facility] Comment on above: Performed By: #### O SMO #### [facility] [address] [place], [place] [address] Dr. Frederick Mccray OSMOLALITY URINEon Osmolality, Urine 462 mOsmol/kg Normal [facility] Comment on above: Result Comment: 24 h r : 300 - 900 Random: 50 - 1400 After 12hr fluid restriction: >850 Performed By: #### O SMOU ####[facility] [address] [address]Dr. Frederick Mccray ACTH, PLASMAon 11-11-2021 ACTH, Plasma 33.5 pg/mL Normal 7.2-63.3 [facility] Comment on above: Result Comment: ACTH reference interval for samples collected between 7 and 10 AM. Performed By: #### A CTHP #### [facility] [address] [address] [address] Frederick Mccray CREATININE URINEon URINE CREAT 88.34 mg/dL Normal 20.00-300. 00 [facility] Comment on above: Performed By: #### C REAU ####[facility] [address] [address]Dr. Frederick Mccray PROF CHEM 8 (BAS METB)on Anion gap [Moles/Vol] 14.0 mmol/L Normal [facility] Comment on above: Performed By: #### B MP ####[facility] [facility] O[address] [place], [place] [address]Dr. Frederick Mccray Calcium [Mass/Vol] 9.1 mg/dL Normal 8.5-10.1 [facility] Comment on above: Performed By: #### B MP ####[facility] Fmpasmtgbj[address] [place], [place] [address]Dr. Frederick Mccray Chloride [Moles/Vol] 101 mmol/L Normal 98-107 [facility] Comment on above: Performed By: #### B MP ####[facility] Pnrcbviqqu[address] [place], [place] [address]Dr. Frederick Mccray CO2 [Moles/Vol] 27.8 mmol/L Normal 21.0-32.0 [facility] Comment on above: Performed By: #### B MP ####[facility] [address] [place], [place] [address]DrSuraj Mccray Creatinine [Mass/Vol] 0.99 mg/dL Normal 0.70-1.30 [facility] Comment on above: Performed By: #### B MP ####[facility] [address] [place], [place] [address]Dr. Frederick Mccray EGFR-AF NICARAGUAN >60 Normal >=60 [facility] Comment on above: Performed By: #### B MP ####[facility] [address] [place] [id number]. Frederick Mccray EGFR-NON AF NICARAGUAN >60 Normal >=60 [facility] Comment on above: Performed By: #### B MP ####[facility] [address] [place] [id number]. Frederick Mccray Glucose [Mass/Vol] 83 mg/dL Normal 74-106 [facility] Comment on above: Performed By: #### B MP ####[facility] [address] [place] [address]Dr. Frederick Mccray Potassium [Moles/Vol] 3.8 mmol/L Normal 3.5-5.1 [facility] Comment on above: Performed By: #### B MP ####[facility] [address] [place] [address]Dr. Frederick Mccray Sodium [Moles/Vol] 139 mmol/L Normal 136-145 [facility] Comment on above: Performed By: #### B MP ####[facility] Pphnrbyflo[address] [place] [address]Dr. Frederick Mccray Urea nitrogen [Mass/Vol] 13.0 mg/dL Normal 7.0-18.0 [facility] Comment on above: Performed By: #### B MP ####[facility] [address] [place] [address]Dr. Frederick Mccray Urea nitrogen/Creatinine [Mass ratio] 13.1 mg/mg Normal [facility] Comment on above: Performed By: #### B MP ####[facility] [address]xbsxx[address] [place] [id number]. Frederick Mccray SODIUM RANDOM URINEon 2021 Sodium (U) [Moles/Vol] 125 mmol/L Critically high 30-90 [facility] Comment on above: Performed By: #### C XFUN #### [facility] [address] [address] [address] Frederick Mccray MRSA COLONIZATION SCREENING CULTUREon 10-21-2021 MRSA Screening Culture Negative Normal Th e [facility] Comment on above: Performed By: #### C XFUN #### [facility] [address] [place] [address] Dr. Frederick Mccray Covid-19 PCR (CVDTB)on SARS-CoV-2 (COVID-19) RNA MACY+probe Ql (Unsp spec) Detected Critically abnormal NOT DETECTED [facility] Comment on above: Result Comment: This test is not yet approved or cleared by the [place] FDA. When there are no FDA-approved or cleared tests available, and other criteria are met, FDA can make tests available under an emergency access mechanism called an Emergency Use Authorization (EUA). The EUA for this test is supported by the [place] of Health and Human Service's declaration that [...] used). Performed By: #### A CTHP #### [facility] [address] [address] [address] Frederick Mccray PROF CHEM 8 (BAS METB)on Anion gap [Moles/Vol] 8.9 mmol/L Normal [facility] Comment on above: Performed By: #### B MP ####[facility] [address] [place] [address]DrSuraj Mccray Calcium [Mass/Vol] 9.5 mg/dL Normal 8.5-10.1 [facility] Comment on above: Performed By: #### B MP ####[facility] [address] [place] [address]DrSuraj Mccray Chloride [Moles/Vol] 95 mmol/L Critically low 98-107 [facility] Comment on above: Performed By: #### B MP ####[facility] [address] [place] [address]DrSuraj Mccray CO2 [Moles/Vol] 28.3 mmol/L Normal 21.0-32.0 [facility] Comment on above: Performed By: #### B MP ####[facility] [address]fl[address] [place] [address]Dr. Frederick Mccray Creatinine [Mass/Vol] 1.02 mg/dL Normal 0.70-1.30 [facility] Comment on above: Performed By: #### B MP ####[facility] [address] [place] [address]Dr. Frederick Mahendra EGFR-AF NICARAGUAN >60 Normal >=60 [facility] Comment on above: Performed By: #### B MP ####[facility] [address] [place], [place] [address]Dr. Kaiteloisa Mahendra EGFR-NON AF NICARAGUAN >60 Normal >=60 [facility] Comment on above: Performed By: #### B MP ####[facility] [address] [place], [place] [address]Dr. Frederick Mccray Glucose [Mass/Vol] 90 mg/dL Normal 74-106 [facility] Comment on above: Performed By: #### B MP ####[facility] [address] [place], [place] [address]Dr. Frederick Mccray Potassium [Moles/Vol] 4.2 mmol/L Normal 3.5-5.1 [facility] Comment on above: Performed By: #### B MP ####[facility] [address] [place], [place] [address]Dr. Frederick Mccray Sodium [Moles/Vol] 128 mmol/L Critically low 136-145 [facility] Comment on above: Performed By: #### B MP ####[facility] [address] [place], [place] [address]Dr. Frederick Mccray Urea nitrogen [Mass/Vol] 9.0 mg/dL Normal 7.0-18.0 [facility] Comment on above: Performed By: #### B MP ####[facility] [address] [place], [place] [address]Dr. Frederick Mccray Urea nitrogen/Creatinine [Mass ratio] 8.8 mg/mg Normal [facility] Comment on above: Performed By: #### B MP ####[facility] [address] [place], [place] [address]UuSuraj Mccray *ANAEROBIC CULTUREon 022 *ANAEROBIC CULTURE Clinical Report: (D) Specimen: FLUID Collected: 07/21/2021 14:05 Status: Final Last Updated: 07/26/2021 10:34 (1) RT SC Joint Fluid CULT RES (Final) No Anaerobes Isolated 5 Days Normal [facility] Comment on above: Order Comment: The A ptima SARS-CoV-2 assay is a nucleic acid amplification test intended for the qualitative detection of RNA from SARS-CoV-2 isolated and purified from nasopharyngeal (DRIVER LICENSE EXAMINER),oropharyngeal (OP), nasal swab, sputum, and bronchoalveolar lavage (BAL) specimens from patients with signs and symptoms of infection who are suspected of COVID-19. Results are for the identification of SARS-CoV-2 RNA. The SARS-CoV-2 RNA is generally detectable during the acute phase of infection. The Aptima SARS-CoV-2 Assay on the [employer] system is intended for use by laboratory personnel specifically instructed and trained in the operation of the Onset and [employer] Fusion system. The Aptima SARS-CoV-2 assay is [...] information. Performed By: #### 3 1792 #### [address] *BODY FLUID CULTUREon 2021 *BODY FLUID CULTURE Clinical Report: (D) Specimen: FLUID Collected: 07/21/2021 14:05 Status: Final Last Updated: 07/26/2021 07:53 (1) RT SC Joint Fluid GRAM (Final) Quantity Not Sufficient CULT RES (Final) No Growth Day 5 Normal The [facility] Comment on above: Order Comment: RT SC Joint Fluid Performed By: #### 8 5499 #### [facility] [address] APTTon 07-21-2021 aPTT Coag (Bld) [Time] 33.5 s Normal 25.0-35.0 Th e [facility] Comment on above: Result Comment: ALL RESULTS [...] PURPOSE. Performed By: #### 6 1405 #### [facility] [address] CBC W/DIFFon 07-21-2021 ABS IMM GRANS 0.1 10*3/uL Normal 0.0-0.2 The [facility] Comment on above: Performed By: #### 5 0103 #### [facility] [address] ABS NEUTROPHILS 8.1 10*3/uL High 1.6-7.6 The [facility] Comment on above: Performed By: #### 5 0103 #### [facility] [address] [place] [address], [facility] Basophils (Bld) [#/Vol] 0.1 10*3/uL Normal 0.0-0.2 The [facility] Comment on above: Performed By: #### 5 0103 #### [facility] [address] [place] [address], [facility] Basophils/100 WBC (Bld) 0.7 % Normal 0.0-1.0 The [facility] Comment on above: Performed By: #### 5 0103 #### [facility] [address] [place] [address], [facility] Eosinophils (Bld) [#/Vol] 0.4 10*3/uL Normal 0.0-0.5 The [facility] Comment on above: Performed By: #### 5 0103 #### [facility] [address] [place] [address], [facility] Eosinophils/100 WBC (Bld) 3.4 % Normal 0.0-6.0 The [facility] Comment on above: Performed By: #### 5 0103 #### [facility] [address] [facility] [place] [place] [address], [facility] Erythrocyte distribution width (RBC) [Ratio] 12.5 % Normal 11.5-15.0 The [facility] Comment on above: Performed By: #### 5 0103 #### [facility] [address] [facility] [place] [place] [address], [facility] Hematocrit (Bld) [Volume fraction] 40.2 % Normal 39.0-50.0 The [facility] Comment on above: Performed By: #### 5 0103 #### [facility] [address] [facility] [place] [address], [facility] Hemoglobin (Bld) [Mass/Vol] 13.8 g/dL Normal 13.0-17.0 The [facility] Comment on above: Performed By: #### 5 0103 #### [facility] [address] [facility] [place] [place] [address], [facility] IMMATURE GRANS 0.5 % Normal 0.0-1.0 The [facility] Comment on above: Performed By: #### 5 0103 #### [facility] [address] [facility] [address], [facility] Lymphocytes (Bld) [#/Vol] 1.8 10*3/uL Normal 1.2-4.0 The [facility] Comment on above: Performed By: #### 5 3 #### [facility] [address] [place] [id number], [facility] Lymphocytes/100 WBC (Bld) 16.7 % Low 20.0-45.0 The [facility] Comment on above: Performed By: #### 5 0103 #### [facility] [address] [facility] [place] [place] [address], [facility] MCH (RBC) [Entitic mass] 33.7 pg High 27.0-33.0 The [facility] Comment on above: Performed By: #### 5 0103 #### [facility] [address] [facility] [place] [place] [address], [facility] MCHC (RBC) [Mass/Vol] 34.3 g/dL Normal 32.0-35.0 The [facility] Comment on above: Performed By: #### 5 0103 #### [facility] [address] [facility] [place] [address], [facility] MCV (RBC) [Entitic vol] 98.3 fL High 82.0-98.0 The [facility] Comment on above: Performed By: #### 5 0103 #### [facility] [address] [facility] [place] [address], [facility] Monocytes (Bld) [#/Vol] 0.6 10*3/uL Normal 0.1-1.0 The [facility] Comment on above: Performed By: #### 5 3 #### [facility] [address] [facility] [place] [address], [facility] MONOS 5.2 % Normal 5.0-12.0 The [facility] Comment on above: Performed By: #### 5 0103 #### [facility] [address] [facility] [place] [address], [facility] Neutrophils/100 WBC (Bld) 73.5 % High 40.0-72.0 The [facility] Comment on above: Performed By: #### 5 3 #### [facility] [address] [place] [address], [facility] Nucleated RBC/100 WBC (Bld) [Ratio] 0 % Normal 0-0 The [facility] Comment on above: Performed By: #### 5 0103 #### [facility] [address] [facility] [place] [address], [facility] PLAT CNT 424 10*3/uL High 150-400 The [facility] Comment on above: Performed By: #### 5 0103 #### [facility] [address] [facility] [place] [place] [address], [facility] RBC (Bld) [#/Vol] 4.09 10*6/uL Low 4.20-5.70 The [facility] Comment on above: Performed By: #### 5 0103 #### [facility] [address] [facility] [place] [address], [facility] WBC (Bld) [#/Vol] 10.99 10*3/uL High 4.00-10.60 The [facility] Comment on above: Performed By: #### 5 0103 #### [facility] [address] BIOPSY BONE DEEPon 2021 CT BIOPSY BONE DEEP [facility] Department of Radiology [address] [place] [id number] Patient Name: GEMMA RODGERS : 1960 Sex: M Age: Race: White Pt. 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 Gabriella Bertrand ASA hold 7 days Covid 07/19/21 Myke [phone] Comments: CT Guided aspiration of the [...] by radiology. Lab orders are in [place] PROTOCOL: All CT scans at this facility [...] risks are acceptable. Consent was obtained. Timeout: [place] protocol timeout verification performed. MEDICATIONS: 2 mg [...] lidocaine was used for local anesthesia. Using 5-Czech one step angiocatheter, access into the right [...] complications Electronically signed: Olga Blank. Transcribed by: [email or web address], User Resident: Electronically Signed by: OLGA BLANK @ 07/21/2021 03:52 PM Normal The [facility] Comment on above: Order Comment: looki ng for mass, hx of osteomyelitis, STAT order POC SARS COV2 IDon 2 SARS-CoV-2 (COVID-19) RNA MACY+probe Ql (Unsp spec) Negative Normal NEGATIVE The [facility] Comment on above: Result Comment: ID N [...] Accreditation. Performed By: #### 3 1792 #### [address] PROTHROMBIN TIMEon 2 INR Coag (PPP) [Relative time] 1.04 {INR} Normal 0.91-1.16 The [facility] Comment on above: Result Comment: ACCC P RECOMMENDED INR FOR WARFARIN THERAPY --------- ------- CONDITION INR PROPHYLAXIS OF VENOUS THROMBOSIS 2-3 (HIGH-RISK SURGERY) TREATMENT OF VENOUS THROMBOSIS 2-3 TREATMENT OF PULMONARY EMBOLISM 2-3 PREVENTION OF SYSTEMIC EMBOLISM: 2-3 ACUTE MYOCARDIAL INFARCTION TISSUE HEART VALVES VALVULAR HEART DISEASE ATRIAL FIBRILLATION RECURRENT SYSTEMIC EMBOLISM MECHANICAL HEART VALVE 2.5-3.5 FROM: ORAL ANTICOAGULANTS. MECHANISM OF ACTION, CLINICAL EFFECTIVENESS, AND OPTIMAL THERAPEUTIC RANGE. CHEST 1995;108:231S-246S. Performed By: #### 6 1405 #### [facility] [address] [facility] [address] PT Coag (PPP) [Time] 13.6 s Normal 12.3-14.8 The [facility] Comment on above: Result Comment: ALL RESULTS MUST BE INTERPRETED WITH RESPECT TO BLOOD DRAWING ARTIFACT OR DILUTION ERROR OF ANTICOAGULANT AT THE TIME OF SAMPLING. Performed By: #### 6 1405 #### [facility] 3000 [facility] [address] SARS coronavirus 2 IgG Ab [U nits/volume] in Serum or Plasma by ImmunoassayOrdered By: Nasir Pan on 07-19-2021 SARS-CoV-2 (COVID-19) IgG IA Qn >800.0 AU/mL Neg <13.0 [facility] Comment on above: This test has [...] on 07-19-2021 SARS-CoV-2 (COVID-19) Ab [Interp] Positive [facility] Comment on above: Antibodies against t he SARS-CoV-2 spike protein, includingthe receptor binding domain (RBD) were detected. It is notyet known what level of antibody to SARS-CoV-2 spikeprotein correlates to immunity against developingsymptomatic SARS-CoV-2 disease. This assay was performedusing [employer](R) SARS-CoV-2 Trimeric S IgG assay.This test [...] for any other viruses or pathogens.Performed at: - [facility] [id number] Director: Nico Cabrera PhD, Phone: [phone] CT UPPER EXTREMITY W CONTRAS T RIGHTon 07-02-2021 CT UPPER EXTREMITY W CONTRAST RIGHT [facility] Department of Radiology [address] [place] [address] Patient Name: GEMMA RODGERS : [...] Nasir Pan to send lab orders to [place] for patient. Comments: looking for mass, hx [...] joint Electronically signed: Caty Flanagan. Transcribed by: [email or web address], User Resident: Electronically Signed by: CATY FLANAGAN @ 07/02/2021 12:43 PM Normal The [facility] Comment on above: Order Comment: jody webb for mass, hx of osteomyelitis, STAT order COVID-19 Positive/NegativeOr dered By: Vish Deluca on 06-11-2021 SARS-CoV-2 (COVID-19) N gene MACY+probe Ql (Resp) Negative Negative [facility] Comment on above: Testing for SARS-CoV -2 by RT-PCRThis test was developed and its performance characteristics determined by [employer] ([employer]) and validated at the [facility]. This test has not been FDA [...] or revoked sooner. MRI Knee w/o Righton 022 MRI Knee w/o Right HISTORY: Right knee [...] by Vish Tariq on 06/09/2021 1559 Normal [facility] Specialist C REACTIVE PROTEINon 022 CRP [Mass/Vol] 19.6 mg/L High 0.0-7.0 The [facility] Comment on above: Performed By: #### 6 1405 ####[facility] CBC W/DIFFon 05-25-2021 ABS IMM GRANS 0.1 10*3/uL Normal 0.0-0.2 The [facility] Comment on above: Performed By: #### 3 0312 #### [facility] [address] ABS NEUTROPHILS 8.6 10*3/uL High 1.6-7.6 The [facility] Comment on above: Performed By: #### 3 0312 #### [facility] [address] [place] [address], [facility] Basophils (Bld) [#/Vol] 0.1 10*3/uL Normal 0.0-0.2 The [facility] Comment on above: Performed By: #### 3 0312 #### [facility] [address] [place] [address], [facility] Basophils/100 WBC (Bld) 0.5 % Normal 0.0-1.0 The [facility] Comment on above: Performed By: #### 3 0312 #### [facility] [address] [place] [address], [facility] Eosinophils (Bld) [#/Vol] 0.2 10*3/uL Normal 0.0-0.5 The [facility] Comment on above: Performed By: #### 3 0312 #### [facility] [address] [place] [address], [facility] Eosinophils/100 WBC (Bld) 2.2 % Normal 0.0-6.0 The [facility] Comment on above: Performed By: #### 3 0312 #### [facility] [address] [place] [address], [facility] Erythrocyte distribution width (RBC) [Ratio] 12.7 % Normal 11.5-15.0 The [facility] Comment on above: Performed By: #### 3 0312 #### [facility] [address] [facility] [place] [place] [address], [facility] Hematocrit (Bld) [Volume fraction] 40.6 % Normal 39.0-50.0 The [facility] Comment on above: Performed By: #### 3 0312 #### [facility] [address] [facility] [place] [address], [facility] Hemoglobin (Bld) [Mass/Vol] 14.2 g/dL Normal 13.0-17.0 The [facility] Comment on above: Performed By: #### 3 0312 #### [facility] [address] [place] [address], [facility] IMMATURE GRANS 0.5 % Normal 0.0-1.0 The [facility] Comment on above: Performed By: #### 3 0312 #### [facility] [address] [facility] [place] [address], [facility] Lymphocytes (Bld) [#/Vol] 1.3 10*3/uL Normal 1.2-4.0 The [facility] Comment on above: Performed By: #### 3 0312 #### [facility] [address] [place] [address], [facility] Lymphocytes/100 WBC (Bld) 12.0 % Low 20.0-45.0 The [facility] Comment on above: Performed By: #### 3 0312 #### [facility] [address] MCH (RBC) [Entitic mass] 34.2 pg High 27.0-33.0 The [facility] Comment on above: Performed By: #### 3 0312 #### [facility] [address] MCHC (RBC) [Mass/Vol] 35.0 g/dL Normal 32.0-35.0 The [facility] Comment on above: Performed By: #### 3 0312 #### [facility] [address] MCV (RBC) [Entitic vol] 97.8 fL Normal 82.0-98.0 The [facility] Comment on above: Performed By: #### 3 0312 #### [facility] [address] Monocytes (Bld) [#/Vol] 0.9 10*3/uL Normal 0.1-1.0 The [facility] Comment on above: Performed By: #### 3 0312 #### [facility] [address] MONOS 7.8 % Normal 5.0-12.0 The [facility] Comment on above: Performed By: #### 3 0312 #### [facility] [address] Neutrophils/100 WBC (Bld) 77.0 % High 40.0-72.0 The [facility] Comment on above: Performed By: #### 3 0312 #### [facility] [address] Nucleated RBC/100 WBC (Bld) [Ratio] 0 % Normal 0-0 The [facility] Comment on above: Performed By: #### 3 0312 #### [facility] [address] [place] [address], [facility] PLAT CNT 308 10*3/uL Normal 150-400 The [facility] Comment on above: Performed By: #### 3 0312 #### [facility] [address] [place] [address], [facility] RBC (Bld) [#/Vol] 4.15 10*6/uL Low 4.20-5.70 The [facility] Comment on above: Performed By: #### 3 0312 #### [facility] [address] [place] [address], [facility] WBC (Bld) [#/Vol] 11.12 10*3/uL High 4.00-10.60 The [facility] Comment on above: Performed By: #### 3 0312 #### [facility] [address] [place] [address], [facility] SEDIMENTATION RATEon 0208-2 022 SED RATE 16 mm/hr High 0-10 The [facility] Comment on above: Performed By: #### 3 0312 #### [facility] [address] [place] [address], [facility] Basic Metabolic Panelon 01-0 Anion gap [Moles/Vol] 20 mmol/L Normal 12-20 [facility] Specialist Comment on above: Result Comment: Effe ctive 04/22/2019 reference range changed. Performed By: #### B MP #### [facility] [address], [place] [id number] Calcium [Mass/Vol] 10.4 mg/dL High 8.6-10.2 [facility] Specialist Comment on above: Performed By: #### B MP #### [facility] [address], [place] [id number] Chloride [Moles/Vol] 98 mmol/L Normal 98-107 [facility] Specialist Comment on above: Performed By: #### B MP #### [facility] [address], [place] [id number] CO2 [Moles/Vol] 22 mmol/L Normal 20-31 [facility] Specialist Comment on above: Performed By: #### B MP #### [facility] [address] [place], [place] [id number] Creatinine [Mass/Vol] 0.9 mg/dL Normal 0.7-1.4 [facility] Comment on above: Performed By: #### B MP #### [facility] [address] [place], [place] [id number] eGFRAA 106 mL/min/1.73m2 Normal >60 [facility] Comment on above: Performed By: #### B MP #### [facility] [address], [place] [id number] eGFRNAA 87 mL/min/1.73m2 Normal >60 [facility] Comment on above: Performed By: #### B MP #### [facility] [address] [place], [place] [id number] Glucose [Mass/Vol] 95 mg/dL Normal 65-99 [facility] Specialist Comment on above: Result Comment: For FASTING Glucose --- ADA reference ranges: Normal 65-99 mg/dl Prediabetes 100-125 Diabetes >/= 126 Performed By: #### B MP #### [facility] [address] [place], [place] [id number] Potassium [Moles/Vol] 5.0 mmol/L Normal 3.5-5.5 [facility] Comment on above: Performed By: #### B MP #### [facility] [address] [place], [place] [id number] Sodium [Moles/Vol] 135 mmol/L Normal 135-146 [facility] Specialist Comment on above: Performed By: #### B MP #### [facility] [address] [place], [place] [id number] Urea nitrogen [Mass/Vol] 15 mg/dL Normal 7-25 [facility] Specialist Comment on above: Performed By: #### B MP #### [facility] [address] [place], [place] [id number] C REACTIVE PROTEINon 021 CRP [Mass/Vol] 7.9 mg/L High 0.0-7.0 [facility] Comment on above: Performed By: #### 6 1405 ####[facility] [facility] [address], [facility] CBC COMPLETE BLOOD COUNTon 05-20-2020 Erythrocyte distribution width (RBC) [Ratio] 12.8 % Normal 11.5-15.0 [facility] Comment on above: Performed By: #### 3 0323 #### [facility] [address] [place] [address], [facility] Hematocrit (Bld) [Volume fraction] 40.7 % Normal 39.0-50.0 [facility] Comment on above: Performed By: #### 3 0323 #### [facility] [address] [facility] [place] [address], [facility] Hemoglobin (Bld) [Mass/Vol] 14.5 g/dL Normal 13.0-17.0 [facility] Comment on above: Performed By: #### 3 0323 #### [facility] [address] [facility] [place] [address], [facility] MCH (RBC) [Entitic mass] 34.0 pg High 27.0-33.0 [facility] Comment on above: Performed By: #### 3 0323 #### [facility] [address] [facility] [place] [place] [address], [facility] MCHC (RBC) [Mass/Vol] 35.6 g/dL High 32.0-35.0 [facility] Comment on above: Performed By: #### 3 0323 #### [facility] [address] [place] [address], [facility] MCV (RBC) [Entitic vol] 95.5 fL Normal 82.0-98.0 [facility] Comment on above: Performed By: #### 3 0323 #### [facility] [address] [place] [id number], [facility] Nucleated RBC/100 WBC (Bld) [Ratio] 0 % Normal 0-0 [facility] Comment on above: Performed By: #### 3 0323 #### [facility] [address] [place] [address], [facility] PLAT CNT 333 10*3/uL Normal 150-400 [facility] Comment on above: Performed By: #### 3 0323 #### [facility] [address] [place] [address], [facility] RBC (Bld) [#/Vol] 4.26 10*6/uL Normal 4.20-5.70 [facility] Comment on above: Performed By: #### 3 0323 #### [facility] [address] [facility] [place] [place] [address], [facility] WBC (Bld) [#/Vol] 12.50 10*3/uL High 4.00-10.60 [facility] Comment on above: Performed By: #### 3 0323 #### [facility] [address] [facility] [place] [address], [facility] COMP METABOLIC PANELon 03-19 Albumin [Mass/Vol] 4.4 g/dL Normal 3.5-5.7 [facility] Comment on above: Performed By: #### 0 0121 ####[facility] ALKALINE PHOSPH 71 IU/L Normal 34-104 [facility] Comment on above: Performed By: #### 0 0121 ####[facility] [facility].[address] ALT [Catalytic activity/Vol] 15 U/L Normal 7-52 [facility] Comment on above: Performed By: #### 0 0121 ####[facility] [facility].[address] AST [Catalytic activity/Vol] 19 U/L Normal 13-39 [facility] Comment on above: Performed By: #### 0 0121 ####[facility] [facility] [place] [address], [facility] Bilirubin [Mass/Vol] 0.6 mg/dL Normal 0.3-1.0 [facility] Comment on above: Performed By: #### 0 0121 ####[facility] [place] [address], [facility] Calcium [Mass/Vol] 10.1 mg/dL Normal 8.6-10.3 [facility] Comment on above: Performed By: #### 0 0121 ####[facility] [place] [address], [facility] Chloride [Moles/Vol] 82 mmol/L Low 98-107 [facility] Comment on above: Performed By: #### 0 0121 ####[facility] [place] [address], [facility] CO2 [Moles/Vol] 28 mmol/L Normal 21-31 [facility] Comment on above: Performed By: #### 0 0121 ####[facility] [place] [address], [facility] Creatinine [Mass/Vol] 1.26 mg/dL Normal 0.70-1.30 [facility] Comment on above: Performed By: #### 0 0121 ####[facility] [place] [address], [facility] eGFR- non- 58 ml/min/1.73sq m Abnormal >60 [facility] Comment on above: Performed By: #### 0 0121 ####[facility] [place] [address], [facility] GFR/1.73 sq M.predicted among blacks MDRD (S/P/Bld) [Vol rate/Area] mL/min/{1.73_m2} Normal >60 [facility] Comment on above: Performed By: #### 0 0121 ####[facility] [place] [address], [facility] Glucose [Mass/Vol] 92 mg/dL Normal 70-100 [facility] Comment on above: Performed By: #### 0 0121 ####[facility] [facility] [place] [address], [facility] Potassium [Moles/Vol] 4.2 mmol/L Normal 3.5-5.1 [facility] Comment on above: Performed By: #### 0 0121 ####[facility] [facility] [place] [address], [facility] Protein [Mass/Vol] 7.5 g/dL Normal 6.0-8.3 [facility] Comment on above: Performed By: #### 0 0121 ####[facility] [facility] [place] [address], [facility] Sodium [Moles/Vol] 120 mmol/L Low 136-145 [facility] Comment on above: Result Comment: M-CR ITICAL RESULT(S) REVIEWED, CALLED TO AND READ BACK BY VIKY BAKER RN @ 0173 Performed By: #### 0 0121 ####[facility] [facility] [place] [address], [facility] Urea nitrogen [Mass/Vol] 16 mg/dL Normal 7-25 [facility] Comment on above: Performed By: #### 0 0121 ####[facility] [facility].[address] SEDIMENTATION RATEon 1203-2 021 SED RATE 19 mm/hr High 0-10 [facility] Comment on above: Performed By: #### 3 0312 #### [facility] [address] [facility]. [address] Operative Reporton 1 Operative Report MR#: [id number] I [facility] Pt. Name: Gemma Rodgers Room #: [id number] Discharge 02/04/2021 Date: Birthdate: 1960 OPERATIVE REPORT [...] Harden MD Date Trans: 02/04/2021 11:39 P/kimberley DN_JN:[id number] cc: Vish Deluca M.D. [address] [place] [address] Normal [facility] BASIC METABOLIC PANELon 10-2 Calcium [Mass/Vol] 8.9 mg/dL Normal 8.6-10.3 [facility] Comment on above: Order Comment: No: D o not add to previous drawNurse Draw Performed By: #### 6 1405 #### [facility] [address] [place] [address], [facility] Chloride [Moles/Vol] 98 mmol/L Normal 98-107 [facility] Comment on above: Order Comment: No: D o not add to previous drawNurse Draw Performed By: #### 6 1405 #### [facility] [address] [place] [address], [place] CO2 [Moles/Vol] 27 mmol/L Normal 21-31 [facility] Comment on above: Order Comment: No: D o not add to previous drawNurse Draw Performed By: #### 6 1405 #### [facility] [address] [place] [address], [facility] Creatinine [Mass/Vol] 0.86 mg/dL Normal 0.70-1.30 [facility] Comment on above: Order Comment: No: D o not add to previous drawNurse Draw Performed By: #### 6 1405 #### [facility] [address] [place] [address], [place] GFR/1.73 sq M.predicted among blacks MDRD (S/P/Bld) [Vol rate/Area] mL/min/{1.73_m2} Normal >60 [facility] Comment on above: Order Comment: No: D o not add to previous drawNurse Draw Performed By: #### 6 1405 #### [facility] [address] [place] [address], [place] GFR/1.73 sq M.predicted among non-blacks MDRD (S/P/Bld) [Vol rate/Area] mL/min/{1.73_m2} Normal >60 [facility] Comment on above: Order Comment: No: D o not add to previous drawNurse Draw Performed By: #### 6 1405 #### [facility] [address] [place] [address], [place] Glucose [Mass/Vol] 90 mg/dL Normal 70-100 [facility] Comment on above: Order Comment: No: D o not add to previous drawNurse Draw Performed By: #### 6 1405 #### [facility] [address] [place] [address], [place] Potassium [Moles/Vol] 3.8 mmol/L Normal 3.5-5.1 [facility] Comment on above: Order Comment: No: D o not add to previous drawNurse Draw Performed By: #### 6 1405 #### [facility] [address] [facility]. [address] Sodium [Moles/Vol] 131 mmol/L Low 136-145 [facility] Comment on above: Order Comment: No: D o not add to previous drawNurse Draw Performed By: #### 6 1405 #### [facility] [address] [facility]. [address] Urea nitrogen [Mass/Vol] 13 mg/dL Normal 7-25 [facility] Comment on above: Order Comment: No: D o not add to previous drawNurse Draw Performed By: #### 6 1405 #### [facility] [address] FREE T4on 02-04-2021 Free T4 [Mass/Vol] 0.96 ng/dL Normal 0.71-1.85 [facility] Comment on above: Performed By: #### 6 1405 #### [facility] [address] TSH3 WITH REFLEX FT4on 02-04 TSH 3RD GENERATION 33.51 uIU/mL High 0.34-5.60 [facility] Comment on above: Order Comment: No: D o not add to previous drawNurse Draw Performed By: #### 6 1405 #### [facility] [address] CBC W/DIFFon 02-03-2021 ABS IMM GRANS 0.1 10*3/uL Normal 0.0-0.2 [facility] Comment on above: Order Comment: 5. Ri ght Manubrium Performed By: #### 3 0312 #### [facility] [address] ABS NEUTROPHILS 7.4 10*3/uL Normal 1.6-7.6 [facility] Comment on above: Order Comment: 5. Ri ght Manubrium Performed By: #### 3 0312 #### [facility] [address] [place] [address], [facility] Basophils (Bld) [#/Vol] 0.1 10*3/uL Normal 0.0-0.2 [facility] Comment on above: Order Comment: 5. Ri ght Manubrium Performed By: #### 3 0312 #### [facility] [address] [place] [address], [facility] Basophils/100 WBC (Bld) 0.5 % Normal 0.0-1.0 [facility] Comment on above: Order Comment: 5. Ri ght Manubrium Performed By: #### 3 2 #### [facility] [address] [place] [address], [facility] Eosinophils (Bld) [#/Vol] 0.3 10*3/uL Normal 0.0-0.5 [facility] Comment on above: Order Comment: 5. Ri ght Manubrium Performed By: #### 3 2 #### [facility] [address] [place] [address], [facility] Eosinophils/100 WBC (Bld) 2.9 % Normal 0.0-6.0 [facility] Comment on above: Order Comment: 5. Ri ght Manubrium Performed By: #### 3 2 #### [facility] [address] [place] [id number], [facility] Erythrocyte distribution width (RBC) [Ratio] 14.1 % Normal 11.5-15.0 [facility] Comment on above: Order Comment: 5. Ri ght Manubrium Performed By: #### 3 0312 #### [facility] [address] [place] [address], [facility] Hematocrit (Bld) [Volume fraction] 36.2 % Low 39.0-50.0 [facility] Comment on above: Order Comment: 5. Ri ght Manubrium Performed By: #### 3 2 #### [facility] [address] [place] [address], [facility] Hemoglobin (Bld) [Mass/Vol] 12.3 g/dL Low 13.0-17.0 [facility] Comment on above: Order Comment: 5. Ri ght Manubrium Performed By: #### 3 0312 #### [facility] [address] [place] [address], [facility] IMMATURE GRANS 0.9 % Normal 0.0-1.0 [facility] Comment on above: Order Comment: 5. Ri ght Manubrium Performed By: #### 3 0312 #### [facility] [address] [place] [address], [facility] Lymphocytes (Bld) [#/Vol] 1.8 10*3/uL Normal 1.2-4.0 [facility] Comment on above: Order Comment: 5. Ri ght Manubrium Performed By: #### 3 0312 #### [facility] [address] [facility] [place] [place] [address], [facility] Lymphocytes/100 WBC (Bld) 17.8 % Low 20.0-45.0 [facility] Comment on above: Order Comment: 5. Ri ght Manubrium Performed By: #### 3 2 #### [facility] [address] [facility] [place] [address], [facility] MCH (RBC) [Entitic mass] 33.2 pg High 27.0-33.0 [facility] Comment on above: Order Comment: 5. Ri ght Manubrium Performed By: #### 3 0312 #### [facility] [address] [place] [address], [facility] MCHC (RBC) [Mass/Vol] 34.0 g/dL Normal 32.0-35.0 [facility] Comment on above: Order Comment: 5. Ri ght Manubrium Performed By: #### 3 2 #### [facility] [address] [facility] [address], [facility] MCV (RBC) [Entitic vol] 97.6 fL Normal 82.0-98.0 [facility] Comment on above: Order Comment: 5. Ri ght Manubrium Performed By: #### 3 0312 #### [facility] [address] [place] [address], [facility] Monocytes (Bld) [#/Vol] 0.7 10*3/uL Normal 0.1-1.0 [facility] Comment on above: Order Comment: 5. Ri ght Manubrium Performed By: #### 3 0312 #### [facility] [address] [facility] [address], [facility] MONOS 6.8 % Normal 5.0-12.0 [facility] Comment on above: Order Comment: 5. Ri ght Manubrium Performed By: #### 3 2 #### [facility] [address] [facility] [place] [place] [address], [facility] Neutrophils/100 WBC (Bld) 71.1 % Normal 40.0-72.0 [facility] Comment on above: Order Comment: 5. Ri ght Manubrium Performed By: #### 3 0312 #### [facility] [address] [facility] [place] [place] [address], [facility] Nucleated RBC/100 WBC (Bld) [Ratio] 0 % Normal 0-0 [facility] Comment on above: Order Comment: 5. Ri ght Manubrium Performed By: #### 3 0312 #### [facility] [address] [place] [address], [facility] PLAT CNT 223 10*3/uL Normal 150-400 [facility] Comment on above: Order Comment: 5. Ri ght Manubrium Performed By: #### 3 2 #### [facility] [address] [place] [address], [facility] RBC (Bld) [#/Vol] 3.71 10*6/uL Low 4.20-5.70 [facility] Comment on above: Order Comment: 5. Ri ght Manubrium Performed By: #### 3 0312 #### [facility] [address] [place] [address], [facility] WBC (Bld) [#/Vol] 10.34 10*3/uL Normal 4.00-10.60 [facility] Comment on above: Order Comment: 5. Ri ght Manubrium Performed By: #### 3 0312 #### [facility] [address] [place] [address], [facility] COMP METABOLIC PANELon 02-03 Albumin [Mass/Vol] 3.3 g/dL Low 3.5-5.7 [facility] Comment on above: Order Comment: 2. Ri ght SC Joint Tissue Performed By: #### 3 0323 #### [facility] [address] [place] [address], [facility] ALKALINE PHOSPH 51 IU/L Normal 34-104 [facility] Comment on above: Order Comment: 2. Ri ght SC Joint Tissue Performed By: #### 3 0323 #### [facility] [address] [facility] [address], [facility] ALT [Catalytic activity/Vol] 11 U/L Normal 7-52 [facility] Comment on above: Order Comment: 2. Ri ght SC Joint Tissue Performed By: #### 3 0323 #### [facility] [address] [place] [address], [facility] AST [Catalytic activity/Vol] 12 U/L Low 13-39 [facility] Comment on above: Order Comment: 2. Ri ght SC Joint Tissue Performed By: #### 3 0323 #### [facility] [address] [place] [address], [facility] Bilirubin [Mass/Vol] 0.6 mg/dL Normal 0.3-1.0 [facility] Comment on above: Order Comment: 2. Ri ght SC Joint Tissue Performed By: #### 3 0323 #### [facility] [address] [place] [address], [place] Calcium [Mass/Vol] 9.0 mg/dL Normal 8.6-10.3 [facility] Comment on above: Order Comment: 2. Ri ght SC Joint Tissue Performed By: #### 3 0323 #### [facility] [address] [place] [address], [place] Chloride [Moles/Vol] 97 mmol/L Low 98-107 [facility] Comment on above: Order Comment: 2. Ri ght SC Joint Tissue Performed By: #### 3 0323 #### [facility] [address] [place] [address], [place] CO2 [Moles/Vol] 28 mmol/L Normal 21-31 [facility] Comment on above: Order Comment: 2. Ri ght SC Joint Tissue Performed By: #### 3 0323 #### [facility] [address] [place] [address], [place] Creatinine [Mass/Vol] 0.84 mg/dL Normal 0.70-1.30 [facility] Comment on above: Order Comment: 2. Ri ght SC Joint Tissue Performed By: #### 3 0323 #### [facility] [address] [place] [address], [place] GFR/1.73 sq M.predicted among blacks MDRD (S/P/Bld) [Vol rate/Area] mL/min/{1.73_m2} Normal >60 [facility] Comment on above: Order Comment: 2. Ri ght SC Joint Tissue Performed By: #### 3 0323 #### [facility] [address] [place] [address], [place] GFR/1.73 sq M.predicted among non-blacks MDRD (S/P/Bld) [Vol rate/Area] mL/min/{1.73_m2} Normal >60 [facility] Comment on above: Order Comment: 2. Ri ght SC Joint Tissue Performed By: #### 3 0323 #### [facility] [address] [place] [address], [place] Glucose [Mass/Vol] 91 mg/dL Normal 70-100 [facility] Comment on above: Order Comment: 2. Ri ght SC Joint Tissue Performed By: #### 3 3 #### [facility] [address] [place] [address], [facility] Potassium [Moles/Vol] 4.2 mmol/L Normal 3.5-5.1 [facility] Comment on above: Order Comment: 2. Ri ght SC Joint Tissue Performed By: #### 3 3 #### [facility] [address] [place] [address], [facility] Protein [Mass/Vol] 6.3 g/dL Normal 6.0-8.3 [facility] Comment on above: Order Comment: 2. Ri ght SC Joint Tissue Performed By: #### 3 0323 #### [facility] [address] [place] [address], [facility] Sodium [Moles/Vol] 131 mmol/L Low 136-145 [facility] Comment on above: Order Comment: 2. Ri ght SC Joint Tissue Performed By: #### 3 0323 #### [facility] [address] [place] [address], [facility] Urea nitrogen [Mass/Vol] 13 mg/dL Normal 7-25 [facility] Comment on above: Order Comment: 2. Ri ght SC Joint Tissue Performed By: #### 3 0323 #### [facility] [address] [place] [address], [facility] VANCOMYCIN TROUGHon 10-20-20 21 VANCOMYCIN TROU 18.1 mcg/mL Normal 5.0-20.0 [facility] Comment on above: Order Comment: Nurse draw Performed By: #### 0 2024 ####[facility] *ANAEROBIC CULTUREon 021 *ANAEROBIC CULTURE Clinical Report: (D) Specimen/Source: TISSUE/INTRAOP SPEC Collected: 02/02/2021 09:30 Status: Final Last Updated: 02/07/2021 12:12 (1) #1 R. STERNOCLAVICULAR JOINT ISO (Final) No Anaerobes Isolated 5 Days Normal [facility] Comment on above: Order Comment: #1 R. STERNOCLAVICULAR JOINT Performed By: #### 8 [id number] #### [facility] [address] *TISSUE CULTUREon 02-02-2021 *TISSUE CULTURE Clinical [...] Susceptible VANCOMYCIN (VA) 1 Susceptible Normal [facility] Comment on above: Order Comment: #1 R. STERNOCLAVICULAR JOINT Performed By: #### 8 [id number] #### [facility] [address] POC SARS COV2 ANTIGEN NEGATI VEon 02-02-2021 POC SARS COV2 ANTIGEN NEG Negative Normal NEGATIVE [facility] Comment on above: Result Comment: Nega tive [...] signs and symptoms consistent with COVID-19. The [employer] COVID-19 Ag Card is a lateral flow [...] Accreditation. Performed By: #### 3 1792 #### [facility] [address] *ANAEROBIC CULTUREon 021 *ANAEROBIC CULTURE Clinical Report: (D) Specimen/Source: FLUID/OTHER Collected: 02/01/2021 17:47 Status: Final Last Updated: 02/07/2021 11:58 (1) R SC joint No: Do not add to previous draw CULT RES (Final) No Anaerobes Isolated 5 Days Normal [facility] Comment on above: Order Comment: 2. Ri ght SC Joint Tissue Performed By: #### 3 0323 #### [facility] [address] *BODY FLUID CULTUREon 2020 *BODY FLUID CULTURE Clinical Report: (D) Specimen/Source: FLUID/OTHER Collected: 02/01/2021 17:47 Status: Final Last Updated: 02/07/2021 09:37 (1) No: Do not add to previous draw GRAM (Final) Few Polys No Bacteria Seen CULT RES (Final) No Growth Day 5 Normal [facility] Comment on above: Order Comment: The A ptima SARS-CoV-2 assay is a nucleic acid amplification test intended for the qualitative detection of RNA from SARS-CoV-2 isolated and purified from nasopharyngeal (DRIVER LICENSE EXAMINER),oropharyngeal (OP), nasal swab, sputum, and bronchoalveolar lavage (BAL) specimens from patients with signs and symptoms of infection who are suspected of COVID-19. Results are for the identification of SARS-CoV-2 RNA. The SARS-CoV-2 RNA is generally detectable during the acute phase of infection. The Aptima SARS-CoV-2 Assay on the [facility] [employer] system is intended for use by laboratory personnel specifically instructed and trained in the operation of the [facility] and [facility] system. The Aptima SARS-CoV-2 assay is [...] information. Performed By: #### 3 [id number] #### [address] *FUNGAL CULTUREon 02-01-2021 *FUNGAL CULTURE Clinical Report: (D) Specimen: MISC Collected: 02/01/2021 17:47 Status: Final Last Updated: 03/05/2021 10:04 (1) R NC joint No: Do not add to previous draw FS (Final) No Yeast or Fungal Elements Seen CULT RES (Final) Culture negative for fungus Normal [facility] Comment on above: Order Comment: The A ptima SARS-CoV-2 assay is a nucleic acid amplification test intended for the qualitative detection of RNA from SARS-CoV-2 isolated and purified from nasopharyngeal (DRIVER LICENSE EXAMINER),oropharyngeal (OP), nasal swab, sputum, and bronchoalveolar lavage (BAL) specimens from patients with signs and symptoms of infection who are suspected of COVID-19. Results are for the identification of SARS-CoV-2 RNA. The SARS-CoV-2 RNA is generally detectable during the acute phase of infection. The Aptima SARS-CoV-2 Assay on the [facility] system is intended for use by laboratory personnel specifically instructed and trained in the operation of the [facility] and [employer] system. The Aptima SARS-CoV-2 assay is [...] information. Performed By: #### 3 [id number] #### [facility] [address] [facility] [place] [place] [address], [facility] BASIC METABOLIC PANELon - Calcium [Mass/Vol] 8.8 mg/dL Normal 8.6-10.3 [facility] Comment on above: Order Comment: No: D o not add to previous drawNurse draw per rn Performed By: #### 0 0071 ####[facility]3000 [facility] [place] [place] [address], [facility] Chloride [Moles/Vol] 96 mmol/L Low 98-107 [facility] Comment on above: Order Comment: No: D o not add to previous drawNurse draw per rn Performed By: #### 0 0071 ####[facility] [facility] [place] [place] [address], [facility] CO2 [Moles/Vol] 29 mmol/L Normal 21-31 [facility] Comment on above: Order Comment: No: D o not add to previous drawNurse draw per rn Performed By: #### 0 0071 ####[facility] [facility] [place] [place] [address], [facility] Creatinine [Mass/Vol] 0.70 mg/dL Normal 0.70-1.30 [facility] Comment on above: Order Comment: No: D o not add to previous drawNurse draw per rn Performed By: #### 0 0071 ####[facility] [facility] [place] [address], [facility] GFR/1.73 sq M.predicted among blacks MDRD (S/P/Bld) [Vol rate/Area] mL/min/{1.73_m2} Normal >60 [facility] Comment on above: Order Comment: No: D o not add to previous drawNurse draw per rn Performed By: #### 0 0071 ####[facility] [place] [address], [facility] GFR/1.73 sq M.predicted among non-blacks MDRD (S/P/Bld) [Vol rate/Area] mL/min/{1.73_m2} Normal >60 [facility] Comment on above: Order Comment: No: D o not add to previous drawNurse draw per rn Performed By: #### 0 0071 ####[facility] [place] [address], [facility] Glucose [Mass/Vol] 86 mg/dL Normal 70-100 [facility] Comment on above: Order Comment: No: D o not add to previous drawNurse draw per rn Performed By: #### 0 0071 ####[facility] [place] [address], [place] Potassium [Moles/Vol] 3.9 mmol/L Normal 3.5-5.1 [facility] Comment on above: Order Comment: No: D o not add to previous drawNurse draw per rn Performed By: #### 0 0071 ####[facility] [place] [address], [place] Sodium [Moles/Vol] 131 mmol/L Low 136-145 [facility] Comment on above: Order Comment: No: D o not add to previous drawNurse draw per rn Performed By: #### 0 0071 ####[facility] [place] [address], [place] Urea nitrogen [Mass/Vol] 11 mg/dL Normal 7-25 [facility] Comment on above: Order Comment: No: D o not add to previous drawNurse draw per rn Performed By: #### 0 0071 ####[facility] CHEST WO CONTRASTon 02-01 CT CHEST WO CONTRAST [facility] Department of Radiology [address] [place] [id number] Patient Name: GEMMA RODGERS : 1960 Sex: M Age: Race: White Pt. Location: [id number] Patient Status: I Ordered Date: 02/01/2021 5:45:00 [...] described. Electronically signed: Tasha Navas. Transcribed by: [email or web address], User Resident: Electronically Signed by: TASHA NAVAS @ 02/01/2021 06:39 PM Normal [facility] Comment on above: Order Comment: looki ng for mass, hx of osteomyelitis, STAT order FLUID CELL COUNTon 1 Lymphocytes/100 WBC (Bld) 1 % Normal [facility] Comment on above: Order Comment: 5. Ri ght Manubrium Performed By: #### 3 0312 #### [facility] [address] [facility]. [address] OTHER F1 Diff done by cytospin Normal [facility] Comment on above: Order Comment: 5. Ri ght Manubrium Performed By: #### 3 0312 #### [facility] [address] OTHER F2 . Normal [facility] Comment on above: Order Comment: 5. Ri ght Manubrium Result Comment: Resu lt changed by [email or web address] on 02/03/2021 12:32. The previous value was Preliminary report; verified report to follow. Performed By: #### 3 0312 #### [facility] [address] OTHER F3 Checked by Cristal Owen M.D. Normal [facility] Comment on above: Order Comment: 5. Ri ght Manubrium Performed By: #### 3 0312 #### [facility] [address] [place] [address], [facility] RBC [id number] RBC/uL Normal [facility] Comment on above: Order Comment: 5. Ri ght Manubrium Performed By: #### 3 0312 #### [facility] [address] [place] [address], [facility] SEGS 99 Normal [facility] Comment on above: Order Comment: 5. Ri ght Manubrium Performed By: #### 3 0312 #### [facility] [address] [place] [address], [facility] SOURCE SYNOVIAL FLUID Normal [facility] Comment on above: Order Comment: 5. Ri ght Manubrium Performed By: #### 3 0312 #### [facility] [address] TOTAL VOLUME 10 mL Normal [facility] Comment on above: Order Comment: 5. Ri ght Manubrium Performed By: #### 3 0312 #### [facility] 3000 [facility] [address] WBC 5367 WBC/uL Normal [facility] Comment on above: Order Comment: 5. Ri ght Manubrium Result Comment: Some reference interval(s) and other method performance specifications have not been established for analytes on this body fluid. The test result must be integrated into the clinical context for interpretation. Performed By: #### 3 2 #### [facility] [address] [place] [address], [facility] VANCOMYCIN TROUGHon 17-20 21 VANCOMYCIN TROU 9.5 mcg/mL Normal 5.0-20.0 [facility] Comment on above: Order Comment: Pt wi ll be a nurse draw per rnMonica Performed By: #### 0 2024 ####[facility] BASIC METABOLIC PANELon 10-1 Calcium [Mass/Vol] 9.1 mg/dL Normal 8.6-10.3 [facility] Comment on above: Order Comment: No: D o not add to previous draw Performed By: #### 0 0071 ####[facility] [place] [address], [facility] Chloride [Moles/Vol] 96 mmol/L Low 98-107 [facility] Comment on above: Order Comment: No: D o not add to previous draw Performed By: #### 0 0071 ####[facility] [place] [address], [place] CO2 [Moles/Vol] 27 mmol/L Normal 21-31 [facility] Comment on above: Order Comment: No: D o not add to previous draw Performed By: #### 0 0071 ####[facility] [place] [address], [facility] Creatinine [Mass/Vol] 1.00 mg/dL Normal 0.70-1.30 [facility] Comment on above: Order Comment: No: D o not add to previous draw Performed By: #### 0 0071 ####[facility] [id number], [place] GFR/1.73 sq M.predicted among blacks MDRD (S/P/Bld) [Vol rate/Area] mL/min/{1.73_m2} Normal >60 [facility] Comment on above: Order Comment: No: D o not add to previous draw Performed By: #### 0 0071 ####[facility] [place] [address], [place] GFR/1.73 sq M.predicted among non-blacks MDRD (S/P/Bld) [Vol rate/Area] mL/min/{1.73_m2} Normal >60 [facility] Comment on above: Order Comment: No: D o not add to previous draw Performed By: #### 0 0071 ####[facility] [id number], [facility] Glucose [Mass/Vol] 124 mg/dL High 70-100 [facility] Comment on above: Order Comment: No: D o not add to previous draw Performed By: #### 0 0071 ####[facility] [facility] [id number], [facility] Potassium [Moles/Vol] 4.6 mmol/L Normal 3.5-5.1 [facility] Comment on above: Order Comment: No: D o not add to previous draw Performed By: #### 0 0071 ####[facility] [facility] [place] [address], [facility] Sodium [Moles/Vol] 130 mmol/L Low 136-145 [facility] Comment on above: Order Comment: No: D o not add to previous draw Performed By: #### 0 0071 ####[facility] [facility] [place] [address], [facility] Urea nitrogen [Mass/Vol] 18 mg/dL Normal 7-25 [facility] Comment on above: Order Comment: No: D o not add to previous draw Performed By: #### 0 0071 ####[facility] [facility] [place] [address], [facility] CBC W/DIFFon 01-30-2021 ABS IMM GRANS 0.1 10*3/uL Normal 0.0-0.2 [facility] Comment on above: Order Comment: 5. Ri ght Manubrium Performed By: #### 3 0312 #### [facility] [address] [facility] [place] [id number], [facility] ABS NEUTROPHILS 8.5 10*3/uL High 1.6-7.6 [facility] Comment on above: Order Comment: 5. Ri ght Manubrium Performed By: #### 3 0312 #### [facility] [address] [place] [address], [facility] Basophils (Bld) [#/Vol] 0.0 10*3/uL Normal 0.0-0.2 [facility] Comment on above: Order Comment: 5. Ri ght Manubrium Performed By: #### 3 0312 #### [facility] [address] [place] [address], [place] Basophils/100 WBC (Bld) 0.1 % Normal 0.0-1.0 [facility] Comment on above: Order Comment: 5. Ri ght Manubrium Performed By: #### 3 0312 #### [facility] [address] [place] [address], [facility] Eosinophils (Bld) [#/Vol] 0.0 10*3/uL Normal 0.0-0.5 [facility] Comment on above: Order Comment: 5. Ri ght Manubrium Performed By: #### 3 0312 #### [facility] [address] [place] [address], [facility] Eosinophils/100 WBC (Bld) 0.0 % Normal 0.0-6.0 [facility] Comment on above: Order Comment: 5. Ri ght Manubrium Performed By: #### 3 2 #### [facility] [address] [place] [address], [facility] Erythrocyte distribution width (RBC) [Ratio] 14.1 % Normal 11.5-15.0 [facility] Comment on above: Order Comment: 5. Ri ght Manubrium Performed By: #### 3 0312 #### [facility] [address] [place] [address], [facility] Hematocrit (Bld) [Volume fraction] 41.1 % Normal 39.0-50.0 [facility] Comment on above: Order Comment: 5. Ri ght Manubrium Performed By: #### 3 2 #### [facility] [address] [place] [address], [facility] Hemoglobin (Bld) [Mass/Vol] 13.7 g/dL Normal 13.0-17.0 [facility] Comment on above: Order Comment: 5. Ri ght Manubrium Performed By: #### 3 0312 #### [facility] [address] [place] [id number], [facility] IMMATURE GRANS 0.5 % Normal 0.0-1.0 [facility] Comment on above: Order Comment: 5. Ri ght Manubrium Performed By: #### 3 0312 #### [facility] [address] [place] [address], [facility] Lymphocytes (Bld) [#/Vol] 0.9 10*3/uL Low 1.2-4.0 [facility] Comment on above: Order Comment: 5. Ri ght Manubrium Performed By: #### 3 2 #### [facility] [address] [place] [address], [facility] Lymphocytes/100 WBC (Bld) 8.6 % Low 20.0-45.0 [facility] Comment on above: Order Comment: 5. Ri ght Manubrium Performed By: #### 3 0312 #### [facility] [address] [place] [id number], [facility] MCH (RBC) [Entitic mass] 32.9 pg Normal 27.0-33.0 [facility] Comment on above: Order Comment: 5. Ri ght Manubrium Performed By: #### 3 0312 #### [facility] [address] [place] [address], [facility] MCHC (RBC) [Mass/Vol] 33.3 g/dL Normal 32.0-35.0 [facility] Comment on above: Order Comment: 5. Ri ght Manubrium Performed By: #### 3 0312 #### [facility] [address] [place] [id number], [facility] MCV (RBC) [Entitic vol] 98.8 fL High 82.0-98.0 [facility] Comment on above: Order Comment: 5. Ri ght Manubrium Performed By: #### 3 0312 #### [facility] [address] [place] [address], [facility] Monocytes (Bld) [#/Vol] 0.7 10*3/uL Normal 0.1-1.0 [facility] Comment on above: Order Comment: 5. Ri ght Manubrium Performed By: #### 3 0312 #### [facility] [address] [place] [address], [facility] MONOS 6.7 % Normal 5.0-12.0 [facility] Comment on above: Order Comment: 5. Ri ght Manubrium Performed By: #### 3 0312 #### [facility] [address] [facility] [place] [place] [address], [facility] Neutrophils/100 WBC (Bld) 84.1 % High 40.0-72.0 [facility] Comment on above: Order Comment: 5. Ri ght Manubrium Performed By: #### 3 0312 #### [facility] [address] [facility] [place] [address], [facility] Nucleated RBC/100 WBC (Bld) [Ratio] 0 % Normal 0-0 [facility] Comment on above: Order Comment: 5. Ri ght Manubrium Performed By: #### 3 0312 #### [facility] [address] [place] [address], [facility] PLAT CNT 241 10*3/uL Normal 150-400 [facility] Comment on above: Order Comment: 5. Ri ght Manubrium Performed By: #### 3 0312 #### [facility] [address] [place] [id number], [facility] RBC (Bld) [#/Vol] 4.16 10*6/uL Low 4.20-5.70 [facility] Comment on above: Order Comment: 5. Ri ght Manubrium Performed By: #### 3 0312 #### [facility] [address] WBC (Bld) [#/Vol] 10.08 10*3/uL Normal 4.00-10.60 [facility] Comment on above: Order Comment: 5. Ri ght Manubrium Performed By: #### 3 0312 #### [facility] [address] Operative Reporton Operative Report MR#: [id number] I [facility] Pt. Name: Gemma Rodgers Room #: [id number] Discharge Date: Birthdate: 1960 OPERATIVE REPORT DATE [...] agreed that the patient would come to [facility] for the procedure with Dr. Brunner, and [...] P/Shemar Pulido MD Date Trans: 01/30/2021 12:25 Armando/kimberley [id number] cc: Vish Deluca M.D. [address] [place] [address] *ANAEROBIC CULTUREon 10-15-2 021 *ANAEROBIC CULTURE Clinical Report: (D) Specimen/Source: TISSUE/INTRAOP SPEC Collected: 01/29/2021 11:13 Status: Final Last Updated: 02/03/2021 14:12 (1) 5. Right Manubrium ISO (Final) No Anaerobes Isolated 5 Days Normal The [facility] Comment on above: Order Comment: 5. Ri ght Manubrium Performed By: #### 3 0312 #### [facility] [address] [place] [address], [facility] *ANAEROBIC CULTURE Clinical Report: (D) Specimen/Source: TISSUE/INTRAOP SPEC Collected: 01/29/2021 11:11 Status: Final Last Updated: 02/03/2021 14:15 (1) 4. Right Posterior Capsule ISO (Final) No Anaerobes Isolated 5 Days Normal The [facility] Comment on above: Order Comment: 4. Ri ght Posterior Capsule Performed By: #### 3 0312 #### [facility] [address] [place] [address], [facility] *ANAEROBIC CULTURE Clinical Report: (D) Specimen/Source: TISSUE/INTRAOP SPEC Collected: 01/29/2021 11:04 Status: Final Last Updated: 02/03/2021 14:15 (1) 3. Right Proximal Clavicle Bone ISO (Final) No Anaerobes Isolated 5 Days Normal The [facility] Comment on above: Order Comment: The A ptima SARS-CoV-2 assay is a nucleic acid amplification test intended for the qualitative detection of RNA from SARS-CoV-2 isolated and purified from nasopharyngeal (DRIVER LICENSE EXAMINER),oropharyngeal (OP), nasal swab, sputum, and bronchoalveolar lavage (BAL) specimens from patients with signs and symptoms of infection who are suspected of COVID-19. Results are for the identification of SARS-CoV-2 RNA. The SARS-CoV-2 RNA is generally detectable during the acute phase of infection. The Aptima SARS-CoV-2 Assay on the [employer] system is intended for use by laboratory personnel specifically instructed and trained in the operation of the [employer] system. The Aptima SARS-CoV-2 assay is [...] information. Performed By: #### 3 1792 #### [facility] [address] [facility]. [address] *ANAEROBIC CULTURE Clinical Report: (D) Specimen/Source: TISSUE/INTRAOP SPEC Collected: 01/29/2021 11:03 Status: Final Last Updated: 02/03/2021 14:15 (1) 2. Right SC Joint Tissue ISO (Final) No Anaerobes Isolated 5 Days Normal The [facility] Comment on above: Order Comment: 2. Ri ght SC Joint Tissue Performed By: #### 8 [id number] #### [facility] [address] [facility] [address] *ANAEROBIC CULTURE Clinical Report: (D) Specimen/Source: FLUID/INTRAOP SPEC Collected: 01/29/2021 11:01 Status: Final Last Updated: 02/03/2021 14:15 (1) 1.Right SC Joint Fluid ISO (Final) No Anaerobes Isolated 5 Days Normal The [facility] Comment on above: Order Comment: The A ptima SARS-CoV-2 assay is a nucleic acid amplification test intended for the qualitative detection of RNA from SARS-CoV-2 isolated and purified from nasopharyngeal (DRIVER LICENSE EXAMINER),oropharyngeal (OP), nasal swab, sputum, and bronchoalveolar lavage (BAL) specimens from patients with signs and symptoms of infection who are suspected of COVID-19. Results are for the identification of SARS-CoV-2 RNA. The SARS-CoV-2 RNA is generally detectable during the acute phase of infection. The Aptima SARS-CoV-2 Assay on the [facility] [facility] and [employer] system is intended for use by laboratory personnel specifically instructed and trained in the operation of the [employer] system. The Aptima SARS-CoV-2 assay is [...] information. Performed By: #### 3 1792 #### [facility] [address] *BODY FLUID CULTUREon 2020 *BODY FLUID [...] Susceptible VANCOMYCIN (VA) 1 Susceptible Normal The [facility] Comment on above: Order Comment: 1.Rig ht SC Joint Fluid Performed By: #### 8 [id number] #### [facility] [address] *FUNGAL CULTUREon 01-29-2021 *FUNGAL CULTURE Clinical Report: (D) Specimen/Source: TISSUE/INTRAOP SPEC Collected: 01/29/2021 11:13 Status: Final Last Updated: 03/01/2021 14:56 (1) 5. Right Manubrium FS (Final) No Yeast or Fungal Elements Seen CULT RES (Final) Culture negative for fungus Normal [facility] Comment on above: Order Comment: 5. Ri ght Manubrium Performed By: #### 8 [id number] #### [facility] [address] [place] [address], [place] *FUNGAL CULTURE Clinical Report: (D) Specimen/Source: TISSUE/INTRAOP SPEC Collected: 01/29/2021 11:11 Status: Final Last Updated: 03/01/2021 14:56 (1) 4. Right Posterior Capsule FS (Final) No Yeast or Fungal Elements Seen CULT RES (Final) Culture negative for fungus Normal The [facility] Comment on above: Order Comment: 4. Ri ght Posterior Capsule Performed By: #### 3 [id number] #### [facility] [address] [place] [address], [facility] *FUNGAL CULTURE Clinical Report: (D) Specimen/Source: TISSUE/INTRAOP SPEC Collected: 01/29/2021 11:04 Status: Final Last Updated: 03/01/2021 14:56 (1) 3. Right Proximal Clavicle Bone FS (Final) No Yeast or Fungal Elements Seen CULT RES (Final) Culture negative for fungus Normal The [facility] Comment on above: Order Comment: 3. Ri ght Proximal Clavicle Bone Performed By: #### 8 [id number] #### [facility] [address] [place] [address], [facility] *FUNGAL CULTURE Clinical Report: (D) Specimen/Source: TISSUE/INTRAOP SPEC Collected: 01/29/2021 11:03 Status: Final Last Updated: 03/01/2021 14:56 (1) 2. Right SC Joint Tissue FS (Final) No Yeast or Fungal Elements Seen CULT RES (Final) Culture negative for fungus Normal The [facility] Comment on above: Order Comment: 2. Ri ght SC Joint Tissue Performed By: #### 3 [id number] #### [facility] [address] [place] [address], [facility] *FUNGAL CULTURE Clinical Report: (D) Specimen/Source: FLUID/INTRAOP SPEC Collected: 01/29/2021 11:01 Status: Final Last Updated: 03/01/2021 14:56 (1) 1.Right SC Joint Fluid FS (Final) No Yeast or Fungal Elements Seen CULT RES (Final) Culture negative for fungus Normal [facility] Comment on above: Order Comment: 2. Ri ght SC Joint Tissue Performed By: #### 3 [id number] #### [facility] 3000 [facility] [address] *TISSUE CULTUREon 01-29-2021 *TISSUE CULTURE Clinical [...] RN (6AB) 11:45 a.m. 01/30/21 Normal [facility] Comment on above: Order Comment: 2. Ri t SC Joint Tissue Performed By: #### 3 [id number] #### [facility] [address] *TISSUE CULTURE Clinical Report: (D) Specimen/Source: TISSUE/INTRAOP SPEC Collected: 01/29/2021 11:11 Status: Final Last Updated: 01/31/2021 08:18 (1) 4. Right Posterior Capsule GRAM (Final) Rare Polys No Bacteria Seen CULT RES (Final) No Growth Day 1 ISO (Final) Methicillin Resistant Staphylococcus aureus (MRSA) Rare Growth For Susceptibility Results Please Refer to Normal [facility] Comment on above: Order Comment: The A ptima SARS-CoV-2 assay is a nucleic acid amplification test intended for the qualitative detection of RNA from SARS-CoV-2 isolated and purified from nasopharyngeal (DRIVER LICENSE EXAMINER),oropharyngeal (OP), nasal swab, sputum, and bronchoalveolar lavage (BAL) specimens from patients with signs and symptoms of infection who are suspected of COVID-19. Results are for the identification of SARS-CoV-2 RNA. The SARS-CoV-2 RNA is generally detectable during the acute phase of infection. The Aptima SARS-CoV-2 Assay on the Onset and Onset Fusion system is intended for use by laboratory personnel specifically instructed and trained in the operation of the Onset and Onset Fusion system. The Aptima SARS-CoV-2 assay is [...] information. Performed By: #### 3 [id number] #### [facility] [address] *TISSUE CULTURE Clinical Report: (D) Specimen/Source: [...] RN (6AB) 11:45 a.m. 01/30/21 Normal [facility] Comment on above: Order Comment: 3. Ri ght Proximal Clavicle Bone Performed By: #### 8 [id number] #### [facility] [address] *TISSUE CULTURE Clinical Report: (D) Specimen/Source: [...] RN (6AB) 11:45 a.m. 01/30/21 Normal [facility] Comment on above: Order Comment: 4. Ri ght Posterior Capsule Performed By: #### 3 [id number] #### [address] POC GLUCOSE LABon 01-29-2021 Glucose [Mass/Vol] 97 mg/dL Normal 70-100 The [facility] Comment on above: Performed By: #### 8 [id number] #### [address] PORTABLE CHEST 1 VIEWon 01-15 PORTABLE CHEST 1 VIEW [facility] Department of Radiology [address] [place] [id number] Patient Name: GEMMA RODGERS : 1960 [...] appropriate Electronically signed: Seng Duarte. Transcribed by: [email or web address], User Resident: Electronically Signed by: SENG DUARTE @ 01/29/2021 12:32 PM Normal The [facility] Comment on above: Order Comment: looki ng for mass, hx of osteomyelitis, STAT order *MRSA/MSSA DNA NASALon 01-27 *MRSA/MSSA DNA NASAL Clinical Report: (D ) Specimen: NASAL SWAB Collected: 01/27/2021 14:59 Status: Final Last Updated: 01/27/2021 19:06 MSSA DNA (Final) Negative MRSA DNA (Final) Negative Normal [facility] Comment on above: Performed By: #### 8 [id number] #### [place] [address], [facility] *SARS-CoV-2 COVID-19on 01-27 SARS-CoV-2 (COVID-19) RNA MACY+probe Ql (Unsp spec) Not detected Normal Not Detected The [facility] Comment on above: Order Comment: The A ptima SARS-CoV-2 assay is a nucleic acid amplification test intended for the qualitative detection of RNA from SARS-CoV-2 isolated and purified from nasopharyngeal (DRIVER LICENSE EXAMINER),oropharyngeal (OP), nasal swab, sputum, and bronchoalveolar lavage (BAL) specimens from patients with signs and symptoms of infection who are suspected of COVID-19. Results are for the identification of SARS-CoV-2 RNA. The SARS-CoV-2 RNA is generally detectable during the acute phase of infection. The Aptima SARS-CoV-2 Assay on the Onset and Onset Fusion system is intended for use by laboratory personnel specifically instructed and trained in the operation of the Onset and Onset Fusion system. The Aptima SARS-CoV-2 assay is [...] information. Performed By: #### 3 [id number] #### [facility] [address] APTTon 01-27-2021 aPTT Coag (Bld) [Time] 31.6 s Normal 25.0-35.0 Th e [facility] Comment on above: Result Comment: ALL RESULTS [...] PURPOSE. Performed By: #### 3 0323 #### [facility] [address] BASIC METABOLIC PANELon - Calcium [Mass/Vol] 9.3 mg/dL Normal 8.6-10.3 [facility] Comment on above: Performed By: #### 0 0071 ####[facility] Chloride [Moles/Vol] 97 mmol/L Low 98-107 [facility] Comment on above: Performed By: #### 0 0071 ####[facility] [place] [address], [facility] CO2 [Moles/Vol] 28 mmol/L Normal 21-31 [facility] Comment on above: Performed By: #### 0 0071 ####[facility] [facility] [place] [place] [address], [facility] Creatinine [Mass/Vol] 0.95 mg/dL Normal 0.70-1.30 The [facility] Comment on above: Performed By: #### 0 0071 ####[place] [id number] [facility] [place] [address], [facility] GFR/1.73 sq M.predicted among blacks MDRD (S/P/Bld) [Vol rate/Area] mL/min/{1.73_m2} Normal >60 The [facility] Comment on above: Performed By: #### 0 0071 ####[facility] [facility] [place] [address], [facility] GFR/1.73 sq M.predicted among non-blacks MDRD (S/P/Bld) [Vol rate/Area] mL/min/{1.73_m2} Normal >60 The [facility] Comment on above: Performed By: #### 0 0071 ####[facility] [facility] [place] [place] [address], [facility] Glucose [Mass/Vol] 83 mg/dL Normal 70-100 The [facility] Comment on above: Performed By: #### 0 0071 ####[facility] [facility] [place] [address], [facility] Potassium [Moles/Vol] 4.1 mmol/L Normal 3.5-5.1 [facility] Comment on above: Performed By: #### 0 0071 ####[facility] Sodium [Moles/Vol] 135 mmol/L Low 136-145 [facility] Comment on above: Performed By: #### 0 0071 ####[facility] Urea nitrogen [Mass/Vol] 11 mg/dL Normal 7-25 [facility] Comment on above: Performed By: #### 0 0071 ####[facility] CBC W/DIFFon 01-27-2021 ABS IMM GRANS 0.0 10*3/uL Normal 0.0-0.2 [facility] Comment on above: Performed By: #### 6 1405 #### [facility] [address] ABS NEUTROPHILS 4.7 10*3/uL Normal 1.6-7.6 [facility] Comment on above: Performed By: #### 6 1405 #### [facility] [address] [place] [address], [facility] Basophils (Bld) [#/Vol] 0.0 10*3/uL Normal 0.0-0.2 The [facility] Comment on above: Performed By: #### 6 1405 #### [facility] [address] Basophils/100 WBC (Bld) 0.6 % Normal 0.0-1.0 The [facility] Comment on above: Performed By: #### 6 1405 #### [facility] [address] [place] [address], [facility] Eosinophils (Bld) [#/Vol] 0.1 10*3/uL Normal 0.0-0.5 The [facility] Comment on above: Performed By: #### 6 1405 #### [facility] [address] [place] [address], [facility] Eosinophils/100 WBC (Bld) 1.6 % Normal 0.0-6.0 The [facility] Comment on above: Performed By: #### 6 1405 #### [facility] 3000 [facility] [address] Erythrocyte distribution width (RBC) [Ratio] 14.5 % Normal 11.5-15.0 The [facility] Comment on above: Performed By: #### 6 1405 #### [facility] [address] [facility] [address] Hematocrit (Bld) [Volume fraction] 42.6 % Normal 39.0-50.0 [facility] Comment on above: Performed By: #### 6 1405 #### [facility] 3000 [facility] [address] Hemoglobin (Bld) [Mass/Vol] 14.8 g/dL Normal 13.0-17.0 [facility] Comment on above: Performed By: #### 6 1405 #### [facility] 3000 [facility] [address] IMMATURE GRANS 0.4 % Normal 0.0-1.0 The [facility] Comment on above: Performed By: #### 6 1405 #### [facility] 3000 [facility] [address] Lymphocytes (Bld) [#/Vol] 1.5 10*3/uL Normal 1.2-4.0 [facility] Comment on above: Performed By: #### 6 1405 #### [facility] [address] [facility] [place] [place] [address], [facility] Lymphocytes/100 WBC (Bld) 21.9 % Normal 20.0-45.0 The [facility] Comment on above: Performed By: #### 6 1405 #### [facility] [address] [place] [address], [facility] MCH (RBC) [Entitic mass] 33.4 pg High 27.0-33.0 The [facility] Comment on above: Performed By: #### 6 1405 #### [facility] [address] [facility] [place] [place] [address], [facility] MCHC (RBC) [Mass/Vol] 34.7 g/dL Normal 32.0-35.0 The [facility] Comment on above: Performed By: #### 6 1405 #### [facility] [address] [facility] [place] [place] [address], [facility] MCV (RBC) [Entitic vol] 96.2 fL Normal 82.0-98.0 The [facility] Comment on above: Performed By: #### 6 1405 #### [facility] [address] [facility] [place] [address], [facility] Monocytes (Bld) [#/Vol] 0.5 10*3/uL Normal 0.1-1.0 The [facility] Comment on above: Performed By: #### 6 1405 #### [facility] [address] [facility] [place] [address], [facility] MONOS 7.0 % Normal 5.0-12.0 The [facility] Comment on above: Performed By: #### 6 1405 #### [facility] [address] [facility] [place] [place] [address], [facility] Neutrophils/100 WBC (Bld) 68.5 % Normal 40.0-72.0 The [facility] Comment on above: Performed By: #### 6 1405 #### [facility] [address] [facility] [place] [place] [address], [facility] Nucleated RBC/100 WBC (Bld) [Ratio] 0 % Normal 0-0 The [facility] Comment on above: Performed By: #### 6 1405 #### [facility] [address] [place] [address], [facility] PLAT CNT 278 10*3/uL Normal 150-400 The [facility] Comment on above: Performed By: #### 6 1405 #### [facility] [address] [place] [address], [facility] RBC (Bld) [#/Vol] 4.43 10*6/uL Normal 4.20-5.70 The [facility] Comment on above: Performed By: #### 6 1405 #### [facility] [address] [place] [address], [facility] WBC (Bld) [#/Vol] 6.88 10*3/uL Normal 4.00-10.60 The [facility] Comment on above: Performed By: #### 6 1405 #### [facility] [address] [facility]. [address] PROTHROMBIN TIMEon 1 INR Coag (PPP) [Relative time] 1.01 {INR} Normal 0.91-1.16 The [facility] Comment on above: Result Comment: ACCC P RECOMMENDED INR FOR WARFARIN THERAPY --------- ------- CONDITION INR PROPHYLAXIS OF VENOUS THROMBOSIS 2-3 (HIGH-RISK SURGERY) TREATMENT OF VENOUS THROMBOSIS 2-3 TREATMENT OF PULMONARY EMBOLISM 2-3 PREVENTION OF SYSTEMIC EMBOLISM: 2-3 ACUTE MYOCARDIAL INFARCTION TISSUE HEART VALVES VALVULAR HEART DISEASE ATRIAL FIBRILLATION RECURRENT SYSTEMIC EMBOLISM MECHANICAL HEART VALVE 2.5-3.5 FROM: ORAL ANTICOAGULANTS. MECHANISM OF ACTION, CLINICAL EFFECTIVENESS, AND OPTIMAL THERAPEUTIC RANGE. CHEST 1995;108:231S-246S. Performed By: #### 3 0323 #### [facility] [address] PT Coag (PPP) [Time] 13.3 s Normal 12.3-14.8 [facility] Comment on above: Result Comment: ALL RESULTS MUST BE INTERPRETED WITH RESPECT TO BLOOD DRAWING ARTIFACT OR DILUTION ERROR OF ANTICOAGULANT AT THE TIME OF SAMPLING. Performed By: #### 3 0323 #### [facility] [address] [facility]. [address] *ANAEROBIC CULTUREon 021 *ANAEROBIC CULTURE Clinical Report: (D) Specimen/Source: TISSUE/BIOPSY Collected: 01/22/2021 13:47 Status: Final Last Updated: 01/27/2021 11:40 (1) R. SC JOINT BONE BIOPSY CULT RES (Final) No Anaerobes Isolated 5 Days Normal The [facility] Comment on above: Order Comment: R. SC JOINT BONE BIOPSY Performed By: #### 8 [id number] #### [facility] [address] [facility]. [address] *ANAEROBIC CULTURE Clinical Report: (D) Specimen/Source: FLUID/SYNOVIAL (JOINT) FLUID, EXCEPT SHOULDER Collected: 01/22/2021 13:45 Status: Final Last Updated: 01/27/2021 12:31 (1) R. SC JOINT ASPIRATION ISO (Final) No Anaerobes Isolated Day 5 Normal The [facility] Comment on above: Order Comment: The A ptima SARS-CoV-2 assay is a nucleic acid amplification test intended for the qualitative detection of RNA from SARS-CoV-2 isolated and purified from nasopharyngeal (DRIVER LICENSE EXAMINER),oropharyngeal (OP), nasal swab, sputum, and bronchoalveolar lavage (BAL) specimens from patients with signs and symptoms of infection who are suspected of COVID-19. Results are for the identification of SARS-CoV-2 RNA. The SARS-CoV-2 RNA is generally detectable during the acute phase of infection. The Aptima SARS-CoV-2 Assay on the Onset and Onset Fusion system is intended for use by laboratory personnel specifically instructed and trained in the operation of the Onset and Onset Fusion system. The Aptima SARS-CoV-2 assay is [...] information. Performed By: #### 3 [id number] #### [facility] [address] [place] [address], [facility] *BODY FLUID CULTUREon 2020 [...] ([place]) 1 Susceptible This result added by TIAGO on 01/27/2021 12:19. The previous result was: [...] Susceptible VANCOMYCIN ([place]) 1 Susceptible Normal The [facility] Comment on above: Order Comment: 2. Ri ght SC Joint Tissue Performed By: #### 3 0323 #### [address] *TISSUE CULTUREon 01-22-2021 *TISSUE CULTURE Clinical Report: (D) Specimen/Source: TISSUE/BIOPSY Collected: 01/22/2021 13:47 Status: Final Last Updated: 01/27/2021 08:08 (1) R. SC JOINT BONE BIOPSY GRAM (Final) No Polys Seen No Bacteria Seen CULT RES (Final) No Growth Day 5 Normal The [facility] Comment on above: Order Comment: The A ptima SARS-CoV-2 assay is a nucleic acid amplification test intended for the qualitative detection of RNA from SARS-CoV-2 isolated and purified from nasopharyngeal (DRIVER LICENSE EXAMINER),oropharyngeal (OP), nasal swab, sputum, and bronchoalveolar lavage (BAL) specimens from patients with signs and symptoms of infection who are suspected of COVID-19. Results are for the identification of SARS-CoV-2 RNA. The SARS-CoV-2 RNA is generally detectable during the acute phase of infection. The Aptima SARS-CoV-2 Assay on the [facility] [facility] and Onset Fusion system is intended for use by laboratory personnel specifically instructed and trained in the operation of the Onset and Onset Fusion system. The Aptima SARS-CoV-2 assay is [...] information. Performed By: #### 3 [id number] #### [facility] [address] [facility] [place] [address], [facility] CT BIOPSY BONE DEEPon 2020 CT BIOPSY BONE DEEP [facility] Department of Radiology [address] [place], [place] [id number] Patient Name: GEMMA RODGERS : 1960 Sex: M Age: Race: White Pt. Location: 84 Patient Status: O Ordered Date: 01/19/2021 7:35:00 AM Completed Date: 01/22/2021 12:42 PM Requesting Provider: SERGIO BRUNNER Attending Provider: SERGIO BRUNNER Report Copy To: VISH DELUCA Signs & Symptoms: R22.31 Localized swelling, mass and lump, right upper limb I10 History: [place] Comments: , Biopsy of Right sternoclavicular joint [...] risks are acceptable. Consent was obtained. Timeout: [place] protocol timeout verification performed. MEDICATIONS: 2 mg [...] biopsy of the SC joint. Approved by:Pablito BahenaPltxyhqz32/8/2021 1:12 PM. I, Denisse Toney,have reviewed the image(s) and agree with the findings in this report. Electronically signed: Denisse Toney. Transcribed by: [email or web address], User Resident: PABLITO HUERTA Electronically Signed by: DENISSE TONEY @ 01/22/2021 03:44 PM I personally read this/these film(s) with this resident Normal [facility] Comment on above: Order Comment: looki ng for mass, hx of osteomyelitis, STAT order CREATININE BLOODon 1 Creatinine [Mass/Vol] 0.95 mg/dL Normal 0.70-1.30 The [facility] Comment on above: Performed By: #### 2 5656 ####[facility] [place] [address], [facility] GFR/1.73 sq M.predicted among blacks MDRD (S/P/Bld) [Vol rate/Area] mL/min/{1.73_m2} Normal >60 The [facility] Comment on above: Performed By: #### 2 5656 ####[facility] [place] [address], [facility] GFR/1.73 sq M.predicted among non-blacks MDRD (S/P/Bld) [Vol rate/Area] mL/min/{1.73_m2} Normal >60 The [facility] Comment on above: Performed By: #### 2 5656 ####[facility] CTA CHESTon 01-19-2021 CTA CHEST [facility] Department of Radiology [address] [place] [address] Patient Name: GEMMA RODGERS : 1960 Sex: M Age: Race: White Pt. Location: Patient Status: O Ordered Date: 01/19/2021 7:35:00 AM Completed Date: 01/19/2021 01:33 PM Requesting Provider: SERGIO BRUNNER Attending Provider: SERGIO BRUNNER Report Copy To: VISH DELUCA Signs & Symptoms: R22.31 Localized swelling, mass and lump, right upper limb I10 History: [place] Comments: Exam: CTA CHEST CTA CHEST 01/19/2021 [...] dictation.} Electronically signed: Denisse Toney. Transcribed by: [email or web address], User Resident: Electronically Signed by: DENISSE TONEY @ 01/19/2021 04:17 PM Normal The [facility] NM BONE SCAN TOTAL BODYon NM BONE SCAN TOTAL BODY [facility] Department of Radiology [address] [place] [address] Patient Name: GEMMA RODGERS : 1960 Sex: M Age: Race: White Pt. Location: Patient Status: D Ordered Date: 12/30/2020 1:00:00 PM Completed Date: 01/19/2021 02:48 PM Requesting Provider: SERGIO BRUNNER Attending Provider: SERGIO BRUNNER Report Copy To: VISH DELUCA Signs & Symptoms: R07.89 Other chest pain I10 History: [place] Comments: Sternoclavicular mass Exam: NM BONE SCAN [...] trauma. Electronically signed: Tapan Clarke. Transcribed by: [email or web address], User Resident: Electronically Signed by: TAPAN CLARKE @ 01/21/2021 08:18 AM Normal The [facility] Comment on above: Order Comment: looki ng for mass, hx of osteomyelitis, STAT order US EXTREMITY LIMITEDon 01-18 US EXTREMITY LIMITED [facility] Department of Radiology [address] [place] [id number] Patient Name: GEMMA ROGDERS : 1960 Sex: M Age: Race: White [...] malformation Electronically signed: Olga Blank. Transcribed by: [email or web address], User Resident: Electronically Signed by: OLGA BLANK @ 01/20/2021 10:19 AM Normal The [facility] Comment on above: Order Comment: looki ng for mass, hx of osteomyelitis, STAT order *SARS-CoV-2 COVID-19on 01-14 SARS-CoV-2 (COVID-19) RNA MACY+probe Ql (Unsp spec) Not detected Normal Not Detected The [facility] Comment on above: Order Comment: butchi ng for mass, hx of osteomyelitis, STAT order Performed By: #### 3 1652 ####[facility] C REACTIVE PROTEINon 021 CRP [Mass/Vol] 9.1 mg/L High 0.0-7.0 [facility] Comment on above: Performed By: #### 3 3543 #### [facility] [address] CBC W/DIFFon 01-14-2021 ABS IMM GRANS 0.1 10*3/uL Normal 0.0-0.2 [facility] Comment on above: Performed By: #### 3 0312 #### [facility] 3000 [place] [address], [facility] ABS NEUTROPHILS 6.6 10*3/uL Normal 1.6-7.6 The [facility] Comment on above: Performed By: #### 3 0312 #### [facility] [address] [place] [address], [facility] Basophils (Bld) [#/Vol] 0.1 10*3/uL Normal 0.0-0.2 The [facility] Comment on above: Performed By: #### 3 0312 #### [facility] [address] Basophils/100 WBC (Bld) 1.2 % High 0.0-1.0 The [facility] Comment on above: Performed By: #### 3 0312 #### [facility] [address] [place] [address], [facility] Eosinophils (Bld) [#/Vol] 0.3 10*3/uL Normal 0.0-0.5 The [facility] Comment on above: Performed By: #### 3 0312 #### [facility] [address] [place] [address], [facility] Eosinophils/100 WBC (Bld) 3.4 % Normal 0.0-6.0 The [facility] Comment on above: Performed By: #### 3 0312 #### [facility] [address] Erythrocyte distribution width (RBC) [Ratio] 14.3 % Normal 11.5-15.0 The [facility] Comment on above: Performed By: #### 3 0312 #### [facility] 3000 [facility] Hematocrit (Bld) [Volume fraction] 42.6 % Normal 39.0-50.0 The [facility] Comment on above: Performed By: #### 3 0312 #### [facility] [address] [facility] [address], [facility] Hemoglobin (Bld) [Mass/Vol] 14.8 g/dL Normal 13.0-17.0 The [facility] Comment on above: Performed By: #### 3 0312 #### [facility] [address] [place] [address], [facility] IMMATURE GRANS 0.6 % Normal 0.0-1.0 The [facility] Comment on above: Performed By: #### 3 2 #### [facility] [address] Lymphocytes (Bld) [#/Vol] 1.7 10*3/uL Normal 1.2-4.0 The [facility] Comment on above: Performed By: #### 3 0312 #### [facility] [address] Lymphocytes/100 WBC (Bld) 17.9 % Low 20.0-45.0 The [facility] Comment on above: Performed By: #### 3 0312 #### [facility] [address] [facility] [place] [address], [facility] MCH (RBC) [Entitic mass] 33.3 pg High 27.0-33.0 The [facility] Comment on above: Performed By: #### 3 0312 #### [facility] [address] [place] [address], [facility] MCHC (RBC) [Mass/Vol] 34.7 g/dL Normal 32.0-35.0 The [facility] Comment on above: Performed By: #### 3 0312 #### [facility] [address] [place] [address], [facility] MCV (RBC) [Entitic vol] 95.7 fL Normal 82.0-98.0 The [facility] Comment on above: Performed By: #### 3 0312 #### [facility] [address] [place] [address], [facility] Monocytes (Bld) [#/Vol] 0.7 10*3/uL Normal 0.1-1.0 The [facility] Comment on above: Performed By: #### 3 0312 #### [facility] [address] [facility] [address], [facility] MONOS 7.5 % Normal 5.0-12.0 The [facility] Comment on above: Performed By: #### 3 0312 #### [facility] [address] [facility] [place] [address], [facility] Neutrophils/100 WBC (Bld) 69.4 % Normal 40.0-72.0 The [facility] Comment on above: Performed By: #### 3 0312 #### [facility] [address] [facility] [place] [address], [facility] Nucleated RBC/100 WBC (Bld) [Ratio] 0 % Normal 0-0 The [facility] Comment on above: Performed By: #### 3 0312 #### [facility] [address] [place] [address], [facility] PLAT CNT 304 10*3/uL Normal 150-400 The [facility] Comment on above: Performed By: #### 3 0312 #### [facility] [address] [place] [id number], [facility] RBC (Bld) [#/Vol] 4.45 10*6/uL Normal 4.20-5.70 The [facility] Comment on above: Performed By: #### 3 0312 #### [facility] [address] [place] [address], [facility] WBC (Bld) [#/Vol] 9.51 10*3/uL Normal 4.00-10.60 The [facility] Comment on above: Performed By: #### 3 0312 #### [facility] [address] [place] [address], [facility] SEDIMENTATION RATEon 01-14-2 021 SED RATE 12 mm/hr High 0-10 The [facility] Comment on above: Performed By: #### 3 0312 #### [facility] [address] [place] [address], [facility] ALKALINE PHOSPHon 12-25-2020 ALKALINE PHOSPH 69 IU/L Normal 34-104 The [facility] Comment on above: Performed By: #### 6 1405 #### [facility] [address] [place] [address], [facility] BASIC METABOLIC PANELon 12-16 Calcium [Mass/Vol] 9.0 mg/dL Normal 8.6-10.3 The [facility] Comment on above: Performed By: #### 6 1405 #### [facility] [address] [place] [address], [facility] Chloride [Moles/Vol] 90 mmol/L Low 98-107 The [facility] Comment on above: Performed By: #### 6 1405 #### [facility] [address] [place] [address], [facility] CO2 [Moles/Vol] 26 mmol/L Normal 21-31 The [facility] Comment on above: Performed By: #### 6 1405 #### [facility] [address] [place] [address], [facility] Creatinine [Mass/Vol] 1.02 mg/dL Normal 0.70-1.30 The [facility] Comment on above: Performed By: #### 6 1405 #### [facility] [address] [place] [address], [facility] GFR/1.73 sq M.predicted among blacks MDRD (S/P/Bld) [Vol rate/Area] mL/min/{1.73_m2} Normal >60 The [facility] Comment on above: Performed By: #### 6 1405 #### [facility] [address] [place] [address], [facility] GFR/1.73 sq M.predicted among non-blacks MDRD (S/P/Bld) [Vol rate/Area] mL/min/{1.73_m2} Normal >60 The [facility] Comment on above: Performed By: #### 6 1405 #### [facility] [address] [place] [address], [facility] Glucose [Mass/Vol] 71 mg/dL Normal 70-100 The [facility] Comment on above: Performed By: #### 6 1405 #### [facility] [address] [place] [address], [facility] Potassium [Moles/Vol] 4.1 mmol/L Normal 3.5-5.1 The [facility] Comment on above: Performed By: #### 6 1405 #### [facility] [address] [place] [address], [facility] Sodium [Moles/Vol] 126 mmol/L Low 136-145 The [facility] Comment on above: Performed By: #### 6 1405 #### [facility] [address] [place] [address], [facility] Urea nitrogen [Mass/Vol] 10 mg/dL Normal 7-25 The [facility] Comment on above: Performed By: #### 6 1405 #### [facility] [address] [place] [address], [facility] C REACTIVE PROTEINon 021 CRP [Mass/Vol] 15.6 mg/L High 0.0-7.0 The [facility] Comment on above: Performed By: #### 6 1405 #### [facility] [address] [place], [place] [address] [place] [address] CBC W/DIFFon 09-10-2021 ABS IMM GRANS 0.1 10*3/uL Normal 0.0-0.2 [facility] Comment on above: Performed By: #### 3 0312 #### [facility] [address] [facility] [place] [address], [facility] ABS NEUTROPHILS 6.5 10*3/uL Normal 1.6-7.6 The [facility] Comment on above: Performed By: #### 3 0312 #### [facility] [address] [place] [address], [facility] Basophils (Bld) [#/Vol] 0.1 10*3/uL Normal 0.0-0.2 [facility] Comment on above: Performed By: #### 3 0312 #### [facility] [address] [facility] [place] [address], [facility] Basophils/100 WBC (Bld) 0.6 % Normal 0.0-1.0 [facility] Comment on above: Performed By: #### 3 0312 #### [facility] [address] [place] [address], [facility] Eosinophils (Bld) [#/Vol] 0.2 10*3/uL Normal 0.0-0.5 [facility] Comment on above: Performed By: #### 3 0312 #### [facility] [address] [facility] [place] [place] [address], [facility] Eosinophils/100 WBC (Bld) 2.5 % Normal 0.0-6.0 [facility] Comment on above: Performed By: #### 3 0312 #### [facility] [address] [place] [address], [facility] Erythrocyte distribution width (RBC) [Ratio] 14.0 % Normal 11.5-15.0 [facility] Comment on above: Performed By: #### 3 0312 #### [facility] 3000 [facility] [address] Hematocrit (Bld) [Volume fraction] 42.9 % Normal 39.0-50.0 [facility] Comment on above: Performed By: #### 3 0312 #### [facility] [address] [facility] [place] [place] [address], [facility] Hemoglobin (Bld) [Mass/Vol] 14.3 g/dL Normal 13.0-17.0 [facility] Comment on above: Performed By: #### 3 0312 #### [facility] [address] [facility] [place] [place] [address], [facility] IMMATURE GRANS 1.0 % Normal 0.0-1.0 [facility] Comment on above: Performed By: #### 3 0312 #### [facility] [address] [facility] [address] Lymphocytes (Bld) [#/Vol] 1.5 10*3/uL Normal 1.2-4.0 [facility] Comment on above: Performed By: #### 3 0312 #### [facility] [address] [place] [address], [facility] Lymphocytes/100 WBC (Bld) 17.1 % Low 20.0-45.0 [facility] Comment on above: Performed By: #### 3 0312 #### [facility] [address] [facility] [address] MCH (RBC) [Entitic mass] 32.1 pg Normal 27.0-33.0 [facility] Comment on above: Performed By: #### 3 0312 #### [facility] [address] [place] [address], [facility] MCHC (RBC) [Mass/Vol] 33.3 g/dL Normal 32.0-35.0 [facility] Comment on above: Performed By: #### 3 0312 #### [facility] [address] [facility] [place] [place] [address], [facility] MCV (RBC) [Entitic vol] 96.4 fL Normal 82.0-98.0 [facility] Comment on above: Performed By: #### 3 0312 #### [facility] [address] [facility] [place] [address], [facility] Monocytes (Bld) [#/Vol] 0.5 10*3/uL Normal 0.1-1.0 [facility] Comment on above: Performed By: #### 3 0312 #### [facility] [address] [facility] [place] [address], [facility] MONOS 5.6 % Normal 5.0-12.0 [facility] Comment on above: Performed By: #### 3 0312 #### [facility] [address] [facility] [place] [address], [facility] Neutrophils/100 WBC (Bld) 73.2 % High 40.0-72.0 [facility] Comment on above: Performed By: #### 3 0312 #### [facility] [address] [facility] [place] [address], [facility] Nucleated RBC/100 WBC (Bld) [Ratio] 0 % Normal 0-0 [facility] Comment on above: Performed By: #### 3 0312 #### [facility] [address] [facility] [place] [address], [facility] PLAT CNT 325 10*3/uL Normal 150-400 [facility] Comment on above: Performed By: #### 3 0312 #### [facility] [address] [facility] [address], [facility] RBC (Bld) [#/Vol] 4.45 10*6/uL Normal 4.20-5.70 [facility] Comment on above: Performed By: #### 3 2 #### [facility] [address] [place] [address], [facility] WBC (Bld) [#/Vol] 8.82 10*3/uL Normal 4.00-10.60 [facility] Comment on above: Performed By: #### 3 0312 #### [address] MRI CHEST W WO CONTRASTon MRI CHEST W WO CONTRAST [facility] Department of Radiology [address] [place] [id number] Patient Name: GEMMA RODGERS : 1960 Sex: M Age: Race: White Pt. Location: Patient Status: D Ordered Date: 12/23/2020 11:35:00 AM Completed Date: 12/25/2020 01:40 PM Requesting Provider: SERGIO BRUNNER Attending Provider: Report Copy To: Signs & Symptoms: R07.89 Other chest pain I10 History: Winnie, No FB per Ortho clinic, will fax [...] intact. Electronically signed: Roosevelt Barrientos. Transcribed by: [email or web address], User Resident: Electronically Signed by: ROOSEVELT BARRIENTOS @ 12/26/2020 06:25 PM Normal [facility] Comment on above: Order Comment: jody webb for mass, hx of osteomyelitis, STAT order PTH RELATED PEPTIDE [id number] n 12-25-2020 PTHrP <2.0 Normal 0.0-2.3 [facility] Comment on above: Result Comment: INTE RPRETIVE INFORMATION: Parathyroid Hormone-Related Peptide This test was developed and its performance characteristics determined by [facility]. It has not been cleared or approved by the [place] Food and Drug Administration. This test was performed in a CLIA certified laboratory and is intended for clinical purposes. Performed By: [facility] [address] [place] [id number] Baseball Glove Shaper: Jania Jimenez MD SEDIMENTATION RATEon 021 SED RATE 14 mm/hr High 0-10 [facility] Comment on above: Performed By: #### 3 0312 #### [facility] [address] [facility] [place] [address], [facility] TSH3on 12-25-2020 TSH 3RD GENERATION 82.08 uIU/mL High 0.34-5.60 [facility] Comment on above: Performed By: #### 6 1405 #### [facility] [address] [facility] 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 Is supposed to be leaving for [place] tomorrow. Right calf, knee an steam drier tender to palpation. denies injury. Is currently [...] pulse 1+. Left DP pulse 3+. Right steam drier tender to palpation. Painful to weight-bear to [...] today. Is going on a flight to [place] tomorrow morning and wants an ultrasound of RLE to r/o blood clot, but now having high BP and tachycardia in office. Did have 1 bloody liseth this morning with vodka. Discussed concern for [...] Recent) 3074F Follow-up With When Contact Information PAT LECHUGA, VISH Mclaughlin, [address] [address]- Additional Instructions: Problem List/Past Medical History Ongoing No chronic problems Historical No qualifying data Medications aspirin 81 mg Oral EC Tab, Oral, Daily hydrochlorothiazide-lisinop ril 25 mg-20 mg Tab, Oral, Daily levothyroxine, Daily omeprazole, Oral, Daily Allergies No Known Allergies No Known Medication Allergies Social History Tobacco Never (less than 100 in lifetime) Tobacco Use:. Never Smokeless Tobacco Use:., 08/07/[address] [facility] Comment on above: Result Comment: Elec tronically Signed By: Malia Robledo CNP\.alfredito\Date and Time Signed: 08/07/20 11:20 EDT Coding Summary.on 07-27-2020 Coding Summary. 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 Consent for Treatmenton 06-17 Consent for Treatment [id number]#1.00CD:[address] [facility] Physician Orderon 07-15-2020 Physician Order [id number]#1.00CD:[address] [facility] XR Clavicle Righton 07-16-19 XR Clavicle [...] Royce Lopez MD Transcribed by: ZACHARY Technologist: EUGENE [facility] Coding Summaryon 02-20-2018 Coding Summary CODING DATE: 018 [facility] STATUS: Home PAYOR: [employer] DESCRIPTION [...] Reji Gonzalez Date Saved: 02/20/2018 12:28 pm [facility] Release of Informationon Release of Information [id number] Rad - Other Radiology Report on 01-23-2018 Rad - Other Radiology Report [id number]#1.00[facility] ED Clinical Summaryon 2017 ED Clinical Summary [facility] ? Urgent [address] [place] [address] clinical SummaryPERSON INFORMATIONName: GEMMA MANTILLA Age: 57 Years Sex: MALEDOB: [birth year] MRN: Acct#:Visit Reason: UC - Rib/Trunk Injury; FALL, RIGHT RIB PAIN Arrival: 01/21/18 11:05:00 Discharge: 01/21/18 11:52:00LOS: 000 00:47 Check In: 01/21/18 11:05:00 Checkout: 01/21/18 11:52:00Address:[address] [facility] [address]YNW: VISH DELUCAPROAMINA INFORMATIONProvider Role Assigned UnassCaty Rodriguez ED PA 01/21/18 11:06:40SmitAmy dumont ED Nurse 01/21/18 11:12:53VITALS INFORMATIONVital Sign Triage LatestTemperature TympanicTemperature Temporal ArteryPulse Rate 76 bpm 76 bpmO2 SatRespiratory Rate 16 br/min 16 br/minBlood Pressure 130 mmHg/88 mmHg 130 mmHg/88 mmHgMEDICAL INFORMATIONMedications Given:Medication Dose Routeketorolac 60 mg IMAllergy Information:No Known Medication AllergiesPHYSICIAN DOCUMENTATIONDISCHARGE INFORMATION:Discharge Disposition: HomeDischarge Location: HomePATIENT EDUCATION INFORMATIONInstructions: Rib ContusionFollow-Up:With: Address: When:VISH DELUCA [facility], [address] [place], [place] [id number] Business (1) In 2 days 01/23/18DIAGNOSIS:Rib contusion; Rib fracturePatient Understands: Yes - Patient/family/caregiver verbalizes understanding of instructions givenComment: [facility] ED Note - Physicianon 2017 ED Note - Physician Patient: Dandre MANTILLA : 57 years Sex: MALE : 60Associated Diagnoses: Rib contusion; Rib fractureAuthor: Nabil Robertson InformationAdditional information: Chief Complaint from Nursing Triage Note : Chief Ztioaephx41/07/18 11:10 EDT Chief Complaint right upper rib pain s/p fall from deck last night, denies other injury .History of Present [id number]-rkip-qjq male presents her chief complaint right lateral [...] been selected or recorded..Social history:Social & Psychosocial EkoyblMcodeia87/07/2018 Smoking tobacco use: Former smoker, quit more.Problem list:Active Problems (3)Acid refluxHTN (hypertension)Hypothyroid.P hysical Examination Vital SignsVital Signs01/21/18 11:10 EDT Temperature [...] and oriented to person, place, time, and situation.LymphaticsPsychia tric: Cooperative, appropriate mood & affect.Medical Decision MakingDifferential [...] takes Daypro daily and will take the [place] also. Patient will follow up primary care physician.Impression and PlanDiagnosisRib contusion (BYV09-AT S20.219A, Discharge, Medical)Rib fracture (QBD15-BO S22.39XA, Discharge, Medical)PlanCondition: Stable.Disposition: Discharged: Time 01/21/18 11:39:00, to home.Prescriptions: Launch prescriptionsPharmacy:[place] 5 mg-325 mg oral tablet (Prescribe): 1 tab(s), PO, q6hr (int), for 3 day(s), PRN: for pain, 12 tab(s), 0 Refill(s).Patient was given the following educational materials: Rib Contusion.Follow up with: VISH DELUCA In 2 days 01/23/18.Counseled: Patient, Regarding treatment plan, Regarding prescription, Patient indicated understanding of instructions.[Electronicall y Signed on: 01/21/2018 11:59 EDT] Caty Robertson[Verified on: 01/21/2018 11:59 EDT] Caty Robertson [facility] ED Patient Summaryon 018 ED Patient Summary [facility] ? Urgent [address] [place] [address] pATIENT DISCHARGE INSTRUCTIONSPatient InformationName: GEMMA MANTILLA Age: 57 YearsDate of : [birth year]MRN: [id number] For Visit: UC - Rib/Trunk Injury; FALL, RIGHT RIB PAINArrival Time: 01/21/18 11:05:00Phone: Primary Care Physician: Jose Alfredo DELUCA Physician: Caty RobertsonComment:Patient EducationWith: Address: When:VISH DELUCA [facility], [address] [place], [place] [address] [place], [place] [phone] Business (1) In 2 days 01/23/18Rib ContusionA [...] risk of partial lung collapse and pneumonia. Ydjh-ckz-kqmuclg or prescription medicines may also be recommended [...] Released: 2001 Document Revised: 09/08/2016 Document Reviewed: 01/13/2015[employer] Patient Education ? 2018 [employer]Medication Information:The exam and treatment you received today in the [facility] Emergency Department were for an urgent problem and are not intended as complete care. It is important for you to follow up with a doctor, nurse practitioner, or physician?s senior administrative assistant for ongoing care. If your symptoms [...] number so we can reach you if necessary.[facility] Emergency Department has provided you with a complete list of medications post discharge. Please inform your physician assistant primary care/provider of your visit and for further instruction on these medications. Any specific questions regarding your chronic medications and dosages should be discussed with your primary care physician(s) and/or pharmacist. New MedicationsPrinted Prescriptionsacetaminophen- hydrocodone ([place] 5 mg-325 mg oral tablet) 1 tab(s) [...] Rib fracture (S22.39XA) UC - Rib/Trunk Injury ([id number])If you received any narcotics, sedation, or any [...] Pressure: 88 mmHgProblems List:Problem Onset CommentsAcid refluxHTN (hypertension)HypothyroidMa shiv Tests and Procedures:The following procedures and tests [...] Disease Control and Prevention December 2013 Normal [facility] [place] 018 Urgent Care Record [facility] ? Urgent [id number] [place] [id number] pATIENT DISCHARGE INSTRUCTIONSPatient InformationName: GEMMA MANTILLA Age: 57 YearsDate of : [birth year]MRN: For Visit: UC - Rib/Trunk Injury; FALL, RIGHT RIB PAINArrival Time: 01/21/18 11:05:00[facility] Phys[facility]: Jose Alfredo DELUCA Physician: Caty RobertsonComment:Visit Diagnosis:Diagnoses This Visit Rib contusion (S20.219A) UC - Rib/Trunk Injury ([id number])If you received any narcotics, sedation, or any [...] or sign any legal documentsWith: Address: When:VISH DELUCA [facility], [address] [place], [place] [address] [place], [place] [id number] Business (1) In 2 days 01/23/18Medication Information:The exam and treatment you received today in the [facility] were for an urgent problem and are not intended as complete care. It is important for you to follow up with a doctor, nurse practitioner, or physician?s senior administrative assistant for ongoing care. If your symptoms [...] number so we can reach you if necessary.[facility] has provided you with a complete list of medications post discharge. Please inform your physician assistant primary care/provider of your visit and for further instruction on these medications. Any specific questions regarding your chronic medications and dosages should be discussed with your primary care physician(s) and/or pharmacist. New MedicationsPrinted Prescriptionsacetaminophen- hydrocodone ([place] 5 mg-325 mg oral tablet) 1 tab(s) [...] oral tablet) 2 tab(s) Oral every day.Visit InformationAllergies:Substa nce Reaction Symptoms Type CommentsNo Known Medication Allergies [...] risk of partial lung collapse and pneumonia. Gazk-fbh-tlfawsj or prescription medicines may also be recommended [...] Reviewed: 01/13/2015[employer] Patient Education ? 2018 [employer]. Viruses or BacteriaWhat?s got you sick?Antibiotics only [...] for Disease Control and Prevention December 2013 [facility] XR Ribs w/ PA Chest [place] 01-21-2018 [...] SMALL HEMOTHORAX ABOUT THEFRACTURE SITE.3. NO OBVIOUS PNEUMOTHORAX.Monroe Augustin MDJOB #: [id number]: 01/22/2018T: 01/22/2018 Final Dictated by: Monroe Augustin MD SDictated DT/TM: 01/22/18 6:25Signed (Electronic Signature): Monroe Augustin MD 01/22/18 12:46 pTechnologist: MS [facility] Vital Signs Date Time Vital Sign Value Performing Clinician Facility 07-11-2024 08:13 Body height 172.7 cm Danii Harrington DRIVER LICENSE EXAMINER Work Phone: [facility] 07-11-2024 08:130400 Body mass index (BMI) [Ratio] 34.61 kg/m2 Danii Harrington NP Work Phone: [facility] 07-11-2024 08:13-0400 Body weight 103.24 kg Danii Harrington DRIVER LICENSE EXAMINER Work Phone: [facility] 07-11-2024 08:13-0400 Diastolic blood pressure 82 mm[Hg] Danii Harrington DRIVER LICENSE EXAMINER Work Phone: [facility] 07-11-2024 08:13-0400 Heart rate 84 /min Danii Harrington DRIVER LICENSE EXAMINER Work Phone: [facility] 07-11-2024 08:13-0400 Respiratory rate 17 /min Danii Harrington DRIVER LICENSE EXAMINER Work Phone: [facility] 07-11-2024 08:13-0400 SaO2% (BldA) [Mass fraction] 98 % Danii Harrington DRIVER LICENSE EXAMINER Work Phone: [facility] 07-11-2024 08:13-0400 Systolic blood pressure 138 mm[Hg] Danii Harrington DRIVER LICENSE EXAMINER Work Phone: [facility] 02-21-2024 10:14-0500 Body temperature 97.3 [degF] II Vish Deluca Work Phone: [facility] 02-21-2024 10:14-0500 Diastolic blood pressure 88 mm[Hg] II Vish Deluca Work Phone: [facility] 02-21-2024 10:14-0500 Heart rate 78 /min II Vish Deluca Work Phone: [facility] 02-21-2024 10:14-0500 Systolic blood pressure 144 mm[Hg] II Vish Deluca Work Phone: [facility] 02-05-2024 12:00-0400 Body temperature 97.8 [degF] II Vish Deluca Work Phone: [facility] 02-05-2024 12:00-0400 Diastolic blood pressure 61 mm[Hg] II Vish Deluca Work Phone: [facility] 02-05-2024 12:00-0400 Heart rate 85 /min II Vish Deluca Work Phone: [facility] 02-05-2024 12:00-0400 Respiratory rate 18 /min II Vish Deluca Work Phone: [facility] 02-05-2024 12:00-0400 SaO2% (BldA) [Mass fraction] 96 % II Vish Deluca Work Phone: [facility] 02-05-2024 12:00-0400 Systolic blood pressure 92 mm[Hg] II Vish Deluca Work Phone: [facility] 02-05-2024 04:45-0400 Body weight 96.9 kg II Vish Deluca Work Phone: [facility] 02-04-2024 09:59-0400 Body height 172.72 cm II Vish Deluca Work Phone: [facility] 05-01-2023 14:45-0500 Body height 172.72 cm Mikal Verde Other [facility] Other 05-01-2023 14:45-0500 Body mass index (BMI) [Ratio] 29.65 kg/m2 Mikal Verde Other [facility] Other 05-01-2023 14:45-0500 Body temperature 97.1 [degF] Mikal Verde Other [facility] Other 05-01-2023 14:45-0500 Body weight 88.45 kg Mikal Verde Other [facility] Other 05-01-2023 14:45-0500 Diastolic blood pressure 104 mm[Hg] Mikal Verde Other [facility] Other 05-01-2023 14:45-0500 Systolic blood pressure 170 mm[Hg] Mikal Verde Other [facility] Other 03-20-2023 14:15-0500 Body height 172.72 cm Mikal Verde Other [facility] Other 03-20-2023 14:15-0500 Body mass index (BMI) [Ratio] 31.93 kg/m2 Mikal Verde Other [facility] Other 03-20-2023 14:15-0500 Body temperature 97.5 [degF] Mikal Mehreen Other [facility] Other 03-20-2023 14:15-0500 Body weight 95.26 kg Mikal Verde Other [facility] Other 03-20-2023 14:15-0500 Diastolic blood pressure 93 mm[Hg] Mikal Mehreen Other [facility] Other 03-20-2023 14:15-0500 Systolic blood pressure 155 mm[Hg] Mikal Mehreen Other [facility] Other 02-20-2023 15:00-0500 Body height 172.72 cm Mikal Verde Other [facility] Other 02-20-2023 15:00-0500 Body mass index (BMI) [Ratio] 31.93 kg/m2 Mikal Verde Other [facility] Other 02-20-2023 15:00-0500 Body temperature 98.6 [degF] Mikal Mehreen Other [facility] Other 02-20-2023 15:00-0500 Body weight 95.26 kg Mikal Mehreen Other [facility] Other 02-20-2023 15:00-0500 Diastolic blood pressure 103 mm[Hg] Mikal Verde Other [facility] Other 02-20-2023 15:00-0500 Systolic blood pressure 164 mm[Hg] Mikal Verde Other [facility] Other 07-28-2021 08:04-0400 Body height 175.26 cm II Vish Deluca Work Phone: [facility] 07-28-2021 08:04-0400 Body weight 104.32 kg II Vish Deluca Work Phone: [facility] Encounters Encounter Date Encounter Type Care Provider Facility Start: 07-11-2024 End: 07-11-2024 ambulatory DANII HARRINGTON Not Available Start: 07-11-2024 End: 07-11-2024 Periodic preventive med est patient 40-64yrs Danii Harrington DRIVER LICENSE EXAMINER Work Phone: [facility] Comment on above: Hypercholesterolemia (CMS/HCC) (Primary Dx); Benign essential hypertension (CMS/HCC); Colon cancer screening; Prostate cancer screening; Other chronic osteomyelitis, right ankle and foot (CMS/HCC); Coronary artery disease involving koi coronary artery of koi heart without angina pectoris (CMS/HCC); 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; Gastroesophageal reflux disease with esophagitis without hemorrhage; Acquired hypothyroidism (CMS/HCC) Start: 03-18-2024 End: 03-18-2024 ambulatory [facility] Start: 02-21-2024 End: 02-21-2024 ambulatory II Vish Deluca Work Phone: [facility] Work Phone: Start: 02-21-2024 End: 02-21-2024 Patient encounter procedure II Vish Deluca Work Phone: [facility] Work Phone: Start: 02-15-2024 End: 02-15-2024 ambulatory [facility] Start: 02-04-2024 End: 02-05-2024 Evaluation and management of inpatient II Vish Deluca Work Phone: [facility] [place] [facility] Work Phone: Start: 05-01-2023 End: 05-01-2023 ambulatory Mikal Verde Other [facility] Other Start: 05-01-2023 Office outpatient vi sit 25 minutes Mikal Verde [facility] Start: 03-20-2023 End: 03-20-2023 ambulatory Mikal Verde Other [facility] Other Start: 03-20-2023 Office outpatient vi sit 25 minutes Mikal Mehreen [facility] Start: 02-20-2023 End: 02-20-2023 ambulatory Mikal Verde Other [facility] Other Start: 02-20-2023 Office outpatient vi sit 25 minutes Mikal Mehreen [facility] Start: 02-06-2023 End: 02-06-2023 ambulatory Mikal Verde Other [facility] Other Start: 02-06-2023 Telephone encounter Mikal Verde [facility] Start: 09-20-2022 ambulatory ANASTASIYA FOX Faci lity:H1 Start: 08-31-2022 ambulatory ANASTASIYA FOX Faci lity:[facility]1 Start: 08-11-2022 End: 09-03-2022 ambulatory MR ALEJA PEREZ . Facility:[facility] Start: 07-31-2022 Encounter for prepro cedural laboratory examination ANASTASIYA FOX [facility] Start: 07-28-2022 End: 07-28-2022 ambulatory ANASTASIYA FOX [...] OWUSU Facility:[facility]1 Start: 04-19-2022 End: 04-20-2022 ambulatory TOM OWUSU Facility:[facility] Start: 04-06-2022 End: 04-07-2022 ambulatory ANASTASIYA FOX Facility:[facility] Start: 03-22-2022 End: 03-23-2022 ambulatory TOM OWUSU Facility:[facility] Start: 03-01-2022 End: 03-02-[address] NADIA TINOCO Facility:[facility] Start: 02-07-2022 End: 02-08-[address] DANII DANIEL . Facility:[facility] Start: 02-04-2022 Encounter for prepro cedural cardiovascular examination [facility] Start: 02-04-2022 Encounter for prepro cedural laboratory examination [facility] Start: 02-01-2022 End: 02-02-2022 ambulatory ANASTASIYA FOX Facility:[facility] Start: 02-01-2022 End: 02-02-2022 Encounter for preprocedural cardiovascular examination ANASTASIYA FOX Facility:[facility] Start: 11-10-2021 End: 11-11-2021 ambulatory HERMINIA JHAVERI Facility:[facility] Start: 10-27-2021 ambulatory HERMINIA JHAVERI Facility :[facility]1 Start: 10-19-2021 End: 10-20-2021 ambulatory ANASTASIYA FOX Facility:[facility] Start: 10-14-2021 End: 10-15-2021 ambulatory ANASTASIYA FOX Facility:[facility] Start: 07-28-2021 End: 07-28-2021 Patient encounter procedure II Vish Deluca Work Phone: [facility] Start: 07-21-2021 End: 07-22-2021 ambulatory NASIR PAN Facility:[facility] Start: 07-19-2021 End: 07-19-2021 Patient encounter procedure II Vish Deluca Work Phone: [facility] Start: 07-19-2021 End: 08-12-2021 ambulatory NASIR PAN Facility:[facility] Start: 07-02-2021 End: 07-03-2021 ambulatory NASIR PAN Facility:[facility] Start: 06-11-2021 End: 06-11-2021 Patient encounter procedure II Vish Deluca Work Phone: [facility] Start: 01-29-2021 End: 02-04-2021 Evaluation and management of inpatient SERGIO EBRAHEIM Facility:[facility] Start: 01-18-2021 End: 01-19-2021 ambulatory VISH DELUCA Facility:[facility] Start: 12-25-2020 End: 12-26-2020 ambulatory SERGIO EBRAHEIM Facility:[facility] Start: 01-21-2018 End: 01-21-2018 Patient encounter Caty Donahue Facility:[facility] Procedures Date Procedure Procedure Detail Performing Clinician Start: 02-04-2024 CL Ivus Initial Vessel II Vish Deluca Work Phone: Start: 02-04-2024 CL LHC [facility] COR Angio II D wilbert Deluca Work Phone: Start: 02-04-2024 II Vihs Deluca Work Phone: Start: 07-28-2021 MRI of chest with contrast II Vish Deluca Work Phone: Start: 02-02-2021 EXCISION OF RIGHT CLAVICLE, OPEN APPROACH SERGIO EBRAHEIM Start: 12-25-2020 PSA screening SERGIO EBR AHEIM Comment on above: Performed By: #### 6 [id number] #### [address] Start: 04-07-2014 Colonoscopy Danii Harrington NP Work Phone: Screening for malign ant neoplasm of colon Mikal Verde Other Plan of Treatment Date Care Activity Detail Author Start: 07-11-2024 End: 07-11-2025 CBC panel - Blood by Automated count CBC Lab Routine Benign essential hypertension (CMS/HCC) Expected: 07/11/2024 (Approximate), Expires: 07/11/2025 [facility] Work Phone: Comment on above: Expected: 07/11/2024 (Approximate), Expi res: 07/11/2025 Start: 07-11-2024 End: 01-11-2026 Colonoscopy study Colonoscopy Endoscopy Routine Colon cancer screening Expected: 07/11/2024, Expires: 01/11/2026 [facility] Comment on above: Expected: 07/11/2024, Expires: Start: 07-11-2024 End: 07-11-2025 Comprehensive metabolic 2000 panel - Serum or Plasma Comprehensive metabolic panel Lab Routine Benign essential hypertension (CMS/HCC) Expected: 07/11/2024 (Approximate), Expires: 07/11/2025 [facility] Comment on above: Expected: 07/11/2024 (Approximate), Expi res: 07/11/2025 Start: 07-11-2024 End: 07-11-2025 Lipid 1996 panel - Serum or Plasma Lipid panel Lab Routine Hypercholesterolemia (CMS/HCC) Expected: 07/11/2024 (Approximate), Expires: 07/11/2025 [facility] Comment on above: Expected: 07/11/2024 (Approximate), Expi res: 07/11/2025 Start: 07-11-2024 End: 07-11-2025 Prostate specific Ag [Mass/volume] in Serum or Plasma PSA Lab Routine Prostate cancer screening Expected: 07/11/2024 (Approximate), Expires: 07/11/2025 [facility] Comment on above: Expected: 07/11/2024 (Approximate), Expi res: 07/11/2025 Start: 07-11-2024 End: 07-11-2025 Thyrotropin [Units/volume] in Serum or Plasma TSH Lab Routine Acquired hypothyroidism (CMS/HCC) Expected: 07/11/2024 (Approximate), Expires: 07/11/2025 [facility] Comment on above: Expected: 07/11/2024 (Approximate), Expi res: 07/11/2025 Start: 04-07-2024 Screening for malignant neoplasm of colon [facility] Start: 02-05-2024 [facility] Start: 02-04-2024 Hospital admission [facility] Start: 02-04-2024 Fluoroscopy of Left Heart using Low Osmolar Contrast Fluoroscopy of Left Heart using Low Osmolar Contrast [facility] Start: 02-04-2024 Fluoroscopy of Multiple Coronary Arteries using Low Osmolar Contrast Fluoroscopy of Multiple Coronary Arteries using Low Osmolar Contrast [facility] Start: 02-04-2024 Measurement of Cardiac Sampling and Pressure, Left Heart, Percutaneous Approach Measurement of Cardiac Sampling and Pressure, Left Heart, Percutaneous Approach [facility] Start: 02-04-2024 Referral to cardiac rehabilitation program [facility] Start: 02-04-2024 Sleep disorder assessment [facility] Start: 02-04-2024 Consultation [facility] Start: 12-17-2023 Influenza vaccination Influenza Vaccine (#1) [facility] Start: 1960 Screening for malignant neoplasm of colon [facility] Patient Education Coronary Angio plasty (DC) Coronary Stenting (DC) Angina (DC) Chest Pain (DC) Drug Eluting Stents Know your Meds [facility] Work Phone: Patient referral [facility] Work Phone: SARS-CoV-2 (COVID-19 ) Ab [Interpretation] in Serum or Plasma [facility] Work Phone: Immunizations Immunization Date Immunization Notes Care Provider Fa cilianna 01-22-2021 Moderna SARS-CoV-2 Vaccination Danii Harrington DRIVER LICENSE EXAMINER Work Phone: [facility] Payers Date Payer Category Payer Unknown [id number] 2024 Self-pay [id number] 2024 Unknown [id number] 2018 Self-pay ABC 2018 Unknown [id number] 1960 Unknown [id number] 2.16.84 0.1.289852.3.579.2.718 1960 Unknown [id number] 2.16.8 40.1.870084.3.579.2.647 1960 Unknown [id number] 2.16.8 40.1.364332.3.579.2.647 1960 Unknown [id number] 2.16.8 40.1.731515.3.579.2.647 1960 Unknown [id number] 2.16.8 40.1.377199.3.579.2.647 1960 Unknown [id number] 2.16.8 40.1.280581.3.579.2.647 1960 Unknown [id number] 2.16.8 40.1.709644.3.579.2.647 1960 Unknown [id number] 2.16.84 0.1.514989.3.579.2.593 1960 Unknown [id number] 2.16.84 0.1.424852.3.579.2.593 1960 Unknown [id number] 2.16.84 0.1.636362.3.579.2.593 1960 Unknown [id number] 2.16.84 0.1.636849.3.579.2.593 1960 Unknown [id number] 2.16.84 0.1.081463.3.579.2.593 1960 Unknown [id number] 2.16.84 0.1.012251.3.579.2.593 1960 Unknown [id number] 2.16.84 0.1.598856.3.579.2.593 1960 Unknown [id number] 2.16.84 0.1.976971.3.579.2.593 1960 Unknown [id number] 2.16.84 0.1.391840.3.579.2.593 1960 Unknown [id number] 2.16.84 0.1.660907.3.579.2.593 1960 Unknown [id number] 2.16.84 0.1.386419.3.579.2.593 1960 Unknown [id number] 2.16.84 0.1.876382.3.579.2.593 1960 Unknown [id number] 2.16.84 0.1.419155.3.579.2.593 1960 Unknown [id number] 2.16.84 0.1.006946.3.579.2.593 1960 Unknown [id number] 2.16.84 0.1.225942.3.579.2.593 1960 Unknown [id number] 2.16.84 0.1.332688.3.579.2.593 1960 Unknown [id number] 2.16.84 0.1.413149.3.579.2.593 1960 Unknown [id number] 2.16.84 0.1.071797.3.579.2.593 1960 Unknown [id number] 2.16.84 0.1.480932.3.579.2.593 1960 Unknown [id number] 2.16.84 0.1.214960.3.579.2.593 1960 Unknown [id number] 2.16.84 0.1.533561.3.579.2.593 1960 Unknown [id number] 2.16.84 0.1.160915.3.579.2.593 1960 Unknown [id number] 2.16.84 0.1.882361.3.579.2.593 1960 Unknown [id number] 2.16.84 0.1.391319.3.579.2.593 1960 Unknown [id number] 2.16.8 40.1.151882.3.579.2.1246 1960 Unknown [id number] 2.16. 840.1.641307.3.579.2.1244 1960 Unknown [id number] 2.16.84 0.1.367587.3.579.2.1259 1959 Medicaid [id number] Self-pay [id number] 1959 Unknown [id number] Unknown [id number] Unknown [id number] Unknown [id number] 2.16.8 40.1.444391.3.579.2.531 Social History Date Type Detail Facility Tobacco smoking stat [facility] Unknown if ever smoked [facility] Work Phone: Start: 1960 Sex Assigned At Male F [facility] Start: 07-11-2024 Sex Assigned At N [facility] Other Start: 02-04-2024 End: 02-21-2024 Tobacco smoking status PRIS Never smoked tobacco (finding) [facility] Start: 07-11-2024 [facility] Start: 11-03-1995 End: 11-02-2010 History of tobacco use Current smoker [facility] Start: 11-03-1995 End: 11-02-2010 History of tobacco use Cigarette Smoker [facility] Start: 07-11-2024 Cigarettes smoked current (pack per day) - Reported 0.5 [facility] Start: 07-11-2024 Tobacco use and exposure Smokeless tobacco non-user [facility] Start: 07-11-2024 Alcoholic beverage intake Ex-drinker (finding) [facility] Start: 08-25-2022 Alcohol Comment caffeine: Yes, coffe e [facility] Start: 1960 Sex assigned at Not on file [facility] Goals Date Patient Goal Desired Activity /State Functional Status Date Assessment Result Facility 02-05-2024 Functional status Patient at [facility] Work Phone: Mental Status Date Assessment Result Facility 02-05-2024 Cognitive function Cognitive Sta tus Patient at Baseline [facility] Work Phone: Clinical Notes 02-28-2021 to 07-11-2024 Danii Harrington, DRIVER LICENSE EXAMINER - 07/11/2024 8:00 AM EDTPatient Instructions Note Date & Type Note Facility 07-11-2024 History of Presen t illness Narrative Images from the original note were not included. Subjective Patient ID: Gemma Rodgers is a 63 y.o. male who presents for No chief complaint on file.. Gemma presents today yearly wellness. Patient had a heart cath in Jan 2024. Current Outpatient Medications on File Prior to Visit Medication Sig Dispense Refill aspirin 81 MG EC tablet Take 81 mg by mouth in the morning. atorvastatin (Lipitor) 80 MG tablet Take 80 mg by mouth in the morning. carvedilol (Coreg) 12.5 MG tablet TAKE 1 TABLET BY MOUTH IN THE MORNING AND EVENING WITH MEALS 100 tablet 3 cholecalciferol (Vitamin D-3) 50 MCG (1999 UT) tablet Take 50 mcg by mouth Daily clopidogrel (Plavix) 75 MG tablet Take 75 mg by mouth in the morning. EPINEPHrine (Epipen) 0.3 MG/0.3ML injection syringe 1 injection Subq q 1hr Prn angioedema 1 each 1 isosorbide mononitrate ER (Imdur) 30 MG 24 hr tablet Take 30 mg by mouth in the morning. levothyroxine (Synthroid, Levoxyl) 200 MCG tablet TAKE 1 TABLET BY MOUTH EVERY DAY IN THE MORNING ON EMPTY STOMACH FOR 90 DAYS 14 tablet 0 nitroglycerin (Nitrostat) 0.[address] 0.4 mg under the tongue pantoprazole (Protonix) 40 MG EC tablet Take 1 tablet (40 mg) by mouth in the morning. Take before meals. Do not crush, chew, or split.. 90 tablet 2 No current facility-administered medications on file prior to visit. I have reviewed and reconciled the history and medication list with the patient today. Allergies Allergen Reactions Lisinopril Anaphylaxis Olmesartan Angioedema Social History Tobacco Use Smoking status: Former Current packs/day: 0.00 Average packs/day: 0.5 packs/day for 15.0 years (7.5 ttl pk-yrs) Types: Cigarettes Start date: 11/03/1995 Quit date: 11/02/2010 Years since quittin.6 Smokeless tobacco: Never Substance Use Topics Alcohol use: Not Currently Alcohol/week: 14.0 standard drinks of alcohol Types: 14 Standard drinks or equivalent per week Comment: caffeine: Yes, coffee Drug use: Never Family History Problem Relation Name Age of Onset Hypertension Mother Lung cancer Father Hypertension Father Heart disease Father Past Medical History: Diagnosis Date Angioedema 11/15/2022 Talamantes's esophagus COVID-19 10/19/2021 Elevated TSH 04/03/2021 GERD (gastroesophageal reflux disease) History of being hospitalized 02/04/2024 Non-STEMI Hyperlipidemia (CMS/HCC) Hypertension (CMS/HCC) Hyponatremia 03/20/2021 Hyponatremia 04/03/2021 Hypothyroidism (CMS/HCC) OA (osteoarthritis) Personal history of other medical treatment 02/08/2022 Pain Control s/p Foot Surgery 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 Fox CARDIAC CATHETERIZATION Left 02/04/2024 CT ANGIOGRAM HEART CORONARY 01/19/[address] GUIDED PERCUTANEOUS BIOPSY BONE DEEP 07/21/2021 CT GUIDED PERCUTANEOUS BIOPSY BONE DEEP CT GUIDED PERCUTANEOUS BIOPSY BONE DEEP 01/22/2021 CT GUIDED PERCUTANEOUS BIOPSY BONE DEEP IRRIGATION AND DEBRIDEMENT Right 02/02/2021 Sternoclavicular Joint OTHER SURGICAL HISTORY 01/29/2021 Rt Sternoclavicular Joint Excision and Debridement SHOULDER ARTHROSCOPY Right 2011 DR PARRA WRIST SURGERY Visit Vitals Smoking Status Former Review of Systems Constitutional: Negative. HENT: Negative. Eyes: Negative. Respiratory: Negative. Cardiovascular: Negative. Gastrointestinal: Negative. Genitourinary: Negative. Musculoskeletal: Negative. Skin: Negative. Neurological: Negative. Psychiatric/Behavioral: Negative. Hematological: Negative. Endocrine: Negative. Allergic/Immunologic: Negative. Objective Physical Exam Vitals reviewed. Constitutional: Appearance: Normal appearance. HENT: Head: Normocephalic and atraumatic. Right Ear: External ear normal. Left Ear: External ear normal. Nose: Nose normal. Eyes: Extraocular Movements: Extraocular movements intact. Conjunctiva/sclera: Conjunctivae normal. Pupils: Pupils are equal, round, and reactive to light. Cardiovascular: Rate and Rhythm: Normal rate and regular rhythm. Heart sounds: Normal heart sounds. Pulmonary: Effort: Pulmonary effort is normal. Breath sounds: Normal breath sounds. Abdominal: General: Bowel sounds are normal. Palpations: Abdomen is soft. Musculoskeletal: General: Normal range of motion. Cervical back: Normal range of motion. Skin: General: Skin is warm and dry. Neurological: General: No focal deficit present. Mental Status: He is alert and oriented to person, place, and time. Psychiatric: Mood and Affect: Mood normal. Behavior: Behavior normal. Thought Content: Thought content normal. Judgment: Judgment normal. Assessment/Plan 1. Benign essential hypertension (CMS/HCC) Bp stable. Continues on coreg as ordered. Refill sent today. - CBC; Future - Comprehensive metabolic panel; Future - carvedilol (Coreg) 12.5 MG tablet; Take 1 tablet (12.5 mg) by mouth in the morning and 1 tablet (12.5 mg) in the evening. Take with meals. Dispense: 60 tablet; Refill: 2 - CBC - Comprehensive metabolic panel 2. Hypercholesterolemia (CMS/HCC) (Primary) Labs ordered today. - Lipid panel; Future - Lipid panel 3. Colon cancer screening Referral sent today. - Colonoscopy; Future 4. Prostate cancer screening Ordered today. - PSA; Future - PSA 5. Other chronic osteomyelitis, right ankle and foot (CMS/HCC) Stable. 6. Coronary artery disease involving koi coronary artery of koi heart without angina pectoris (CMS/HCC) Continues on isosorbide mononitrate ER as ordered. Brilinta continues as ordered. Stable. 7. 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 Stable. 8. Gastroesophageal reflux disease with esophagitis without hemorrhage Stable. 9. Acquired hypothyroidism (CMS/HCC) Levothyroxine continues as ordered. -TSH level ordered today. No follow-ups on file. documented in this encounter [facility] 07-11-2024 Instructions Danii Harrington NP - 07/11/2024 8:00 AM EDT Refill for coreg sent Labs ordered today: PSA, CBC, CMP, TSH, LIPIDS. documented in this encounter [facility] 02-05-2024 Discharge summary Note Date/Time February 05, 2024 1:56pm [facility] [address] [place] [address] Discharge Summary Signed Patient: Gemma Mantilla MR#: [id number] : 1960 Acct:[id number] Age/Sex: 63 / M Adm Date: 4 Loc: Room: [address] [place] [address]: Mikal Willett DO Copies to: MD Mikal Awad II, DO~ Providers Date of Discharge: 02/05/24 Discharging Provider: Mikal Willett Primary Care Provider: Vish Deluca Consults: 02/04/24 10:04 Consult to Interventional Cardiology Stat Comment: Consulting Provider: Ani Archuleta Reason For Exam: nstemi Has Provider Been Notified: Yes Date of Notification: 02/04/24 Time of Notification: 10:13 02/04/24 10:09 Consult to Sleep Lab Routine Comment: Physician Instructions: 02/04/24 11:50 Consult to Cardiac Rehabilitation Routine Comment: Physician Instructions: Reason for Consult: Patient Education Discharge Diagnosis (1) NSTEMI (non-ST elevated myocardial infarction): Final Diagnosis Final Discharge Diagnosis: 2. Hypertension 3. Hypothyroidism 4. GERD 5. Hyperlipidemia Summary Hospital Course Hospital course: This patient is a 63-year-old male who presented to outside facility ER with chest pain with subsequent transfer here to [facility] with hospitalist service on 02/04/2024. He was started on ACS protocol and cardiology was contacted prior to transfer. He was taken for cardiac catheterization for NSTEMI 02/04/2024 revealing mild diffuse three-vessel atherosclerotic heart disease and severe 95% focal occlusion of the diagonal branch, preserved left regular function and distal anteroapical hypokinesia. Medical therapy was initiated and findings were thought to be consistent with either diagonal branch disease, LAD thrombus that spontaneously cleared versus Takotsubo syndrome . He was discharged with the initiation of dual antiplatelettherapy aspirin 81 mg daily, Brilinta 90 mg twice daily, high-dose atorvastatin 80 mg daily as well as initiation of ARB losartan therapy 25 mg daily. Stable nitroglycerin as needed prescribed and he was continued on recent prescribed carvedilol 12.5 mg twice daily. The patient was kept overnight and observed on telemetry with subsequent discharge today 02/05/2024. He is scheduled for follow-up with cardiology as an outpatient. Physical Examination: GENERAL APPEARANCE: Alert, up in bed AAOx3 HEENT: NCAT, MMM NECK: Neck soft w/o masses, no JVD CARDIAC: Normal S1 and S2. No S3, S4 or murmurs. LUNGS: Clear to auscultation bilaterally. no wheeze/rhonchi/rales ABDOMEN: Positive bowel sounds. Soft, nontender. No guarding or signs of an acute abdomen MUSCULOSKELETAL: No joint erythema or tenderness. EXTREMITIES: No clubbing, cyanosis or edema PSYCHIATRIC: Appropriate mood and affect A total of 35 minutes were spent coordinating the discharge of this patient Time Spent with Patient Time spent providing/coordinating discharge services (# min): 35 Surgeries and Procedures Operation Date: 02/04/24 11:15 Actual Procedures s CL Ivus Initial Vessel - W [place] Archuleta DO p CL LHC & COR Angio - W [place] Archuleta DO Discharge Plan Discharge Plan Patient Disposition: Home Activity: Ambulate as Tolerated Comment: See coronary angioplasty discharge instructions for activity restrictions. Diet: Low-Sodium and Low-Cholesterol Additional Instructions: DISCHARGE INSTRUCTIONS FOR ANGIOPLASTY/CORONARY/PERIPHERAL/STENT IMPLANT FOR ADULT ANTICOAGULATION -Since the greatest risk of a blood clot forming with the stent occurs in the first 2-3 weeks after implantation, you will need to take anticoagulants for at least 12-18 months. ANTICOAGULATION MEDICATION Aspirin 81mg once a day, Ticagrelor (Brilinta) 90mg twice a day STATIN MEDICATION Atorvastatin (Lipitor) 80 mg Drug-Eluting Stent (DENISE) DO NOT discontinue Brilinta/Aspirin during the first few months regardless of what you are advised by your family doctor or pharmacist, without first calling the corduroy cutting supervisor who implanted the stent. If you require pain relief during this time, please take only ACETAMINOPHEN (TYLENOL)- NO additional aspirin or ibuprofen. DISCHARGE ACTIVITIES ARE FOLLOWS: First week after discharge: -Take it easy at home, no strenuous activity. -Do not lift or pull objects over 10-15 pounds, including children, and groceries for four weeks. If puncture site is at wrist do NOT lift more than three pounds for three days. - May walk up stairs. -May shower. -No excessive scrubbing of the affected site (groin). -May ride in car. -May resume sexual intercourse after 1-2 weeks. -No MRI for 12 days. -May drive in 4-7 days. -If puncture site is at the wrist do not manipulate the wrist for 24 hours, and no soaking wrist for three days. Second Week: -May take a bath -May start walking 3 times a week for 15-20 minutes at a leisurely pace. You should be able to carry on a conversation comfortably without feeling winded. -No strenuous activity as in jogging, running, weight lifting, stair steppers, etc. until the corduroy cutting supervisor approves these activities. Check with the corduroy cutting supervisor on your first follow-up visit. CALL YOUR MANAGING COGNITIVE ENGINEER: -If bleeding should occur from the catheter insertion site- apply pressure to the site then immediately call us. -Report any fever, redness, drainage, increased swelling, or firmness at the catheter insertion site. Some bruising or slight swelling may be present at thetime of discharge. -Should arm or leg become cold, numb, white, or blue, contact the corduroy cutting supervisor immediately. -IF you should experience episodes of angina, e.g. chest discomfort, heaviness, tightness, pressure burning with or without radiation to the neck, jaw, arms or back- use 1 Nitrostat tablet under your tongue every 5-10 minutes and up to three tablets. IF NO RELIEF, CALL 911 or GO TO THE NEAREST EMERGENCY ROOM. -Please notify our office if you have recurrent angina. -Cardiac Rehab Education Provided. Participation in the Cardiopulmonary Rehabilitation program is recommended. The attending corduroy cutting supervisor or a nurse clinician should provide you with specificinstructions regarding activity, diet, medications, and further follow up for you. Follow the medication instructions provided on your discharge. If the dosages and instructions on this sheet differ from the dosage and instructions on the bottle, follow the instructions on the bottle. [facility] is not responsible for incorrect prescription information provided by thepatient during their visit. Do not stop your medications without consulting your health care provider. Please take the list with you to your next doctor's appointment. Instructions: Coronary Angioplasty (DC), Coronary Stenting (DC), Angina (DC), Chest Pain (DC), Drug Eluting Stents, Know your Meds Stand Alone Forms: Work/School Release Form Prescriptions: New atorvastatin 80 mg Tablet 80 mg PO QPM 90 Days Qty: 90 3RF isosorbide mononitrate 30 mg Tablet Extended Release 24 Hr 30 mg PO QAM 90 Days Qty: 90 3RF losartan 25 mg Tablet 25 mg PO QAM 90 Days Qty: 90 3RF nitroglycerin 0.4 mg Tablet, Sublingual 0.4 mg sublingual Q5M PRN (Reason: Chest Pain) 30 Days Qty: 25 3RF aspirin [Children's Aspirin] 81 mg Tablet,Chewable 81 mg PO DAILY 90 Days Qty: 90 3RF Brilinta 90 mg Tablet 90 mg PO BID 90 Days Qty: 180 3RF Continued carvedilol 12.5 mg tablet 12.5 mg PO BID Rx Instructions: FreeTextSig: TAKE 1 TABLET BY MOUTH IN THE MORNING AND 1 TABLET IN THE EVENING WITH MEALS Oral; Note: Source Status: Taking; Refills: 0; Qty: 60 Each; Provider: PAT JJ levothyroxine 200 mcg tablet 200 mcg PO DAILY Rx Instructions: FreeTextSi tablet in the morning on an empty stomach Orally Once a day; Note: Source Status: Taking; Provider: Mehreen Ren ( ) omeprazole 40 mg capsule,delayed release(DR/EC) 40 mg PO DAILY Rx Instructions: FreeTextSi capsule 30 minutes before morning meal Orally Once a day; Note: Source Status: Taking; Provider: Mehreen Ren ( ) sulfamethoxazole-trimethoprim [Bactrim] 400-80 mg tablet 1 tab PO BID Follow Up: Ani Archuleta DO [Active Staff - D.O.] - 02/15/24 10:30 am Vish Deluca II, MD [Primary Care Provider] - 02/16/24 10:00 am (You have been scheduled for a follow up appointment for the following date and time, please call to reschedule if needed.) Exam Physical Exam Vital Signs: Temp Pulse Resp BP Pulse Ox O2 Del Method 97.8 F 85 18 92/61 L 96 Room Air 10/21/24 12:00 02/05/24 12:00 02/05/24 12:00 02/05/24 12:00 02/05/24 12:00 02/05/24 12:00 Diagnostic Studies Completed and Pending Studies Pending studies at discharge: 02/04/24 09:46 EKG [ECG 12 lead ECG] Stat 02/06/24 05:00 ECG 12 lead ECG IN AM Basic Metabolic Panel [CHEM] IN AM Complete Blood Count Auto Diff IN AM 02/07/24 05:00 ECG 12 lead ECG IN AM Basic Metabolic Panel [CHEM] IN AM Complete Blood Count Auto Diff IN AM 02/08/24 05:00 Basic Metabolic Panel [CHEM] IN AM Complete Blood Count Auto Diff IN AM 02/09/24 05:00 Basic Metabolic Panel [CHEM] IN AM Complete Blood Count Auto Diff IN AM Labs on day of discharge: 02/05/24 04:46: Corrected WBC 10.8 H, Uncorrected WBC Count 10.8 H, RBC 3.73 L, Hgb 13.0, Hct 37.6 L, MCV 100.9, MCH 34.9, MCHC 34.6, RDW 13.0, Plt Count 196, MPV 9.2, Neut % (Auto) 73.9, Lymph % (Auto) 14.6, Cochran % (Auto) 9.2, Eos % (Auto) 1.9, Baso % (Auto) 0.4, Nucleat RBC Rel Count 0.1, Neut # (Auto) 8.0 H, Lymph # (Auto) 1.6, Cochran # (Auto) 1.0 H, Eos # (Auto) 0.2, Baso # (Auto) 0.0, PHA Creatinine Clear 72.32, Sodium 132 L, Potassium 3.8, Chloride 96 L, Carbon Dioxide 27.3, Anion Gap 12.5, BUN 24, Creatinine 1.18, Est GFR (CKD-EPI) > 60.0, Glucose 99, Calcium 9.8, Triglycerides 81, Cholesterol 247 H D, LDL Cholesterol, Calc 167 H, VLDL Cholesterol 16, HDL Cholesterol 64, Cholesterol/HDL Ratio 3.9 02/04/24 19:35: Troponin I High Sens 8848.6 H* 02/04/24 17:22: Troponin I High Sens 30739.1 H* 02/04/24 14:55: Heparin Anti-Xa, Unfract < 0.04 L, Troponin I High Sens 9767.3 H* 02/04/24 13:15: Troponin I High Sens 16308.6 H* 02/04/24 10:28: Estimat Average Glucose 97, Hemoglobin A1c 5.0 Documented By: Mikal Willett DO 02/05/24 13 56 Signed By: <Electronically signed by Mikal Willett DO> 02/05/24 1602 [facility] Work Phone: 1(738) 476-495410-21-2024 Progress note Author W Geremias [facility] February 05, 2024 12:58pm Note Date/Time February 05, 2024 1 2:58pm [facility] [address] [place] [address] Cardiology Progress Note Signed Patient: Gemma Mantilla MR#: [id number] : 1960 Acct:[id number] Age/Sex: 63 / M Adm Date: 4 Loc: Room: [address] [place] [address] Type: ADM IN Attending Dr: Mikal Willett DO Copies to: ~ Date of Service: 02/05/2024 Subjective Principal diagnosis: Lateral ST versus non-ST elevation MA Interval history: Mr. Mantilla is a 63 year old male patient is seen in emergent interventional cardiology consultation at request of [place] ER attending, and hospitalist after transfer to [facility] health with ongoing 3 out of10 chest discomfort, evidence of vacillating ST-T wave abnormality in the anterior leads, troponin elevation rising from 6-11,000 at outside facility. ECGs and Case discussed with outside ER attending, did not meet criteria at the time for true STEMI, he was palliated with nitrates, heparin; earlier this morning and transferred. There is obvious changes in his electrocardiogram enroute as well as after arrival. Past medical history is noted for hypertension There is no prior history of myocardial infarction, revascularization, stroke, thromboembolic or bleeding disorder; no reported history of diabetes or tobacco use. Case discussed with Dr. Lundberg, reviewed POCUS images that were transmitted andclearly reveal moderate to moderately severe LV dysfunction with evidence of anteroapical wall motion defect Risks, benefits alternatives explained to the patient this morning, early invasive management will proceed; a total of 60 minutes of nonprocedural critical care time were devoted to the Showroom Sales Assistant staff, nursing staff, patient pre and post procedurally Interim evaluation 02/05/2024: Patient is stable without chest discomfort, troponins of trended up to 8000; ECG with high lateral T wave inversions in leads I, aVL and V2; secondary to subtotal occlusion small diagonal branch with very distal anteroapical hypokinesis on angiogram with preserved LV function. Patient be discharged on current guideline directed medical therapies as instituted and reviewed by myself. Discussed medications, compliance with medical therapies, the need for 1 years worth of DAPT, high intensity statin, beta-eugene and losartan; TCM follow-up will be arranged within the next 1 to 2weeks Exam Physical Exam Vital Signs: Temp Pulse Resp BP Pulse Ox O2 Del Method 97.8 F 85 18 92/61 L 96 Room Air 02/05/24 12:00 02/05/24 12:00 02/05/24 12:00 02/05/24 12:00 02/05/24 12:00 02/05/24 12:00 Const General: cooperative, healthy appearing and no acute distress Nutritional Appearance: average body habitus Orientation: alert, awake and oriented x3 HEENT Head: normal to inspection Chest Chest palpation & inspection: normal inspection of the chest Resp Effort & Inspection: normal respiratory effort Auscultation: clear to auscultation bilaterally Cardio Rate: regular rate Rhythm: regular rhythm Heart Sounds: S1 normal and S2 normal Pulses: radial pulses present GI Palpation: soft Skin General: no rashes or lesions noted Neuro General: patient alert, patient awake and patient oriented x3 Cognition: normal cognition Speech: speech normal Extrem General: no clubbing, cyanosis or edema Objective Labs 02/05/24 04:46 02/05/24 04:46 Labs: Laboratory Results - last 24 hr 02/04/24 02/04/24 02/04/24 10:28 13:15 14:55 Corrected WBC Uncorrected WBC Count RBC Hgb Hct MCV MCH MCHC RDW Plt Count MPV Neut % (Auto) Lymph % (Auto) Cochran % (Auto) Eos % (Auto) Baso % (Auto) Nucleat RBC Rel Count Neut # (Auto) Lymph # (Auto) Cochran # (Auto) Eos # (Auto) Baso # (Auto) Heparin Anti-Xa, Unfract < 0.04 L PHA Creatinine Clear Sodium Potassium Chloride Carbon Dioxide Anion Gap BUN Creatinine Est GFR (CKD-EPI) Glucose Estimat Average Glucose 97 Hemoglobin A1c 5.0 Calcium Troponin I High Sens 20774.6 H* 9767.3 H* Triglycerides Cholesterol LDL Cholesterol, Calc VLDL Cholesterol HDL Cholesterol Cholesterol/HDL Ratio 02/04/24 02/04/24 02/05/24 17:22 19:35 04:46 Corrected WBC 10.8 H Uncorrected WBC Count 10.8 H RBC 3.73 L Hgb 13.0 Hct 37.6 L MCV 100.9 MCH 34.9 MCHC 34.6 RDW 13.0 Plt Count 196 MPV 9.2 Neut % (Auto) 73.9 Lymph % (Auto) 14.6 Cochran % (Auto) 9.2 Eos % (Auto) 1.9 Baso % (Auto) 0.4 Nucleat RBC Rel Count 0.1 Neut # (Auto) 8.0 H Lymph # (Auto) 1.6 Cochran # (Auto) 1.0 H Eos # (Auto) 0.2 Baso # (Auto) 0.0 Heparin Anti-Xa, Unfract PHA Creatinine Clear 72.32 Sodium 132 L Potassium 3.8 Chloride 96 L Carbon Dioxide 27.3 Anion Gap 12.5 BUN 24 Creatinine 1.18 Est GFR (CKD-EPI) > 60.0 Glucose 99 Estimat Average Glucose Hemoglobin A1c Calcium 9.8 Troponin I High Sens 22957.1 H* 8848.6 H* Triglycerides 81 Cholesterol 247 H D LDL Cholesterol, Calc 167 H VLDL Cholesterol 16 HDL Cholesterol 64 Cholesterol/HDL Ratio 3.9 A&P - Cardiology (1) NSTEMI (non-ST elevated myocardial infarction): Code(s): I21.4 - Non-ST elevation (NSTEMI) myocardial infarction Plan Proceed with emergent cath and intervention Documented By: Ani Archuleta DO 02/05/24 1254 Signed By: <Electronically signed by Ani Archuleta DO> 02/05/24 1258 [facility] Work Phone: 1(137) 556-132810-21-2024 Hospital Discharge instructions Additional Instructions DISCHARGE INSTRUCTIONS FOR ANGIOPLASTY/CORONARY/PERIPHERAL/STENT IMPLANT FOR ADULT ANTICOAGULATION -Since the greatest risk of a blood clot forming with the stent occurs in the first 2-3 weeks after implantation, you will need to take anticoagulants for at least 12-18 months. ANTICOAGULATION MEDICATION Aspirin 81mg once a day, Ticagrelor (Brilinta) 90mg twice a day STATIN MEDICATION Atorvastatin (Lipitor) 80 mg Drug-Eluting Stent (DENISE) DO NOT discontinue Brilinta/Aspirin during the first few months regardless of what you are advised by your family doctor or pharmacist, without first calling the corduroy cutting supervisor who implanted the stent. If you require pain relief during this time, please take only ACETAMINOPHEN (TYLENOL)- NO additional aspirin or ibuprofen. DISCHARGE ACTIVITIES ARE FOLLOWS: First week after discharge: -Take it easy at home, no strenuous activity. -Do not lift or pull objects over 10-15 pounds, including children, and groceries for four weeks. If puncture site is at wrist do NOT lift more than three pounds for three days. - May walk up stairs. -May shower. -No excessive scrubbing of the affected site (groin). -May ride in car. -May resume sexual intercourse after 1-2 weeks. -No MRI for 12 days. -May drive in 4-7 days. -If puncture site is at the wrist do not manipulate the wrist for 24 hours, and no soaking wrist for three days. Second Week: -May take a bath -May start walking 3 times a week for 15-20 minutes at a leisurely pace. You should be able to carry on a conversation comfortably without feeling winded. -No strenuous activity as in jogging, running, weight lifting, stair steppers, etc. until the corduroy cutting supervisor approves these activities. Check with the corduroy cutting supervisor on your first follow-up visit. CALL YOUR MANAGING COGNITIVE ENGINEER: -If bleeding should occur from the catheter insertion site- apply pressure to the site then immediately call us. -Report any fever, redness, drainage, increased swelling, or firmness at the catheter insertion site. Some bruising or slight swelling may be present at the time of discharge. -Should arm or leg become cold, numb, white, or blue, contact the corduroy cutting supervisor immediately. -IF you should experience episodes of angina, e.g. chest discomfort, heaviness, tightness, pressure burning with or without radiation to the neck, jaw, arms or back- use 1 Nitrostat tablet under your tongue every 5-10 minutes and up to three tablets. IF NO RELIEF, CALL 911 or GO TO THE NEAREST EMERGENCY ROOM. -Please notify our office if you have recurrent angina. -Cardiac Rehab Education Provided. Participation in the Cardiopulmonary Rehabilitation program is recommended. The attending corduroy cutting supervisor or a nurse clinician should provide you with specific instructions regarding activity, diet, medications, and further follow up for you. Follow the medication instructions provided on your discharge. If the dosages and instructions on this sheet differ from the dosage and instructions on the bottle, follow the instructions on the bottle. [facility] is not responsible for incorrect prescription information provided by the patient during their visit. Do not stop your medications without consulting your health care provider. Please take the list with you to your next doctor's appointment.[facility] Work Phone: 1(525) 391-544210-20-2024 Consult note Author Ani Archuleta [facility] February 04, 2024 11:23am Note Date/Time February 04, 2024 1 1:19am [facility] [address] [place] [address] Cardiology Consult Note Signed Patient: Gemma Mantilla MR#: [id number] : 1960 Acct:[id number] Age/Sex: 63 / M Adm Date: 4 Loc: Room: [address] [place] [address] Type: ADM IN Attending Dr: Zoran Lundberg MD Copies to: MD Vish Lou II, MD W Scott Sheldon, DO~ Cardiology HPI History of Present Illness Consult Date: 02/04/24 Reason for Consult: High risk non-STEMI versus aborted STEMI HPI: Mr. Mantilla is a 63 year old male patient is seen in emergent interventional cardiology consultation at request of [place] ER attending, and hospitalist after transfer to [facility] health with ongoing 3 out of10 chest discomfort, evidence of vacillating ST-T wave abnormality in the anterior leads, troponin elevation rising from 6-11,000 at outside facility. ECGs and Case discussed with outside ER attending, did not meet criteria at the time for true STEMI, he was palliated with nitrates, heparin; earlier this morning and transferred. There is obvious changes in his electrocardiogram enroute as well as after arrival. Past medical history is noted for hypertension There is no prior history of myocardial infarction, revascularization, stroke, thromboembolic or bleeding disorder; no reported history of diabetes or tobacco use. Case discussed with Dr. Lundberg, reviewed POCUS images that were transmitted andclearly reveal moderate to moderately severe LV dysfunction with evidence of anteroapical wall motion defect Risks, benefits alternatives explained to the patient this morning, early invasive management will proceed; a total of 60 minutes of nonprocedural critical care time were devoted to the Showroom Sales Assistant staff, nursing staff, patient pre and post procedurally [facility] Medical History (Updated 02/04/24 @ 10:14 by Sienna Eng RN) Hypertension Hypothyroid GERD (gastroesophageal reflux disease) Rotator cuff arthropathy of right shoulder Surgical History (Updated 02/04/24 @ 10:14 by Sienna Eng RN) Status post right foot surgery screws and wedge inserted H/O left wrist surgery Family History (Updated 02/04/24 @ 10:12 by Sienna Eng RN) Father Mother Stroke Grandparent Myocardial infarction Social History Smoking Status: Never smoker Meds Medications and Allergies Allergies ENA Inhibitors Allergy (Severe, Verified 02/04/24 09:59) Anaphylaxis lisinopril Allergy (Unknown, Verified 02/04/24 09:59) Anaphylaxis Home Medications carvedilol 12.5 mg tablet 12.5 mg PO BID 02/04/24 [History Confirmed 02/04/24] levothyroxine 200 mcg tablet 200 mcg PO DAILY 02/04/24 [History Confirmed 02/04/24] omeprazole 40 mg capsule,delayed release 40 mg PO DAILY 02/04/24 [History Confirmed 02/04/24] sulfamethoxazole 400 mg-trimethoprim 80 mg tablet (Bactrim) 1 tab PO BID 02/04/24 [History Confirmed 02/04/24] Exam Physical Exam Vital Signs: Temp Pulse Resp BP Pulse Ox O2 Del Method 97.9 F 89 18 153/100 H 99 Room Air 02/04/24 11:14 02/04/24 11:14 02/04/24 11:14 02/04/24 11:14 02/04/24 11:14 02/04/24 11:14 Const General: cooperative, healthy appearing and no acute distress Nutritional Appearance: average body habitus Orientation: alert, awake and oriented x3 HEENT Head: normal to inspection Chest Chest palpation & inspection: normal inspection of the chest Resp Effort & Inspection: normal respiratory effort Auscultation: clear to auscultation bilaterally Cardio Rate: regular rate Rhythm: regular rhythm Heart Sounds: S1 normal and S2 normal Pulses: radial pulses present GI Palpation: soft Skin General: no rashes or lesions noted Neuro General: patient alert, patient awake and patient oriented x3 Cognition: normal cognition Speech: speech normal Extrem General: no clubbing, cyanosis or edema Results - Cardiology Labs 02/04/24 10:28 02/04/24 10:28 Lab results: Lipids 02/04/24 Range/Units 10:28 Triglycerides 94 (0-149) mg/dL Cholesterol 307 H (140-200) mg/dL HDL Cholesterol 81 (23-92) mg/dL Cholesterol/HDL Ratio 3.8 (<5.0) CBC 02/04/24 Range/Units 10: RBC 4.31 (3.90-5.60) X10E6/uL Hgb 14.9 (13.0-17.0) g/dL Hct 43.8 (38.8-50.0) % Plt Count 233 (150-450) x10E3/uL Neut # (Auto) 12.1 H (1.8-7.7) x10E3/uL Lymph # (Auto) 1.4 (1.00-4.8) x10E3/uL Cochran # (Auto) 0.8 (0.0-0.8) x10E3/uL Eos # (Auto) 0.2 (0.0-0.45) x10E3/uL Baso # (Auto) 0.1 (0.0-0.2) x10E3/uL Comprehensive Metabolic Panel 02/04/24 Range/Units 10:28 Sodium 134 L (136-145) mmol/L Potassium 3.9 (3.5-5.1) mmol/L Chloride 96 L (98-107) mmol/L Carbon Dioxide 26.2 (21.0-31.0) mmol/L BUN 15 (7-25) mg/dL Creatinine 0.82 (0.70-1.30) mg/dL Glucose 103 H (70-100) mg/dL Calcium 10.4 H (8.6-10.3) mg/dL Intake and Output 02/03/24 02/04/24 02/04/24 23:59 07:59 15:59 Other: Weight 95.8 kg Patient Weight 02/04/24 23:59 Weight 95.8 kg EKG Interpretations EKG EKG results cardiology: sinus rhythm MA, pacemaker, normal Myocardial infarction: anterior MA (acute or recent) A&P - Cardiology (1) NSTEMI (non-ST elevated myocardial infarction): Code(s): I21.4 - Non-ST elevation (NSTEMI) myocardial infarction Plan Proceed with emergent cath and intervention Documented By: Ani Archuleta DO 02/04/24 1118 Signed By: <Electronically signed by Ani Archuleta DO> 02/04/24 1[facility] Work Phone: 1(169) 154-596510-20-2024 History and physical note Author Zoran Lundberg [facility] February 04, 2024 10:11am Note Date/Time February 04, 2024 1 0:11am [facility] [address] [place] [address] Hospitalist H&P Signed Patient: Gemma Mantilla MR#: [id number] : 1960 Acct:[id number] Age/Sex: 63 / M Adm Date: 4 Loc: Room: [address] [place] [address] Type: ADM IN Attending Dr: Zoran Lundberg MD Copies to: MD Vish Lou II, MD~ HPI DATE OF EXAMINATION: 02/04/24 HISTORY OF PRESENT ILLNESS: Patient is a 63-year-old male, who presents today to the emergency department ofan outside facility with chest pain. He started having symptoms on , when he only had mild discomfort which resolved continuously. On Monday it lasted about 20 minutes at around noon time and then resolved. The pain is pressure-like substernal with no radiation no shortness of breath. On Monday he went to [place] with his son to move him, did some exertional stuff, and in the afternoon started having more serious chest pain. After approximately 13 hours, he presented to the outside ED. A diagnosis of non-STEMI was made. Cardiology service was contacted. Heparin administration along with aspirin was recommended, and patient was accepted in transfer here. I communicated then with the ED physician, obtained another troponin which showed further increase and the repeat EKG was developing dynamicchanges. I spoke with Dr. Archuleta who recommended administration of Brilinta. Patient arrived on the floor around 10 AM and I saw him minutes thereafter. He has mild 3 out of 10 substernal chest pain. Otherwise no distress. He has fairly normal vital signs. EKG and POCUS ultrasound as noted below. 10 point review of systems negative except as noted Physical exam Obesity class I Hypertension Hypothyroidism GERD 10 point review of systems negative except as noted Physical exam Patient appears comfortable, in no distress. Skin is normally colored, no icterus, cyanosis or edema noted. Capillary refill is normal. Joints are without any effusion. Abdomen is soft, benign, no rebound or rigidity. No organomegaly. Bowel sounds present. Heart regular, no gallop, rub or JVD. Peripheral pulses present bilaterally. [id number] ultrasound with poor windows. I do not see any major abnormalities with these limitations. Lungs are clear to auscultation, no rales, ronchi or wheezes. HENT normal Neurological: Patient is awake. Cognition is normal. Cranial nerves are intact. Power is symmetric all extremities, with no focal motor deficit identified on a cursory exam. Psych: affect is normal. EKG Labs imaging reviewed. Current EKG shows development of Q waves in anteriorleads not present few hours ago. Repolarization abnormalities in inferolateral leads. Assessment and plan 1. Acute non-STEMI, high risk. Discussed with Dr. Archuleta who will take the patient to the [facility] now. Continue dual antiplatelet therapy with aspirin Brilinta, anticoagulant treatment with heparin. Routine labs. Echo in a.m. Continue treatment for chronic problems with home regimen Obesity class I Hypertension Hypothyroidism GERD [facility] Family History (Updated 05/01/23 @ 14:45 by Provider Conversion) Father Social History Smoking Status: Never smoker Meds Medications and Allergies Allergies ENA Inhibitors Allergy (Severe, Verified 02/04/24 09:59) Anaphylaxis lisinopril Allergy (Unknown, Verified 02/04/24 09:59) Anaphylaxis Home Medications sulfamethoxazole 400 mg-trimethoprim 80 mg tablet (Bactrim) 1 tab PO DAILY 90 days #90 tabs 10/02/23 [Rx] Exam Physical Exam Vital Signs: Temp Pulse Resp BP Pulse Ox O2 Del Method 97.8 F 87 16 157/105 H 99 Room Air 02/04/24 09:59 02/04/24 09:59 02/04/24 09:59 02/04/24 09:59 02/04/24 09:59 02/04/24 09:59 Assessment & Plan Assessment/Plan (1) NSTEMI (non-ST elevated myocardial infarction): Plan . IP vs OBS Justification Based on differential dx, clinical care plan, and risk of adverse events, if untreated, in my clinical judgement this patient requires an acute care setting as: INPATIENT because of an expectation of an over 2 midnight stay. Estimated length of stay (# of days): 2 Documented By: Zoran Lundberg MD 02/04/24 1005 Signed By: <Electronically signed by Zoran Lundberg MD> 02/04/24 1011 [facility] Work Phone: [phone]) 996-953110-20-2024 Procedure [facility]10-20-2024 Procedure [facility]01-15-2024 Evaluation note* Encounter Date Diagnosis Assessment Notes Treatment Notes Treatment Clinical Notes Apr, Chronic osteomyeliti s involving right ankle and foot (ICD-10 - M86.671) Will go up on SS Bactrim to BID to see if pain is any better. I'm hesitant to think that just by doing this his pain will be fixed but of note he has been using/on his foot more so perhaps the pain is a result from this Flit Other 12-04-2023 Evaluation note* Encounter Date Diagnosis [...] device, implant, and graft (ICD-10 - T84.9XXA) Fl[facility] Other 11-06-2023 Evaluation note* Encounter Date Diagnosis Assessment Notes [...] device, implant, and graft (ICD-10 - T84.9XXA) Flit Other 03-29-2023 NotePROCEDURE: XR FOOT RT MIN [...] Electronically authenticated by: MAO CATHERINE Date: 2022-07-13 11:54[facility]03-08-2023 NotePROCEDURE: XR FOOT RT MIN 3 VIEWS [...] Electronically authenticated by: MAO CATHERINE Date: 2022-06-22 09:18[facility]02-28-2023 NotePROCEDURE: XR FOOT RT MIN 3 VIEWS [...] Electronically authenticated by: NADIA TINOCO Date: 2022-06-14 17:15[facility]01-31-2023 NotePROCEDURE: XR FOOT RT MIN 3 VIEWS [...] Electronically authenticated by: MAO CATHERINE Date: 2022-05-17 13:23[facility]01-11-2023 NotePROCEDURE: XR FOOT RT MIN 3 VIEWS [...] Electronically authenticated by: MAO CATHERINE Date: 2022-04-27 14:07 [id number] NotePROCEDURE: XR FOOT RT MIN 3 VIEWS [...] Electronically authenticated by: MAO CATHERINE Date: 2022-04-20 11:11[facility]12-23-2022 NotePROCEDURE: XR FOOT RT MIN 3 VIEWS [...] Electronically authenticated by: MAO CATHERINE Date: 2022-04-07 22:09[facility]12-06-2022 NotePROCEDURE: XR FOOT RT MIN 3 VIEWS [...] Electronically authenticated by: MAO CATHERINE Date: 2022-03-22 15:[facility] NotePROCEDURE: XR FOOT RT MIN 3 VIEWS [...] Electronically authenticated by: NADIA TINOCO Date: 2022-03-01 15:50[facility]10-24-2022 NotePROCEDURE: XR FOOT RT 2V HISTORY: Pain [...] Electronically authenticated by: MAO CATHERINE Date: 2022-02-07 19:48[facility]10-24-2022 NotePROCEDURE: XR FOOT RT MIN 3 VIEWS, [...] Electronically authenticated by: NADIA TINOCO Date: 2022-02-07 13:29[facility]10-24-2022 NotePROCEDURE: XR FOOT RT MIN 3 VIEWS, [...] Electronically authenticated by: NADIA TINOCO Date: 2022-02-07 13:29[facility]11-14-2021 NoteMR#: [id number] I [facility] Pt. Name: Gemma Rodgers Admitted: 01/29/2021 Discharged: [...] was agreed that the patient come to [facility] for the procedure with Dr. Brunner and [...] Sergio Brunner M.D. 03/02/2021 07:33 A Sergio Ebraheim, M.D. I personally saw this patient on the day of the encounter, performed the cruz portion(s) of the service and participated in the management and confirm the resident's documentation. Please note there may be an additional personal documentation from me. Date Dict: 02/27/2021/05:48 P/Shemar Pulido MD Date Trans: 02/28/2021 03:57 A/kimberley [id number] cc: Vish Deluca M.D. 3 [facility] [address]mdCl[facility] HospitalEvaluation noteNo assessment information availableSelect [facility] Work Phone: Evaluation noteNo InformationNort [facility] Other Evaluation note* Diagnosis Onset Date Resolution Status NSTEMI (non-ST elevated myocardial infarction) [facility] Work Phone: Evaluation note* Diagnosis Hypercholesterolemia (CMS/HCC)- Primary Pure hypercholesterolemia Benign essential hypertension (CMS/HCC) Essential hypertension, benign Colon cancer screening Special screening for malignant neoplasms, colon Prostate cancer screening Special screening for malignant neoplasm of prostate Other chronic osteomyelitis, right ankle and foot (CMS/HCC) Coronary artery disease involving koi coronary artery of koi heart without angina pectoris (CMS/HCC) 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 Gastroesophageal reflux disease with esophagitis without hemorrhage Acquired hypothyroidism (CMS/HCC) Unspecified hypothyroidism documented in this encounter [facility] N[facility]ative - Reported* Type Description Date Medical History hypertension Medical History thyroid disease Surgical History wrist surgery Surgical History rotator cuff tear repair x3 Surgical History right foot i&d x3 Hospitalization History See Above Flit Other Summary Purpose Family History No Family History Records Found Relationship Condition Age at Onset Recorded Date/T mukesh father Unknown mother Cerebrovascular accident (CVA) Unknown grandparent Myocardial infarction Unknown Advance Directives No Advanced Directives Records Found Advance Directive Response Recorded Date/ Time Advance Directives No June 22 12:16pm Advance Directive Response Recorded Date/ Time Advance Directives No June 22 11:16am Chief Complaint and Reason for Visit Chief Complaint z20.822 z01.89 Chief Complaint z20.822 z01.89 sternoclavicular joint pain, chest pain Chief Complaint N stemi Reason for Visit NSTEMI (non-ST eleva nilda myocardial infarction) Chief Complaint N stemi Additional Source Comments (unrecognized sect ion and content) No Status Records FoundNo Status Records FoundNo Status Records FoundNo Status Records FoundNo Status Records FoundNo Status Records FoundNo Status Records FoundNo Status Records Found INFORMATION SOURCE (unrecogn ized section and content) DATE CREATED AUTHOR 03/06/2018 [facility] DATE CREATED AUTHOR AUTHOR'S ORGANIZ ATION 08/26/2020 [facility] DATE CREATED AUTHOR AUTHOR'S ORGANIZ ATION 12/24/2021 [facility] DATE CREATED AUTHOR AUTHOR'S ORGANIZ ATION 01/17/2022 [facility] DATE CREATED AUTHOR AUTHOR'S ORGANIZ ATION 09/23/2022 [facility] DATE CREATED AUTHOR AUTHOR'S ORGANIZ ATION 03/21/2024 [facility] DATE CREATED AUTHOR AUTHOR'S ORGANIZ ATION 04/29/2024 [facility] DATE CREATED AUTHOR AUTHOR'S ORGANIZ ATION 07/12/2024 [facility] EPIC DATE CREATED AUTHOR AUTHOR'S ORGANIZ ATION 07/20/2024 [facility] Care Teams (unrecognized sec tion and content) Team Status: Inactive Member Role Status Dates Vish Deluca II MD Primary Care Provider Active Nasir Pan PA-C Attending Provider Active Team Status: Inactive Member Role Status Dates Vish Deluca II MD Primary Care Provider, Attending Provider Active Team Status: Active Member Role Status Dates Vish Deluca II MD Primary Care Provider Active Team Status: Inactive Member Role Status Dates Vish Deluca II MD Primary Care Provider Active Start: February 04, 2024 End: February 05, 2024 Zoran Lundberg MD Admit Provider Active Start: February 04, 2024 End: February 05, 2024 Ani Archuleta DO Other Provider Active Start : February 04, 2024 End: February 05, 2024 Mikal Willett DO Attending Provider Active St art: February 04, 2024 End: February 05, 2024 Team Status: Inactive Member Role Status Dates Vish Deluca II MD Primary Care Provider Active Start: February 21, 2024 End: February 21, 2024 Mikal Verde MD Attending Provider Active Sta rt: February 21, 2024 End: February 21, 2024 Stage Director Relationship Specialty Start Date End Date Vish Deluca MD [address] [facility] [address] [place] [address] PCP - General Internal Medicine 08/24/22 Goals (unrecognized section and content) Goals may [...] BE BASED ON THE PRIMARY CLINICAL RECORDS. [employer] provides no warranty or guarantee of the accuracy or completeness of information in this document.
== END 2024-07-26 10:38 | disposition home or self-care (01) ==
LOC: WC 10:37
PROVIDERS: PCP Internal Medicine; Visit Provider Podiatrist Foot & Ankle Surgery
DX: L97.219 Non-pressure chronic ulcer of right calf with unspecified severity (principal); L97.918 Non-pressure chronic ulcer of unspecified part of right lower leg with other specified severity
CPT/HCPCS: 10061; 87070; 87075; 88305

== ENCOUNTER 2024-07-26 13:00 | Outpatient (REF) | payer OTHER, SELFPAY ==
--- OUTSIDE RECORDS SUMMARY | 2024-07-26 13:15 | XMS_ITS | CCD ---
Author Organization [facility] Care Team Providers Care Track Watchman Name Role Phone Caty Donahue Unavailable Unavailable VISH DELUCA Unavailable Unavailable Caty Donahue Unavailable Unavailable NATASHA Deluca Primary Care Provider [phone] NATASHA Deluca Attending Provider [phone] TOMER Pan Attending Provider [phone] EBRAHEIM, SERGIO Admitting Unavailable TEMI, SERGIO Attending [...] Primary Care Unavailable VISH DELUCA Referring Unavailable [place] Procedure Practitioner Unavailab le VISH DELUCA Referring Unavailable EBRAHEIM, SERGIO Admitting Unavailable EBRAHEIM, SERGIO Attending Unavailable VISH DELUCA Primary Care Unavailable ANASTASIYA FOX Admitting Unavailable ANASTASIYA FOX Attending Unavailable DR MAO CATHERINE Consulting Unavailable PAT, DR JJ Primary Care Unavailable ANASTASIYA FOX Consulting Unavailable ANASTASIYA FOX Consulting Unavailable ANASTASIYA FOX Admitting Unavailable ANASTASIYA FOX Attending Unavailable PAT, DR JJ Primary [...] Care Provider MD Zoran Lundberg Admit Provider [phone] DO Ani Archuleta Other Provider DO Mikal Willett Attending Provider NATASHA Deluca Primary Care Provider [phone] MD Zoran Lundberg Admit Provider DO Ani Archuleta Other Provider [phone] DO Mikal Willett Attending Provider JESSICA ARCHULETA [...] Propensity to adverse reactions to drug (disorder) [facility] Repository (7 sources) Amino Acids; Translations: [LISINOPRIL] Drug Allergy 1 Anaphylaxis [facility] Repository (4 sources) Lisinopril Drug Allergy Unknown beSUCCESS Other (3 sources) Angiotensin Converting Enzyme (Ena) Inhibitors; Translations: [ENA Inhibitors] Allergy to substance 4 Anaphylaxis [facility] (2 sources) Lisinopril Allergy to substance 3 Anaphylaxis [facility] Healthcare Work Phone: (2 sources) olmesartan Drug Allergy 3 Angioedema [facility] Work Phone: (1 source) Lisinopril Drug Allergy 4 [facility] Repository Medications Current Medications Medication Drug [...] the morning. 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 ASSISTANT CURRENT DRUG THERAPY] Onset: 08-05-2022 Episodic Other [...] Interpretation Reference Range Facility TRANSTHORACIC ECHO (TTE) [facility] 03-18-2024 TRANSTHORACIC ECHO (TTE) COMPLETE [address], [address] [place] [address] TRANSTHORACIC ECHOCARDIOGRAM REPORT Patient Name: GEMMA MANTILLA Reading Physician: [id number] Nelson Toro MD Study Date: 03/18/2024 Ordering Provider: [id number] JESSICA ARCHULETA MRN/PID: [id number] Fellow: Nurse: Date of /Age: 9 1960 / 63 years 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 Fire Chief: Lanny Collins RDCS, LORENAT Gender Assigned at M Additional Staff: : Height: 175.26 cm Admit Date: Weight: 93.90 kg Admission Status: BSA / BMI: 2.10 m2 / 30.57 Department Location: Merged With [facility] [address] Blood Pressure: 110 /74 mmHg Study Type: TRANSTHORACIC ECHO (TTE) COMPLETE Diagnosis/ICD: Atherosclerotic heart disease of [place] coronary artery without angina pectoris-I25.10; ST elevation (STEMI) myocardial infarction of unspecified site-I21.3 Indication: HTN, Hyperlipidemia, Former Smoker, Hypothyroid, Takotsubo Cardiomyopathy CPT Codes: Echo Complete w Full [id number] Study Detail: The following Echo studies were [...] 0.6 m/s (0.6-0.9m/s) PV Max P.4 mmHg [id number] Nelson Toro MD Electronically signed on 03/18/2024 at 4:46:53 PM Final Normal [facility] Automated basophil %Ordered By: Ani Archuleta on 02-05-2024 Basophils/100 WBC (Bld) 0.4 % Normal . [facility] Comment on above: Performed By: #### C BC, BMP, LIPID #### [address] Automated basophil countOrde red By: Ani Archuleta on 02-05-2024 Basophils (Bld) [#/Vol] 0.0 10*3/uL Normal 0.0-0.2 [facility] Comment on above: Result Comment: PERF ORMED BY: [place] [address] PATHOLOGIST [employer] PORTER PAUL STEELE M.D. Performed By: #### C BC, BMP, LIPID #### [address] Automated blood monocyte cou ntOrdered By: Ani Archuleta on 02-05-2024 Monocytes (Bld) [#/Vol] 1.0 10*3/uL High 0.0-0.8 [facility] Comment on above: Performed By: #### C BC, BMP, LIPID #### [address] Automated eosinophil %Ordere d By: Ani Archuleta on 02-05-2024 Eosinophils/100 WBC (Bld) 1.9 % Normal . [facility] Comment on above: Performed By: #### C BC, BMP, LIPID #### [address] Automated eosinophil countOr dered By: Ani Archuleta on 02-05-2024 Eosinophils (Bld) [#/Vol] 0.2 10*3/uL Normal 0.0-0.45 [facility] Comment on above: Performed By: #### C BC, BMP, LIPID #### [address] [place] [address] [place] Automated monocyte %Ordered By: Ani Archuleta on 02-05-2024 Monocytes/100 WBC (Bld) 9.2 % Normal . [facility] Comment on above: Performed By: #### C BC, BMP, LIPID #### [address] Automated neutrophil %Ordere d By: Ani Archuleta on 02-05-2024 Neutrophils/100 WBC (Bld) 73.9 % Normal . [facility] Comment on above: Performed By: #### C BC, BMP, LIPID #### [address] Basic Metabolic Panelon 01-16 Creatinine Clr Calc Pharmacy 72.32 Normal [facility] Comment on above: Performed By: #### C BC, BMP, LIPID #### [place] [address] [place] GFR/1.73 sq M.predicted MDRD (S/P/Bld) [Vol rate/Area] mL/min/{1.73_m2} Normal [facility] Comment on above: Performed By: #### C BC, BMP, LIPID #### [place] [address] [place] Calcium [Mass/volume] in Ser um or PlasmaOrdered By: Ani Archuleta on 02-05-2024 Calcium [Mass/Vol] 9.8 mg/dL Normal 8.6-10.3 [facility] Comment on above: Performed By: #### C BC, BMP, LIPID #### [place] [address] [place] Carbon dioxide, total [Moles /volume] in Serum or PlasmaOrdered By: Ani Archuleta on 02-05-2024 CO2 [Moles/Vol] 27.3 mmol/L Normal 21.0-31.0 [facility] Comment on above: Performed By: #### C BC, BMP, LIPID #### [facility] [address] [place] [address] [place] Chloride [Moles/volume] in S xiao or PlasmaOrdered By: Ani Archuleta on 02-05-2024 Chloride [Moles/Vol] 96 mmol/L Low 98-107 [facility] Comment on above: Performed By: #### C BC, BMP, LIPID #### [facility] [address] Cholesterol [Mass/volume] in Serum or PlasmaOrdered By: Ani Archuleta on 02-05-2024 Cholesterol [Mass/Vol] 247 mg/dL Significa nt change up 140-200 [facility] Comment on above: Delta: 307 on -1028Chol less than 200 mg/dl low riskChol 201-239 mg/dl borderline riskChol 240 mg/dl and greater high risk Result Comment: Chol less than 200 mg/dl low risk Chol 201-239 mg/dl borderline risk Chol 240 mg/dl and greater high risk Performed By: #### C BC, BMP, LIPID #### [facility] [address] Cholesterol in LDL Calc [Mas s/Vol]Ordered By: Ani Archuleta on 02-05-2024 Cholesterol in LDL [Mass/Vol] 167 mg/dL High 0-100 [facility] Comment on above: LDL ATP III CLASSIFI CATIONLDL less than 100 mg/dL OptimalLDL 100-129 mg/dL Near or above optimalLDL 130-159 mg/dL Borderline highLDL 160-189 mg/dL HighLDL greater than 189 mg/dL Very high Cholesterol in VLDL Calc [Ma ss/Vol]Ordered By: Ani Archuleta on 02-05-2024 Cholesterol in VLDL [Mass/Vol] 16 mg/dL [facility] Complete Blood Count Auto Di ffon 02-05-2024 Mean Corpuscular HGB Conc 34.6 g/dL Normal 32.5-35.6 [facility] Comment on above: Performed By: #### C BC, BMP, LIPID #### [facility] [address] NRBC% 0.1 /100{WBC} Normal 0-0.5 [facility] Comment on above: Performed By: #### C BC, BMP, LIPID #### [facility] [address] Creatinine [Mass/volume] in Serum or PlasmaOrdered By: Ani Archuleta on 02-05-2024 Creatinine [Mass/Vol] 1.18 mg/dL Normal 0.70-1.30 [facility] Comment on above: Performed By: #### C BC, BMP, LIPID #### [facility] [address] ECG 12 lead ECGon 02-05-2024 ECG 12 lead ECG [facility] [place] [address] [place] [address] Electrocardiograph Report Signed Patient: Gemma Mantilla MR#: [id number] : 1960 Acct:[id number] Age/Sex: 63 / M ADM Date: 02/04/24 Loc: Room: [address] [place] [address] Type: DIS IN Attending Dr: Mikal Willett [...] previous ECGs available Confirmed by ZORAIDA LECHUGA [facility], JOCELYN ([id number]) on 02/05/2024 6:16:05 PM Referred By: Electronically Signed By: JOCELYN CONWAY MD [facility] Transcribed By: MUS Signed By Jocelyn Conway MD, [facility] 02/05/241815 Normal [facility] Erythrocyte distribution wid th [Ratio] by Automated countOrdered By: Ani Archuleta on 02-05-2024 Erythrocyte distribution width (RBC) [Ratio] 13.0 % Normal 12.0-14.8 [facility] Comment on above: Performed By: #### C BC, BMP, LIPID #### [facility] [address] [place] [address] [place] Erythrocytes [#/volume] in B lood by Automated countOrdered By: Ani Archuleta on 02-05-2024 RBC (Bld) [#/Vol] 3.73 10*6/uL Low 3.90-5.60 [facility] Comment on above: Performed By: #### C STEFANO BMP, LIPID #### [address] Glucose [Mass/volume] in Ser um or PlasmaOrdered By: Ani Archuleta on 02-05-2024 Glucose [Mass/Vol] 99 mg/dL Normal 70-100 [facility] Comment on above: ADA recommended refe rence rangeRandom Glucose Reference Range is dependent on time and content of last meal. Glucose of more than 200 mg/dL in a nonstressed, ambulatory subject supports the diagnosis of Diabetes Mellitus. Result Comment: [place] om Glucose Reference Range is dependent on time and content of last meal. Glucose of more than 200 mg/dL in a nonstressed, ambulatory subject supports the diagnosis of Diabetes Mellitus. ADA recommended reference range Performed By: #### C ROSALINE AGARWAL, LIPID #### [address] Hematocrit [Volume Fraction] of Blood by Automated countOrdered By: nAi Archuleta on 02-05-2024 Hematocrit (Bld) [Volume fraction] 37.6 % Low 38.8-50.0 [facility] Comment on above: Performed By: #### C ROSALINE AGARWAL, LIPID #### [address] Hemoglobin [Mass/volume] in BloodOrdered By: Ani Archuleta on 02-05-2024 Hemoglobin (Bld) [Mass/Vol] 13.0 g/dL Normal 13.0-17.0 [facility] Comment on above: Performed By: #### C ROSALINE AGARWAL, LIPID #### [address] Leukocytes [#/volume] correc nilda for nucleated erythrocytes in Blood by Automated counOrdered By: Ani Archuleta on 02-05-2024 WBC corrected for nucl RBC Auto (Bld) [#/Vol] 10.8 10*3/uL High 4.1-10.5 [facility] Leukocytes [#/volume] in Blo od by Automated countOrdered By: Ani Archuleta on 02-05-2024 WBC (Bld) [#/Vol] 10.8 10*3/uL High 4.1-10.5 [facility] Comment on above: Performed By: #### C BC, BMP, LIPID #### [facility] [address] Lipid Panelon 02-05-2024 LDL Cholesterol,Calculated 167 mg/dL High 0-100 [facility] Comment on above: Result Comment: LDL ATP III CLASSIFICATION LDL less than 100 mg/dL Optimal LDL 100-129 mg/dL Near or above optimal LDL 130-159 mg/dL Borderline high LDL 160-189 mg/dL High LDL greater than 189 mg/dL Very high Performed By: #### C BC, BMP, LIPID #### [facility] [address] Triglyceride w/Reflex 81 mg/dL Normal 0-149 [facility] Comment on above: Result Comment: TRIG ATP III CLASSIFICATION TRIG less than 150 mg/dL Normal TRIG 150-199 mg/dL Borderline high TRIG 200-500 mg/dL High TRIG greater than 500 mg/dL Very high Standard traceable to the Center for Disease Conrtrol and Prevention (CDC) test method. Performed By: #### C BC, BMP, LIPID #### [address] VLDL CHOLESTEROL 16 mg/dL Normal [facility] Comment on above: Performed By: #### C BC, BMP, LIPID #### [place] [address] [place] Lymphocytes [#/volume] in Bl ood by Automated countOrdered By: Ani Archuleta on 02-05-2024 Lymphocytes (Bld) [#/Vol] 1.6 10*3/uL Normal 1.00-4.8 [facility] Comment on above: Performed By: #### C BC, BMP, LIPID #### [place] [address] [place] Lymphocytes/100 leukocytes i n Blood by Automated countOrdered By: Ani Archuleta on 02-05-2024 Lymphocytes/100 WBC (Bld) 14.6 % Normal . [facility] Comment on above: Performed By: #### C BC BMP, LIPID #### [facility] [address] [place] [address] MCH [Entitic mass] by Automa nilda countOrdered By: Ani Archuleta on 02-05-2024 MCH (RBC) [Entitic mass] 34.9 pg Normal 27.5-35.2 [facility] Comment on above: Performed By: #### C BC, BMP, LIPID #### [facility] [address] [place] [address] MCHC Auto (RBC) [Mass/Vol]Or dered By: Ani Archuleta on 02-05-2024 MCHC (RBC) [Mass/Vol] 34.6 g/dL 32.5-35.6 [facility] MCV [Entitic volume] by Auto mated countOrdered By: Ani Archuleta on 02-05-2024 MCV (RBC) [Entitic vol] 100.9 fL Normal 83.5-101 [facility] Comment on above: Performed By: #### C BC, BMP, LIPID #### [facility] [address] [place] [address] Neutrophils [#/volume] in Bl ood by Automated countOrdered By: Ani Archuleta on 02-05-2024 Neutrophils (Bld) [#/Vol] 8.0 10*3/uL High 1.8-7.7 [facility] Comment on above: Performed By: #### C BC, BMP, LIPID #### [facility] [address] [place] [address] No Panel InformationOrdered By: Ani Archuleta on 02-05-2024 Estimated GFR (CKD-EPI) > 60.0 mL/Min [facility] Creatinine Clearance (Chem 72.32 [facility] Nucleated erythrocytes [Pres ence] in Blood by Automated countOrdered By: Ani Archuleta on 02-05-2024 Nucleated RBC Auto Ql (Bld) 0.1 /100{WBC} 0-0.5 [facility] Platelet mean volume [Entiti c volume] in Blood by Automated countOrdered By: Ani Archuleta on 02-05-2024 Platelet mean volume (Bld) [Entitic vol] 9.2 fL Normal 6.6-10.1 [facility] Comment on above: Performed By: #### C BC, BMP, LIPID #### [facility] [address] [place] [address] Platelets [#/volume] in Bloo d by Automated countOrdered By: Ani Archuleta on 02-05-2024 Platelets (Bld) [#/Vol] 196 10*3/uL Normal 150-450 [facility] Comment on above: Performed By: #### C BC, BMP, LIPID #### [address] Potassium [Moles/volume] in Serum or PlasmaOrdered By: Ani Archuleta on 02-05-2024 Potassium [Moles/Vol] 3.8 mmol/L Normal 3.5-5.1 [facility] Comment on above: Performed By: #### C BC, BMP, LIPID #### [facility] [address] [place] [address] Serum or plasma anion gap de terminationOrdered By: Ani Archuleta on 02-05-2024 Anion gap [Moles/Vol] 12.5 mmol/L Normal 6.0-15.0 [facility] Comment on above: Performed By: #### C BC, BMP, LIPID #### [facility] [address] [place] [address] Serum or plasma high density lipoprotein (HDL) cholesterol measurementOrdered By: Ani Archuleta on 02-05-2024 Cholesterol in HDL [Mass/Vol] 64 mg/dL Normal 23-92 [facility] Comment on above: HDL CHOL ATP-III CLA SSIFICATION Cardiovascular RiskHDL > or equal to 60 mg/dL LOWHDL < 40 mg/dL HIGH Result Comment: HDL CHOL ATP-III CLASSIFICATION Cardiovascular Risk HDL > or equal to 60 mg/dL LOW HDL < 40 mg/dL HIGH Performed By: #### C BC, BMP, LIPID #### [facility] [address] [place] [address] Serum or plasma total choles terol/high density lipoprotein (HDL) cholesterol mass ratOrdered By: Ani Archuleta on 02-05-2024 Cholesterol.total/Chol esterol in HDL [Mass ratio] 3.9 {ratio} Normal <5.0 [facility] Comment on above: Result Comment: PERF ORMED BY: [place] [address] PATHOLOGIST [employer] PORTER PAUL STEELE M.D. Performed By: #### C BC, BMP, LIPID #### [facility] [address] Sodium [Moles/volume] in Ser um or PlasmaOrdered By: Ani Archuleta on 02-05-2024 Sodium [Moles/Vol] 132 mmol/L Low 136-145 [facility] Comment on above: Performed By: #### C BC, BMP, LIPID #### [facility] [address] [place] [address] Triglyceride [Mass/volume] i n Serum or PlasmaOrdered By: Ani Archuleta on 02-05-2024 Triglyceride [Mass/Vol] 81 mg/dL 0-149 [facility] Comment on above: TRIG ATP III CLASSIF ICATIONTRIG less than 150 mg/dL NormalTRIG 150-199 mg/dL Borderline highTRIG 200-500 mg/dL High TRIG greater than 500 mg/dL Very highStandard traceable to the Center for Disease Conrtrol and Prevention (CDC) test method. Urea nitrogen [Mass/volume] in Serum or PlasmaOrdered By: Ani Archuleta on 02-05-2024 Urea nitrogen [Mass/Vol] 24 mg/dL Normal 7-25 [facility] Comment on above: Performed By: #### C BC, BMP, LIPID #### [facility] [address] [place], [place] [address] [facility] A1C with Estimated Average G luon 02-04-2024 Glucose [Mass/Vol] 97 mg/dL Normal [facility] Comment on above: Result Comment: PERF ORMED BY: [address] [address] PATHOLOGIST [employer] PORTER PAUL STEELE M.D. Performed By: #### A 1C WTH eA, BMP, LIPID #### [address] Anti-Xa UF Heparinon 024 Anti-Xa UF Heparin < 0.04 Low 0.30-0.70 [facility] Comment on above: Result Comment: Use the aPTT protocol when triglycerides are > 800 mg/dL, total bilirubin is > 20 mg/dL and/or patient has received a DOAC, Fondaparinux or LMWH within 72 hours AND baseline anti-Xa level is > 0.7 units/mL PERFORMED BY: [place] [address] PATHOLOGIST [employer] PORTER PAUL STEELE M.D. Performed By: #### A 1C ROSALINE SALOMON eA, LIPID #### [address] Anti-Xa UF Heparin 0.18 Low 0.30-0.70 [facility] Comment on above: Result Comment: Use the aPTT protocol when triglycerides are > 800 mg/dL, total bilirubin is > 20 mg/dL and/or patient has received a DOAC, Fondaparinux or LMWH within 72 hours AND baseline anti-Xa level is > 0.7 units/mL PERFORMED BY: [place] [address] PATHOLOGIST [employer] PORTER PAUL STEELE M.D. Performed By: #### A 1C ROSALINE SALOMON eA, LIPID #### [address] Basic Metabolic Panelon 10- Anion gap [Moles/Vol] 15.7 mmol/L High 6.0-15.0 [facility] Comment on above: Performed By: #### A 1C ROSALINE SALOMON eA, LIPID #### [address] Calcium [Mass/Vol] 10.4 mg/dL High 8.6-10.3 [facility] Comment on above: Performed By: #### A 1C ROSALINE SALOMON eA, LIPID #### [place] [address] [place] Chloride [Moles/Vol] 96 mmol/L Low 98-107 [facility] Comment on above: Performed By: #### A 1C WTRenetta Valentino BMP, LIPID #### [address] CO2 [Moles/Vol] 26.2 mmol/L Normal 21.0-31.0 [facility] Comment on above: Performed By: #### A 1C WTRenetta Valentino BMP, LIPID #### [place] [address] [place] Creatinine [Mass/Vol] 0.82 mg/dL Normal 0.70-1.30 [facility] Comment on above: Performed By: #### A 1C WTRenetta Valentino BMP, LIPID #### [place] [address] [place] Creatinine Clr Calc Pharmacy 103.50 Normal [facility] Comment on above: Performed By: #### A 1C WTRenetta Valentino BMP, LIPID #### [place] [address] [place] GFR/1.73 sq M.predicted MDRD (S/P/Bld) [Vol rate/Area] mL/min/{1.73_m2} Normal [facility] Comment on above: Performed By: #### A 1C WTRenetta Valentino BMP, LIPID #### [place] [address] [place] Glucose [Mass/Vol] 103 mg/dL High 70-100 [facility] Comment on above: Result Comment: [place] Glucose Reference Range is dependent on time and content of last meal. Glucose of more than 200 mg/dL in a nonstressed, ambulatory subject supports the diagnosis of Diabetes Mellitus. ADA recommended reference range Performed By: #### A 1C WTRenetta Valentino BMP, LIPID #### [address] Potassium [Moles/Vol] 3.9 mmol/L Normal 3.5-5.1 [facility] Comment on above: Performed By: #### A 1C WTH Chicho BMP, LIPID #### [address] Sodium [Moles/Vol] 134 mmol/L Low 136-145 [facility] Comment on above: Performed By: #### A 1C WTRenetta Valentino BMP, LIPID #### [address] Urea nitrogen [Mass/Vol] 15 mg/dL Normal 7-25 [facility] Comment on above: Performed By: #### A 1C WTRenetta Valentino BMP, LIPID #### [address] Complete Blood Count Auto Di ffon 02-04-2024 Basophils (Bld) [#/Vol] 0.1 10*3/uL Normal 0.0-0.2 [facility] Comment on above: Result Comment: PERF ORMED BY: [place] [address] PATHOLOGIST [employer] PORTER PAUL STEELE M.D. Performed By: #### A 1C WTRenetta Valentino BMP, LIPID #### [address] Basophils/100 WBC (Bld) 0.5 % Normal . [facility] Comment on above: Performed By: #### A 1C WTRenetta Valentino BMP, LIPID #### [address] Eosinophils (Bld) [#/Vol] 0.2 10*3/uL Normal 0.0-0.45 [facility] Comment on above: Performed By: #### A 1C WTRenetta Valentino BMP, LIPID #### [address] Eosinophils/100 WBC (Bld) 1.1 % Normal . [facility] Comment on above: Performed By: #### A 1C WTRenetta Valentino BMP, LIPID #### [address] Erythrocyte distribution width (RBC) [Ratio] 13.0 % Normal 12.0-14.8 [facility] Comment on above: Performed By: #### A 1C WTRenetta Valentino BMP, LIPID #### [address] Hematocrit (Bld) [Volume fraction] 43.8 % Normal 38.8-50.0 [facility] Comment on above: Performed By: #### A 1C WTH eA, BMP, LIPID #### [address] Hemoglobin (Bld) [Mass/Vol] 14.9 g/dL Normal 13.0-17.0 [facility] Comment on above: Performed By: #### A 1C WTH eA, BMP, LIPID #### [address] Lymphocytes (Bld) [#/Vol] 1.4 10*3/uL Normal 1.00-4.8 [facility] Comment on above: Performed By: #### A 1C WTH eA, BMP, LIPID #### [address] Lymphocytes/100 WBC (Bld) 9.6 % Normal . [facility] Comment on above: Performed By: #### A 1C WTH eA, BMP, LIPID #### [address] MCH (RBC) [Entitic mass] 34.6 pg Normal 27.5-35.2 [facility] Comment on above: Performed By: #### A 1C WTH eA, BMP, LIPID #### [address] MCV (RBC) [Entitic vol] 101.8 fL High 83.5-101 [facility] Comment on above: Performed By: #### A 1C WTH eA, BMP, LIPID #### [address] Mean Corpuscular HGB Conc 34.0 g/dL Normal 32.5-35.6 [facility] Comment on above: Performed By: #### A 1C WTH eA, BMP, LIPID #### [address] Monocytes (Bld) [#/Vol] 0.8 10*3/uL Normal 0.0-0.8 [facility] Comment on above: Performed By: #### A 1C UMM Valentino BMP, LIPID #### [address] Monocytes/100 WBC (Bld) 5.3 % Normal . [facility] Comment on above: Performed By: #### A 1C WTRenetta Valentino BMP, LIPID #### [address] Neutrophils (Bld) [#/Vol] 12.1 10*3/uL High 1.8-7.7 [facility] Comment on above: Performed By: #### A Akanksha WTRenetta Valentino BMP, LIPID #### [address] Neutrophils/100 WBC (Bld) 83.5 % Normal . [facility] Comment on above: Performed By: #### A 1C WTRenetta Valentino BMP, LIPID #### [address] NRBC% 0.0 /100{WBC} Normal 0-0.5 [facility] Comment on above: Performed By: #### A 1C WTRenetta Valentino BMP, LIPID #### [address] Platelet mean volume (Bld) [Entitic vol] 9.3 fL Normal 6.6-10.1 [facility] Comment on above: Performed By: #### A 1C WTRenetta Valentino BMP, LIPID #### [place] [address] [place] Platelets (Bld) [#/Vol] 233 10*3/uL Normal 150-450 [facility] Comment on above: Performed By: #### A 1C WTRenetta Valentino BMP, LIPID #### [address] RBC (Bld) [#/Vol] 4.31 10*6/uL Normal 3.90-5.60 [facility] Comment on above: Performed By: #### A 1C WTH Chicho, BMP, LIPID #### [facility] [address] WBC (Bld) [#/Vol] 14.5 10*3/uL High 4.1-10.5 [facility] Comment on above: Performed By: #### A 1C WTH eA, BMP, LIPID #### [facility] [address] [place] [id number] [facility] ECG 12 lead ECGon 02-04-2024 ECG 12 lead ECG [facility] [place] [address] [place] [address] Electrocardiograph Report Signed Patient: Gemma Mantilla MR#: [id number] : 1960 Acct:[id number] Age/Sex: 63 / M ADM Date: 02/04/24 Loc: Room: [address] [place] [address] Type: DIS IN Attending Dr: Mikal Willett [...] QT Abnormal ECG Confirmed by ZORAIDA LECHUGA [facility], JOCELYN ([id number]) on 02/05/2024 6:15:49 PM Referred By: Electronically Signed By: JOCELYN CONWAY MD [facility] Transcribed By: MUS Signed By Jocelyn Conway MD, [facility] 02/05/241814 Normal [facility] Glucose mean value [Mass/vol ume] in Blood Estimated from glycated hemoglobinOrdered By: Zoran Lundberg on 02-04-2024 Average glucose Estimated from glycated hemoglobin (Bld) [Mass/Vol] 97 mg/dL [facility] Hemoglobin A1c percentageOrd ered By: Zoran Lundberg on 02-04-2024 HbA1c (Bld) [Mass fraction] 5.0 % Normal 4.3-5.6 [facility] Comment on above: Increased risk for d iabetes: 5.7 - 6.4diabetes: >6.4glycemic control for adults with diabetes: <7.0 Result Comment: Incr eased risk for diabetes: 5.7 - 6.4 diabetes: >6.4 glycemic control for adults with diabetes: <7.0 Performed By: #### A 1C WT eA, BMP, LIPID #### [facility] [address] Heparin anti-Xa unfractionat edOrdered By: Zoran Lundberg on 02-04-2024 Heparin unfractionated Chromogenic method Qn (PPP) < 0.04 [IU]/mL Low 0.30-0.70 [facility] Comment on above: Use the aPTT protoco l when triglycerides are > 800 mg/dL,total bilirubin is > 20 mg/dL and/or patient has received aDOAC, Fondaparinux or LMWH within 72 hours AND baselineanti-Xa level is > 0.7 units/mL Lipid Panelon 02-04-2024 Cholesterol [Mass/Vol] 307 mg/dL High 140-200 [facility] Comment on above: Result Comment: Chol less than 200 mg/dl low risk Chol 201-239 mg/dl borderline risk Chol 240 mg/dl and greater high risk Performed By: #### A 1C WT eA, BMP, LIPID #### [facility] [address] Cholesterol in HDL [Mass/Vol] 81 mg/dL Normal 23-92 [facility] Comment on above: Result Comment: HDL CHOL ATP-III CLASSIFICATION Cardiovascular Risk HDL > or equal to 60 mg/dL LOW HDL < 40 mg/dL HIGH Performed By: #### A 1C WT eA, BMP, LIPID #### [facility] [address] Cholesterol.total/Chol esterol in HDL [Mass ratio] 3.8 {ratio} Normal <5.0 [facility] Comment on above: Result Comment: PERF ORMED BY: [place] [address] PATHOLOGIST [employer]TER JIANLAN SUN M.D. Performed By: #### A 1C WT Chicho BMP, LIPID #### [facility] [address] [place] [address] [place] LDL Cholesterol,Calculated 207 mg/dL High 0-100 [facility] Comment on above: Result Comment: LDL ATP III CLASSIFICATION LDL less than 100 mg/dL Optimal LDL 100-129 mg/dL Near or above optimal LDL 130-159 mg/dL Borderline high LDL 160-189 mg/dL High LDL greater than 189 mg/dL Very high Performed By: #### A 1C WTRenetta Valentino BMP, LIPID #### [facility] [address] [place] [address] [place] Triglyceride w/Reflex 94 mg/dL Normal 0-149 [facility] Comment on above: Result Comment: TRIG ATP III CLASSIFICATION TRIG less than 150 mg/dL Normal TRIG 150-199 mg/dL Borderline high TRIG 200-500 mg/dL High TRIG greater than 500 mg/dL Very high Standard traceable to the Center for Disease Conrtrol and Prevention (CDC) test method. Performed By: #### A 1C WTRenetta Valentino BMP, LIPID #### [address] VLDL CHOLESTEROL 18 mg/dL Normal [facility] Comment on above: Performed By: #### A 1C WT ROSALINE Valentino, LIPID #### [place] [address] [place] Troponin I High Sensitivityo n 02-04-2024 Troponin I High Sensitivity 8848.6 pg/mL Off scale high 0.0-20.0 [facility] Comment on above: Result Comment: Crit ical Result : Called to and read back by: COLLEEN SMITH at: 02/04/2024 21:14:50 by:OLIVIA PERFORMED BY: [place] [address] PATHOLOGIST [employer] P[employer]TER PAUL STEELE M.D. Performed By: #### H S TROP #### [address] Troponin I High Sensitivity 09461.1 pg/mL Off scale high 0.0-20.0 [facility] Comment on above: Result Comment: Crit ical Result : Called to and read back by: CASIMIRO COLEMAN at: 02/04/2024 18:36:18 by:OLIVIA PERFORMED BY: [place] [address] PATHOLOGIST [employer] P[employer] PAUL STEELE M.D. Performed By: #### A 1C WTRenetta Valentino, BMP, LIPID #### [place] [address] [place] Troponin I High Sensitivity 9767.3 pg/mL Off scale high 0.0-20.0 [facility] Comment on above: Result Comment: Crit ical Result : Called to and read back by: LINN COLEMAN at: 02/04/2024 15:50:16 by:OLIVIA PERFORMED BY: [place] [address] PATHOLOGIST [employer] PAUL STEELE M.D. Performed By: #### A 1C WTRenetta Valentino BMP, LIPID #### [address] Troponin I High Sensitivity 87320.6 pg/mL Off scale high 0.0-20.0 [facility] Comment on above: Result Comment: Crit ical Result : Called to and read back by: ALEXANDR REN at: 02/04/2024 14:07:58 by:SYEDA PERFORMED BY: [place] [address] PATHOLOGIST [employer] PAUL STEELE M.D. Performed By: #### H S TROP #### [place] [address] [place] Troponin I High Sensitivity 9244.7 pg/mL Off scale high 0.0-20.0 [facility] Comment on above: Result Comment: Crit ical Result : Called to and read back by: HOSEA STEARNS at: 02/04/2024 11:46:52 by:LEENA PERFORMED BY: [place] [address] PATHOLOGIST [employer] PAUL STEELE M.D. Performed By: #### A 1C WT eA, BMP, LIPID #### [facility] [address] Troponin I.cardiac [Mass/vol ume] in Serum or Plasma by Detection limit <= 0.01 ng/Ordered By: Ani Archuleta on 02-04-2024 Troponin I.cardiac DL <= 0.01 ng/mL [Mass/Vol] 8848.6 pg/mL High 0.0-20.0 [facility] Comment on above: Critical Result : Ca lled to and read back by: COLLEEN SMITH at: 02/04/2024 21:14:50 by:PAB ACID FAST SMEAR AND CXon Acid Fast Culture Negative Normal [facility] Comment on above: Result Comment: No a stephanie fast bacilli isolated after 6 weeks. Performed By: #### A FB ####[facility] [address] [place] [address]DrSuraj Mccray Acid Fast Smear Negative Normal [facility] Comment on above: Performed By: #### A FB ####[facility] [address] [place] [address]DrSuraj Mccray [employer] Specimen Processing Tissue Grinding Normal [facility] Comment on above: Performed By: #### A FB ####[facility] [address] [place] [address]DrSuraj Mccray FUNGAL CULTUREon 08-27-2022 Fungus (Mycology) Culture Final report Normal [facility] Comment on above: Performed By: #### C XFUN #### [facility] [address] [address] [address] Frederick Mccray Fungus Stain Final report Normal [facility] Comment on above: Performed By: #### C XFUN #### [facility] [address] [address] [address] Frederick Mccray Result 1 Comment Normal [facility] Comment on above: Result Comment: SPRING/ Calcofluor preparation: no fungus observed. Performed By: #### C XFUN #### [facility] [address] [address] [address] Frederick Mccray Result Comment: No y [...] by: Claudio GASCA Date: 2022-07-30 00:[address] [facility] XR FOOT RT MIN 3 [...] Claudio GASCA Date: 2022-07-30 00:42 Normal [facility] CULTURE ANAEROBICon 07-29-19 23 CULTURE ANAEROBIC Culture Observations : NO GROWTH OF ANAEROBES AT [address] [facility] Comment on above: Performed By: #### A NACX ####[facility] [address] [place] [address]Dr. Frederick Mccray CULTURE OTHERon 07-28-2022 CULTURE OTHER Specimen Comments: Navicular Bone Biopsy Right Foot Culture Observations: NO GROWTH OF AEROBES AT 48 HOURS. Normal [facility] Comment on above: Performed By: #### O THCX #### [facility] [address] [address] [address] Frederick Mccray GRAM STAINon 07-28-2022 COMMENTS NO ORGANISMS OBSERVED [facility] Comment on above: Performed By: #### G STAIN ####[facility] [address] [place] [id number]. Frederick Mccray DIPHTHEROIDS Normal [facility] Comment on above: Performed By: #### G STAIN ####[facility] [address] [place] [address]Dr. Frederick Mccray EPITHELIALS Normal [facility] Comment on above: Performed By: #### G STAIN ####[facility] [address] [place] [address]Dr. Frederick Mccray FUNGAL ELEMENTS Normal [facility] Comment on above: Performed By: #### G STAIN ####[facility] [address] [place] [address]Dr. Frederick Mccray GRAM NEG BACILLI Normal [facility] Comment on above: Performed By: #### G STAIN ####[facility] [address] [place], [place] [address]Dr. Frederick Mccray GRAM NEG DIPPLOCOCCI Normal [facility] Comment on above: Performed By: #### G STAIN ####[facility] [address] [place], [place] [address]Dr. Frederick Mccray GRAM POS BACILLI Normal [facility] Comment on above: Performed By: #### G STAIN ####[facility] [address] [place], [place] [address]Dr. Frederick Mccray GRAM POSITIVE COCCI Normal [facility] Comment on above: Performed By: #### G STAIN ####[facility] [address] [place], [place] [address]Dr. Frederick Mccray GRAM STAIN SOURCE Right foot navicular bone biopsy Normal [facility] Comment on above: Performed By: #### G STAIN ####[facility] [address] [place] [address]Dr. Frederick Mccray GS_DIPTH Normal [facility] Comment on above: Performed By: #### G STAIN ####[facility] [address] [place], [place] [address]Dr. Frederick Mccray WBC Normal [facility] Comment on above: Performed By: #### G STAIN ####[facility] [address] [place], [place] [address]Dr. Frederick Mccray POINT OF CARE GLUCOSEon - Glucose [Mass/Vol] 103 mg/dL Normal 74-106 [facility] Comment on above: Performed By: #### A CTHP #### [facility] [address] [address] [address] Frederick Mccray Glucose [Mass/Vol] 103 mg/dL Normal 74-106 [facility] Comment on above: Performed By: #### P OCGLUC #### [facility] [address] [address] [address] Frederick Mccray CBC AUTO DIFFon 07-26-2022 BASO # 0.1 103/ul Normal 0.0-0.[address] [facility] Comment on above: Performed By: #### C BC ####[facility] [address] [place] [address]DrSuraj Mccray Basophils/100 WBC (Bld) 0.5 % Normal 0.2-2.[address] [facility] Comment on above: Performed By: #### C BC ####[facility] [address] [place] [address]DrSuraj Mccray EO # 0.2 103/ul Normal 0.0-0.[address] [facility] Comment on above: Performed By: #### C BC ####[facility] [address] [place] [address]Dr. Frederick Mccray Eosinophils/100 WBC (Bld) 1.3 % Normal 0.9-7.0 [facility] Comment on above: Performed By: #### C BC ####[facility] [address] [place] [address]DrSuraj Mccray Erythrocyte distribution width (RBC) [Ratio] 13.3 % Normal 11.0-15.0 [facility] Comment on above: Performed By: #### C BC ####[facility] [address] [place] [address]DrSuraj Mccray Hematocrit (Bld) [Volume fraction] 43.6 % Normal 42.0-54.[address] [facility] Comment on above: Performed By: #### C BC ####[facility] [address] [place], [place] [address]Dr. Frederick Mccray Hemoglobin (Bld) [Mass/Vol] 15.0 g/dL Normal 14.0-18.0 [facility] Comment on above: Performed By: #### C BC ####[facility] [address] [place] [address]Dr. Kaiteloisa Mahendra IG # 0.06 10e3/ul Critically high 0.00-0.03 [facility] Comment on above: Performed By: #### C BC ####[facility] [address] [place] [address]Dr. Frederick Mccray IG % 0.5 % Normal 0.0-0.5 [facility] Comment on above: Performed By: #### C BC ####[facility] [address] [place], [place] [address]Dr. Frederick Mccray LYMPH # 1.6 103/ul Normal 1.2-3.8 [facility] Comment on above: Performed By: #### C BC ####[facility] [address] [place], [place] [address]Dr. Frederick Mccray Lymphocytes/100 WBC (Bld) 13.4 % Critically low 20.5-60.0 [facility] Comment on above: Performed By: #### C BC ####[facility] [address] [place] [address]Dr. Kaiteloisa Mccray MANUAL DIFF REQ NO Normal [facility] Comment on above: Performed By: #### C BC ####[facility] [address] [place], [place] [address]Dr. Frederick Mahendra MCH (RBC) [Entitic mass] 32.3 pg Normal 25.9-34.0 [facility] Comment on above: Performed By: #### C BC ####[facility] [address] [place], [place] [address]DrSuraj Kaiteloisa Mccray MCHC (RBC) [Mass/Vol] 34.4 g/dL Normal 29.9-35.2 [facility] Comment on above: Performed By: #### C BC ####[facility] [address] [place], [place] [address]Dr. Frederick Mahendra MCV (RBC) [Entitic vol] 93.8 fL Normal 80.0-94.0 [facility] Comment on above: Performed By: #### C BC ####[facility] [address] [place] [address]DrSuraj Frederick Mccray MONO # 0.6 103/ul Normal 0.3-0.8 [facility] Comment on above: Performed By: #### C BC ####[facility] [address] [place] [address]Dr. Kaitelosia Mahendra Monocytes/100 WBC (Bld) 4.6 % Normal 1.7-12.0 [facility] Comment on above: Performed By: #### C BC ####[facility] [address] [place], [place] [address]Dr. Kaiteloisa Mccray NEUT # 9.8 103/ul Critically high 1.4-6.5 [facility] Comment on above: Performed By: #### C BC ####[facility] [address] [place], [place] [address]Dr. Kaiteloisa Mccray Neutrophils/100 WBC (Bld) 79.7 % Critically high 43.0-75.0 [facility] Comment on above: Performed By: #### C BC ####[facility] [address] [place], [place] [address]Dr. Frederick Mccray Platelet mean volume (Bld) [Entitic vol] 9.5 fL Normal 9.5-13.5 [facility] Comment on above: Performed By: #### C BC ####[facility] [address] [place], [place] [address]Dr. Kaiteloisa Mahendra PLT 328 103/ul Normal 150-450 [facility] Comment on above: Performed By: #### C BC ####[facility] [address] [place], [place] [address]DrSuraj Mccray RBC 4.65 106/ul Critically low 4.70-6.10 [facility] Comment on above: Performed By: #### C BC ####[facility] [address] [place], [place] [address]Dr. Frederick Mccray WBC 12.3 103/ul Critically high 4.0-11.[address] [facility] Comment on above: Performed By: #### C BC ####[facility] [address] [place] [address]Dr. Frederick Mccray PROF CHEM 8 (BAS METB)on Anion gap [Moles/Vol] 13.9 mmol/L Normal [facility] Comment on above: Performed By: #### C XFUN #### [facility] [address] [address] [address] Frederick Mccray Calcium [Mass/Vol] 9.7 mg/dL Normal 8.5-10.[address] [facility] Comment on above: Performed By: #### C XFUN #### [facility] [address] [address] [address] Frederick Mccray Chloride [Moles/Vol] 96 mmol/L Critically low 98-[address] [facility] Comment on above: Performed By: #### C XFUN #### [facility] [address] [address] [address] Frederick Mccray CO2 [Moles/Vol] 27.8 mmol/L Normal 21.0-32.[address] [facility] Comment on above: Performed By: #### C XFUN #### [facility] [address] [address] [address] Frederick Mccray Creatinine [Mass/Vol] 0.82 mg/dL Normal 0.70-1.30 [facility] Comment on above: Performed By: #### C XFUN #### [facility] [address] [address] [address] Frederick Mccray EGFR-AF TUNISIAN >60 Normal >=60 [facility] Comment on above: Performed By: #### C XFUN #### [facility] [address] [address] [address] Frederick Mccray EGFR-NON AF TUNISIAN >60 Normal >=[address] [facility] Comment on above: Performed By: #### C XFUN #### [facility] [address] [address] [address] Frederick Mccray Glucose [Mass/Vol] 125 mg/dL Critically high 74-106 [facility] Comment on above: Performed By: #### C XFUN #### [facility] [address] [place] [address] Dr. Frederick Mccray Potassium [Moles/Vol] 4.7 mmol/L Normal 3.5-5.[address] [facility] Comment on above: Performed By: #### C XFUN #### [facility] [address] [place] [address] Dr. Frederick Mccray Sodium [Moles/Vol] 133 mmol/L Critically low 136-145 Th [facility] Comment on above: Performed By: #### C XFUN #### [facility] [address] [place] [address] Dr. Frederick Mccray Urea nitrogen [Mass/Vol] 11.0 mg/dL Normal 7.0-18.[address] [facility] Comment on above: Performed By: #### C XFUN #### [facility] [address] [place] [address] Dr. Frederick Mccray Urea nitrogen/Creatinine [Mass ratio] 13.4 mg/mg Normal [facility] Comment on above: Performed By: #### C XFUN #### [facility] [address] [place] [address] ANKLE RT WO [...] NADIA TINOCO Date: 2022-07-23 10:12 Normal [facility] CBC AUTO DIFFon 07-01-2022 BASO # 0.1 103/ul Normal 0.0-0.1 [facility] Comment on above: Performed By: #### C BC ####[facility] [address] [place] [address]Dr. Frederick Mccray Basophils/100 WBC (Bld) 0.5 % Normal 0.2-2.0 [facility] Comment on above: Performed By: #### C BC ####[facility] [address] [place] [address]Dr. Frederick Mccray EO # 0.1 103/ul Normal 0.0-0.7 [facility] Comment on above: Performed By: #### C BC ####[facility] [address] [place], [place] [address]Dr. Frederick Mccray Eosinophils/100 WBC (Bld) 0.8 % Critically low 0.9-7.0 [facility] Comment on above: Performed By: #### C BC ####[facility] [address] [place], [place] [address]Dr. Frederick Mccray Erythrocyte distribution width (RBC) [Ratio] 13.2 % Normal 11.0-15.0 [facility] Comment on above: Performed By: #### C BC ####[facility] [address] [place], [place] [address]Dr. Frederick Mccray Hematocrit (Bld) [Volume fraction] 45.7 % Normal 42.0-54.0 [facility] Comment on above: Performed By: #### C BC ####[facility] [address] [place], [place] [address]Dr. Frederick Mccray Hemoglobin (Bld) [Mass/Vol] 15.5 g/dL Normal 14.0-18.0 [facility] Comment on above: Performed By: #### C BC ####[facility] [address] [place], [place] [address]Dr. Frederick Mccray IG # 0.07 10e3/ul Critically high 0.00-0.03 [facility] Comment on above: Performed By: #### C BC ####[facility] [address] [place] [address]Dr. Frederick Mccray IG % 0.5 % Normal 0.0-0.[address] [facility] Comment on above: Performed By: #### C BC ####[facility] [address] [place] [address]Dr. Frederick Mccray LYMPH # 1.7 103/ul Normal 1.2-3.8 [facility] Comment on above: Performed By: #### C BC ####[facility] [address] [place] [address]Dr. Frederick Mccray Lymphocytes/100 WBC (Bld) 11.1 % Critically low 20.5-60.[address] [facility] Comment on above: Performed By: #### C BC ####[facility] [address] [place], [place] [address]DrSuraj Mccray MANUAL DIFF REQ NO Normal [facility] Comment on above: Performed By: #### C BC ####[facility] [address] [place] [address]Dr. Frederick Mccray MCH (RBC) [Entitic mass] 32.1 pg Normal 25.9-34.[address] [facility] Comment on above: Performed By: #### C BC ####[facility] [address] [place], [place] [address]Dr. Frederick Mccray MCHC (RBC) [Mass/Vol] 33.9 g/dL Normal 29.9-35.2 [facility] Comment on above: Performed By: #### C BC ####[facility] [address] [place], [place] [address]Dr. Frederick Mccray MCV (RBC) [Entitic vol] 94.6 fL Critically high 80.0-94.[address] [facility] Comment on above: Performed By: #### C BC ####[facility] [address] [place], [place] [address]DrSuraj Mccray MONO # 0.9 103/ul Critically high 0.3-0.[address] [facility] Comment on above: Performed By: #### C BC ####[facility] [address] [place] [id number]. Frederick Mccray Monocytes/100 WBC (Bld) 5.7 % Normal 1.7-12.0 [facility] Comment on above: Performed By: #### C BC ####[facility] [address] [place] [id number]. Frederick Mccray NEUT # 12.5 103/ul Critically high 1.4-6.5 [facility] Comment on above: Performed By: #### C BC ####[facility] [address] [place] [id number]. Frederick Mccray Neutrophils/100 WBC (Bld) 81.4 % Critically high 43.0-75.0 [facility] Comment on above: Performed By: #### C BC ####[facility] [address] [place] [id number]. Frederick Mccray Platelet mean volume (Bld) [Entitic vol] 9.5 fL Normal 9.5-13.5 [facility] Comment on above: Performed By: #### C BC ####[facility] [address] [place] [id number]. Frederick Mccray PLT 413 103/ul Normal 150-450 [facility] Comment on above: Performed By: #### C BC ####[facility] [address] [place] [id number]. Frederick Mccray RBC 4.83 106/ul Normal 4.70-6.10 [facility] Comment on above: Performed By: #### C BC ####[facility] [address] [place] [id number]. Frederick Mccray WBC 15.4 103/ul Critically high 4.0-11.0 [facility] Comment on above: Performed By: #### C BC ####[facility] [address] [id number]. Frederick Mccray CRPon 07-01-2022 CRP 6.9 mg/dL Critically high <=1.0 [facility] Comment on above: Performed By: #### A CTHP #### [facility] [address] [place] [address] Dr. Frederick Mccray PROF CHEM 8 (BAS METB)on Anion gap [Moles/Vol] 11.8 mmol/L Normal [facility] Comment on above: Performed By: #### C XFUN #### [facility] [address] [place] [address] Dr. Frederick Mccray Calcium [Mass/Vol] 9.6 mg/dL Normal 8.5-10.[address] [facility] Comment on above: Performed By: #### C XFUN #### [facility] [address] [place] [address] Dr. Frederick Mccray Chloride [Moles/Vol] 94 mmol/L Critically low 98-[address] [facility] Comment on above: Performed By: #### C XFUN #### [facility] [address] [place] [address] Dr. Frederick Mccray CO2 [Moles/Vol] 31.4 mmol/L Normal 21.0-32.[address] [facility] Comment on above: Performed By: #### C XFUN #### [facility] [address] [place] [address] Dr. Frederick Mccray Creatinine [Mass/Vol] 0.83 mg/dL Normal 0.70-1.[address] [facility] Comment on above: Performed By: #### C XFUN #### [facility] [address] [place] [address] Dr. Frederick Mccray EGFR-AF TUNISIAN >60 Normal >=60 [facility] Comment on above: Performed By: #### C XFUN #### [facility] [address] [place] [address] Dr. Frederick Mccray EGFR-NON AF TUNISIAN >60 Normal >=[address] [facility] Comment on above: Performed By: #### C XFUN #### [facility] [address] [place] [address] Dr. Frederick Mccray Glucose [Mass/Vol] 98 mg/dL Normal 74-106 [facility] Comment on above: Performed By: #### C XFUN #### [facility] [address] [address] [address] Frederick Mccray Potassium [Moles/Vol] 4.2 mmol/L Normal 3.5-5.[address] [facility] Comment on above: Performed By: #### C XFUN #### [facility] [address] [address] [address] Frederick Mccray Sodium [Moles/Vol] 133 mmol/L Critically low 136-145 [facility] Comment on above: Performed By: #### C XFUN #### [facility] [address] [address] [address] Frederick Mccray Urea nitrogen [Mass/Vol] 11.0 mg/dL Normal 7.0-18.[address] [facility] Comment on above: Performed By: #### C XFUN #### [facility] [address] [place] [address] Dr. Frederick Mccray Urea nitrogen/Creatinine [Mass ratio] 13.3 mg/mg Normal [facility] Comment on above: Performed By: #### C XFUN #### [facility] [address] [place] [address] Dr. Frederick Mccray SED RATE [facility] 2022 SED RATE 51 mm/hr Critically high <=[address] [facility] Comment on above: Performed By: #### C XFUN #### [facility] [address] [place] [address] Dr. Frederick Mccray CPKon 06-14-2022 CK [Catalytic activity/Vol] 26 U/L Critically low 39-[address] [facility] Comment on above: Performed By: #### C XFUN #### [facility] [address] [address] [address] Frederick Mccray PROF CHEM 8 (BAS METB)on Anion gap [Moles/Vol] 11.0 mmol/L Normal [facility] Comment on above: Performed By: #### C XFUN #### [facility] [address] [place] [address] Dr. Frederick Mccray Calcium [Mass/Vol] 9.8 mg/dL Normal 8.5-10.[address] [facility] Comment on above: Performed By: #### C XFUN #### [facility] [address] [place] [address] Dr. Frederick Mccray Chloride [Moles/Vol] 97 mmol/L Critically low 98-[address] [facility] Comment on above: Performed By: #### C XFUN #### [facility] [address] [place] [address] Dr. Frederick Mccray CO2 [Moles/Vol] 28.5 mmol/L Normal 21.0-32.[address] [facility] Comment on above: Performed By: #### C XFUN #### [facility] [address] [place] [address] Dr. Frederick Mccray Creatinine [Mass/Vol] 1.08 mg/dL Normal 0.70-1.[address] [facility] Comment on above: Performed By: #### C XFUN #### [facility] [address] [place] [address] Dr. Frederick Mccray EGFR-AF TUNISIAN >60 Normal >=[address] [facility] Comment on above: Performed By: #### C XFUN #### [facility] [address] [place] [address] Dr. Frederick Mccray EGFR-NON AF TUNISIAN >60 Normal >=[address] [facility] Comment on above: Performed By: #### C XFUN #### [facility] [address] [place] [address] Dr. Frederick Mccray Glucose [Mass/Vol] 106 mg/dL Normal 74-[address] [facility] Comment on above: Performed By: #### C XFUN #### [facility] [address] [place] [address] Dr. Frederick Mccray Potassium [Moles/Vol] 4.4 mmol/L Normal 3.5-5.[address] [facility] Comment on above: Performed By: #### C XFUN #### [facility] [address] [place] [address] Dr. Frederick Mccray Sodium [Moles/Vol] 132 mmol/L Critically low 136-145 [facility] Comment on above: Performed By: #### C XFUN #### [facility] [address] [place] [address] Dr. Frederick Mccray Urea nitrogen [Mass/Vol] 15.0 mg/dL Normal 7.0-18.[address] [facility] Comment on above: Performed By: #### C XFUN #### [facility] [address] [place] [address] Dr. Frederick Mccray Urea nitrogen/Creatinine [Mass ratio] 13.9 mg/mg Normal [facility] Comment on above: Performed By: #### C XFUN #### [facility] [address] [place] [address] Dr. Frederick Mccray URIC ACID SERUMon 06-14-2022 Urate [Mass/Vol] 6.2 mg/dL Normal 3.5-7.[address] [facility] Comment on above: Performed By: #### C XFUN #### [facility] [address] [place] [address] Dr. Frederick Mccray CULTURE WOUNDon 04-22-2022 CULTURE [...] Trimethoprim/Sulfamethoxazo le <=10 S F Normal [facility] Comment on above: Performed By: #### W OUNDCX #### [facility] [address] [place] [address] Dr. Frederick Mccray GRAM STAINon 04-19-2022 COMMENTS NO ORGANISMS OBSERVED Normal [facility] Comment on above: Performed By: #### C XFUN #### [facility] [address] [address] [address] Frederick Mccray DIPHTHEROIDS Normal [facility] Comment on above: Performed By: #### C XFUN #### [facility] [address] [address] [address] Frederick Mccray EPITHELIALS Normal [facility] Comment on above: Performed By: #### C XFUN #### [facility] [address] [address] [address] Frederick cMcray FUNGAL ELEMENTS Normal [facility] Comment on above: Performed By: #### C XFUN #### [facility] [address] [address] [address] Frederick Mccray GRAM NEG BACILLI [place] [facility] Comment on above: Performed By: #### C XFUN #### [facility] [address] [place] [address] Dr. Frederick Mccray GRAM NEG DIPPLOCOCCI Normal [facility] Comment on above: Performed By: #### C XFUN #### [facility] [address] [address] [address] Frederick Mccray GRAM POS BACILLI Normal [facility] Comment on above: Performed By: #### C XFUN #### [facility] [address] [place] [address] Dr. Frederick Mccray GRAM POSITIVE COCCI Normal [facility] Comment on above: Performed By: #### C XFUN #### [facility] [address] [place] [address] Dr. Frederick Mccray GRAM STAIN SOURCE Rt Foot Normal [facility] Comment on above: Performed By: #### C XFUN #### [facility] [address] [place] [address] Dr. Frederick Mccray GS_DIPTH [facility] Comment on above: Performed By: #### C XFUN #### [facility] [address] [place] [address] Dr. Frederick Mccray WBC MODERATE Normal [facility] Comment on above: Performed By: #### C XFUN #### [facility] [address] [place] [address] Dr. Frederick Mccray POINT OF CARE GLUCOSEon 10-2 2 Glucose [Mass/Vol] 109 mg/dL Critically high 74-106 [facility] Comment on above: Performed By: #### P OCGLUC ####[facility] [address] [id number]. Frederick Mccray CBC AUTO DIFFon 02-01-2022 BASO # 0.1 103/ul Normal 0.0-0.[address] [facility] Comment on above: Performed By: #### C XFUN #### [facility] [address] [address] [address] Frederick Mccray Basophils/100 WBC (Bld) 0.5 % Normal 0.2-2.[address] [facility] Comment on above: Performed By: #### C XFUN #### [facility] [address] [address] [address] Frederick Mccray EO # 0.1 103/ul Normal 0.0-0.[address] [facility] Comment on above: Performed By: #### C XFUN #### [facility] [address] [address] [address] Frederick Mccray Eosinophils/100 WBC (Bld) 0.5 % Critically low 0.9-7.[address] [facility] Comment on above: Performed By: #### C XFUN #### [facility] [address] [address] [address] Frederick Mccray Erythrocyte distribution width (RBC) [Ratio] 13.5 % Normal 11.0-15.[address] [facility] Comment on above: Performed By: #### C XFUN #### [facility] [address] [address] [address] Frederick Mccray Hematocrit (Bld) [Volume fraction] 45.6 % Normal 42.0-54.[address] [facility] Comment on above: Performed By: #### C XFUN #### [facility] [address] [address] [address] Frederick Mccray Hemoglobin (Bld) [Mass/Vol] 15.6 g/dL Normal 14.0-18.[address] [facility] Comment on above: Performed By: #### C XFUN #### [facility] [address] [address] [address] Frederick Mccray IG # 0.09 10e3/ul Critically high 0.00-0.[address] [facility] Comment on above: Performed By: #### C XFUN #### [facility] [address] [address] [address] Frederick Mccray IG % 0.7 % Critically high 0.0-0.[address] [facility] Comment on above: Performed By: #### C XFUN #### [facility] [address] [place] [address] Dr. Frederick Mccray LYMPH # 1.7 103/ul Normal 1.2-3.[address] [facility] Comment on above: Performed By: #### C XFUN #### [facility] [address] [place] [address] Dr. Frederick Mccray Lymphocytes/100 WBC (Bld) 12.6 % Critically low 20.5-60.[address] [facility] Comment on above: Performed By: #### C XFUN #### [facility] [address] [place] [address] Dr. Frederick Mccray MANUAL DIFF REQ NO Normal [facility] Comment on above: Performed By: #### C XFUN #### [facility] [address] [place] [address] Dr. Frederick Mccray MCH (RBC) [Entitic mass] 33.6 pg Normal 25.9-34.[address] [facility] Comment on above: Performed By: #### C XFUN #### [facility] [address] [place] [address] Dr. Frederick Mccray MCHC (RBC) [Mass/Vol] 34.2 g/dL Normal 29.9-35.[address] [facility] Comment on above: Performed By: #### C XFUN #### [facility] [address] [place] [address] Dr. Frederick Mccray MCV (RBC) [Entitic vol] 98.3 fL Critically high 80.0-94.[address] [facility] Comment on above: Performed By: #### C XFUN #### [facility] [address] [place] [address] Dr. Frederick Mccray MONO # 0.8 103/ul Normal 0.3-0.8 [facility] Comment on above: Performed By: #### C XFUN #### [facility] [address] [place] [address] Dr. Frederick Mccray Monocytes/100 WBC (Bld) 5.7 % Normal 1.7-12.0 [facility] Comment on above: Performed By: #### C XFUN #### [facility] [address] [place] [address] Dr. Frederick Mccray NEUT # 11.0 103/ul Critically high 1.4-6.5 [facility] Comment on above: Performed By: #### C XFUN #### [facility] [address] [place] [address] Dr. Frederick Mccray Neutrophils/100 WBC (Bld) 80.0 % Critically high 43.0-75.[address] [facility] Comment on above: Performed By: #### C XFUN #### [facility] [address] [place] [address] Dr. Frederick Mccray Platelet mean volume (Bld) [Entitic vol] 9.8 fL Normal 9.5-13.5 [facility] Comment on above: Performed By: #### C XFUN #### [facility] [address] [place] [address] Dr. Frederick Mccray PLT 298 103/ul Normal 150-450 [facility] Comment on above: Performed By: #### C XFUN #### [facility] [address] [place] [address] Dr. Frederick Mccray RBC 4.64 106/ul Critically low 4.70-6.10 [facility] Comment on above: Performed By: #### C XFUN #### [facility] [address] [place] [address] Dr. Frederick Mccray WBC 13.7 103/ul Critically high 4.0-11.0 [facility] Comment on above: Performed By: #### C XFUN #### [facility] [address] [place], [place] [id number] Dr. Frederick Mccray Covid-19 PCR (CVDTB)on 01-15 SARS-CoV-2 (COVID-19) RNA MACY+probe Ql (Unsp spec) Not detected Normal NOT DETECTED [facility] Comment on above: Result Comment: This test is not yet approved or cleared by the [place] FDA. When there are no FDA-approved or cleared tests available, and other criteria are met, FDA can make tests available under an emergency access mechanism called an Emergency Use Authorization (EUA). The EUA for this test is supported by the [place] of Health and Human Service's (HHS's) declaration [...] with SARS-CoV-2. Performed By: #### C VDTBH ####[facility] [address] [place], [place] [address]Dr. Frederick Mccray MRSA NARES #1on 02-01-2022 MRSA NARES #1 Culture Observations : NO GROWTH OF MRSA AT 48 HOURS Normal [facility] Comment on above: Performed By: #### M RSAN1 ####[facility] [address] [place], [place] [address]Dr. Frederick Mccray PROF CHEM 8 (BAS METB)on Anion gap [Moles/Vol] 8.7 mmol/L Normal [facility] Comment on above: Performed By: #### B MP #### [facility] [address] [place] [address] Dr. Frederick Mccray Calcium [Mass/Vol] 8.9 mg/dL Normal 8.5-10.[address] [facility] Comment on above: Performed By: #### B MP #### [facility] [address] [address] [address] Frederick Mccray Chloride [Moles/Vol] 97 mmol/L Critically low 98-[address] [facility] Comment on above: Performed By: #### B MP #### [facility] [address] [address] [address] Frederick Mccray CO2 [Moles/Vol] 29.2 mmol/L Normal 21.0-32.[address] [facility] Comment on above: Performed By: #### B MP #### [facility] [address] [place] [address] Dr. Frederick Mccray Creatinine [Mass/Vol] 1.28 mg/dL Normal 0.70-1.[address] [facility] Comment on above: Performed By: #### B MP #### [facility] [address] [place] [address] Dr. Frederick Mccray EGFR-AF TUNISIAN >60 Normal >=[address] [facility] Comment on above: Performed By: #### B MP #### [facility] [address] [place] [address] Dr. Frederick Mccray EGFR-NON AF TUNISIAN 57 mL/min/1.73m2 Critically low >=[address] [facility] Comment on above: Performed By: #### B MP #### [facility] [address] [place] [address] Dr. Frederick Mccray Glucose [Mass/Vol] 105 mg/dL Normal 74-[address] [facility] Comment on above: Performed By: #### B MP #### [facility] [address] [place] [address] Dr. Frederick Mccray Potassium [Moles/Vol] 3.9 mmol/L Normal 3.5-5.[address] [facility] Comment on above: Performed By: #### B MP #### [facility] [address] [place] [address] Dr. Frederick Mccray Sodium [Moles/Vol] 131 mmol/L Critically low 136-145 [facility] Comment on above: Performed By: #### B MP #### [facility] [address] [place] [address] Dr. Frederick Mccray Urea nitrogen [Mass/Vol] 15.0 mg/dL Normal 7.0-18.[address] [facility] Comment on above: Performed By: #### B MP #### [facility] [address] [place], [place] [address] Dr. Frederick Mccray Urea nitrogen/Creatinine [Mass ratio] 11.7 mg/mg Normal [facility] Comment on above: Performed By: #### B MP #### [facility] [address] [place], [place] [address] Dr. Frederick Mccray MRI Knee w/o Lefton [...] by Vish Tariq on 01/07/2022 1013 Normal [facility] [employer] OSMOLALITYon 11-12-2021 Osmolality [Osmolality] 288 mosm/kg Normal 275-[address] [facility] Comment on above: Performed By: #### O SMO #### [facility] [address] [place], [place] [address] Dr. Frederick Mccray OSMOLALITY URINEon Osmolality, Urine 462 mOsmol/kg Normal [facility] Comment on above: Result Comment: 24 h r : 300 - 900 Random: 50 - 1400 After 12hr fluid restriction: >850 Performed By: #### O SMOU ####[facility] [address] [place] [address]Dr. Frederick Mccray ACTH, PLASMAon 11-11-2021 ACTH, Plasma 33.5 pg/mL Normal 7.2-63.[address] [facility] Comment on above: Result Comment: ACTH reference interval for samples collected between 7 and 10 AM. Performed By: #### A CTHP #### [facility] [address] [address] [address] Frederick Mccray CREATININE URINEon URINE CREAT 88.34 mg/dL Normal 20.00-300. [address] [facility] Comment on above: Performed By: #### C REAU ####[facility] [address] [place] [address]Dr. Frederick Mccray PROF CHEM 8 (BAS METB)on Anion gap [Moles/Vol] 14.0 mmol/L Normal [facility] Comment on above: Performed By: #### B MP ####[facility] [address] [place], [place] [address]Dr. Frederick Mccray Calcium [Mass/Vol] 9.1 mg/dL Normal 8.5-10.1 [facility] Comment on above: Performed By: #### B MP ####[facility] [address] [place], [place] [address]Dr. Frederick Mccray Chloride [Moles/Vol] 101 mmol/L Normal 98-107 [facility] Comment on above: Performed By: #### B MP ####[facility] [address] [place], [place] [address]Dr. Frederick Mccray CO2 [Moles/Vol] 27.8 mmol/L Normal 21.0-32.0 [facility] Comment on above: Performed By: #### B MP ####[facility] [address] [place], [place] [address]DrSuraj Mccray Creatinine [Mass/Vol] 0.99 mg/dL Normal 0.70-1.30 [facility] Comment on above: Performed By: #### B MP ####[facility] [address] [place], [place] [address]Dr. Frederick Mccray EGFR-AF TUNISIAN >60 Normal >=[address] [facility] Comment on above: Performed By: #### B MP ####[facility] [address] [id number]. Frederick Mccray EGFR-NON AF TUNISIAN >60 Normal >=[address] [facility] Comment on above: Performed By: #### B MP ####[facility] [address] [place] [id number]. Frederick Mccray Glucose [Mass/Vol] 83 mg/dL Normal 74-106 [facility] Comment on above: Performed By: #### B MP ####[facility] [address] [place] [address]Dr. Frederick Mccray Potassium [Moles/Vol] 3.8 mmol/L Normal 3.5-5.[address] [facility] Comment on above: Performed By: #### B MP ####[facility] [address] [place] [address]Dr. Frederick Mccray Sodium [Moles/Vol] 139 mmol/L Normal 136-[address] [facility] Comment on above: Performed By: #### B MP ####[facility] [address] [place] [address]Dr. Frederick Mccray Urea nitrogen [Mass/Vol] 13.0 mg/dL Normal 7.0-18.[address] [facility] Comment on above: Performed By: #### B MP ####[facility] [address] [place] [address]Dr. Frederick Mccray Urea nitrogen/Creatinine [Mass ratio] 13.1 mg/mg Normal [facility] Comment on above: Performed By: #### B MP ####[facility] [address] [place] [id number]. Frederick Mccray SODIUM RANDOM URINEon 2021 Sodium (U) [Moles/Vol] 125 mmol/L Critically high 30-[address] [facility] Comment on above: Performed By: #### C XFUN #### [facility] [address] [address] [address] Frederick Mccray MRSA COLONIZATION SCREENING CULTUREon 10-21-2021 MRSA Screening Culture Negative Normal [facility] Comment on above: Performed By: #### C XFUN #### [facility] [address] [place] [address] Dr. Frederick Mccray Covid-19 PCR (CVDTB)on SARS-CoV-2 (COVID-19) RNA MACY+probe Ql (Unsp spec) Detected Critically abnormal NOT DETECTED [facility] Comment on above: Result Comment: This test is not yet approved or cleared by the [place] FDA. When there are no FDA-approved or cleared tests available, and other criteria are met, FDA can make tests available under an emergency access mechanism called an Emergency Use Authorization (EUA). The EUA for this test is supported by the [place] of Health and Human Service's declaration that [...] used). Performed By: #### A CTHP #### [facility] [address] [address] [address] Frederick Mccray PROF CHEM 8 (BAS METB)on Anion gap [Moles/Vol] 8.9 mmol/L Normal [facility] Comment on above: Performed By: #### B MP ####[facility] [address] [place] [address]DrSuraj Mccray Calcium [Mass/Vol] 9.5 mg/dL Normal 8.5-10.1 [facility] Comment on above: Performed By: #### B MP ####[facility] [address] [place] [address]DrSuraj Mccray Chloride [Moles/Vol] 95 mmol/L Critically low 98-107 [facility] Comment on above: Performed By: #### B MP ####[facility] [address] [place] [address]DrSuraj Mccray CO2 [Moles/Vol] 28.3 mmol/L Normal 21.0-32.[address] [facility] Comment on above: Performed By: #### B MP ####[facility] [address] [place] [address]Dr. Frederick Mccray Creatinine [Mass/Vol] 1.02 mg/dL Normal 0.70-1.[address] [facility] Comment on above: Performed By: #### B MP ####[facility] [address] [place] [address]Dr. Frederick Mahendra EGFR-AF TUNISIAN >60 Normal >=[address] [facility] Comment on above: Performed By: #### B MP ####[facility] A[address] [place], [place] [address]Dr. Kaiteloisa Mahendra EGFR-NON AF TUNISIAN >60 Normal >=[address] [facility] Comment on above: Performed By: #### B MP ####[facility] S[address] [place], [place] [address]Dr. Frederick Mccray Glucose [Mass/Vol] 90 mg/dL Normal 74-[address] [facility] Comment on above: Performed By: #### B MP ####[facility] [address] [place], [place] [address]Dr. Frederick Mccray Potassium [Moles/Vol] 4.2 mmol/L Normal 3.5-5.[address] [facility] Comment on above: Performed By: #### B MP ####[facility] Ymrxy[address] [place], [place] [address]Dr. Frederick Mccray Sodium [Moles/Vol] 128 mmol/L Critically low 136-145 [facility] Comment on above: Performed By: #### B MP ####[facility] Mh[address]mr[address] [place], [place] [address]Dr. Frederick Mccray Urea nitrogen [Mass/Vol] 9.0 mg/dL Normal 7.0-18.[address] [facility] Comment on above: Performed By: #### B MP ####[facility] Sq[address] [place], [place] [address]Dr. Frederick Mccray Urea nitrogen/Creatinine [Mass ratio] 8.8 mg/mg Normal [facility] Comment on above: Performed By: #### B MP ####[facility] [address] [place], [place] [address]AvSuraj Mccray *ANAEROBIC CULTUREon 022 *ANAEROBIC CULTURE Clinical Report: (D) Specimen: FLUID Collected: 07/21/2021 14:05 Status: Final Last Updated: 07/26/2021 10:34 (1) RT SC Joint Fluid CULT RES (Final) No Anaerobes Isolated 5 Days Normal [facility] Comment on above: Order Comment: The A ptima SARS-CoV-2 assay is a nucleic acid amplification test intended for the qualitative detection of RNA from SARS-CoV-2 isolated and purified from nasopharyngeal ([employer]),oropharyngeal (OP), nasal swab, sputum, and bronchoalveolar lavage (BAL) specimens from patients with signs and symptoms of infection who are suspected of COVID-19. Results are for the identification of SARS-CoV-2 RNA. The SARS-CoV-2 RNA is generally detectable during the acute phase of infection. The Aptima SARS-CoV-2 Assay on the Dovetail and Dovetail Fusion system is intended for use by laboratory personnel specifically instructed and trained in the operation of the [place] and [place] Fusion system. The Aptima SARS-CoV-2 assay is [...] information. Performed By: #### 3 1792 #### [address] *BODY FLUID CULTUREon 2021 *BODY FLUID CULTURE Clinical Report: (D) Specimen: FLUID Collected: 07/21/2021 14:05 Status: Final Last Updated: 07/26/2021 07:53 (1) RT SC Joint Fluid GRAM (Final) Quantity Not Sufficient CULT RES (Final) No Growth Day 5 Normal [facility] Comment on above: Order Comment: RT SC Joint Fluid Performed By: #### 8 5499 #### [facility] [address] APTTon 07-21-2021 aPTT Coag (Bld) [Time] 33.5 s Normal 25.0-35.0 Th e [facility] Comment on above: Result Comment: ALL RESULTS [...] PURPOSE. Performed By: #### 6 1405 #### [facility] [address] CBC W/DIFFon 07-21-2021 ABS IMM GRANS 0.1 10*3/uL Normal 0.0-0.2 [facility] Comment on above: Performed By: #### 5 0103 #### [facility] [address] ABS NEUTROPHILS 8.1 10*3/uL High 1.6-7.6 [facility] Comment on above: Performed By: #### 5 0103 #### [facility] [address] [place] [address], [facility] Basophils (Bld) [#/Vol] 0.1 10*3/uL Normal 0.0-0.2 [facility] Comment on above: Performed By: #### 5 0103 #### [facility] [address] [place] [address], [facility] Basophils/100 WBC (Bld) 0.7 % Normal 0.0-1.0 [facility] Comment on above: Performed By: #### 5 0103 #### [facility] [address] [place] [address], [facility] Eosinophils (Bld) [#/Vol] 0.4 10*3/uL Normal 0.0-0.5 [facility] Comment on above: Performed By: #### 5 0103 #### [facility] [address] [place] [address], [facility] Eosinophils/100 WBC (Bld) 3.4 % Normal 0.0-6.0 [facility] Comment on above: Performed By: #### 5 0103 #### [facility] [address] [place] [address], [facility] Erythrocyte distribution width (RBC) [Ratio] 12.5 % Normal 11.5-15.0 [facility] Comment on above: Performed By: #### 5 0103 #### [facility] [address] [place] [address], [facility] Hematocrit (Bld) [Volume fraction] 40.2 % Normal 39.0-50.0 [facility] Comment on above: Performed By: #### 5 0103 #### [facility] [address] [facility] [place] [address], [facility] Hemoglobin (Bld) [Mass/Vol] 13.8 g/dL Normal 13.0-17.0 [facility] Comment on above: Performed By: #### 5 0103 #### [facility] [address] [place] [address], [facility] IMMATURE GRANS 0.5 % Normal 0.0-1.0 [facility] Comment on above: Performed By: #### 5 0103 #### [facility] [address] [place] [address], [facility] Lymphocytes (Bld) [#/Vol] 1.8 10*3/uL Normal 1.2-4.0 [facility] Comment on above: Performed By: #### 5 3 #### [facility] [address] [place] [id number], [facility] Lymphocytes/100 WBC (Bld) 16.7 % Low 20.0-45.0 [facility] Comment on above: Performed By: #### 5 0103 #### [facility] [address] [place] [address], [facility] MCH (RBC) [Entitic mass] 33.7 pg High 27.0-33.0 [facility] Comment on above: Performed By: #### 5 0103 #### [facility] [address] [place] [address], [facility] MCHC (RBC) [Mass/Vol] 34.3 g/dL Normal 32.0-35.0 [facility] Comment on above: Performed By: #### 5 0103 #### [facility] [address] [facility] [place] [address], [facility] MCV (RBC) [Entitic vol] 98.3 fL High 82.0-98.0 [facility] Comment on above: Performed By: #### 5 0103 #### [facility] [address] [facility] [place] [place] [address], [facility] Monocytes (Bld) [#/Vol] 0.6 10*3/uL Normal 0.1-1.0 [facility] Comment on above: Performed By: #### 5 3 #### [facility] [address] [facility] [place] [place] [address], [facility] MONOS 5.2 % Normal 5.0-12.0 [facility] Comment on above: Performed By: #### 5 0103 #### [facility] [address] [facility] [place] [address], [facility] Neutrophils/100 WBC (Bld) 73.5 % High 40.0-72.0 [facility] Comment on above: Performed By: #### 5 3 #### [facility] [address] [place] [address], [facility] Nucleated RBC/100 WBC (Bld) [Ratio] 0 % Normal 0-0 [facility] Comment on above: Performed By: #### 5 0103 #### [facility] [address] [facility] [place] [address], [facility] PLAT CNT 424 10*3/uL High 150-400 [facility] Comment on above: Performed By: #### 5 0103 #### [facility] [address] [place] [address], [facility] RBC (Bld) [#/Vol] 4.09 10*6/uL Low 4.20-5.70 [facility] Comment on above: Performed By: #### 5 0103 #### [facility] [address] [facility] [place] [address], [facility] WBC (Bld) [#/Vol] 10.99 10*3/uL High 4.00-10.60 [facility] Comment on above: Performed By: #### 5 0103 #### [facility] [address] BIOPSY BONE DEEPon 2021 CT BIOPSY BONE DEEP [facility] Department of Radiology [address] [place] [id number] Patient Name: GEMMA RODGERS : 1960 Sex: M Age: Race: White Pt. 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 Gabriella Bertrand ASA hold [...] risks are acceptable. Consent was obtained. Timeout: [place] protocol timeout verification performed. MEDICATIONS: 2 mg [...] lidocaine was used for local anesthesia. Using 5-Danish one step angiocatheter, access into the right [...] complications Electronically signed: Olga Blank. Transcribed by: [email or web address], User Resident: Electronically Signed by: OLGA BLANK @ 07/21/2021 03:52 PM Normal [facility] Comment on above: Order Comment: looki ng for mass, hx of osteomyelitis, STAT order POC SARS COV2 IDon 2 SARS-CoV-2 (COVID-19) RNA MACY+probe Ql (Unsp spec) Negative Normal NEGATIVE [facility] Comment on above: Result Comment: ID N [...] Accreditation. Performed By: #### 3 1792 #### [address] PROTHROMBIN TIMEon 2 INR Coag (PPP) [Relative time] 1.04 {INR} Normal 0.91-1.16 [facility] Comment on above: Result Comment: ACCC P [...] 1995;[id number]. Performed By: #### 6 1405 #### [facility] 3000 [facility]. [address] PT Coag (PPP) [Time] 13.6 s Normal 12.3-14.8 [facility] Comment on above: Result Comment: ALL RESULTS MUST BE INTERPRETED WITH RESPECT TO BLOOD DRAWING ARTIFACT OR DILUTION ERROR OF ANTICOAGULANT AT THE TIME OF SAMPLING. Performed By: #### 6 1405 #### [facility] [address] [facility] SARS coronavirus 2 IgG Ab [U nits/volume] in Serum or Plasma by ImmunoassayOrdered By: Nasir Pan on 07-19-2021 SARS-CoV-2 (COVID-19) IgG IA Qn >800.0 AU/mL Neg <13.0 [facility] Comment on above: This test has [...] on 07-19-2021 SARS-CoV-2 (COVID-19) Ab [Interp] Positive [facility] Comment on above: Antibodies against t he SARS-CoV-2 spike protein, includingthe receptor binding domain (RBD) were detected. It is notyet known what level of antibody to SARS-CoV-2 spikeprotein correlates to immunity against developingsymptomatic SARS-CoV-2 disease. This assay was performedusing [employer](R) SARS-CoV-2 Trimeric S IgG assay.This test [...] any other viruses or pathogens.Performed at: - [facility] [id number] Director: Nico Cabrera PhD, Phone: [phone] CT UPPER EXTREMITY W CONTRAS T RIGHTon 07-02-2021 CT UPPER EXTREMITY W CONTRAST RIGHT [facility] Department of Radiology [address] [place] [address] Patient Name: GEMMA RODGERS : [...] Nasir Pan to send lab orders to [place] for patient. Comments: looking for mass, hx [...] joint Electronically signed: Caty Flanagan. Transcribed by: [email or web address], User Resident: Electronically Signed by: CATY FLANAGAN @ 07/02/2021 12:43 PM Normal [facility] Comment on above: Order Comment: jody webb for mass, hx of osteomyelitis, STAT order COVID-19 Positive/NegativeOr dered By: Vish Deluca on 06-11-2021 SARS-CoV-2 (COVID-19) N gene MACY+probe Ql (Resp) Negative Negative [facility] Comment on above: Testing for SARS-CoV -2 by RT-PCRThis test was developed and its performance characteristics determined by [employer] ([employer]) and validated at the [facility]. This test has not been FDA [...] by Vish Tariq on 06/09/2021 1559 Normal [facility] Specialist C REACTIVE PROTEINon 022 CRP [Mass/Vol] 19.6 mg/L High 0.0-7.0 [facility] Comment on above: Performed By: #### 6 1405 ####[facility] CBC W/DIFFon 05-25-2021 ABS IMM GRANS 0.1 10*3/uL Normal 0.0-0.2 [facility] Comment on above: Performed By: #### 3 0312 #### [facility] [address] ABS NEUTROPHILS 8.6 10*3/uL High 1.6-7.6 [facility] Comment on above: Performed By: #### 3 0312 #### [facility] [address] [place] [address], [facility] Basophils (Bld) [#/Vol] 0.1 10*3/uL Normal 0.0-0.2 [facility] Comment on above: Performed By: #### 3 0312 #### [facility] [address] [place] [address], [facility] Basophils/100 WBC (Bld) 0.5 % Normal 0.0-1.0 [facility] Comment on above: Performed By: #### 3 0312 #### [facility] [address] [place] [address], [facility] Eosinophils (Bld) [#/Vol] 0.2 10*3/uL Normal 0.0-0.5 [facility] Comment on above: Performed By: #### 3 0312 #### [facility] [address] [place] [address], [facility] Eosinophils/100 WBC (Bld) 2.2 % Normal 0.0-6.0 [facility] Comment on above: Performed By: #### 3 0312 #### [facility] [address] [place] [address], [facility] Erythrocyte distribution width (RBC) [Ratio] 12.7 % Normal 11.5-15.0 [facility] Comment on above: Performed By: #### 3 0312 #### [facility] [address] [place] [address], [facility] Hematocrit (Bld) [Volume fraction] 40.6 % Normal 39.0-50.0 [facility] Comment on above: Performed By: #### 3 0312 #### [facility] [address] [facility] [place] [address], [facility] Hemoglobin (Bld) [Mass/Vol] 14.2 g/dL Normal 13.0-17.0 [facility] Comment on above: Performed By: #### 3 0312 #### [facility] [address] [place] [address], [facility] IMMATURE GRANS 0.5 % Normal 0.0-1.0 [facility] Comment on above: Performed By: #### 3 0312 #### [facility] [address] [facility] [place] [address], [facility] Lymphocytes (Bld) [#/Vol] 1.3 10*3/uL Normal 1.2-4.0 [facility] Comment on above: Performed By: #### 3 0312 #### [facility] [address] [place] [address], [facility] Lymphocytes/100 WBC (Bld) 12.0 % Low 20.0-45.0 [facility] Comment on above: Performed By: #### 3 0312 #### [facility] [address] MCH (RBC) [Entitic mass] 34.2 pg High 27.0-33.0 [facility] Comment on above: Performed By: #### 3 0312 #### [facility] [address] MCHC (RBC) [Mass/Vol] 35.0 g/dL Normal 32.0-35.0 [facility] Comment on above: Performed By: #### 3 0312 #### [facility] [address] MCV (RBC) [Entitic vol] 97.8 fL Normal 82.0-98.0 [facility] Comment on above: Performed By: #### 3 0312 #### [facility] [address] Monocytes (Bld) [#/Vol] 0.9 10*3/uL Normal 0.1-1.0 [facility] Comment on above: Performed By: #### 3 0312 #### [facility] [address] MONOS 7.8 % Normal 5.0-12.0 [facility] Comment on above: Performed By: #### 3 0312 #### [facility] [address] Neutrophils/100 WBC (Bld) 77.0 % High 40.0-72.0 [facility] Comment on above: Performed By: #### 3 0312 #### [facility] [address] Nucleated RBC/100 WBC (Bld) [Ratio] 0 % Normal 0-0 [facility] Comment on above: Performed By: #### 3 0312 #### [facility] [address] [place] [address], [facility] PLAT CNT 308 10*3/uL Normal 150-400 [facility] Comment on above: Performed By: #### 3 0312 #### [facility] [address] [place] [address], [facility] RBC (Bld) [#/Vol] 4.15 10*6/uL Low 4.20-5.70 [facility] Comment on above: Performed By: #### 3 0312 #### [facility] [address] [place] [address], [facility] WBC (Bld) [#/Vol] 11.12 10*3/uL High 4.00-10.60 [facility] Comment on above: Performed By: #### 3 0312 #### [facility] [address] [place] [address], [facility] SEDIMENTATION RATEon 0208-2 022 SED RATE 16 mm/hr High 0-10 [facility] Comment on above: Performed By: #### 3 0312 #### [facility] [address] [place] [address], [facility] Basic Metabolic Panelon 01-0 Anion gap [Moles/Vol] 20 mmol/L Normal 12-20 [facility] Specialist Comment on above: Result Comment: Effe ctive 04/22/2019 reference range changed. Performed By: #### B MP #### [facility] [address] [place], [place] [id number] Calcium [Mass/Vol] 10.4 mg/dL High 8.6-10.2 [facility] [place] [facility] Specialist Comment on above: Performed By: #### B MP #### [facility] [address] [place], [place] [id number] Chloride [Moles/Vol] 98 mmol/L Normal 98-107 [facility] Specialist Comment on above: Performed By: #### B MP #### [facility] [address] [place], [place] [id number] CO2 [Moles/Vol] 22 mmol/L Normal 20-31 [facility] Specialist Comment on above: Performed By: #### B MP #### [facility] [address] [place], [place] [id number] Creatinine [Mass/Vol] 0.9 mg/dL Normal 0.7-1.4 [facility] Comment on above: Performed By: #### B MP #### [facility] [address] [place], [place] [id number] eGFRAA 106 mL/min/1.73m2 Normal >60 [facility] Comment on above: Performed By: #### B MP #### [facility] [address] [place], [place] [id number] eGFRNAA 87 mL/min/1.73m2 Normal >60 [facility] Comment on above: Performed By: #### B MP #### [facility] [address] [place], [place] [id number] Glucose [Mass/Vol] 95 mg/dL Normal 65-99 [facility] [place] [facility] Specialist Comment on above: Result Comment: For FASTING Glucose --- ADA reference ranges: Normal 65-99 mg/dl Prediabetes 100-125 Diabetes >/= 126 Performed By: #### B MP #### [facility] [address] [place], [place] [id number] Potassium [Moles/Vol] 5.0 mmol/L Normal 3.5-5.5 [facility] Comment on above: Performed By: #### B MP #### [facility] [address] [place], [place] [id number] Sodium [Moles/Vol] 135 mmol/L Normal 135-146 [facility] [place] [facility] Specialist Comment on above: Performed By: #### B MP #### [facility] [address] [place], [place] [id number] Urea nitrogen [Mass/Vol] 15 mg/dL Normal 7-25 [facility] Specialist Comment on above: Performed By: #### B MP #### [facility] [address] [place], [place] [id number] C REACTIVE PROTEINon 021 CRP [Mass/Vol] 7.9 mg/L High 0.0-7.0 [facility] Comment on above: Performed By: #### 6 1405 ####[facility] [place] [address], [facility] CBC COMPLETE BLOOD COUNTon 05-20-2020 Erythrocyte distribution width (RBC) [Ratio] 12.8 % Normal 11.5-15.0 [facility] Comment on above: Performed By: #### 3 0323 #### [facility] [address] [place] [address], [facility] Hematocrit (Bld) [Volume fraction] 40.7 % Normal 39.0-50.0 [facility] Comment on above: Performed By: #### 3 0323 #### [facility] [address] [place] [address], [facility] Hemoglobin (Bld) [Mass/Vol] 14.5 g/dL Normal 13.0-17.0 [facility] Comment on above: Performed By: #### 3 0323 #### [facility] [address] [place] [address], [facility] MCH (RBC) [Entitic mass] 34.0 pg High 27.0-33.0 [facility] Comment on above: Performed By: #### 3 0323 #### [facility] [address] [place] [address], [facility] MCHC (RBC) [Mass/Vol] 35.6 g/dL High 32.0-35.0 [facility] Comment on above: Performed By: #### 3 0323 #### [facility] [address] [place] [address], [facility] MCV (RBC) [Entitic vol] 95.5 fL Normal 82.0-98.0 [facility] Comment on above: Performed By: #### 3 0323 #### [facility] [address] [place] [id number], [facility] Nucleated RBC/100 WBC (Bld) [Ratio] 0 % Normal 0-0 [facility] Comment on above: Performed By: #### 3 0323 #### [facility] [address] [place] [address], [facility] PLAT CNT 333 10*3/uL Normal 150-400 [facility] Comment on above: Performed By: #### 3 0323 #### [facility] [address] [place] [address], [facility] RBC (Bld) [#/Vol] 4.26 10*6/uL Normal 4.20-5.70 [facility] Comment on above: Performed By: #### 3 0323 #### [facility] [address] [place] [address], [facility] WBC (Bld) [#/Vol] 12.50 10*3/uL High 4.00-10.60 [facility] Comment on above: Performed By: #### 3 0323 #### [facility] [address] [place] [address], [facility] COMP METABOLIC PANELon 03-19 Albumin [Mass/Vol] 4.4 g/dL Normal 3.5-5.7 [facility] Comment on above: Performed By: #### 0 0121 ####[facility] ALKALINE PHOSPH 71 IU/L Normal 34-104 [facility] Comment on above: Performed By: #### 0 0121 ####[facility]3000 [facility].[address] ALT [Catalytic activity/Vol] 15 U/L Normal 7-52 [facility] Comment on above: Performed By: #### 0 0121 ####[facility]3000 [facility].[address] AST [Catalytic activity/Vol] 19 U/L Normal 13-39 The [facility] Comment on above: Performed By: #### 0 0121 ####[facility] [place] [address], [facility] Bilirubin [Mass/Vol] 0.6 mg/dL Normal 0.3-1.0 The [facility] Comment on above: Performed By: #### 0 0121 ####[facility] [place] [address], [facility] Calcium [Mass/Vol] 10.1 mg/dL Normal 8.6-10.3 The [facility] Comment on above: Performed By: #### 0 0121 ####[facility] [place] [address], [facility] Chloride [Moles/Vol] 82 mmol/L Low 98-107 The [facility] Comment on above: Performed By: #### 0 0121 ####[facility] [place] [address], [facility] CO2 [Moles/Vol] 28 mmol/L Normal 21-31 The [facility] Comment on above: Performed By: #### 0 0121 ####[facility] [place] [address], [facility] Creatinine [Mass/Vol] 1.26 mg/dL Normal 0.70-1.30 The [facility] Comment on above: Performed By: #### 0 0121 ####[facility] [place] [address], [facility] eGFR- non- 58 ml/min/1.73sq m Abnormal >60 The [facility] Comment on above: Performed By: #### 0 0121 ####[facility] [place] [address], [facility] GFR/1.73 sq M.predicted among blacks MDRD (S/P/Bld) [Vol rate/Area] mL/min/{1.73_m2} Normal >60 The [facility] Comment on above: Performed By: #### 0 0121 ####[facility] [place] [address], [facility] Glucose [Mass/Vol] 92 mg/dL Normal 70-100 The [facility] Comment on above: Performed By: #### 0 0121 ####[facility] [facility] [place] [address], [facility] Potassium [Moles/Vol] 4.2 mmol/L Normal 3.5-5.1 The [facility] Comment on above: Performed By: #### 0 0121 ####[facility] [facility] [place] [address], [facility] Protein [Mass/Vol] 7.5 g/dL Normal 6.0-8.3 The [facility] Comment on above: Performed By: #### 0 0121 ####[facility] [facility] [place] [address], [facility] Sodium [Moles/Vol] 120 mmol/L Low 136-145 The [facility] Comment on above: Result Comment: M-CR ITICAL RESULT(S) REVIEWED, CALLED TO AND READ BACK BY VIKY BAKER RN @ 1619 Performed By: #### 0 0121 ####[facility] [facility] [place] [address], [facility] Urea nitrogen [Mass/Vol] 16 mg/dL Normal 7-25 The [facility] Comment on above: Performed By: #### 0 0121 ####[facility] [facility].[address] SEDIMENTATION RATEon 1203-2 021 SED RATE 19 mm/hr High 0-10 The [facility] Comment on above: Performed By: #### 3 0312 #### [facility] [address] [facility]. [address] Operative Reporton 1 Operative Report MR#: [id number] I [facility] Pt. Name: Gemma Rodgers Room #: [id number] Discharge 02/04/2021 Date: Birthdate: 1960 OPERATIVE REPORT [...] Harden MD Date Trans: 02/04/2021 11:39 P/kimberley [id number] cc: Vish Deluca M.D. [address] [place] [address] Normal The [facility] BASIC METABOLIC PANELon 10-2 Calcium [Mass/Vol] 8.9 mg/dL Normal 8.6-10.3 The [facility] Comment on above: Order Comment: No: D o not add to previous drawNurse Draw Performed By: #### 6 1405 #### [facility] [address] [place] [address], [facility] Chloride [Moles/Vol] 98 mmol/L Normal 98-107 The [facility] Comment on above: Order Comment: No: D o not add to previous drawNurse Draw Performed By: #### 6 1405 #### [facility] [address] [place] [address], [place] CO2 [Moles/Vol] 27 mmol/L Normal 21-31 The [facility] Comment on above: Order Comment: No: D o not add to previous drawNurse Draw Performed By: #### 6 1405 #### [facility] [address] [place] [address], [facility] Creatinine [Mass/Vol] 0.86 mg/dL Normal 0.70-1.30 The [facility] Comment on above: Order Comment: No: D o not add to previous drawNurse Draw Performed By: #### 6 1405 #### [facility] [address] [place] [address], [place] GFR/1.73 sq M.predicted among blacks MDRD (S/P/Bld) [Vol rate/Area] mL/min/{1.73_m2} Normal >60 The [facility] Comment on above: Order Comment: No: D o not add to previous drawNurse Draw Performed By: #### 6 1405 #### [facility] [address] [place] [address], [place] GFR/1.73 sq M.predicted among non-blacks MDRD (S/P/Bld) [Vol rate/Area] mL/min/{1.73_m2} Normal >60 The [facility] Comment on above: Order Comment: No: D o not add to previous drawNurse Draw Performed By: #### 6 1405 #### [facility] [address] [place] [address], [place] Glucose [Mass/Vol] 90 mg/dL Normal 70-100 The [facility] Comment on above: Order Comment: No: D o not add to previous drawNurse Draw Performed By: #### 6 1405 #### [facility] [address] [place] [address], [place] Potassium [Moles/Vol] 3.8 mmol/L Normal 3.5-5.1 The [facility] Comment on above: Order Comment: No: D o not add to previous drawNurse Draw Performed By: #### 6 1405 #### [facility] [address] [facility] Sodium [Moles/Vol] 131 mmol/L Low 136-145 The [facility] Comment on above: Order Comment: No: D o not add to previous drawNurse Draw Performed By: #### 6 1405 #### [facility] [address] [facility]. [address] Urea nitrogen [Mass/Vol] 13 mg/dL Normal 7-25 The [facility] Comment on above: Order Comment: No: D o not add to previous drawNurse Draw Performed By: #### 6 1405 #### [facility] [address] FREE T4on 02-04-2021 Free T4 [Mass/Vol] 0.96 ng/dL Normal 0.71-1.85 The [facility] Comment on above: Performed By: #### 6 1405 #### [facility] [address] TSH3 WITH REFLEX FT4on 02-04 TSH 3RD GENERATION 33.51 uIU/mL High 0.34-5.60 The [facility] Comment on above: Order Comment: No: D o not add to previous drawNurse Draw Performed By: #### 6 1405 #### [facility] [address] CBC W/DIFFon 02-03-2021 ABS IMM GRANS 0.1 10*3/uL Normal 0.0-0.2 The [facility] Comment on above: Order Comment: 5. Ri ght Manubrium Performed By: #### 3 0312 #### [facility] [address] ABS NEUTROPHILS 7.4 10*3/uL Normal 1.6-7.6 The [facility] Comment on above: Order Comment: 5. Ri ght Manubrium Performed By: #### 3 0312 #### [facility] [address] [place] [address], [facility] Basophils (Bld) [#/Vol] 0.1 10*3/uL Normal 0.0-0.2 The [facility] Comment on above: Order Comment: 5. Ri ght Manubrium Performed By: #### 3 0312 #### [facility] [address] [place] [address], [facility] Basophils/100 WBC (Bld) 0.5 % Normal 0.0-1.0 The [facility] Comment on above: Order Comment: 5. Ri ght Manubrium Performed By: #### 3 2 #### [facility] [address] [place] [address], [facility] Eosinophils (Bld) [#/Vol] 0.3 10*3/uL Normal 0.0-0.5 The [facility] Comment on above: Order Comment: 5. Ri ght Manubrium Performed By: #### 3 2 #### [facility] [address] [place] [address], [facility] Eosinophils/100 WBC (Bld) 2.9 % Normal 0.0-6.0 The [facility] Comment on above: Order Comment: 5. Ri ght Manubrium Performed By: #### 3 2 #### [facility] [address] [place] [id number], [facility] Erythrocyte distribution width (RBC) [Ratio] 14.1 % Normal 11.5-15.0 The [facility] Comment on above: Order Comment: 5. Ri ght Manubrium Performed By: #### 3 0312 #### [facility] [address] [place] [address], [facility] Hematocrit (Bld) [Volume fraction] 36.2 % Low 39.0-50.0 The [facility] Comment on above: Order Comment: 5. Ri ght Manubrium Performed By: #### 3 2 #### [facility] [address] [place] [address], [facility] Hemoglobin (Bld) [Mass/Vol] 12.3 g/dL Low 13.0-17.0 The [facility] Comment on above: Order Comment: 5. Ri ght Manubrium Performed By: #### 3 0312 #### [facility] [address] [place] [address], [facility] IMMATURE GRANS 0.9 % Normal 0.0-1.0 The [facility] Comment on above: Order Comment: 5. Ri ght Manubrium Performed By: #### 3 0312 #### [facility] [address] [place] [address], [facility] Lymphocytes (Bld) [#/Vol] 1.8 10*3/uL Normal 1.2-4.0 The [facility] Comment on above: Order Comment: 5. Ri ght Manubrium Performed By: #### 3 0312 #### [facility] [address] [place] [address], [facility] Lymphocytes/100 WBC (Bld) 17.8 % Low 20.0-45.0 The [facility] Comment on above: Order Comment: 5. Ri ght Manubrium Performed By: #### 3 2 #### [facility] [address] [facility] [place] [address], [facility] MCH (RBC) [Entitic mass] 33.2 pg High 27.0-33.0 The [facility] Comment on above: Order Comment: 5. Ri ght Manubrium Performed By: #### 3 0312 #### [facility] [address] [place] [address], [facility] MCHC (RBC) [Mass/Vol] 34.0 g/dL Normal 32.0-35.0 The [facility] Comment on above: Order Comment: 5. Ri ght Manubrium Performed By: #### 3 2 #### [facility] [address] [facility] [address], [facility] MCV (RBC) [Entitic vol] 97.6 fL Normal 82.0-98.0 The [facility] Comment on above: Order Comment: 5. Ri ght Manubrium Performed By: #### 3 0312 #### [facility] [address] [place] [address], [facility] Monocytes (Bld) [#/Vol] 0.7 10*3/uL Normal 0.1-1.0 The [facility] Comment on above: Order Comment: 5. Ri ght Manubrium Performed By: #### 3 0312 #### [facility] [address] [facility] [address], [facility] MONOS 6.8 % Normal 5.0-12.0 The [facility] Comment on above: Order Comment: 5. Ri ght Manubrium Performed By: #### 3 2 #### [facility] [address] [place] [address], [facility] Neutrophils/100 WBC (Bld) 71.1 % Normal 40.0-72.0 The [facility] Comment on above: Order Comment: 5. Ri ght Manubrium Performed By: #### 3 0312 #### [facility] [address] [place] [address], [facility] Nucleated RBC/100 WBC (Bld) [Ratio] 0 % Normal 0-0 The [facility] Comment on above: Order Comment: 5. Ri ght Manubrium Performed By: #### 3 0312 #### [facility] [address] [place] [address], [facility] PLAT CNT 223 10*3/uL Normal 150-400 The [facility] Comment on above: Order Comment: 5. Ri ght Manubrium Performed By: #### 3 2 #### [facility] [address] [place] [address], [facility] RBC (Bld) [#/Vol] 3.71 10*6/uL Low 4.20-5.70 The [facility] Comment on above: Order Comment: 5. Ri ght Manubrium Performed By: #### 3 0312 #### [facility] [address] [place] [address], [facility] WBC (Bld) [#/Vol] 10.34 10*3/uL Normal 4.00-10.60 The [facility] Comment on above: Order Comment: 5. Ri ght Manubrium Performed By: #### 3 0312 #### [facility] [address] [place] [address], [facility] COMP METABOLIC PANELon 02-03 Albumin [Mass/Vol] 3.3 g/dL Low 3.5-5.7 The [facility] Comment on above: Order Comment: 2. Ri ght SC Joint Tissue Performed By: #### 3 0323 #### [facility] [address] [place] [address], [facility] ALKALINE PHOSPH 51 IU/L Normal 34-104 The [facility] Comment on above: Order Comment: 2. Ri ght SC Joint Tissue Performed By: #### 3 0323 #### [facility] [address] [place] [address], [facility] ALT [Catalytic activity/Vol] 11 U/L Normal 7-52 The [facility] Comment on above: Order Comment: 2. Ri ght SC Joint Tissue Performed By: #### 3 0323 #### [facility] [address] [place] [address], [facility] AST [Catalytic activity/Vol] 12 U/L Low 13-39 The [facility] Comment on above: Order Comment: 2. Ri ght SC Joint Tissue Performed By: #### 3 0323 #### [facility] [address] [place] [address], [facility] Bilirubin [Mass/Vol] 0.6 mg/dL Normal 0.3-1.0 The [facility] Comment on above: Order Comment: 2. Ri ght SC Joint Tissue Performed By: #### 3 0323 #### [facility] [address] [place] [address], [place] Calcium [Mass/Vol] 9.0 mg/dL Normal 8.6-10.3 The [facility] Comment on above: Order Comment: 2. Ri ght SC Joint Tissue Performed By: #### 3 0323 #### [facility] [address] [place] [address], [place] Chloride [Moles/Vol] 97 mmol/L Low 98-107 The [facility] Comment on above: Order Comment: 2. Ri ght SC Joint Tissue Performed By: #### 3 0323 #### [facility] [address] [place] [address], [place] CO2 [Moles/Vol] 28 mmol/L Normal 21-31 The [facility] Comment on above: Order Comment: 2. Ri ght SC Joint Tissue Performed By: #### 3 0323 #### [facility] [address] [place] [address], [place] Creatinine [Mass/Vol] 0.84 mg/dL Normal 0.70-1.30 The [facility] Comment on above: Order Comment: 2. Ri ght SC Joint Tissue Performed By: #### 3 0323 #### [facility] [address] [place] [address], [place] GFR/1.73 sq M.predicted among blacks MDRD (S/P/Bld) [Vol rate/Area] mL/min/{1.73_m2} Normal >60 The [facility] Comment on above: Order Comment: 2. Ri ght SC Joint Tissue Performed By: #### 3 0323 #### [facility] [address] [place] [address], [place] GFR/1.73 sq M.predicted among non-blacks MDRD (S/P/Bld) [Vol rate/Area] mL/min/{1.73_m2} Normal >60 The [facility] Comment on above: Order Comment: 2. Ri ght SC Joint Tissue Performed By: #### 3 0323 #### [facility] [address] [place] [address], [place] Glucose [Mass/Vol] 91 mg/dL Normal 70-100 The [facility] Comment on above: Order Comment: 2. Ri ght SC Joint Tissue Performed By: #### 3 3 #### [facility] [address] [place] [address], [facility] Potassium [Moles/Vol] 4.2 mmol/L Normal 3.5-5.1 The [facility] Comment on above: Order Comment: 2. Ri ght SC Joint Tissue Performed By: #### 3 3 #### [facility] [address] [place] [address], [facility] Protein [Mass/Vol] 6.3 g/dL Normal 6.0-8.3 The [facility] Comment on above: Order Comment: 2. Ri ght SC Joint Tissue Performed By: #### 3 0323 #### [facility] [address] [place] [address], [facility] Sodium [Moles/Vol] 131 mmol/L Low 136-145 The [facility] Comment on above: Order Comment: 2. Ri ght SC Joint Tissue Performed By: #### 3 0323 #### [facility] [address] [place] [address], [facility] Urea nitrogen [Mass/Vol] 13 mg/dL Normal 7-25 The [facility] Comment on above: Order Comment: 2. Ri ght SC Joint Tissue Performed By: #### 3 0323 #### [facility] [address] [place] [address], [facility] VANCOMYCIN TROUGHon 10-20-20 21 VANCOMYCIN TROU 18.1 mcg/mL Normal 5.0-20.0 The [facility] Comment on above: Order Comment: Nurse draw Performed By: #### 0 2024 ####[facility] *ANAEROBIC CULTUREon 021 *ANAEROBIC CULTURE Clinical Report: (D) Specimen/Source: TISSUE/INTRAOP SPEC Collected: 02/02/2021 09:30 Status: Final Last Updated: 02/07/2021 12:12 (1) #1 R. STERNOCLAVICULAR JOINT ISO (Final) No Anaerobes Isolated 5 Days Normal The [facility] Comment on above: Order Comment: #1 R. STERNOCLAVICULAR JOINT Performed By: #### 8 5499 #### [facility] [address] *TISSUE CULTUREon 02-02-2021 *TISSUE CULTURE Clinical [...] Normal The [facility] Comment on above: Order Comment: #1 R. STERNOCLAVICULAR JOINT Performed By: #### 8 5499 #### [facility] [address] POC SARS COV2 ANTIGEN NEGATI VEon 02-02-2021 POC SARS COV2 ANTIGEN NEG Negative Normal NEGATIVE The [facility] Comment on above: Result Comment: Nega tive [...] signs and symptoms consistent with COVID-19. The [employer] COVID-19 Ag Card is a lateral flow [...] Accreditation. Performed By: #### 3 1792 #### [facility] [address] *ANAEROBIC CULTUREon 021 *ANAEROBIC CULTURE Clinical Report: (D) Specimen/Source: FLUID/OTHER Collected: 02/01/2021 17:47 Status: Final Last Updated: 02/07/2021 11:58 (1) R SC joint No: Do not add to previous draw CULT RES (Final) No Anaerobes Isolated 5 Days Normal The [facility] Comment on above: Order Comment: 2. Ri ght SC Joint Tissue Performed By: #### 3 0323 #### [facility] [address] *BODY FLUID CULTUREon 2020 *BODY FLUID CULTURE Clinical Report: (D) Specimen/Source: FLUID/OTHER Collected: 02/01/2021 17:47 Status: Final Last Updated: 02/07/2021 09:37 (1) No: Do not add to previous draw GRAM (Final) Few Polys No Bacteria Seen CULT RES (Final) No Growth Day 5 Normal The [facility] Comment on above: Order Comment: The A ptima SARS-CoV-2 assay is a nucleic acid amplification test intended for the qualitative detection of RNA from SARS-CoV-2 isolated and purified from nasopharyngeal ([employer]),oropharyngeal (OP), nasal swab, sputum, and bronchoalveolar lavage (BAL) specimens from patients with signs and symptoms of infection who are suspected of COVID-19. Results are for the identification of SARS-CoV-2 RNA. The SARS-CoV-2 RNA is generally detectable during the acute phase of infection. The Aptima SARS-CoV-2 Assay on the Dovet[employer] and [employer]ovet[employer] Fusion system is intended for use by laboratory personnel specifically instructed and trained in the operation of the D[employer] and [employer] Fusion system. The Aptima SARS-CoV-2 assay is [...] information. Performed By: #### 3 1792 #### [address] *FUNGAL CULTUREon 02-01-2021 *FUNGAL CULTURE Clinical Report: (D) Specimen: MISC Collected: 02/01/2021 17:47 Status: Final Last Updated: 03/05/2021 10:04 (1) R TX joint No: Do not add to previous draw FS (Final) No Yeast or Fungal Elements Seen CULT RES (Final) Culture negative for fungus Normal The [facility] Comment on above: Order Comment: The A ptima SARS-CoV-2 assay is a nucleic acid amplification test intended for the qualitative detection of RNA from SARS-CoV-2 isolated and purified from nasopharyngeal ([employer]),oropharyngeal (OP), nasal swab, sputum, and bronchoalveolar lavage (BAL) specimens from patients with signs and symptoms of infection who are suspected of COVID-19. Results are for the identification of SARS-CoV-2 RNA. The SARS-CoV-2 RNA is generally detectable during the acute phase of infection. The Aptima SARS-CoV-2 Assay on the D[employer]etail and Dov[employer] Fusion system is intended for use by laboratory personnel specifically instructed and trained in the operation of the [employer] and [place] Fusion system. The Aptima SARS-CoV-2 assay is [...] information. Performed By: #### 3 1792 #### [facility] [address] [place] [address], [facility] BASIC METABOLIC PANELon - Calcium [Mass/Vol] 8.8 mg/dL Normal 8.6-10.3 The [facility] Comment on above: Order Comment: No: D o not add to previous drawNurse draw per rn Performed By: #### 0 0071 ####[facility] [place] [address], [facility] Chloride [Moles/Vol] 96 mmol/L Low 98-107 The [facility] Comment on above: Order Comment: No: D o not add to previous drawNurse draw per rn Performed By: #### 0 0071 ####[facility] [place] [address], [facility] CO2 [Moles/Vol] 29 mmol/L Normal 21-31 The [facility] Comment on above: Order Comment: No: D o not add to previous drawNurse draw per rn Performed By: #### 0 0071 ####[facility] [place] [address], [facility] Creatinine [Mass/Vol] 0.70 mg/dL Normal 0.70-1.30 The [facility] Comment on above: Order Comment: No: D o not add to previous drawNurse draw per rn Performed By: #### 0 0071 ####[facility] [facility] [place] [address], [facility] GFR/1.73 sq M.predicted among blacks MDRD (S/P/Bld) [Vol rate/Area] mL/min/{1.73_m2} Normal >60 The [facility] Comment on above: Order Comment: No: D o not add to previous drawNurse draw per rn Performed By: #### 0 0071 ####[facility] [place] [address], [facility] GFR/1.73 sq M.predicted among non-blacks MDRD (S/P/Bld) [Vol rate/Area] mL/min/{1.73_m2} Normal >60 The [facility] Comment on above: Order Comment: No: D o not add to previous drawNurse draw per rn Performed By: #### 0 0071 ####[facility] [address] [place] [address], [facility] Glucose [Mass/Vol] 86 mg/dL Normal 70-100 [facility] Comment on above: Order Comment: No: D o not add to previous drawNurse draw per rn Performed By: #### 0 0071 ####[facility] [place] [address], [place] Potassium [Moles/Vol] 3.9 mmol/L Normal 3.5-5.1 [facility] Comment on above: Order Comment: No: D o not add to previous drawNurse draw per rn Performed By: #### 0 0071 ####[facility] [place] [address], [place] Sodium [Moles/Vol] 131 mmol/L Low 136-145 [facility] Comment on above: Order Comment: No: D o not add to previous drawNurse draw per rn Performed By: #### 0 0071 ####[facility] [place] [address], [place] Urea nitrogen [Mass/Vol] 11 mg/dL Normal 7-25 [facility] Comment on above: Order Comment: No: D o not add to previous drawNurse draw per rn Performed By: #### 0 0071 ####[facility] CHEST WO CONTRASTon 02-01 CT CHEST WO CONTRAST [facility] Department of Radiology [address] [place] [id number] Patient Name: GEMMA RODGERS : 1960 Sex: M Age: Race: White Pt. Location: [id number] Patient Status: I Ordered Date: 02/01/2021 5:45:00 [...] described. Electronically signed: Tasha Navas. Transcribed by: [email or web address], User Resident: Electronically Signed by: TASHA NAVAS @ 02/01/2021 06:39 PM Normal [facility] Comment on above: Order Comment: looki ng for mass, hx of osteomyelitis, STAT order FLUID CELL COUNTon 1 Lymphocytes/100 WBC (Bld) 1 % Normal [facility] Comment on above: Order Comment: 5. Ri ght Manubrium Performed By: #### 3 0312 #### [facility] 3000 [facility]. [address] OTHER F1 Diff done by cytospin Normal [facility] Comment on above: Order Comment: 5. Ri ght Manubrium Performed By: #### 3 0312 #### [facility] [address] OTHER F2 . Normal [facility] Comment on above: Order Comment: 5. Ri ght Manubrium Result Comment: Resu lt changed by [email or web address] on 02/03/2021 12:32. The previous value was Preliminary report; verified report to follow. Performed By: #### 3 0312 #### [facility] [address] OTHER F3 Checked by Cristal Owen M.D. Normal [facility] Comment on above: Order Comment: 5. Ri ght Manubrium Performed By: #### 3 0312 #### [facility] [address] [place] [address], [facility] RBC [id number] RBC/uL Normal [facility] Comment on above: Order Comment: 5. Ri ght Manubrium Performed By: #### 3 0312 #### [facility] [address] [place] [address], [facility] SEGS 99 Normal [facility] Comment on above: Order Comment: 5. Ri ght Manubrium Performed By: #### 3 0312 #### [facility] [address] [place] [address], [facility] SOURCE SYNOVIAL FLUID Normal [facility] Comment on above: Order Comment: 5. Ri ght Manubrium Performed By: #### 3 0312 #### [facility] [address] TOTAL VOLUME 10 mL Normal [facility] Comment on above: Order Comment: 5. Ri ght Manubrium Performed By: #### 3 0312 #### [facility] [address] [facility] [address] WBC 5367 WBC/uL Normal [facility] Comment on above: Order Comment: 5. Ri ght Manubrium Result Comment: Some reference interval(s) and other method performance specifications have not been established for analytes on this body fluid. The test result must be integrated into the clinical context for interpretation. Performed By: #### 3 2 #### [facility] [address] 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 draw per rnMonica Performed By: #### 0 2024 ####[facility] BASIC METABOLIC PANELon 10-1 Calcium [Mass/Vol] 9.1 mg/dL Normal 8.6-10.3 [facility] Comment on above: Order Comment: No: D o not add to previous draw Performed By: #### 0 0071 ####[facility] [place] [address], [facility] Chloride [Moles/Vol] 96 mmol/L Low 98-107 [facility] Comment on above: Order Comment: No: D o not add to previous draw Performed By: #### 0 0071 ####[facility] [place] [address], [place] CO2 [Moles/Vol] 27 mmol/L Normal 21-31 [facility] Comment on above: Order Comment: No: D o not add to previous draw Performed By: #### 0 0071 ####[facility] [place] [address], [facility] Creatinine [Mass/Vol] 1.00 mg/dL Normal 0.70-1.30 [facility] Comment on above: Order Comment: No: D o not add to previous draw Performed By: #### 0 0071 ####[facility] [id number], [place] GFR/1.73 sq M.predicted among blacks MDRD (S/P/Bld) [Vol rate/Area] mL/min/{1.73_m2} Normal >60 [facility] Comment on above: Order Comment: No: D o not add to previous draw Performed By: #### 0 0071 ####[facility] [place] [address], [place] GFR/1.73 sq M.predicted among non-blacks MDRD (S/P/Bld) [Vol rate/Area] mL/min/{1.73_m2} Normal >60 [facility] Comment on above: Order Comment: No: D o not add to previous draw Performed By: #### 0 0071 ####[facility] [id number], [facility] Glucose [Mass/Vol] 124 mg/dL High 70-100 [facility] Comment on above: Order Comment: No: D o not add to previous draw Performed By: #### 0 0071 ####[facility] [facility] [id number], [facility] Potassium [Moles/Vol] 4.6 mmol/L Normal 3.5-5.1 [facility] Comment on above: Order Comment: No: D o not add to previous draw Performed By: #### 0 0071 ####[facility] [facility] [place] [address], [facility] Sodium [Moles/Vol] 130 mmol/L Low 136-145 [facility] Comment on above: Order Comment: No: D o not add to previous draw Performed By: #### 0 0071 ####[facility] [facility] [place] [address], [facility] Urea nitrogen [Mass/Vol] 18 mg/dL Normal 7-25 [facility] Comment on above: Order Comment: No: D o not add to previous draw Performed By: #### 0 0071 ####[facility] [facility] [place] [address], [facility] CBC W/DIFFon 01-30-2021 ABS IMM GRANS 0.1 10*3/uL Normal 0.0-0.2 [facility] Comment on above: Order Comment: 5. Ri ght Manubrium Performed By: #### 3 0312 #### [facility] [address] [facility]. [place] [id number], [facility] ABS NEUTROPHILS 8.5 10*3/uL High 1.6-7.6 [facility] Comment on above: Order Comment: 5. Ri ght Manubrium Performed By: #### 3 0312 #### [facility] [address] [place] [address], [facility] Basophils (Bld) [#/Vol] 0.0 10*3/uL Normal 0.0-0.2 [facility] Comment on above: Order Comment: 5. Ri ght Manubrium Performed By: #### 3 0312 #### [facility] [address] [place] [address], [place] Basophils/100 WBC (Bld) 0.1 % Normal 0.0-1.0 [facility] Comment on above: Order Comment: 5. Ri ght Manubrium Performed By: #### 3 0312 #### [facility] [address] [place] [address], [facility] Eosinophils (Bld) [#/Vol] 0.0 10*3/uL Normal 0.0-0.5 [facility] Comment on above: Order Comment: 5. Ri ght Manubrium Performed By: #### 3 0312 #### [facility] [address] [place] [address], [facility] Eosinophils/100 WBC (Bld) 0.0 % Normal 0.0-6.0 [facility] Comment on above: Order Comment: 5. Ri ght Manubrium Performed By: #### 3 2 #### [facility] [address] [place] [address], [facility] Erythrocyte distribution width (RBC) [Ratio] 14.1 % Normal 11.5-15.0 [facility] Comment on above: Order Comment: 5. Ri ght Manubrium Performed By: #### 3 0312 #### [facility] [address] [place] [address], [facility] Hematocrit (Bld) [Volume fraction] 41.1 % Normal 39.0-50.0 [facility] Comment on above: Order Comment: 5. Ri ght Manubrium Performed By: #### 3 2 #### [facility] [address] [place] [address], [facility] Hemoglobin (Bld) [Mass/Vol] 13.7 g/dL Normal 13.0-17.0 [facility] Comment on above: Order Comment: 5. Ri ght Manubrium Performed By: #### 3 0312 #### [facility] [address] [place] [id number], [facility] IMMATURE GRANS 0.5 % Normal 0.0-1.0 [facility] Comment on above: Order Comment: 5. Ri ght Manubrium Performed By: #### 3 0312 #### [facility] [address] [place] [address], [facility] Lymphocytes (Bld) [#/Vol] 0.9 10*3/uL Low 1.2-4.0 [facility] Comment on above: Order Comment: 5. Ri ght Manubrium Performed By: #### 3 2 #### [facility] [address] [place] [address], [facility] Lymphocytes/100 WBC (Bld) 8.6 % Low 20.0-45.0 [facility] Comment on above: Order Comment: 5. Ri ght Manubrium Performed By: #### 3 0312 #### [facility] [address] [place] [id number], [facility] MCH (RBC) [Entitic mass] 32.9 pg Normal 27.0-33.0 [facility] Comment on above: Order Comment: 5. Ri ght Manubrium Performed By: #### 3 0312 #### [facility] [address] [place] [address], [facility] MCHC (RBC) [Mass/Vol] 33.3 g/dL Normal 32.0-35.0 [facility] Comment on above: Order Comment: 5. Ri ght Manubrium Performed By: #### 3 0312 #### [facility] [address] [place] [id number], [facility] MCV (RBC) [Entitic vol] 98.8 fL High 82.0-98.0 [facility] Comment on above: Order Comment: 5. Ri ght Manubrium Performed By: #### 3 0312 #### [facility] [address] [place] [address], [facility] Monocytes (Bld) [#/Vol] 0.7 10*3/uL Normal 0.1-1.0 [facility] Comment on above: Order Comment: 5. Ri ght Manubrium Performed By: #### 3 0312 #### [facility] [address] [place] [address], [facility] MONOS 6.7 % Normal 5.0-12.0 [facility] Comment on above: Order Comment: 5. Ri ght Manubrium Performed By: #### 3 0312 #### [facility] [address] [place] [address], [facility] Neutrophils/100 WBC (Bld) 84.1 % High 40.0-72.0 [facility] Comment on above: Order Comment: 5. Ri ght Manubrium Performed By: #### 3 0312 #### [facility] [address] [facility] [place] [address], [facility] Nucleated RBC/100 WBC (Bld) [Ratio] 0 % Normal 0-0 [facility] Comment on above: Order Comment: 5. Ri ght Manubrium Performed By: #### 3 0312 #### [facility] [address] [place] [address], [facility] PLAT CNT 241 10*3/uL Normal 150-400 [facility] Comment on above: Order Comment: 5. Ri ght Manubrium Performed By: #### 3 0312 #### [facility] [address] [place] [id number], [facility] RBC (Bld) [#/Vol] 4.16 10*6/uL Low 4.20-5.70 [facility] Comment on above: Order Comment: 5. Ri ght Manubrium Performed By: #### 3 0312 #### [facility] [address] WBC (Bld) [#/Vol] 10.08 10*3/uL Normal 4.00-10.60 [facility] Comment on above: Order Comment: 5. Ri ght Manubrium Performed By: #### 3 0312 #### [facility] [address] Operative Reporton Operative Report MR#: [id number] I [facility] Pt. Name: Gemma Rodgers Room #: [id number] Discharge Date: Birthdate: 1960 OPERATIVE REPORT DATE [...] agreed that the patient would come to [facility] for the procedure with Dr. Brunner, and [...] Pulido MD Date Trans: 01/30/2021 12:25 Armando/kimberley [id number] cc: Vish Deluca M.D. [address] [place] [address] *ANAEROBIC CULTUREon 10-15-2 021 *ANAEROBIC CULTURE Clinical Report: (D) Specimen/Source: TISSUE/INTRAOP SPEC Collected: 01/29/2021 11:13 Status: Final Last Updated: 02/03/2021 14:12 (1) 5. Right Manubrium ISO (Final) No Anaerobes Isolated 5 Days Normal [facility] Comment on above: Order Comment: 5. Ri ght Manubrium Performed By: #### 3 0312 #### [facility] [address] [place] [address], [facility] *ANAEROBIC CULTURE Clinical Report: (D) Specimen/Source: TISSUE/INTRAOP SPEC Collected: 01/29/2021 11:11 Status: Final Last Updated: 02/03/2021 14:15 (1) 4. Right Posterior Capsule ISO (Final) No Anaerobes Isolated 5 Days Normal [facility] Comment on above: Order Comment: 4. Ri ght Posterior Capsule Performed By: #### 3 0312 #### [facility] [address] [place] [address], [facility] *ANAEROBIC CULTURE Clinical Report: (D) Specimen/Source: TISSUE/INTRAOP SPEC Collected: 01/29/2021 11:04 Status: Final Last Updated: 02/03/2021 14:15 (1) 3. Right Proximal Clavicle Bone ISO (Final) No Anaerobes Isolated 5 Days Normal The [facility] Comment on above: Order Comment: The A ptima SARS-CoV-2 assay is a nucleic acid amplification test intended for the qualitative detection of RNA from SARS-CoV-2 isolated and purified from nasopharyngeal ([employer]),oropharyngeal (OP), nasal swab, sputum, and bronchoalveolar lavage (BAL) specimens from patients with signs and symptoms of infection who are suspected of COVID-19. Results are for the identification of SARS-CoV-2 RNA. The SARS-CoV-2 RNA is generally detectable during the acute phase of infection. The Aptima SARS-CoV-2 Assay on the [place] and [employer] Fusion system is intended for use by laboratory personnel specifically instructed and trained in the operation of the [place] and [employer] Fusion system. The Aptima SARS-CoV-2 assay is [...] information. Performed By: #### 3 1792 #### [facility] [address] [facility]. [address] *ANAEROBIC CULTURE Clinical Report: (D) Specimen/Source: TISSUE/INTRAOP SPEC Collected: 01/29/2021 11:03 Status: Final Last Updated: 02/03/2021 14:15 (1) 2. Right SC Joint Tissue ISO (Final) No Anaerobes Isolated 5 Days Normal The [facility] Comment on above: Order Comment: 2. Ri ght SC Joint Tissue Performed By: #### 8 [id number] #### [facility] [address] [facility] *ANAEROBIC CULTURE Clinical Report: (D) Specimen/Source: FLUID/INTRAOP SPEC Collected: 01/29/2021 11:01 Status: Final Last Updated: 02/03/2021 14:15 (1) 1.Right SC Joint Fluid ISO (Final) No Anaerobes Isolated 5 Days Normal The [facility] Comment on above: Order Comment: The A ptima SARS-CoV-2 assay is a nucleic acid amplification test intended for the qualitative detection of RNA from SARS-CoV-2 isolated and purified from nasopharyngeal ([employer]),oropharyngeal (OP), nasal swab, sputum, and bronchoalveolar lavage (BAL) specimens from patients with signs and symptoms of infection who are suspected of COVID-19. Results are for the identification of SARS-CoV-2 RNA. The SARS-CoV-2 RNA is generally detectable during the acute phase of infection. The Aptima SARS-CoV-2 Assay on the [place] and [place] Fusion system is intended for use by laboratory personnel specifically instructed and trained in the operation of the [place] and [place] Fusion system. The Aptima SARS-CoV-2 assay is [...] information. Performed By: #### 3 1792 #### [facility] [address] *BODY FLUID CULTUREon 2020 *BODY FLUID [...] Normal The [facility] Comment on above: Order Comment: 1.Rig ht SC Joint Fluid Performed By: #### 8 5499 #### [facility] [address] *FUNGAL CULTUREon 01-29-2021 *FUNGAL CULTURE Clinical Report: (D) Specimen/Source: TISSUE/INTRAOP SPEC Collected: 01/29/2021 11:13 Status: Final Last Updated: 03/01/2021 14:56 (1) 5. Right Manubrium FS (Final) No Yeast or Fungal Elements Seen CULT RES (Final) Culture negative for fungus Normal The [facility] Comment on above: Order Comment: 5. Ri ght Manubrium Performed By: #### 8 [id number] #### [facility] [address] [place] [address], [place] *FUNGAL CULTURE Clinical Report: (D) Specimen/Source: TISSUE/INTRAOP SPEC Collected: 01/29/2021 11:11 Status: Final Last Updated: 03/01/2021 14:56 (1) 4. Right Posterior Capsule FS (Final) No Yeast or Fungal Elements Seen CULT RES (Final) Culture negative for fungus Normal The [facility] Comment on above: Order Comment: 4. Ri ght Posterior Capsule Performed By: #### 3 0323 #### [facility] [address] [place] [address], [facility] *FUNGAL CULTURE Clinical Report: (D) Specimen/Source: TISSUE/INTRAOP SPEC Collected: 01/29/2021 11:04 Status: Final Last Updated: 03/01/2021 14:56 (1) 3. Right Proximal Clavicle Bone FS (Final) No Yeast or Fungal Elements Seen CULT RES (Final) Culture negative for fungus Normal The [facility] Comment on above: Order Comment: 3. Ri ght Proximal Clavicle Bone Performed By: #### 8 [id number] #### [facility] [address] [place] [address], [facility] *FUNGAL CULTURE Clinical Report: (D) Specimen/Source: TISSUE/INTRAOP SPEC Collected: 01/29/2021 11:03 Status: Final Last Updated: 03/01/2021 14:56 (1) 2. Right SC Joint Tissue FS (Final) No Yeast or Fungal Elements Seen CULT RES (Final) Culture negative for fungus Normal The [facility] Comment on above: Order Comment: 2. Ri ght SC Joint Tissue Performed By: #### 3 0323 #### [facility] [address] [place] [address], [facility] *FUNGAL CULTURE Clinical Report: (D) Specimen/Source: FLUID/INTRAOP SPEC Collected: 01/29/2021 11:01 Status: Final Last Updated: 03/01/2021 14:56 (1) 1.Right SC Joint Fluid FS (Final) No Yeast or Fungal Elements Seen CULT RES (Final) Culture negative for fungus Normal [facility] Comment on above: Order Comment: 2. Ri ght SC Joint Tissue Performed By: #### 3 0323 #### [facility] [address] [facility] *TISSUE CULTUREon 01-29-2021 *TISSUE CULTURE Clinical [...] Normal [facility] Comment on above: Order Comment: 2. Ri t SC Joint Tissue Performed By: #### 3 0323 #### [facility] [address] *TISSUE CULTURE Clinical Report: (D) Specimen/Source: TISSUE/INTRAOP SPEC Collected: 01/29/2021 11:11 Status: Final Last Updated: 01/31/2021 08:18 (1) 4. Right Posterior Capsule GRAM (Final) Rare Polys No Bacteria Seen CULT RES (Final) No Growth Day 1 ISO (Final) Methicillin Resistant Staphylococcus aureus (MRSA) Rare Growth For Susceptibility Results Please Refer to Normal [facility] Comment on above: Order Comment: The A ptima SARS-CoV-2 assay is a nucleic acid amplification test intended for the qualitative detection of RNA from SARS-CoV-2 isolated and purified from nasopharyngeal ([employer]),oropharyngeal (OP), nasal swab, sputum, and bronchoalveolar lavage (BAL) specimens from patients with signs and symptoms of infection who are suspected of COVID-19. Results are for the identification of SARS-CoV-2 RNA. The SARS-CoV-2 RNA is generally detectable during the acute phase of infection. The Aptima SARS-CoV-2 Assay on the [place] and [employer] Fusion system is intended for use by laboratory personnel specifically instructed and trained in the operation of the [place] and [employer] Fusion system. The Aptima SARS-CoV-2 assay is [...] information. Performed By: #### 3 [id number] #### [facility] [address] *TISSUE CULTURE Clinical Report: (D) Specimen/Source: [...] Normal [facility] Comment on above: Order Comment: 3. Ri ght Proximal Clavicle Bone Performed By: #### 8 [id number] #### [facility] [address] *TISSUE CULTURE Clinical Report: (D) Specimen/Source: [...] Normal [facility] Comment on above: Order Comment: 4. Ri ght Posterior Capsule Performed By: #### 3 0323 #### [address] POC GLUCOSE LABon 01-29-2021 Glucose [Mass/Vol] 97 mg/dL Normal 70-100 [facility] Comment on above: Performed By: #### 8 [id number] #### [address] PORTABLE CHEST 1 VIEWon 01-15 PORTABLE CHEST 1 VIEW [facility] Department of Radiology [address] [place] [id number] Patient Name: GEMMA RODGERS : 1960 [...] appropriate Electronically signed: Seng Duarte. Transcribed by: [email or web address], User Resident: Electronically Signed by: SENG DUARTE @ 01/29/2021 12:32 PM Normal [facility] Comment on above: Order Comment: looki ng for mass, hx of osteomyelitis, STAT order *MRSA/MSSA DNA NASALon 01-27 *MRSA/MSSA DNA NASAL Clinical Report: (D ) Specimen: NASAL SWAB Collected: 01/27/2021 14:59 Status: Final Last Updated: 01/27/2021 19:06 MSSA DNA (Final) Negative MRSA DNA (Final) Negative Normal [facility] Comment on above: Performed By: #### 8 [id number] #### [place] [address], [facility] *SARS-CoV-2 COVID-19on 01-27 SARS-CoV-2 (COVID-19) RNA MACY+probe Ql (Unsp spec) Not detected Normal Not Detected [facility] Comment on above: Order Comment: The A ptima SARS-CoV-2 assay is a nucleic acid amplification test intended for the qualitative detection of RNA from SARS-CoV-2 isolated and purified from nasopharyngeal ([employer]),oropharyngeal (OP), nasal swab, sputum, and bronchoalveolar lavage (BAL) specimens from patients with signs and symptoms of infection who are suspected of COVID-19. Results are for the identification of SARS-CoV-2 RNA. The SARS-CoV-2 RNA is generally detectable during the acute phase of infection. The Aptima SARS-CoV-2 Assay on the [place] [employer] [place] Fusion system is intended for use by laboratory personnel specifically instructed and trained in the operation of the [place] [employer] [place] Fusion system. The Aptima SARS-CoV-2 assay is [...] information. Performed By: #### 3 1792 #### [facility] [address] APTTon 01-27-2021 aPTT Coag (Bld) [Time] 31.6 s Normal 25.0-35.0 Th e [facility] Comment on above: Result Comment: ALL RESULTS [...] PURPOSE. Performed By: #### 3 0323 #### [facility] [address] BASIC METABOLIC PANELon - Calcium [Mass/Vol] 9.3 mg/dL Normal 8.6-10.3 The [facility] Comment on above: Performed By: #### 0 0071 ####[facility] Chloride [Moles/Vol] 97 mmol/L Low 98-107 The [facility] Comment on above: Performed By: #### 0 0071 ####[facility] [place] [address], [facility] CO2 [Moles/Vol] 28 mmol/L Normal 21-31 The [facility] Comment on above: Performed By: #### 0 0071 ####[facility] [place] [address], [facility] Creatinine [Mass/Vol] 0.95 mg/dL Normal 0.70-1.30 The [facility] Comment on above: Performed By: #### 0 0071 ####[place] [id number] [facility] [place] [address], [facility] GFR/1.73 sq M.predicted among blacks MDRD (S/P/Bld) [Vol rate/Area] mL/min/{1.73_m2} Normal >60 The [facility] Comment on above: Performed By: #### 0 0071 ####[facility]3000 [facility] [place] [address], [facility] GFR/1.73 sq M.predicted among non-blacks MDRD (S/P/Bld) [Vol rate/Area] mL/min/{1.73_m2} Normal >60 The [facility] Comment on above: Performed By: #### 0 0071 ####[facility] [place] [address], [facility] Glucose [Mass/Vol] 83 mg/dL Normal 70-100 The [facility] Comment on above: Performed By: #### 0 0071 ####[facility] [facility] [place] [address], [facility] Potassium [Moles/Vol] 4.1 mmol/L Normal 3.5-5.1 The [facility] Comment on above: Performed By: #### 0 0071 ####[facility] Sodium [Moles/Vol] 135 mmol/L Low 136-145 The [facility] Comment on above: Performed By: #### 0 0071 ####[facility] Urea nitrogen [Mass/Vol] 11 mg/dL Normal 7-25 The [facility] Comment on above: Performed By: #### 0 0071 ####[facility] CBC W/DIFFon 01-27-2021 ABS IMM GRANS 0.0 10*3/uL Normal 0.0-0.2 The [facility] Comment on above: Performed By: #### 6 1405 #### [facility] [address] ABS NEUTROPHILS 4.7 10*3/uL Normal 1.6-7.6 The [facility] Comment on above: Performed By: #### 6 1405 #### [facility] [address] [place] [address], [facility] Basophils (Bld) [#/Vol] 0.0 10*3/uL Normal 0.0-0.2 The [facility] Comment on above: Performed By: #### 6 1405 #### [facility] [address] Basophils/100 WBC (Bld) 0.6 % Normal 0.0-1.0 The [facility] Comment on above: Performed By: #### 6 1405 #### [facility] [address] [place] [address], [facility] Eosinophils (Bld) [#/Vol] 0.1 10*3/uL Normal 0.0-0.5 The [facility] Comment on above: Performed By: #### 6 1405 #### [facility] [address] [place] [address], [facility] Eosinophils/100 WBC (Bld) 1.6 % Normal 0.0-6.0 The [facility] Comment on above: Performed By: #### 6 1405 #### [facility] [address] [facility] Erythrocyte distribution width (RBC) [Ratio] 14.5 % Normal 11.5-15.0 The [facility] Comment on above: Performed By: #### 6 1405 #### [facility] [address] [facility] Hematocrit (Bld) [Volume fraction] 42.6 % Normal 39.0-50.0 The [facility] Comment on above: Performed By: #### 6 1405 #### [facility] [address] [facility] Hemoglobin (Bld) [Mass/Vol] 14.8 g/dL Normal 13.0-17.0 The [facility] Comment on above: Performed By: #### 6 1405 #### [facility] [address] [facility] IMMATURE GRANS 0.4 % Normal 0.0-1.0 The [facility] Comment on above: Performed By: #### 6 1405 #### [facility] [address] [facility] Lymphocytes (Bld) [#/Vol] 1.5 10*3/uL Normal 1.2-4.0 The [facility] Comment on above: Performed By: #### 6 1405 #### [facility] [address] [place] [address], [facility] Lymphocytes/100 WBC (Bld) 21.9 % Normal 20.0-45.0 The [facility] Comment on above: Performed By: #### 6 1405 #### [facility] [address] [place] [address], [facility] MCH (RBC) [Entitic mass] 33.4 pg High 27.0-33.0 The [facility] Comment on above: Performed By: #### 6 1405 #### [facility] [address] [place] [address], [facility] MCHC (RBC) [Mass/Vol] 34.7 g/dL Normal 32.0-35.0 The [facility] Comment on above: Performed By: #### 6 1405 #### [facility] [address] [place] [address], [facility] MCV (RBC) [Entitic vol] 96.2 fL Normal 82.0-98.0 The [facility] Comment on above: Performed By: #### 6 1405 #### [facility] [address] [place] [address], [facility] Monocytes (Bld) [#/Vol] 0.5 10*3/uL Normal 0.1-1.0 The [facility] Comment on above: Performed By: #### 6 1405 #### [facility] 3000 [facility] [place] [place] [address], [facility] MONOS 7.0 % Normal 5.0-12.0 The [facility] Comment on above: Performed By: #### 6 1405 #### [facility] [address] [place] [address], [facility] Neutrophils/100 WBC (Bld) 68.5 % Normal 40.0-72.0 The [facility] Comment on above: Performed By: #### 6 1405 #### [facility] [address] [place] [address], [facility] Nucleated RBC/100 WBC (Bld) [Ratio] 0 % Normal 0-0 The [facility] Comment on above: Performed By: #### 6 1405 #### [facility] [address] [place] [address], [facility] PLAT CNT 278 10*3/uL Normal 150-400 The [facility] Comment on above: Performed By: #### 6 1405 #### [facility] [address] [place] [address], [facility] RBC (Bld) [#/Vol] 4.43 10*6/uL Normal 4.20-5.70 The [facility] Comment on above: Performed By: #### 6 1405 #### [facility] [address] [place] [address], [facility] WBC (Bld) [#/Vol] 6.88 10*3/uL Normal 4.00-10.60 The [facility] Comment on above: Performed By: #### 6 1405 #### [facility] 3000 [facility]. [address] PROTHROMBIN TIMEon 1 INR Coag (PPP) [Relative time] 1.01 {INR} Normal 0.91-1.16 The [facility] Comment on above: Result Comment: ACCC P [...] 1995;[id number]. Performed By: #### 3 0323 #### [facility] [address] PT Coag (PPP) [Time] 13.3 s Normal 12.3-14.[address] [facility] Comment on above: Result Comment: ALL RESULTS MUST BE INTERPRETED WITH RESPECT TO BLOOD DRAWING ARTIFACT OR DILUTION ERROR OF ANTICOAGULANT AT THE TIME OF SAMPLING. Performed By: #### 3 0323 #### [facility] 3000 [facility]. [address] *ANAEROBIC CULTUREon 021 *ANAEROBIC CULTURE Clinical Report: (D) Specimen/Source: TISSUE/BIOPSY Collected: 01/22/2021 13:47 Status: Final Last Updated: 01/27/2021 11:40 (1) R. SC JOINT BONE BIOPSY CULT RES (Final) No Anaerobes Isolated 5 Days Normal The [facility] Comment on above: Order Comment: R. SC JOINT BONE BIOPSY Performed By: #### 8 5499 #### [facility] 3000 [facility]. [address] *ANAEROBIC CULTURE Clinical Report: (D) Specimen/Source: FLUID/SYNOVIAL (JOINT) FLUID, EXCEPT SHOULDER Collected: 01/22/2021 13:45 Status: Final Last Updated: 01/27/2021 12:31 (1) R. SC JOINT ASPIRATION ISO (Final) No Anaerobes Isolated Day 5 Normal The [facility] Comment on above: Order Comment: The A ptima SARS-CoV-2 assay is a nucleic acid amplification test intended for the qualitative detection of RNA from SARS-CoV-2 isolated and purified from nasopharyngeal ([employer]PERATOR),oropharyngeal (OP), nasal swab, sputum, and bronchoalveolar lavage (BAL) specimens from patients with signs and symptoms of infection who are suspected of COVID-19. Results are for the identification of SARS-CoV-2 RNA. The SARS-CoV-2 RNA is generally detectable during the acute phase of infection. The Aptima SARS-CoV-2 Assay on the [place] and [place] Fusion system is intended for use by laboratory personnel specifically instructed and trained in the operation of the [place] and [place] Fusion system. The Aptima SARS-CoV-2 assay is [...] information. Performed By: #### 3 1792 #### [facility] [address] [place] [address], [facility] *BODY FLUID CULTUREon 2020 *BODY FLUID CULTURE Clinical Report: (C) Specimen/Source: FLUID/SYNOVIAL (JOINT) FLUID, EXCEPT SHOULDER Collected: 01/22/2021 13:45 Status: Final Last Updated: 01/27/2021 12:19 (1) R. SC JOINT ASPIRATION GRAM (Final) Many Polys No Bacteria Seen ISO (Final) Methicillin Resistant Staphylococcus aureus (MRSA) Isolated from broth culture Results called. Read back by jR Hicks (MARY) 1:51 p.m. 01/25/21 ISOLATE: Methicillin [...] Normal The [facility] Comment on above: Order Comment: 2. Ri ght SC Joint Tissue Performed By: #### 3 0323 #### [address] *TISSUE CULTUREon 01-22-2021 *TISSUE CULTURE Clinical Report: (D) Specimen/Source: TISSUE/BIOPSY Collected: 01/22/2021 13:47 Status: Final Last Updated: 01/27/2021 08:08 (1) R. SC JOINT BONE BIOPSY GRAM (Final) No Polys Seen No Bacteria Seen CULT RES (Final) No Growth Day 5 Normal The [facility] Comment on above: Order Comment: The A ptima SARS-CoV-2 assay is a nucleic acid amplification test intended for the qualitative detection of RNA from SARS-CoV-2 isolated and purified from nasopharyngeal ([employer]PERATOR),oropharyngeal (OP), nasal swab, sputum, and bronchoalveolar lavage (BAL) specimens from patients with signs and symptoms of infection who are suspected of COVID-19. Results are for the identification of SARS-CoV-2 RNA. The SARS-CoV-2 RNA is generally detectable during the acute phase of infection. The Aptima SARS-CoV-2 Assay on the [place] and [place] Fusion system is intended for use by laboratory personnel specifically instructed and trained in the operation of the [place] and [place] Fusion system. The Aptima SARS-CoV-2 assay is [...] information. Performed By: #### 3 1792 #### [facility] 3000 [facility] [place] [place] [address], [facility] CT BIOPSY BONE DEEPon 2020 CT BIOPSY BONE DEEP [facility] Department of Radiology [address] [place], [place] [id number] Patient Name: GEMMA RODGERS : 1960 Sex: M Age: Race: White Pt. Location: 84 Patient Status: O Ordered Date: 01/19/2021 7:35:00 AM Completed Date: 01/22/2021 12:42 PM Requesting Provider: SERGIO BRUNNER Attending Provider: SERGIO BRUNNER Report Copy To: VISH DELUCA Signs & Symptoms: R22.31 Localized swelling, mass and lump, right upper limb I10 History: Malin Comments: , Biopsy of Right sternoclavicular joint [...] risks are acceptable. Consent was obtained. Timeout: [place] protocol timeout verification performed. MEDICATIONS: 2 mg [...] biopsy of the SC joint. Approved by:Pablito BahenaZmfdgrrr38/8/2021 1:12 PM. I, Denisse Toney,have reviewed the image(s) and agree with the findings in this report. Electronically signed: Denisse Toney. Transcribed by: [email or web address], User Resident: PABLITO HUERTA Electronically Signed by: DENISSE TONEY @ 01/22/2021 03:44 PM I personally read this/these film(s) with this resident Normal The [facility] Comment on above: Order Comment: looki ng for mass, hx of osteomyelitis, STAT order CREATININE BLOODon 1 Creatinine [Mass/Vol] 0.95 mg/dL Normal 0.70-1.30 The [facility] Comment on above: Performed By: #### 2 5656 ####[facility] [place] [address], [facility] GFR/1.73 sq M.predicted among blacks MDRD (S/P/Bld) [Vol rate/Area] mL/min/{1.73_m2} Normal >60 The [facility] Comment on above: Performed By: #### 2 5656 ####[facility] [place] [address], [facility] GFR/1.73 sq M.predicted among non-blacks MDRD (S/P/Bld) [Vol rate/Area] mL/min/{1.73_m2} Normal >60 The [facility] Comment on above: Performed By: #### 2 5656 ####[facility] CTA CHESTon 01-19-2021 CTA CHEST [facility] Department of Radiology [address] [place] [address] Patient Name: GEMMA RODGERS : 1960 Sex: M Age: Race: White Pt. Location: Patient Status: O Ordered Date: 01/19/2021 7:35:00 AM Completed Date: 01/19/2021 01:33 PM Requesting Provider: SERGIO BRUNNER Attending Provider: SERGIO BRUNNER Report Copy To: VISH DELUCA Signs & Symptoms: R22.31 Localized swelling, mass and lump, right upper limb I10 History: Malin Comments: Exam: CTA CHEST CTA CHEST 01/19/2021 [...] dictation.} Electronically signed: Denisse Toney. Transcribed by: [email or web address], User Resident: Electronically Signed by: DENISSE TONEY @ 01/19/2021 04:17 PM Normal The [facility] NM BONE SCAN TOTAL BODYon NM BONE SCAN TOTAL BODY [facility] Department of Radiology [address] [place] [address] Patient Name: GEMMA RODGERS : 1960 Sex: M Age: Race: White Pt. Location: Patient Status: D Ordered Date: 12/30/2020 1:00:00 PM Completed Date: 01/19/2021 02:48 PM Requesting Provider: SERGIO BRUNNER Attending Provider: SERGIO BRUNNER Report Copy To: VISH DELUCA Signs & Symptoms: R07.89 Other chest pain I10 History: Malin Comments: Sternoclavicular mass Exam: NM BONE SCAN [...] trauma. Electronically signed: Tapan Clarke. Transcribed by: [email or web address], User Resident: Electronically Signed by: TAPAN CLARKE @ 01/21/2021 08:18 AM Normal The [facility] Comment on above: Order Comment: looki ng for mass, hx of osteomyelitis, STAT order US EXTREMITY LIMITEDon 01-18 US EXTREMITY LIMITED [facility] Department of Radiology [address] [place] [id number] Patient Name: GEMMA RODGERS : 1960 [...] malformation Electronically signed: Olga Blank. Transcribed by: [email or web address], User Resident: Electronically Signed by: OLGA BLANK @ 01/20/2021 10:19 AM Normal The [facility] Comment on above: Order Comment: looki ng for mass, hx of osteomyelitis, STAT order *SARS-CoV-2 COVID-19on 01-14 SARS-CoV-2 (COVID-19) RNA MACY+probe Ql (Unsp spec) Not detected Normal Not Detected The [facility] Comment on above: Order Comment: butchi ng for mass, hx of osteomyelitis, STAT order Performed By: #### 3 2702 ####[facility] C REACTIVE PROTEINon 021 CRP [Mass/Vol] 9.1 mg/L High 0.0-7.0 The [facility] Comment on above: Performed By: #### 3 4743 #### [facility] [address] CBC W/DIFFon 01-14-2021 ABS IMM GRANS 0.1 10*3/uL Normal 0.0-0.2 The [facility] Comment on above: Performed By: #### 3 0312 #### [facility] [address] [place] [address], [facility] ABS NEUTROPHILS 6.6 10*3/uL Normal 1.6-7.6 The [facility] Comment on above: Performed By: #### 3 0312 #### [facility] [address] [place] [address], [facility] Basophils (Bld) [#/Vol] 0.1 10*3/uL Normal 0.0-0.2 The [facility] Comment on above: Performed By: #### 3 0312 #### [facility] [address] Basophils/100 WBC (Bld) 1.2 % High 0.0-1.0 The [facility] Comment on above: Performed By: #### 3 0312 #### [facility] [address] [place] [address], [facility] Eosinophils (Bld) [#/Vol] 0.3 10*3/uL Normal 0.0-0.5 The [facility] Comment on above: Performed By: #### 3 0312 #### [facility] [address] [place] [address], [facility] Eosinophils/100 WBC (Bld) 3.4 % Normal 0.0-6.0 The [facility] Comment on above: Performed By: #### 3 0312 #### [facility] [address] Erythrocyte distribution width (RBC) [Ratio] 14.3 % Normal 11.5-15.0 The [facility] Comment on above: Performed By: #### 3 0312 #### [facility] [address] [facility] [address] Hematocrit (Bld) [Volume fraction] 42.6 % Normal 39.0-50.0 [facility] Comment on above: Performed By: #### 3 0312 #### [facility] [address] [facility] [address], [facility] Hemoglobin (Bld) [Mass/Vol] 14.8 g/dL Normal 13.0-17.0 The [facility] Comment on above: Performed By: #### 3 0312 #### [facility] [address] [place] [address], [facility] IMMATURE GRANS 0.6 % Normal 0.0-1.0 The [facility] Comment on above: Performed By: #### 3 2 #### [facility] [address] Lymphocytes (Bld) [#/Vol] 1.7 10*3/uL Normal 1.2-4.0 The [facility] Comment on above: Performed By: #### 3 0312 #### [facility] [address] Lymphocytes/100 WBC (Bld) 17.9 % Low 20.0-45.0 The [facility] Comment on above: Performed By: #### 3 0312 #### [facility] 3000 [facility] [place] [address], [facility] MCH (RBC) [Entitic mass] 33.3 pg High 27.0-33.0 The [facility] Comment on above: Performed By: #### 3 0312 #### [facility] [address] [place] [address], [facility] MCHC (RBC) [Mass/Vol] 34.7 g/dL Normal 32.0-35.0 The [facility] Comment on above: Performed By: #### 3 0312 #### [facility] 3000 [place] [address], [facility] MCV (RBC) [Entitic vol] 95.7 fL Normal 82.0-98.0 The [facility] Comment on above: Performed By: #### 3 0312 #### [facility] [address] [place] [address], [facility] Monocytes (Bld) [#/Vol] 0.7 10*3/uL Normal 0.1-1.0 The [facility] Comment on above: Performed By: #### 3 0312 #### [facility] [address] [facility] [address], [facility] MONOS 7.5 % Normal 5.0-12.0 The [facility] Comment on above: Performed By: #### 3 0312 #### [facility] [address] [place] [address], [facility] Neutrophils/100 WBC (Bld) 69.4 % Normal 40.0-72.0 The [facility] Comment on above: Performed By: #### 3 0312 #### [facility] [address] [place] [address], [facility] Nucleated RBC/100 WBC (Bld) [Ratio] 0 % Normal 0-0 The [facility] Comment on above: Performed By: #### 3 0312 #### [facility] [address] [place] [address], [facility] PLAT CNT 304 10*3/uL Normal 150-400 The [facility] Comment on above: Performed By: #### 3 0312 #### [facility] [address] [place] [id number], [facility] RBC (Bld) [#/Vol] 4.45 10*6/uL Normal 4.20-5.70 The [facility] Comment on above: Performed By: #### 3 0312 #### [facility] [address] [place] [address], [facility] WBC (Bld) [#/Vol] 9.51 10*3/uL Normal 4.00-10.60 The [facility] Comment on above: Performed By: #### 3 0312 #### [facility] [address] [place] [address], [facility] SEDIMENTATION RATEon 01-14-2 021 SED RATE 12 mm/hr High 0-10 The [facility] Comment on above: Performed By: #### 3 0312 #### [facility] [address] [place] [address], [facility] ALKALINE PHOSPHon 12-25-2020 ALKALINE PHOSPH 69 IU/L Normal 34-104 The [facility] Comment on above: Performed By: #### 6 1405 #### [facility] [address] [place] [address], [facility] BASIC METABOLIC PANELon 12-16 Calcium [Mass/Vol] 9.0 mg/dL Normal 8.6-10.3 The [facility] Comment on above: Performed By: #### 6 1405 #### [facility] [address] [place] [address], [facility] Chloride [Moles/Vol] 90 mmol/L Low 98-107 The [facility] Comment on above: Performed By: #### 6 1405 #### [facility] [address] [place] [address], [facility] CO2 [Moles/Vol] 26 mmol/L Normal 21-31 The [facility] Comment on above: Performed By: #### 6 1405 #### [facility] [address] [place] [address], [facility] Creatinine [Mass/Vol] 1.02 mg/dL Normal 0.70-1.30 The [facility] [facility] Comment on above: Performed By: #### 6 1405 #### [facility] [address] [place] [address], [facility] GFR/1.73 sq M.predicted among blacks MDRD (S/P/Bld) [Vol rate/Area] mL/min/{1.73_m2} Normal >60 [facility] Comment on above: Performed By: #### 6 1405 #### [facility] [address] [place] [address], [facility] GFR/1.73 sq M.predicted among non-blacks MDRD (S/P/Bld) [Vol rate/Area] mL/min/{1.73_m2} Normal >60 [facility] Comment on above: Performed By: #### 6 1405 #### [facility] [address] [place] [address], [facility] Glucose [Mass/Vol] 71 mg/dL Normal 70-100 [facility] Comment on above: Performed By: #### 6 1405 #### [facility] [address] [place] [address], [facility] Potassium [Moles/Vol] 4.1 mmol/L Normal 3.5-5.1 [facility] Comment on above: Performed By: #### 6 1405 #### [facility] [address] [place] [address], [facility] Sodium [Moles/Vol] 126 mmol/L Low 136-145 [facility] Comment on above: Performed By: #### 6 1405 #### [facility] [address] [place] [address], [facility] Urea nitrogen [Mass/Vol] 10 mg/dL Normal 7-25 [facility] Comment on above: Performed By: #### 6 1405 #### [facility] [address] [place] [address], [facility] C REACTIVE PROTEINon 021 CRP [Mass/Vol] 15.6 mg/L High 0.0-7.0 [facility] Comment on above: Performed By: #### 6 1405 #### [facility] [address] [place], [place] [address] [place] [address] CBC W/DIFFon 09-10-2021 ABS IMM GRANS 0.1 10*3/uL Normal 0.0-0.2 [facility] Comment on above: Performed By: #### 3 0312 #### [facility] [address] [place] [address], [facility] ABS NEUTROPHILS 6.5 10*3/uL Normal 1.6-7.6 [facility] Comment on above: Performed By: #### 3 0312 #### [facility] [address] [place] [address], [facility] Basophils (Bld) [#/Vol] 0.1 10*3/uL Normal 0.0-0.2 [facility] Comment on above: Performed By: #### 3 0312 #### [facility] [address] [place] [address], [facility] Basophils/100 WBC (Bld) 0.6 % Normal 0.0-1.0 [facility] Comment on above: Performed By: #### 3 0312 #### [facility] [address] [place] [address], [facility] Eosinophils (Bld) [#/Vol] 0.2 10*3/uL Normal 0.0-0.5 [facility] Comment on above: Performed By: #### 3 0312 #### [facility] [address] [place] [address], [facility] Eosinophils/100 WBC (Bld) 2.5 % Normal 0.0-6.0 [facility] Comment on above: Performed By: #### 3 0312 #### [facility] [address] [place] [address], [facility] Erythrocyte distribution width (RBC) [Ratio] 14.0 % Normal 11.5-15.0 [facility] Comment on above: Performed By: #### 3 0312 #### [facility] [address] Hematocrit (Bld) [Volume fraction] 42.9 % Normal 39.0-50.0 [facility] Comment on above: Performed By: #### 3 0312 #### [facility] [address] [place] [address], [facility] Hemoglobin (Bld) [Mass/Vol] 14.3 g/dL Normal 13.0-17.0 [facility] Comment on above: Performed By: #### 3 0312 #### [facility] [address] [place] [address], [facility] IMMATURE GRANS 1.0 % Normal 0.0-1.0 [facility] Comment on above: Performed By: #### 3 0312 #### [facility] [address] Lymphocytes (Bld) [#/Vol] 1.5 10*3/uL Normal 1.2-4.0 [facility] Comment on above: Performed By: #### 3 0312 #### [facility] [address] [place] [address], [facility] Lymphocytes/100 WBC (Bld) 17.1 % Low 20.0-45.0 [facility] Comment on above: Performed By: #### 3 0312 #### [facility] [address] MCH (RBC) [Entitic mass] 32.1 pg Normal 27.0-33.0 [facility] Comment on above: Performed By: #### 3 0312 #### [facility] [address] [place] [address], [facility] MCHC (RBC) [Mass/Vol] 33.3 g/dL Normal 32.0-35.0 [facility] Comment on above: Performed By: #### 3 0312 #### [facility] [address] [place] [address], [facility] MCV (RBC) [Entitic vol] 96.4 fL Normal 82.0-98.0 [facility] Comment on above: Performed By: #### 3 0312 #### [facility] [address] [place] [address], [facility] Monocytes (Bld) [#/Vol] 0.5 10*3/uL Normal 0.1-1.0 [facility] Comment on above: Performed By: #### 3 0312 #### [facility] [address] [facility] [place] [address], [facility] MONOS 5.6 % Normal 5.0-12.0 [facility] Comment on above: Performed By: #### 3 0312 #### [facility] [address] [place] [address], [facility] Neutrophils/100 WBC (Bld) 73.2 % High 40.0-72.0 [facility] Comment on above: Performed By: #### 3 0312 #### [facility] [address] [place] [address], [facility] Nucleated RBC/100 WBC (Bld) [Ratio] 0 % Normal 0-0 [facility] Comment on above: Performed By: #### 3 0312 #### [facility] [address] [place] [address], [facility] PLAT CNT 325 10*3/uL Normal 150-400 [facility] Comment on above: Performed By: #### 3 0312 #### [facility] [address] [place] [address], [facility] RBC (Bld) [#/Vol] 4.45 10*6/uL Normal 4.20-5.70 [facility] Comment on above: Performed By: #### 3 2 #### [facility] [address] [place] [address], [facility] WBC (Bld) [#/Vol] 8.82 10*3/uL Normal 4.00-10.60 [facility] Comment on above: Performed By: #### 3 0312 #### [address] MRI CHEST W WO CONTRASTon MRI CHEST W WO CONTRAST [facility] Department of Radiology [address] [place] [id number] Patient Name: GEMMA RODGERS : 1960 [...] intact. Electronically signed: Roosevelt Barrientos. Transcribed by: [email or web address], User Resident: Electronically Signed by: ROOSEVELT BARRIENTOS @ 12/26/2020 06:25 PM Normal [facility] Comment on above: Order Comment: jody webb for mass, hx of osteomyelitis, STAT order PTH RELATED PEPTIDE [id number] n 12-25-2020 PTHrP <2.0 Normal 0.0-2.3 [facility] Comment on above: Result Comment: INTE RPRETIVE INFORMATION: Parathyroid Hormone-Related Peptide This test was developed and its performance characteristics determined by [facility]. It has not been cleared or approved by the US Food and Drug Administration. This test was performed in a CLIA certified laboratory and is intended for clinical purposes. Performed By: [facility] [address] [place] [id number] Quality Assurance Specialist: Jania Jimenez MD SEDIMENTATION RATEon 021 SED RATE 14 mm/hr High 0-10 [facility] Comment on above: Performed By: #### 3 0312 #### [facility] [address] [place] [address], [facility] TSH3on 12-25-2020 TSH 3RD GENERATION 82.08 uIU/mL High 0.34-5.60 [facility] Comment on above: Performed By: #### 6 1405 #### [facility] [address] [place] [address], [facility] Ambulatory Clinical Summaryo n 08-07-2020 Ambulatory Clinical Summary {[id number]}CD:61 4368 Normal [facility] Ambulatory Clinical Summary {[id number]}CD:61 4368 Normal [facility] Medicine Office/Clini c Noteon 08-07-2020 Family Medicine Office/Clinic Note Chief Complaint [employer]PER[employer] right foot pain HPI Staff Patient 59 [...] today. Is supposed to be leaving for [place] tomorrow. Right calf, knee an crib tender to palpation. denies injury. Is currently [...] pulse 1+. Left DP pulse 3+. Right crib tender to palpation. Painful to weight-bear to [...] today. Is going on a flight to [place] tomorrow morning and wants an ultrasound of [...] When Contact Information PAT LECHUGA, VISH Mclaughlin, [address] [address]- Additional Instructions: Problem List/Past Medical History Ongoing No chronic problems Historical No qualifying data Medications aspirin 81 mg Oral EC Tab, Oral, Daily hydrochlorothiazide-lisinop ril 25 mg-20 mg Tab, Oral, Daily levothyroxine, Daily omeprazole, Oral, Daily Allergies No Known Allergies No Known Medication Allergies Social History Tobacco Never (less than 100 in lifetime) Tobacco Use:. Never Smokeless Tobacco Use:., 08/07/2020 [facility] Comment on above: Result Comment: Elec tronically Signed By: Malia Robledo CNP\.alfredito\Date and Time Signed: 08/07/20 11:20 EDT Coding Summary.on 07-27-2020 Coding Summary. CODING DATE: 021 FINAL [facility] STATUS: Home (Routine DC) PAYOR: Commercial [...] Adams CphT Date Saved: 07/27/2020 11:03 am [facility] Consent for Treatmenton 06-17 Consent for Treatment [id number]:127 [facility] Physician Orderon 07-15-2020 Physician Order [id number]#[id number]:127 [facility] XR Clavicle Righton 07-16-19 XR Clavicle Right [...] Lopez MD Transcribed by: ZACHARY Technologist: EUGENE [facility] Coding Summaryon 02-20-2018 Coding Summary CODING DATE: 018 [facility] STATUS: Home PAYOR: [employer] [...] Reji Gonzalez Date Saved: 02/20/2018 12:[address] [facility] Release of Informationon Release of Information [id number] Report on 01-23-2018 Rad - Other Radiology Report [id number]#[id number] ED Clinical Summaryon 2017 ED Clinical Summary [facility] ? Urgent [address] [place] [address] clinical SummaryPERSON INFORMATIONName: GEMMA MANTILLA Age: 57 Years Sex: MALEDOB: 60 MRN: Acct#:Visit Reason: UC - Rib/Trunk Injury; FALL, RIGHT RIB PAIN Arrival: 01/21/18 11:05:00 Discharge: 01/21/18 11:52:00LOS: 000 00:47 Check In: 01/21/18 11:05:00 Checkout: 01/21/18 11:52:00Address:[address] [facility] [address]WUC: VISH DELUCAPROAMINA INFORMATIONProvider Role Assigned UnassCaty Rodriguez [...] EDUCATION INFORMATIONInstructions: Rib ContusionFollow-Up:With: Address: When:VISH DELUCA [facility], [address] [place], [place] [phone] Business (1) In 2 days 01/23/18DIAGNOSIS:Rib contusion; Rib fracturePatient Understands: Yes - Patient/family/caregiver verbalizes understanding of instructions givenComment: [facility] ED Note - Physicianon 2017 ED Note - Physician Patient: Dandre MANTILLA : 57 years Sex: MALE : 60Associated Diagnoses: Rib contusion; Rib fractureAuthor: Nabil Robertson InformationAdditional information: Chief Complaint from Nursing Triage Note : Chief Jouzzdofa89/07/18 11:10 EDT Chief Complaint right upper rib pain s/p fall from deck last night, denies other injury .History of Present Rzdomhj32-trrf-bzp male presents her chief complaint right lateral [...] been selected or recorded..Social history:Social & Psychosocial LdgksdYitdusm45/07/2018 Smoking tobacco use: Former smoker, quit more.Problem [...] takes Daypro daily and will take the [place] also. Patient will follow up primary care physician.Impression and PlanDiagnosisRib contusion ([id number] S20.219A, Discharge, Medical)Rib fracture ([id number] S22.39XA, Discharge, Medical)PlanCondition: Stable.Disposition: Discharged: Time 01/21/18 11:39:00, to home.Prescriptions: Launch prescriptionsPharmacy:[place] 5 mg-325 mg oral tablet (Prescribe): 1 tab(s), PO, q6hr (int), for 3 day(s), PRN: for pain, 12 tab(s), 0 Refill(s).Patient was given the following educational materials: Rib Contusion.Follow up with: VISH DELUCA In 2 days 01/23/18.Counseled: Patient, Regarding treatment plan, Regarding prescription, Patient indicated understanding of instructions.[Electronicall y Signed on: 01/21/2018 11:59 EDT] Caty Robertson[Verified on: 01/21/2018 11:59 EDT] Caty Robertson [facility] ED Patient Summaryon 018 ED Patient Summary [facility] ? Urgent [address] [place] [address] pATIENT DISCHARGE INSTRUCTIONSPatient InformationName: GEMMA MANTILLA Age: 57 YearsDate of : [birth year]MRN: [id number] For Visit: UC - Rib/Trunk Injury; FALL, RIGHT RIB PAINArrival Time: 01/21/18 11:05:00Phone: Primary Care Physician: Jose Alfredo DELUCA Physician: Caty RobertsonComment:Patient EducationWith: Address: When:VISH DELUCA [facility], [address] [place], [place] [address] [place], [place] [phone] Business (1) In 2 days 01/23/18Rib ContusionA [...] risk of partial lung collapse and pneumonia. Hppz-izd-jqdtsth or prescription medicines may also be recommended [...] Reviewed: 01/13/2015[employer] Patient Education ? 2018 [employer]Medication Information:The exam and treatment you received today in the [facility] Emergency Department were for an urgent problem and are not intended as complete care. It is important for you to follow up with a doctor, nurse practitioner, or physician?s administrative library assistant for ongoing care. If your symptoms [...] number so we can reach you if necessary.[facility] Emergency Department has provided you with a complete list of medications post discharge. Please inform your dry cleaning counter clerk/provider of your visit and for further instruction on these medications. Any specific questions regarding your chronic medications and dosages should be discussed with your primary care physician(s) and/or pharmacist. New MedicationsPrinted Prescriptionsacetaminophen- hydrocodone ([place] 5 mg-325 mg oral tablet) 1 tab(s) [...] Rib fracture (S22.39XA) UC - Rib/Trunk Injury ([id number])If you received any narcotics, sedation, or any [...] Disease Control and Prevention December 2013 Normal [facility] [place] 018 Urgent Care Record [facility] ? Urgent [address] [place] [id number] pATIENT DISCHARGE INSTRUCTIONSPatient InformationName: GEMMA MANTILLA Age: 57 YearsDate of : [birth year]MRN: For Visit: UC - Rib/Trunk Injury; FALL, RIGHT RIB PAINArrival Time: 01/21/18 11:05:00[facility]: [facility] Physician: Jose Alfredo DELUCA Physician: Caty RobertsonComment:Visit Diagnosis:Diagnoses This Visit Rib contusion (S20.219A) UC - Rib/Trunk Injury ([id number])If you received any narcotics, sedation, or any [...] sign any legal documentsWith: Address: When:VISH DELUCA [facility], [address] [place], [place] [address] [place], [place] [phone] Business (1) In 2 days 01/23/18Medication Information:The exam and treatment you received today in the [facility] Care were for an urgent problem and are not intended as complete care. It is important for you to follow up with a doctor, nurse practitioner, or physician?s administrative library assistant for ongoing care. If your symptoms [...] number so we can reach you if necessary.[facility] has provided you with a complete list of medications post discharge. Please inform your dry cleaning counter clerk/provider of your visit and for further instruction on these medications. Any specific questions regarding your chronic medications and dosages should be discussed with your primary care physician(s) and/or pharmacist. New MedicationsPrinted Prescriptionsacetaminophen- hydrocodone ([place] 5 mg-325 mg oral tablet) 1 tab(s) [...] risk of partial lung collapse and pneumonia. Kzkz-csu-quaczel or prescription medicines may also be recommended [...] Reviewed: 01/13/2015[employer] Interactive Patient Education ? 2018 [employer]. Viruses or BacteriaWhat?s got you sick?Antibiotics only [...] for Disease Control and Prevention December 2013 [facility] XR Ribs w/ PA Chest Righton [...] SITE.3. NO OBVIOUS PNEUMOTHORAX.Monroe Augustin MDJOB #: [id number]: 01/22/2018T: 01/22/2018 Final Dictated by: Monroe Augustin MD SDictated DT/TM: 01/22/18 6:25Signed (Electronic Signature): Monroe Augustin MD 01/22/18 12:46 pTechnologist: MS [facility] Vital Signs Date Time Vital Sign Value Performing Clinician Facility 07-11-2024 08:13 Body height 172.7 cm Danii Harrington [employer] Work Phone: [facility] 07-11-2024 08:130400 Body mass index (BMI) [Ratio] 34.61 kg/m2 Danii Harrington NP Work Phone: [facility] 07-11-2024 08:13-0400 Body weight 103.24 kg Danii Harrington [employer] OPER[employer] Work Phone: [facility] 07-11-2024 08:13-0400 Diastolic blood pressure 82 mm[Hg] Danii Harrington [employer] OPERATOR Work Phone: [facility] 07-11-2024 08:13-0400 Heart rate 84 /min Danii Harrington [employer] OPER[employer] Work Phone: [facility] 07-11-2024 08:13-0400 Respiratory rate 17 /min Danii Harrington [employer] OPERATOR Work Phone: [facility] 07-11-2024 08:13-0400 SaO2% (BldA) [Mass fraction] 98 % Danii Harrington [employer] OPER[employer] Work Phone: [facility] 07-11-2024 08:13-0400 Systolic blood pressure 138 mm[Hg] Danii Harrington [employer] OPERATOR Work Phone: [facility] 02-21-2024 10:14-0500 Body temperature 97.3 [degF] II Vish Deluca Work Phone: [facility] 02-21-2024 10:14-0500 Diastolic blood pressure 88 mm[Hg] II Vihs Deluca Work Phone: [facility] 02-21-2024 10:14-0500 Heart rate 78 /min II Vish Edluca Work Phone: [facility] 02-21-2024 10:14-0500 Systolic blood pressure 144 mm[Hg] II Vish Deluca Work Phone: [facility] 02-05-2024 12:00-0400 Body temperature 97.8 [degF] II Vish Deluca Work Phone: [facility] 02-05-2024 12:00-0400 Diastolic blood pressure 61 mm[Hg] II Vish Deluca Work Phone: [facility] 02-05-2024 12:00-0400 Heart rate 85 /min II Vish Deluca Work Phone: [facility] 02-05-2024 12:00-0400 Respiratory rate 18 /min II Vish Deluca Work Phone: [facility] 02-05-2024 12:00-0400 SaO2% (BldA) [Mass fraction] 96 % II Vish Deluca Work Phone: [facility] 02-05-2024 12:00-0400 Systolic blood pressure 92 mm[Hg] II Vish Deluca Work Phone: [facility] 02-05-2024 04:45-0400 Body weight 96.9 kg II Vish Deluca Work Phone: [facility] 02-04-2024 09:59-0400 Body height 172.72 cm II Vish Deluca Work Phone: [facility] 05-01-2023 14:45-0500 Body height 172.72 cm Mikal Verde Other [employer] Other 05-01-2023 14:45-0500 Body mass index (BMI) [Ratio] 29.65 kg/m2 Mikal Verde Other [employer] Other 05-01-2023 14:45-0500 Body temperature 97.1 [degF] Mikal Verde Other [employer] Other 05-01-2023 14:45-0500 Body weight 88.45 kg Mikal Verde Other [employer] Other 05-01-2023 14:45-0500 Diastolic blood pressure 104 mm[Hg] Mikal Verde Other [employer] Other 05-01-2023 14:45-0500 Systolic blood pressure 170 mm[Hg] Mikal Verde Other [employer] Other 03-20-2023 14:15-0500 Body height 172.72 cm Mikal Verde Other [employer] Other 03-20-2023 14:15-0500 Body mass index (BMI) [Ratio] 31.93 kg/m2 Mikal Verde Other [employer] Other 03-20-2023 14:15-0500 Body temperature 97.5 [degF] Mikal Mehreen Other [employer] Other 03-20-2023 14:15-0500 Body weight 95.26 kg Mikal Verde Other [employer] Other 03-20-2023 14:15-0500 Diastolic blood pressure 93 mm[Hg] Mikal Mehreen Other [employer] Other 03-20-2023 14:15-0500 Systolic blood pressure 155 mm[Hg] Mikal Mehreen Other [employer] Other 02-20-2023 15:00-0500 Body height 172.72 cm Mikal Verde Other [employer] Other 02-20-2023 15:00-0500 Body mass index (BMI) [Ratio] 31.93 kg/m2 Mikal Verde Other [employer] Other 02-20-2023 15:00-0500 Body temperature 98.6 [degF] Mikal Mehreen Other [employer] Other 02-20-2023 15:00-0500 Body weight 95.26 kg Mikal Mehreen Other [employer] Other 02-20-2023 15:00-0500 Diastolic blood pressure 103 mm[Hg] Mikal Verde Other [employer] Other 02-20-2023 15:00-0500 Systolic blood pressure 164 mm[Hg] Mikal Verde Other [facility] [employer] Other 07-28-2021 08:04-0400 Body height 175.26 cm II Vish Deluca Work Phone: [facility] 07-28-2021 08:04-0400 Body weight 104.32 kg II Vish Deluca Work Phone: [facility] Encounters Encounter Date Encounter Type Care Provider Facility Start: 07-11-2024 End: 07-11-2024 ambulatory DANII HARRINGTON Not Available Start: 07-11-2024 End: 07-11-2024 Periodic preventive med est patient 40-64yrs Danii Harrington [employer] OPER[employer] Work Phone: [facility] Comment on above: Hypercholesterolemia (CMS/HCC) (Primary Dx); Benign essential hypertension (CMS/HCC); Colon cancer screening; Prostate cancer screening; Other chronic osteomyelitis, right ankle and foot (CMS/HCC); Coronary artery disease involving [place] coronary artery of [place] heart without angina pectoris (CMS/HCC); 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; Gastroesophageal reflux disease with esophagitis without hemorrhage; Acquired hypothyroidism (CMS/HCC) Start: 03-18-2024 End: 03-18-2024 ambulatory [facility] Start: 02-21-2024 End: 02-21-2024 ambulatory II Vish Deluca Work Phone: [facility] Work Phone: Start: 02-21-2024 End: 02-21-2024 Patient encounter procedure II Vish Deluca Work Phone: [facility] Work Phone: Start: 02-15-2024 End: 02-15-2024 ambulatory [facility] Amb[facility] Start: 02-04-2024 End: 02-05-2024 Evaluation and management of inpatient II Vish Deluca Work Phone: [facility] [place] Work Phone: Start: 05-01-2023 End: 05-01-2023 ambulatory Mikal Verde Other [employer] Other Start: 05-01-2023 Office outpatient vi sit 25 minutes Mikal Verde [facility] Start: 03-20-2023 End: 03-20-2023 ambulatory Mikal Verde Other [employer] Other Start: 03-20-2023 Office outpatient vi sit 25 minutes Mikal Mehreen [facility] Start: 02-20-2023 End: 02-20-2023 ambulatory Mikal Verde Other [facility] Other Start: 02-20-2023 Office outpatient vi sit 25 minutes Mikal Mehreen [facility] Start: 02-06-2023 End: 02-06-2023 ambulatory Mikal Verde Other [facility] Other Start: 02-06-2023 Telephone encounter Mikal Verde FP [facility] Infectious Disease Start: 09-20-2022 ambulatory ANASTASIYA FOX Faci lity:H1 Start: 08-31-2022 ambulatory ANASTASIYA FOX Faci lity:H1 Start: 08-11-2022 End: 09-03-2022 ambulatory MR ALEJA PEREZ . Facility:H1 Start: 07-31-2022 Encounter for prepro cedural laboratory examination ANASTASIYA FOX [facility] Start: 07-28-2022 End: 07-28-2022 ambulatory [...] 02-04-2022 Encounter for prepro cedural cardiovascular examination [facility] Start: 02-04-2022 Encounter for prepro cedural laboratory examination [facility] Start: 02-01-2022 End: 02-02-2022 ambulatory ANASTASIYA FOX Facility:H1 Start: 02-01-2022 End: 02-02-2022 Encounter for preprocedural cardiovascular examination ANASTASIYA FOX Facility:H1 Start: 11-10-2021 End: 11-11-2021 ambulatory HERMINIA JHAVERI Facility:H1 Start: 10-27-2021 ambulatory HERMINIA JHAVERI Facility :H1 Start: 10-19-2021 End: 10-20-2021 ambulatory ANASTASIYA FOX Facility:H1 Start: 10-14-2021 End: 10-15-2021 ambulatory ANASTASIYA FOX Facility:H1 Start: 07-28-2021 End: 07-28-2021 Patient encounter procedure II Vish Deluca Work Phone: [facility] Start: 07-21-2021 End: 07-22-2021 ambulatory NASIR PAN Facility:[facility] Start: 07-19-2021 End: 07-19-2021 Patient encounter procedure II Vish Deluca Work Phone: [facility] Start: 07-19-2021 End: 08-12-2021 ambulatory NASIR PAN Facility:[facility] Start: 07-02-2021 End: 07-03-2021 ambulatory NASIR PAN Facility:[facility] Start: 06-11-2021 End: 06-11-2021 Patient encounter procedure II Vish Deluca Work Phone: [facility] Start: 01-29-2021 End: 02-04-2021 Evaluation and management of inpatient SERGIO EBRAHEIM Facility:[facility] Start: 01-18-2021 End: 01-19-2021 ambulatory VISH DELUCA Facility:[facility] Start: 12-25-2020 End: 12-26-2020 ambulatory SERGIO EBRAHEIM Facility:[facility] Start: 01-21-2018 End: 01-21-2018 Patient encounter Caty Donahue Facility:[facility] Procedures Date Procedure Procedure Detail Performing Clinician Start: 02-04-2024 CL Ivus Initial Vessel II Vish Deluca Work Phone: Start: 02-04-2024 CL LHC [facility] COR Angio II D wilbert Deluca Work Phone: Start: 02-04-2024 II Vish Deluca Work Phone: Start: 07-28-2021 MRI of chest with contrast II Vish Deluca Work Phone: Start: 02-02-2021 EXCISION OF RIGHT CLAVICLE, OPEN APPROACH SERGIO EBRAHEIM Start: 12-25-2020 PSA screening SERGIO EBR AHEIM Comment on above: Performed By: #### 6 [id number] #### [address] Start: 04-07-2014 Colonoscopy Danii Harrington NP Work Phone: Screening for malign ant neoplasm of colon Mikal Verde Other Plan of Treatment Date Care Activity Detail Author Start: 07-11-2024 End: 07-11-2025 CBC panel - Blood by Automated count CBC Lab Routine Benign essential hypertension (CMS/HCC) Expected: 07/11/2024 (Approximate), Expires: 07/11/2025 [facility] Work Phone: Comment on above: Expected: 07/11/2024 (Approximate), Expi res: 07/11/2025 Start: 07-11-2024 End: 01-11-2026 Colonoscopy study Colonoscopy Endoscopy Routine Colon cancer screening Expected: 07/11/2024, Expires: 01/11/2026 [facility] Comment on above: Expected: 07/11/2024, Expires: Start: 07-11-2024 End: 07-11-2025 Comprehensive metabolic 2000 panel - Serum or Plasma Comprehensive metabolic panel Lab Routine Benign essential hypertension (CMS/HCC) Expected: 07/11/2024 (Approximate), Expires: 07/11/2025 [facility] Comment on above: Expected: 07/11/2024 (Approximate), Expi res: 07/11/2025 Start: 07-11-2024 End: 07-11-2025 Lipid 1996 panel - Serum or Plasma Lipid panel Lab Routine Hypercholesterolemia (CMS/HCC) Expected: 07/11/2024 (Approximate), Expires: 07/11/2025 [facility] Comment on above: Expected: 07/11/2024 (Approximate), Expi res: 07/11/2025 Start: 07-11-2024 End: 07-11-2025 Prostate specific Ag [Mass/volume] in Serum or Plasma PSA Lab Routine Prostate cancer screening Expected: 07/11/2024 (Approximate), Expires: 07/11/2025 [facility] Comment on above: Expected: 07/11/2024 (Approximate), Expi res: 07/11/2025 Start: 07-11-2024 End: 07-11-2025 Thyrotropin [Units/volume] in Serum or Plasma TSH Lab Routine Acquired hypothyroidism (CMS/HCC) Expected: 07/11/2024 (Approximate), Expires: 07/11/2025 [facility] Comment on above: Expected: 07/11/2024 (Approximate), Expi res: 07/11/2025 Start: 04-07-2024 Screening for malignant neoplasm of colon [facility] Start: 02-05-2024 [facility] Start: 02-04-2024 Hospital admission [facility] Start: 02-04-2024 Fluoroscopy of Left Heart using Low Osmolar Contrast Fluoroscopy of Left Heart using Low Osmolar Contrast [facility] Start: 02-04-2024 Fluoroscopy of Multiple Coronary Arteries using Low Osmolar Contrast Fluoroscopy of Multiple Coronary Arteries using Low Osmolar Contrast [facility] Start: 02-04-2024 Measurement of Cardiac Sampling and Pressure, Left Heart, Percutaneous Approach Measurement of Cardiac Sampling and Pressure, Left Heart, Percutaneous Approach [facility] Start: 02-04-2024 Referral to cardiac rehabilitation program [facility] Start: 02-04-2024 Sleep disorder assessment [facility] Start: 02-04-2024 Consultation [facility] Start: 12-17-2023 Influenza vaccination Influenza Vaccine (#1) [facility] Start: 1960 Screening for malignant neoplasm of colon [facility] Patient Education Coronary Angio plasty (DC) Coronary Stenting (DC) Angina (DC) Chest Pain (DC) Drug Eluting Stents Know your Meds [facility] Work Phone: Patient referral [facility] Work Phone: SARS-CoV-2 (COVID-19 ) Ab [Interpretation] in Serum or Plasma [facility] Work Phone: Immunizations Immunization Date Immunization Notes Care Provider Fa cilianna 01-22-2021 Moderna SARS-CoV-2 Vaccination Danii Harrington [employer] Work Phone: [facility] Payers Date Payer Category Payer Unknown [id number] 2024 Self-pay [id number] 2024 Unknown [id number] 2018 Self-pay ABC 2018 Unknown [id number] 1960 Unknown [id number] 2.16.84 0.1.471852.3.579.2.718 1960 Unknown [id number] 2.16.8 40.1.381826.3.579.2.647 1960 Unknown [id number] 2.16.8 40.1.849557.3.579.2.647 1960 Unknown [id number] 2.16.8 40.1.961131.3.579.2.647 1960 Unknown [id number] 2.16.8 40.1.597003.3.579.2.647 1960 Unknown [id number] 2.16.8 40.1.851683.3.579.2.647 1960 Unknown [id number] 2.16.8 40.1.200088.3.579.2.647 1960 Unknown [id number] 2.16.84 0.1.466753.3.579.2.593 1960 Unknown [id number] 2.16.84 0.1.821183.3.579.2.593 1960 Unknown [id number] 2.16.84 0.1.466208.3.579.2.593 1960 Unknown [id number] 2.16.84 0.1.169030.3.579.2.593 1960 Unknown [id number] 2.16.84 0.1.283422.3.579.2.593 1960 Unknown [id number] 2.16.84 0.1.498717.3.579.2.593 1960 Unknown [id number] 2.16.84 0.1.060490.3.579.2.593 1960 Unknown [id number] 2.16.84 0.1.763346.3.579.2.593 1960 Unknown [id number] 2.16.84 0.1.177679.3.579.2.593 1960 Unknown [id number] 2.16.84 0.1.692644.3.579.2.593 1960 Unknown [id number] 2.16.84 0.1.533921.3.579.2.593 1960 Unknown [id number] 2.16.84 0.1.522306.3.579.2.593 1960 Unknown [id number] 2.16.84 0.1.577077.3.579.2.593 1960 Unknown [id number] 2.16.84 0.1.567785.3.579.2.593 1960 Unknown [id number] 2.16.84 0.1.669610.3.579.2.593 1960 Unknown [id number] 2.16.84 0.1.003844.3.579.2.593 1960 Unknown [id number] 2.16.84 0.1.769398.3.579.2.593 1960 Unknown [id number] 2.16.84 0.1.257510.3.579.2.593 1960 Unknown [id number] 2.16.84 0.1.378232.3.579.2.593 1960 Unknown [id number] 2.16.84 0.1.270011.3.579.2.593 1960 Unknown [id number] 2.16.84 0.1.494055.3.579.2.593 1960 Unknown [id number] 2.16.84 0.1.655143.3.579.2.593 1960 Unknown [id number] 2.16.84 0.1.190882.3.579.2.593 1960 Unknown [id number] 2.16.84 0.1.540512.3.579.2.593 1960 Unknown [id number] 2.16.8 40.1.316306.3.579.2.1246 1960 Unknown [id number] 2.16. 840.1.501813.3.579.2.1244 1960 Unknown [id number] 2.16.84 0.1.128294.3.579.2.1259 1959 Medicaid [id number] Self-pay [id number] 1959 Unknown [id number] Unknown [id number] Unknown [id number] Unknown [id number] 2.16.8 40.1.574589.3.579.2.531 Social History Date Type Detail Facility Tobacco smoking stat [facility] Unknown if ever smoked [facility] Work Phone: Start: 1960 Sex Assigned At Male F [facility] Start: 07-11-2024 Sex Assigned At N [facility] Other Start: 02-04-2024 End: 02-21-2024 Tobacco smoking status ILIS Never smoked tobacco (finding) [facility] Start: 07-11-2024 [facility] Start: 11-03-1995 End: 11-02-2010 History of tobacco use Current smoker [facility] Start: 11-03-1995 End: 11-02-2010 History [...] Facility 02-05-2024 Functional status Patient at [facility] Work Phone: Mental Status Date Assessment Result Facility 02-05-2024 Cognitive function Cognitive Sta tus Patient at Baseline [facility] Work Phone: Clinical Notes 02-28-2021 to 07-11-2024 Danii Harrington, [employer] - 07/11/2024 8:00 AM EDTPatient Instructions Note [...] (CMS/HCC) Stable. 6. Coronary artery disease involving [place] coronary artery of [place] heart without angina pectoris (CMS/HCC) Continues on isosorbide mononitrate ER as ordered. Brilinta continues as ordered. Stable. 7. 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 Stable. 8. Gastroesophageal reflux disease with esophagitis without hemorrhage Stable. 9. Acquired hypothyroidism (CMS/HCC) Levothyroxine continues as ordered. -TSH level ordered today. No follow-ups on file. documented in this encounter [facility] 07-11-2024 Instructions Danii Harrington NP - 07/11/2024 8:00 AM EDT Refill for coreg sent Labs ordered today: PSA, CBC, CMP, TSH, LIPIDS. documented in this encounter [facility] 02-05-2024 Discharge summary Note Date/Time February 05, 2024 1:56pm [facility] [address] [place] [address] Discharge Summary Signed Patient: Gemma Mantilla MR#: [id number] : 1960 Acct:[id number] Age/Sex: 63 / M Adm Date: 4 Loc: Room: [address] [place] [address]: Mikal Willett DO Copies to: [...] chest pain with subsequent transfer here to [facility] with hospitalist service on 02/04/2024. He [...] doctor or pharmacist, without first calling the slasher runner who implanted the stent. If you require [...] weight lifting, stair steppers, etc. until the slasher runner approves these activities. Check with the slasher runner on your first follow-up visit. CALL YOUR SUSTAINABILITY COORDINATOR: -If bleeding should occur from the catheter insertion site- apply pressure to the site then immediately call us. -Report any fever, redness, drainage, increased swelling, or firmness at the catheter insertion site. Some bruising or slight swelling may be present at thetime of discharge. -Should arm or leg become cold, numb, white, or blue, contact the slasher runner immediately. -IF you should experience episodes of [...] Cardiopulmonary Rehabilitation program is recommended. The attending slasher runner or a nurse clinician should provide you with specificinstructions regarding activity, diet, medications, and further follow up for you. Follow the medication instructions provided on your discharge. If the dosages and instructions on this sheet differ from the dosage and instructions on the bottle, follow the instructions on the bottle. [facility] is not responsible for incorrect prescription [...] % (Auto) 73.9, Lymph % (Auto) 14.6, [place] % (Auto) 9.2, Eos % (Auto) 1.9, Baso % (Auto) 0.4, Nucleat RBC Rel Count 0.1, Neut # (Auto) 8.0 H, Lymph # (Auto) 1.6, [place] # (Auto) 1.0 H, Eos # (Auto) [...] H* 02/04/24 17:22: Troponin I High Sens 77428.1 H* 02/04/24 14:55: Heparin Anti-Xa, Unfract < 0.04 L, Troponin I High Sens 9767.3 H* 02/04/24 13:15: Troponin I High Sens 00093.6 H* 02/04/24 10:28: Estimat Average Glucose 97, Hemoglobin A1c 5.0 Documented By: Mikal Willett DO 02/05/24 13 56 Signed By: <Electronically signed by Mikal Willett DO> 02/05/24 160 [facility] Work Phone: 1(340) 531-590010-21-2024 Progress note Author W Geremias [facility] February 05, 2024 12:58pm Note Date/Time February 05, 2024 1 2:58pm [facility] [address] [place] [address] Cardiology Progress Note Signed Patient: Gemma Mantilla MR#: [id number] : 1960 Acct:[id number] Age/Sex: 63 / M Adm Date: 4 Loc: Room: [address] [place] [address] Type: ADM IN Attending Dr: Mikal Willett DO Copies to: ~ Date of Service: 02/05/2024 Subjective Principal diagnosis: Lateral ST versus non-ST elevation AL Interval history: Mr. Mantilla is a 63 year old male patient is seen in emergent interventional cardiology consultation at request of [facility] attending, and hospitalist after transfer to [facility] health with ongoing 3 out of10 [...] critical care time were devoted to the Hand Inspector staff, nursing staff, patient pre and post [...] MPV Neut % (Auto) Lymph % (Auto) [place] % (Auto) Eos % (Auto) Baso % (Auto) Nucleat RBC Rel Count Neut # (Auto) Lymph # (Auto) [place] # (Auto) Eos # (Auto) Baso # (Auto) Heparin Anti-Xa, Unfract < 0.04 L PHA Creatinine Clear Sodium Potassium Chloride Carbon Dioxide Anion Gap BUN Creatinine Est GFR (CKD-EPI) Glucose Estimat Average Glucose 97 Hemoglobin A1c 5.0 Calcium Troponin I High Sens 36549.6 H* 9767.3 H* Triglycerides Cholesterol LDL Cholesterol, Calc VLDL Cholesterol HDL Cholesterol Cholesterol/HDL Ratio 02/04/24 02/04/24 02/05/24 17:22 19:35 04:46 Corrected WBC 10.8 H Uncorrected WBC Count 10.8 H RBC 3.73 L Hgb 13.0 Hct 37.6 L MCV 100.9 MCH 34.9 MCHC 34.6 RDW 13.0 Plt Count 196 MPV 9.2 Neut % (Auto) 73.9 Lymph % (Auto) 14.6 [place] % (Auto) 9.2 Eos % (Auto) 1.9 Baso % (Auto) 0.4 Nucleat RBC Rel Count 0.1 Neut # (Auto) 8.0 H Lymph # (Auto) 1.6 [place] # (Auto) 1.0 H Eos # (Auto) 0.2 Baso # (Auto) 0.0 Heparin Anti-Xa, Unfract PHA Creatinine Clear 72.32 Sodium 132 L Potassium 3.8 Chloride 96 L Carbon Dioxide 27.3 Anion Gap 12.5 BUN 24 Creatinine 1.18 Est GFR (CKD-EPI) > 60.0 Glucose 99 Estimat Average Glucose Hemoglobin A1c Calcium 9.8 Troponin I High Sens 39949.1 H* 8848.6 H* Triglycerides 81 Cholesterol 247 [...] signed by Ani Archuleta DO> 02/05/24 1258 [facility] Work Phone: 1(846) 125-272110-21-2024 Hospital Discharge instructions Additional Instructions DISCHARGE INSTRUCTIONS [...] doctor or pharmacist, without first calling the slasher runner who implanted the stent. If you require [...] weight lifting, stair steppers, etc. until the slasher runner approves these activities. Check with the slasher runner on your first follow-up visit. CALL YOUR SUSTAINABILITY COORDINATOR: -If bleeding should occur from the catheter insertion site- apply pressure to the site then immediately call us. -Report any fever, redness, drainage, increased swelling, or firmness at the catheter insertion site. Some bruising or slight swelling may be present at the time of discharge. -Should arm or leg become cold, numb, white, or blue, contact the slasher runner immediately. -IF you should experience episodes of [...] Cardiopulmonary Rehabilitation program is recommended. The attending slasher runner or a nurse clinician should provide you with specific instructions regarding activity, diet, medications, and further follow up for you. Follow the medication instructions provided on your discharge. If the dosages and instructions on this sheet differ from the dosage and instructions on the bottle, follow the instructions on the bottle. [facility] is not responsible for incorrect prescription information provided by the patient during their visit. Do not stop your medications without consulting your health care provider. Please take the list with you to your next doctor's appointment.[facility] Work Phone: 1(902) 338-422510-20-2024 Consult note Author Ani Archuleta [facility] February 04, 2024 11:23am Note Date/Time February 04, 2024 1 1:19am [facility] [address] [place] [address] Cardiology Consult Note Signed Patient: Gemma Mantilla MR#: [id number] : 1960 Acct:[id number] Age/Sex: 63 / M Adm Date: 4 Loc: Room: [address] [place] [address] Type: ADM IN Attending Dr: Zoran Lundberg MD Copies to: MD Vish Lou II, MD W Scott Sheldon, DO~ Cardiology HPI History of Present Illness Consult Date: 02/04/24 Reason for Consult: High risk non-STEMI versus aborted STEMI HPI: Mr. Mantilla is a 63 year old male patient is seen in emergent interventional cardiology consultation at request of [facility] attending, and hospitalist after transfer to [facility] health with ongoing 3 out of10 [...] critical care time were devoted to the Hand Inspector staff, nursing staff, patient pre and post procedurally [facility] Medical History (Updated 02/04/24 @ 10:14 by [...] x10E3/uL Lymph # (Auto) 1.4 (1.00-4.8) x10E3/uL [place] # (Auto) 0.8 (0.0-0.8) x10E3/uL Eos # [...] Interpretations EKG EKG results cardiology: sinus rhythm AL, pacemaker, normal Myocardial infarction: anterior AL (acute or recent) A&P - Cardiology (1) NSTEMI (non-ST elevated myocardial infarction): Code(s): I21.4 - Non-ST elevation (NSTEMI) myocardial infarction Plan Proceed with emergent cath and intervention Documented By: Ani Archuleta DO 02/04/24 1118 Signed By: <Electronically signed by Ani Archuleta DO> 02/04/24 1123 [facility] Work Phone: 1(652) 589-522610-20-2024 History and physical note Author Zoran Lundberg [facility] February 04, 2024 10:11am Note Date/Time February 04, 2024 1 0:11am [facility] [address] [place] [address] Hospitalist H&P Signed Patient: Gemma Mantilla MR#: [id number] : 1960 Acct:[id number] Age/Sex: 63 / M Adm Date: 4 Loc: Room: [address] [place] [address] Type: ADM IN Attending Dr: Zoran Lundberg [...] of breath. On Monday he went to [place] with his son to move him, did [...] rub or JVD. Peripheral pulses present bilaterally. Evknw-ap-neoj ultrasound with poor windows. I do not [...] who will take the patient to the Hand Inspector now. Continue dual antiplatelet therapy with aspirin Brilinta, anticoagulant treatment with heparin. Routine labs. Echo in a.m. Continue treatment for chronic problems with home regimen Obesity class I Hypertension Hypothyroidism GERD [facility] Family History (Updated 05/01/23 @ 14:45 by [...] signed by Zoran Lundberg MD> 02/04/24 1011 [facility] Work Phone: 1(615) 566-216210-20-2024 Procedure [facility]10-20-2024 Procedure [facility]01-15-2024 Evaluation note* Encounter Date Diagnosis Assessment [...] the pain is a result from this [facility] Other 12-04-2023 Evaluation note* Encounter Date Diagnosis [...] device, implant, and graft (ICD-10 - T84.9XXA) [facility] Other 11-06-2023 Evaluation note* Encounter Date Diagnosis [...] device, implant, and graft (ICD-10 - T84.9XXA) [facility] Other 03-29-2023 NotePROCEDURE: XR FOOT RT MIN [...] Electronically authenticated by: MAO CATHERINE Date: 2022-07-13 11:54[facility]03-08-2023 NotePROCEDURE: XR FOOT RT MIN 3 VIEWS [...] Electronically authenticated by: MAO CATHERINE Date: 2022-06-22 09:18[facility]02-28-2023 NotePROCEDURE: XR FOOT RT MIN 3 VIEWS [...] Electronically authenticated by: NADIA TINOCO Date: 2022-06-14 17:15[facility]01-31-2023 NotePROCEDURE: XR FOOT RT MIN [...] Electronically authenticated by: MAO CATHERINE Date: 2022-05-17 13:23[facility]01-11-2023 NotePROCEDURE: XR FOOT RT MIN [...] authenticated by: MAO CATHERINE Date: 2022-04-27 14:07 [id number] NotePROCEDURE: XR FOOT RT MIN 3 VIEWS [...] of uncertain etiology. Electronically authenticated by: MAO ACTHERINE Date: 2022-04-20 11:11[facility]12-23-2022 NotePROCEDURE: XR FOOT RT MIN [...] Electronically authenticated by: MAO CATHERINE Date: 2022-04-07 22:09[facility]12-06-2022 NotePROCEDURE: XR FOOT RT MIN [...] Electronically authenticated by: MAO CATHERINE Date: 2022-03-22 15:[facility] NotePROCEDURE: XR FOOT RT MIN 3 VIEWS [...] Electronically authenticated by: NADIA TINOCO Date: 2022-03-01 15:50[facility]10-24-2022 NotePROCEDURE: XR FOOT RT 2V HISTORY: Pain [...] Electronically authenticated by: MAO CATHERINE Date: 2022-02-07 19:48[facility]10-24-2022 NotePROCEDURE: XR FOOT RT MIN [...] Electronically authenticated by: NADIA TINOCO Date: 2022-02-07 13:29[facility]10-24-2022 NotePROCEDURE: XR FOOT RT MIN [...] Electronically authenticated by: NADIA TINOCO Date: 2022-02-07 13:29[facility]11-14-2021 NoteMR#: [id number] I [facility] Pt. Name: Gemma Rodgers Admitted: 01/29/2021 Discharged: [...] was agreed that the patient come to [facility] for the procedure with Dr. Brunner and [...] Pulido MD Date Trans: 02/28/2021 03:57 A/kimberley [id number] cc: Vish Deluca M.D. 3 [facility] [id number] [facility] [address] CenterEvaluation noteNo assessment information availableUniversity Hospitals Health [facility]tr Work Phone: Evaluation noteNo InformationNort [employer] Other Evaluation note* Diagnosis Onset Date Resolution Status NSTEMI (non-ST elevated myocardial infarction) [facility] Work Phone: Evaluation note* Diagnosis Hypercholesterolemia (CMS/HCC)- Primary Pure hypercholesterolemia Benign essential hypertension (CMS/HCC) Essential hypertension, benign Colon cancer screening Special screening for malignant neoplasms, colon Prostate cancer screening Special screening for malignant neoplasm of prostate Other chronic osteomyelitis, right ankle and foot (CMS/HCC) Coronary artery disease involving [place] coronary artery of [place] heart without angina pectoris (CMS/HCC) 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 Gastroesophageal reflux disease with esophagitis without hemorrhage Acquired hypothyroidism (CMS/HCC) Unspecified hypothyroidism documented in this encounter [facility] N[facility] - Reported* Type Description Date Medical History hypertension Medical History thyroid disease Surgical History wrist surgery Surgical History rotator cuff tear repair x3 Surgical History right foot i&d x3 Hospitalization History See Above [facility] Other Summary Purpose Family History No Family [...] section and content) DATE CREATED AUTHOR 03/06/2018 [facility] DATE CREATED AUTHOR AUTHOR'S ORGANIZ ATION 08/26/2020 [facility] DATE CREATED AUTHOR AUTHOR'S ORGANIZ ATION 12/24/2021 [facility] DATE CREATED AUTHOR AUTHOR'S ORGANIZ ATION 01/17/2022 [facility] dical Specialist DATE CREATED AUTHOR AUTHOR'S ORGANIZ ATION 09/23/2022 [facility] pital DATE CREATED AUTHOR AUTHOR'S ORGANIZ ATION 03/21/2024 [facility] DATE CREATED AUTHOR AUTHOR'S ORGANIZ ATION 04/29/2024 [facility] DATE CREATED AUTHOR AUTHOR'S ORGANIZ ATION 07/12/2024 [facility] dical Specialists EPIC DATE CREATED AUTHOR AUTHOR'S ORGANIZ ATION 07/20/2024 [facility] ys[facility] Group Care Teams (unrecognized sec tion [...] February 21, 2024 End: February 21, 2024 Track Watchman Relationship Specialty Start Date End Date Vish Deluca MD [address] [facility] [address] [place] [address] PCP - General Internal Medicine 08/24/22 Goals [...] BE BASED ON THE PRIMARY CLINICAL RECORDS. [employer] provides no warranty or guarantee of the accuracy or completeness of information in this document.
== END 2024-07-26 13:01 | disposition home or self-care (01) ==
LOC: LAB 13:00
PROVIDERS: PCP Internal Medicine; Visit Provider Podiatrist Foot & Ankle Surgery
DX: L97.219 Non-pressure chronic ulcer of right calf with unspecified severity (principal)
CPT/HCPCS: 87070; 87075; 88305

== ENCOUNTER 2024-08-09 09:57 | Outpatient (OUT) | payer SELFPAY | END 2024-08-09 09:58 | disposition home or self-care (01) | LOC: WC 09:57 | PROVIDERS: PCP Internal Medicine; Visit Provider Podiatrist Foot & Ankle Surgery | DX: L97.918 Non-pressure chronic ulcer of unspecified part of right lower leg with other specified severity (principal); M71.071 Abscess of bursa, right ankle and foot; B96.89 Other specified bacterial agents as the cause of diseases classified elsewhere; S90.551A Superficial foreign body, right ankle, initial encounter; L08.89 Other specified local infections of the skin and subcutaneous tissue | CPT/HCPCS: G0463 ==